=== PATIENT | female | born 1940 | race Caucasian/White ===

== ENCOUNTER 2017-09-08 16:37 | Inpatient (IN) | payer MEDICARE ==
[~2017-09-08] VITALS: Ht 154.9 cm; Wt 51.7 kg
[2017-09-08 18:00] LABS: BASO % 1 % (0-3); EOS # 0.1 x10^3/uL (0.0-0.7); EOS % 1 % (0-3); HEMATOCRIT 38.9 % (36.0-47.0); HEMOGLOBIN 13.1 g/dL (12.0-15.5); LYMPH # 1.9 x10^3/uL (1.0-4.8); LYMPH % 32 % (24-48); MEAN CORPUSCULAR HEMOGLOBIN 31 pg (25-35); MEAN CORPUSCULAR HGB CONC 34 g/dL (31-37); MEAN CORPUSCULAR VOLUME 92 fL (79-100); MONO # 0.5 x10^3/uL (0.0-1.1); MONO % 9 % (0-9); NEUT # 3.3 x10^3uL (1.8-7.7); NEUT % 57 % (31-73); PLATELET COUNT 138 x10^3/uL (140-400); RED BLOOD COUNT 4.22 x10^6/uL (3.50-5.40); RED CELL DISTRIBUTION WIDTH 14.4 % (11.5-14.5); WHITE BLOOD COUNT 5.8 x10^3/uL (4.0-11.0)
[2017-09-08 18:11] LABS: ALBUMIN 3.4 g/dL (3.4-5.0); CALCIUM 8.9 mg/dL (8.5-10.1); CREATININE 0.8 mg/dL (0.6-1.0); GFR 69.6; MAGNESIUM 2.1 mg/dL (1.8-2.4); POTASSIUM 3.6 mmol/L (3.5-5.1); TOTAL BILIRUBIN 0.7 mg/dL (0.2-1.0); TOTAL PROTEIN 6.8 g/dL (6.4-8.2)
--- NOTE | 2017-09-08 18:15 | EKG ---
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
[2017-09-08] MEDS ORDERED: DIVA125C PO (19:16)
[2017-09-08] MEDS ORDERED: SIMV40TA3 PO (19:16)
[2017-09-08] MEDS ORDERED: CITA10TA4 PO (19:16)
[2017-09-08] MEDS ORDERED: QUET50TA5 PO (19:16)
[2017-09-08] MEDS ORDERED: DOCU-109 PO (19:16)
[2017-09-08] MEDS ORDERED: QUET100T4 PO (19:16)
[2017-09-08] MEDS ORDERED: MELA3TAB2 PO (19:16)
[2017-09-08] MEDS ORDERED: LORA0.5T PO (19:16)
[2017-09-08] MEDS ORDERED: LEVO75TA5 PO (19:16)
[2017-09-08 19:39] LABS: COLOR,URINE YELLOW
[2017-09-08 19:40] LABS: BACTERIA,URINE 0 /HPF (0-FEW); BILIRUBIN,URINE NEG (NEG); CLARITY,URINE CLEAR; GLUCOSE,URINE NEG (NEG); NITRITE,URINE NEG (NEG); UROBILINOGEN,URINE 4 mg/dL (0.2 mg/dL)
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
[2017-09-08] MEDS ORDERED: ACETAMINOPHEN 325 MG TABLET PO PRN (22:00)
[2017-09-08] MEDS ORDERED: MAGNESIUM HYDROXIDE 2,400 MG/30 ML ORAL.SUSP. PO PRN (22:00)
[2017-09-08] MEDS ORDERED: MAG HYDROX/AL HYDROX/SIMETH 30 ML ORAL.SUSP PO PRN (22:00)
[2017-09-08] MEDS ORDERED: METHYL SALICYLATE/MENTHOL TOPICAL OINTMENT 29GM TUBE. TP PRN (22:00)
[2017-09-08 22:27] LABS: VAL ACID 39 mcg/mL (50-100)
[2017-09-08] MEDS: LORazepam 0.5 MG TABLET PO PRN (22:28)
[2017-09-08] MEDS: SIMVASTATIN 40 MG TABLET. PO SCH (22:29)
[2017-09-08] MEDS: DIVALPROEX 125 MG CAP.SPRINK PO SCH (22:29)
[2017-09-08] MEDS: QUEtiapine 100 MG TABLET. PO SCH (22:29)
[2017-09-08] MEDS: MELATONIN 3 MG TABLET PO PRN (22:29)
[2017-09-08] MEDS ORDERED: CITALOPRAM 10 MG TABLET. PO SCH (22:30)
[2017-09-09 02:43] VITALS: BP 135/62
[2017-09-09] MEDS ORDERED: LEVOTHYROXINE 75 MCG TABLET PO SCH (07:00)
[2017-09-09] MEDS ORDERED: FLU VACC QS2017-18 (36MOS+)/PF 0.5 ML SYRINGE. VAX IM ONE (09:00)
[2017-09-09] MEDS ORDERED: PNEUMOC CONJ VACC 23-VALENT 0.5 ML VIAL. VAX IM ONE (09:00)
[2017-09-09] MEDS: QUEtiapine 50 MG TABLET. PO SCH ×2 (11:40→14:03)
[2017-09-09] MEDS: DIVALPROEX 125 MG CAP.SPRINK PO SCH ×3 (11:40→19:28)
--- NOTE | 2017-09-09 11:47 | PDOC1 ---
History of Present Illness Reason for Visit: Abnormal behaviors History of Present Illness Pt sent to [facility] for evaluation in the [facility] unit due to dementia w/ worsening behaviors. Pt is a poor historian and does not offer much when spoken to, so the majority of this information is obtained from staff and pt's chart. Pt had apparently been living w/ her until about 4 months ago. She eventually was placed in a [place] memory care unit, and did not thrive. She lost weight and per reports things worsened. When I talked to her today, she would only say "yes" and "no," does not offer much other information. Chief Complaint: PSYCH EVALUATION Allergies: Coded Allergies: meclizine (Verified Allergy, Unknown, 09/08/17) Past Medical History Cardiac: hyperipidemia BAT[employer] CON[employer] FINISHING HAND: Dementia Psych: Depression Renal/: UTI Past Surgical History: No pertinent history Family History: No pertinent hx Past Social History Smoke: No Alcohol: none Drugs: None Lives: Long-Term Review of Systems Review Of Systems ROS unobtainable due to pt's dementia Allergies: Coded Allergies: meclizine (Verified Allergy, Unknown, 09/08/17) Medications Current Medications Acetaminophen (Tylenol) 650 mg PRN Q6HRS PRN PO PAIN / TEMP; Start 09/08/17 at 22:00 Multi-Ingredient Ointment (Analgesic [place]) 1 krzysztof PRN QID PRN TP MUSCLE PAIN; Start 09/08/17 at 22:00 Al Hydroxide/Mg Hydroxide (Mylanta Plus Xs) 15 ml PRN AFTMEALHC PRN PO DYSPEPSIA; Start 09/08/17 at 22:00 Magnesium Hydroxide (Milk Of Magnesia) 2,400 mg PRN QHS PRN PO CONSTIPATION; Start 09/08/17 at 22:00 Citalopram Hydrobromide (CeleXA) 30 mg QHS PO Last administered on 09/08/17at 22 :28; Start 09/08/17 at 22:30 Divalproex Sodium (Depakote Sprinkles) 125 mg TID PO Last administered on at 11:40; Start 09/08/17 at 22:30 Lorazepam (Ativan) 0.5 mg PRN Q12HR PRN PO ANXIETY / AGITATION Last administered on 09/08/17at 22:28; Start 09/08/17 at 22:00 Quetiapine Fumarate (SEROquel) 50 mg BID@0900,1300 PO Last administered on 09/09at 11:40; Start 09/09/17 at 09:00 Quetiapine Fumarate (SEROquel) 100 mg QHS PO Last administered on 09/08/17at 22: 29; Start 09/08/17 at 22:30 Melatonin 3 mg PRN QHS PRN PO INSOMNIA Last administered on 09/08/17at 22:29; Start 09/08/17 at 22:15 Docusate Sodium (Colace) 100 mg QTUTHSA PO ; Start 09/09/17 at 16:00 Levothyroxine Sodium (Synthroid) 75 mcg DAILY07 PO Last administered on at 05:44; Start 09/09/17 at 07:00 Simvastatin (Zocor) 40 mg HS PO Last administered on 09/08/17at 22:29; Start at 22:30 Influenza Virus Vaccine Quadrival (Fluarix Quad Syringe) 0.5 ml ONCE ONCE VAX IM ; Start 09/09/17 at 09:00; Stop 09/09/17 at 11:44; Status DC Pneumococcal Polyvalent Vaccine (Pneumovax 23) 0.5 ml ONCE ONCE VAX IM ; Start 09/09/17 at 09:00; Stop 09/09/17 at 11:44; Status DC Influenza Virus Vaccine Quadrival (Fluarix Quad Syringe) 0.5 ml ONCE ONCE VAX IM ; Start 09/11/17 at 13:00; Stop 09/11/17 at 13:01 Pneumococcal Polyvalent Vaccine (Pneumovax 23) 0.5 ml ONCE ONCE VAX IM ; Start 09/11/17 at 13:00; Stop 09/11/17 at 13:01 Active Scripts Active Reported Melatonin 3 Mg Tablet 3 Mg PO PRN QHS PRN Lorazepam 0.5 Mg Tablet 0.5 Mg PO PRN Q12HR PRN Depakote Sprinkle (Divalproex Sodium) 125 Mg Cap.sprink 125 Mg PO TID Seroquel (Quetiapine Fumarate) 50 Mg Tablet 50 Mg PO BID@0900,1300 Simvastatin 40 Mg Tablet 40 Mg PO HS Seroquel (Quetiapine Fumarate) 100 Mg Tablet 100 Mg PO QHS Levothyroxine Sodium 75 Mcg Tablet 75 Mcg PO DAILY07 Colace (Docusate Sodium) 100 Mg Capsule 100 Mg PO QTUTHSA Citalopram Hbr (Citalopram Hydrobromide) 10 Mg Tablet 30 Mg PO QHS Exam Vital Signs Vital Signs Date Time Temp Pulse Resp B/P (MAP) Pulse Ox O2 Delivery O2 Flow Rate FiO2 09/09/17 02:43 98.0 59 18 135/62 (86) 97 Room Air General Appearance: Alert, Cooperative, No acute distress HEENT: Atraumatic, PERRLA, EOMI, Mucous membr. moist/pink, Other (Neck without JVD or LAD) Respiratory: Clear to auscultation, Normal air movement Heart: Regular rate, Normal S1, Normal S2, No murmurs Abdominal: Soft, No tenderness, No hepatospenomegaly, No masses Skin: No rashes Neuro: Normal speech, Normal tone, Cranial nerves 3-12 NL Psych/Mental Status: Other (Pt confused, does not answer questions other than y /n) Assessment/Plan Assessment/Plan 1. Dementia w/ behavioral disturbance: Per Dr. Fontana. 2. Hypothyroidism: TSH low. Will decrease Levothyroxine dose to 50 mcg from 75, and repeat TSH in 4 weeks. 3. Vitamin D deficiency: 50,000 IU Vit D3 weekly x 8 weeks. 4. DVT proph: Pt fully ambulatory, low risk, no need for heparin. 5. HPL: Continue home meds. COURSE Allergies Coded Allergies Type Severity Reaction Last Updated Verified meclizine Allergy Unknown 09/08/17 Yes Laboratory Tests Test 09/08/17 17:39 09/08/17 18:41 White Blood Count 5.8 x10^3/uL (4.0-11.0) Red Blood Count 4.22 x10^6/uL (3.50-5.40) Hemoglobin 13.1 g/dL (12.0-15.5) Hematocrit 38.9 % (36.0-47.0) Mean Corpuscular Volume 92 fL (79-100) Mean Corpuscular Hemoglobin 31 pg (25-35) Mean Corpuscular Hemoglobin Concent 34 g/dL (31-37) Red Cell Distribution Width 14.4 % (11.5-14.5) Platelet Count 138 x10^3/uL (140-400) Neutrophils (%) (Auto) 57 % (31-73) Lymphocytes (%) (Auto) 32 % (24-48) Monocytes (%) (Auto) 9 % (0-9) Eosinophils (%) (Auto) 1 % (0-3) Basophils (%) (Auto) 1 % (0-3) Neutrophils # (Auto) 3.3 x10^3uL (1.8-7.7) Lymphocytes # (Auto) 1.9 x10^3/uL (1.0-4.8) Monocytes # (Auto) 0.5 x10^3/uL (0.0-1.1) Eosinophils # (Auto) 0.1 x10^3/uL (0.0-0.7) Basophils # (Auto) 0.0 x10^3/uL (0.0-0.2) Sodium Level 144 mmol/L (136-145) Potassium Level 3.6 mmol/L (3.5-5.1) Chloride Level 107 mmol/L (98-107) Carbon Dioxide Level 29 mmol/L (21-32) Anion Gap 8 (6-14) Blood Urea Nitrogen 17 mg/dL (7-20) Creatinine 0.8 mg/dL (0.6-1.0) Estimated GFR (Cockcroft-Gault) 69.6 BUN/Creatinine Ratio 21 (6-20) Glucose Level 94 mg/dL (70-99) Calcium Level 8.9 mg/dL (8.5-10.1) Magnesium Level 2.1 mg/dL (1.8-2.4) Total Bilirubin 0.7 mg/dL (0.2-1.0) Aspartate Amino Transf (AST/SGOT) 19 U/L (15-37) Alanine Aminotransferase (ALT/SGPT) 21 U/L (14-59) Alkaline Phosphatase 68 U/L (46-116) Total Protein 6.8 g/dL (6.4-8.2) Albumin 3.4 g/dL (3.4-5.0) Albumin/Globulin Ratio 1.0 (1.0-1.7) Valproic Acid (Depakene) Level 39 mcg/mL (50-100) Valproic Acid Last Dose Date 09/08/17 Valproic Acid Last Dose Time 1300 Urine Collection Type U cath Urine Color Yellow Urine Clarity Clear Urine pH 7.0 Urine Specific [place] 1.020 Urine Protein 30 mg/dl (NEG-TRACE) Urine Glucose (UA) Neg mg/dL (NEG) Urine Ketones (Stick) 40 mg/dL (NEG) Urine Blood Neg (NEG) Urine Nitrite Neg (NEG) Urine Bilirubin Neg (NEG) Urine Urobilinogen Dipstick 4 mg/dL (0.2 mg/dL) Urine Leukocyte Esterase Neg (NEG) Urine RBC 3-5 /HPF (0-2) Urine WBC 1-4 /HPF (0-4) Urine Squamous Epithelial Cells None /LPF Urine Bacteria 0 /HPF (0-FEW) Urine Mucus Mod /LPF Current Medications Medications (Trade) Dose Ordered Sig/Von Route PRN Reason Start Time Stop Time Status Last Admin Dose Admin Acetaminophen (Tylenol) 650 mg PRN Q6HRS PRN PO PAIN / TEMP 09/08/17 22:00 Multi-Ingredient Ointment (Analgesic [place]) 1 krzysztof PRN QID PRN TP MUSCLE PAIN 09/08/17 22:00 Al Hydroxide/Mg Hydroxide (Mylanta Plus Xs) 15 ml PRN AFTMEALHC PRN PO DYSPEPSIA 09/08/17 22:00 Magnesium Hydroxide (Milk Of Magnesia) 2,400 mg PRN QHS PRN PO CONSTIPATION 09/08/17 22:00 Citalopram Hydrobromide (CeleXA) 30 mg QHS PO 09/08/17 22:30 09/08/17 22:28 Divalproex Sodium (Depakote Sprinkles) 125 mg TID PO 09/08/17 22:30 09/09/17 11:40 Lorazepam (Ativan) 0.5 mg PRN Q12HR PRN PO ANXIETY / AGITATION 09/08/17 22:00 09/08/17 22:28 Quetiapine Fumarate (SEROquel) 50 mg BID@0900,1300 PO 09/09/17 09:00 09/09/17 11:40 Quetiapine Fumarate (SEROquel) 100 mg QHS PO 09/08/17 22:30 09/08/17 22:29 Melatonin 3 mg PRN QHS PRN PO INSOMNIA 09/08/17 22:15 09/08/17 22:29 Docusate Sodium (Colace) 100 mg QTUTHSA PO 09/09/17 16:00 Levothyroxine Sodium (Synthroid) 75 mcg DAILY07 PO 09/09/17 07:00 09/09/17 05:44 Simvastatin (Zocor) 40 mg HS PO 09/08/17 22:30 09/08/17 22:29 Influenza Virus Vaccine Quadrival (Fluarix Quad Syringe) 0.5 ml ONCE ONCE VAX IM 09/09/17 09:00 09/09/17 11:44 DC Pneumococcal Polyvalent Vaccine (Pneumovax 23) 0.5 ml ONCE ONCE VAX IM 09/09/17 09:00 09/09/17 11:44 DC Influenza Virus Vaccine Quadrival (Fluarix Quad Syringe) 0.5 ml ONCE ONCE VAX IM 09/11/17 13:00 09/11/17 13:01 Pneumococcal Polyvalent Vaccine (Pneumovax 23) 0.5 ml ONCE ONCE VAX IM 09/11/17 13:00 09/11/17 13:01 I & O 09/09/17 00:00 Intake Total 240 ml Balance 240 ml Vital Signs Date Time Temp Pulse Resp B/P (MAP) Pulse Ox O2 Delivery O2 Flow Rate FiO2 09/09/17 02:43 98.0 59 18 135/62 (86) 97 Room Air BRYAN STOVER MD Sep 09, 2017 11:47
[2017-09-09] MEDS: LORazepam 0.5 MG TABLET PO PRN (12:21)
[2017-09-09 13:40] LABS: THYROID STIM HORMONE (TSH) 0.309 uIU/mL (0.358-3.740)
--- NOTE | 2017-09-09 15:08 | RAD ---
CT HEAD WO CONTRAST History: Memory impairment Comparison: None. Technique: Noncontrast CT imaging was performed of the head. Exposure: One or more of the following individualized dose reduction techniques were utilized for this examination: 1. Automated exposure control 2. Adjustment of the mA and/or kV according to patient size 3. Use of iterative reconstruction technique. Findings: No acute extra-axial or parenchymal hemorrhage is identified. There is no significant intra-axial mass effect, midline shift, or extra-axial fluid collection. The bolaños-white differentiation of the major vascular territories is preserved. There is mild third and lateral ventriculomegaly although proportionate to the sulcal spaces, mild/moderate generalized supratentorial atrophy. The mastoid air cells and the visualized paranasal sinuses are aerated. No acute calvarial abnormality is identified. There is some atherosclerotic calcification carotid siphons and left intradural vertebral artery. Impression: 1. There is generalized supratentorial atrophy, no acute intracranial abnormality identified. Electronically signed by: Darshan Banda MD (09/09/2017 3:06 PM) [id number]
[2017-09-09] MEDS ORDERED: DOCUSATE SODIUM 100 MG CAPSULE PO SCH (16:00)
[2017-09-09 18:07] VITALS: BP 117/66
[2017-09-09] MEDS: QUEtiapine 100 MG TABLET. PO SCH (19:28)
[2017-09-09] MEDS: SIMVASTATIN 40 MG TABLET. PO SCH (19:28)
[2017-09-09] MEDS: DULoxetine HCL 20 MG CAPSULE.DR PO SCH (19:30)
[2017-09-09] MEDS: MELATONIN 3 MG TABLET PO PRN (19:34)
--- NOTE | 2017-09-09 20:44 | PDOC ---
Exam Note: [place] Note: Please also refer to the separate dictated note~for this date of service dictated separately.~Patient seen individually. Discussed the patient with Nursing staff reviewed the chart.~Reviewed interim history and current functioning. Reviewed vital signs,~Labs/ Radiology~and current medications noted below. Continue current treatment with the changes noted in the dictated addendum note Assessment: Vital Signs: Vital Signs Date Time Temp Pulse Resp B/P (MAP) Pulse Ox O2 Delivery O2 Flow Rate FiO2 09/09/17 18:07 97.8 63 20 117/66 (83) 97 09/09/17 02:43 Room Air I&O Intake and Output 09/09/17 07:00 Intake Total 240 ml Balance 240 ml Intake Oral 240 ml Current Medications: Meds: Current Medications Acetaminophen (Tylenol) 650 mg PRN Q6HRS PRN PO PAIN / TEMP; Start 09/08/17 at 22:00 Multi-Ingredient Ointment (Analgesic [place]) 1 krzysztof PRN QID PRN TP MUSCLE PAIN; Start 09/08/17 at 22:00 Al Hydroxide/Mg Hydroxide (Mylanta Plus Xs) 15 ml PRN AFTMEALHC PRN PO DYSPEPSIA; Start 09/08/17 at 22:00 Magnesium Hydroxide (Milk Of Magnesia) 2,400 mg PRN QHS PRN PO CONSTIPATION; Start 09/08/17 at 22:00 Citalopram Hydrobromide (CeleXA) 30 mg QHS PO Last administered on 09/08/17at 22 :28; Start 09/08/17 at 22:30; Stop 09/09/17 at 18:16; Status DC Divalproex Sodium (Depakote Sprinkles) 125 mg TID PO Last administered on at 19:28; Start 09/08/17 at 22:30 Lorazepam (Ativan) 0.5 mg PRN Q12HR PRN PO ANXIETY / AGITATION Last administered on 09/09/17at 12:21; Start 09/08/17 at 22:00 Quetiapine Fumarate (SEROquel) 50 mg BID@0900,1300 PO Last administered on 09/09at 14:03; Start 09/09/17 at 09:00 Quetiapine Fumarate (SEROquel) 100 mg QHS PO Last administered on 09/09/17at 19: 28; Start 09/08/17 at 22:30 Melatonin 3 mg PRN QHS PRN PO INSOMNIA Last administered on 09/09/17at 19:34; Start 09/08/17 at 22:15 Docusate Sodium (Colace) 100 mg QTUTHSA PO Last administered on 09/09/17at 16:27 ; Start 09/09/17 at 16:00 Levothyroxine Sodium (Synthroid) 75 mcg DAILY07 PO Last administered on at 05:44; Start 09/09/17 at 07:00; Stop 09/09/17 at 14:30; Status DC Simvastatin (Zocor) 40 mg HS PO Last administered on 09/09/17 19:28; Start at 22:30 Influenza Virus Vaccine Quadrival (Fluarix Quad Syringe) 0.5 ml ONCE ONCE VAX IM ; Start 09/09/17 at 09:00; Stop 09/09/17 at 11:44; Status DC Pneumococcal Polyvalent Vaccine (Pneumovax 23) 0.5 ml ONCE ONCE VAX IM ; Start 09/09/17 at 09:00; Stop 09/09/17 at 11:44; Status DC Influenza Virus Vaccine Quadrival (Fluarix Quad Syringe) 0.5 ml ONCE ONCE VAX IM ; Start 09/11/17 at 13:00; Stop 09/11/17 at 13:01 Pneumococcal Polyvalent Vaccine (Pneumovax 23) 0.5 ml ONCE ONCE VAX IM ; Start 09/11/17 at 13:00; Stop 09/11/17 at 13:01 Levothyroxine Sodium (Synthroid) 50 mcg DAILY06 PO ; Start 09/10/17 at 06:00 Vitamin D (Vitamin D3) 50,000 unit WEEKLY PO ; Start 09/10/17 at 09:00; Stop at 08:59 Duloxetine HCl (Cymbalta) 20 mg HS PO Last administered on 09/09/17at 19:30; Start 09/09/17 at 21:00 Active Scripts Active Reported Melatonin 3 Mg Tablet 3 Mg PO PRN QHS PRN Lorazepam 0.5 Mg Tablet 0.5 Mg PO PRN Q12HR PRN Depakote Sprinkle (Divalproex Sodium) 125 Mg Cap.sprink 125 Mg PO TID Seroquel (Quetiapine Fumarate) 50 Mg Tablet 50 Mg PO BID@0900,1300 Simvastatin 40 Mg Tablet 40 Mg PO HS Seroquel (Quetiapine Fumarate) 100 Mg Tablet 100 Mg PO QHS Levothyroxine Sodium 75 Mcg Tablet 75 Mcg PO DAILY07 Colace (Docusate Sodium) 100 Mg Capsule 100 Mg PO QTUTHSA Citalopram Hbr (Citalopram Hydrobromide) 10 Mg Tablet 30 Mg PO QHS I have reviewed the current psychotropics carefully including drug interactions. Risk benefit ratio favors no change other than as noted in my dictated progress note. Diagnosis: Problems: (1) Anxiety disorder (2) Dementia in Alzheimer's disease with delusions (3) Dementia in Alzheimer's disease with depression (4) Dementia, vascular, with delusions (5) Dementia, vascular, with depression (6) Impulse control disorder KODY GODINEZ MD Sep 09, 2017 20:44
[2017-09-09 22:11] LABS: T3 TOTAL 80 ng/dL (71-180); THYROXINE 8.3 ug/dL (4.5-12.0)
[2017-09-10 03:12] LABS: HEMOGLOBIN A1C 5.5 % (4.8-5.6)
[2017-09-10] MEDS: LEVOTHYROXINE 50 MCG TABLET PO SCH (05:53)
[2017-09-10 06:27] VITALS: BP 112/81
[2017-09-10] MEDS: DIVALPROEX 125 MG CAP.SPRINK PO SCH ×3 (09:03→19:23)
[2017-09-10] MEDS: QUEtiapine 50 MG TABLET. PO SCH ×2 (09:03→13:57)
[2017-09-10] MEDS: CHOLECALCIFEROL (VITAMIN D3) 50,000 UNIT CAPSULE PO SCH (09:03)
[2017-09-10 15:54] VITALS: BP 118/71
[2017-09-10] MEDS: QUEtiapine 100 MG TABLET. PO SCH (19:23)
[2017-09-10] MEDS: SIMVASTATIN 40 MG TABLET. PO SCH (19:23)
[2017-09-10] MEDS: DULoxetine HCL 20 MG CAPSULE.DR PO SCH (19:23)
[2017-09-10] MEDS: MELATONIN 3 MG TABLET PO PRN (19:24)
--- NOTE | 2017-09-10 19:29 | PN ---
DATE: 09/09/2017 This is a late entry for 09/09/2017 and covers the elements not covered in my initial note of 09/09/2017. SUBJECTIVE: I met with the patient in the evening of 09/09/2017. The patient slept 5-1/2 hours previous evening, remains confused, oriented to herself only. Previous night, she was calm, compliant after the family left. She had Boost. CT head is unremarkable other than the atrophy. REVIEW OF SYSTEMS: No CV, , pulmonary, eye, ENT system symptoms on review. Reliability poor. MENTAL STATUS EXAM: Oriented to herself. Insight, judgment, recent and remote memory, attention, concentration, fund of knowledge poor, consistent with her diagnosis mentioned in my initial note. PLAN: Continue current psychotropics, but change the Celexa to Cymbalta 20 mg a day. Maintain Seroquel, Depakote. Valproic acid level is 39. May need to adjust the Depakote. Continue melatonin along with Ativan p.r.n. KODY GODINEZ MD DR: CAROLYN/maria isabel JOB#: [id number] / [id number]
--- NOTE | 2017-09-10 20:53 | PDOC ---
Exam Note: Wilmar Note: Please also refer to the separate dictated note~for this date of service dictated separately.~Patient seen individually. Discussed the patient with Nursing staff reviewed the chart.~Reviewed interim history and current functioning. Reviewed vital signs,~Labs/ Radiology~and current medications noted below. Continue current treatment with the changes noted in the dictated addendum note Assessment: Vital Signs: Vital Signs Date Time Temp Pulse Resp B/P (MAP) Pulse Ox O2 Delivery O2 Flow Rate FiO2 09/10/17 15:54 98.4 72 18 118/71 (87) 97 09/09/17 02:43 Room Air I&O Intake and Output 09/10/17 07:00 Intake Total 30 ml Balance 30 ml Intake Oral 30 ml Current Medications: Meds: Current Medications Acetaminophen (Tylenol) 650 mg PRN Q6HRS PRN PO PAIN / TEMP; Start 09/08/17 at 22:00 Multi-Ingredient Ointment (Analgesic [place]) 1 krzysztof PRN QID PRN TP MUSCLE PAIN; Start 09/08/17 at 22:00 Al Hydroxide/Mg Hydroxide (Mylanta Plus Xs) 15 ml PRN AFTMEALHC PRN PO DYSPEPSIA; Start 09/08/17 at 22:00 Magnesium Hydroxide (Milk Of Magnesia) 2,400 mg PRN QHS PRN PO CONSTIPATION; Start 09/08/17 at 22:00 Citalopram Hydrobromide (CeleXA) 30 mg QHS PO Last administered on 09/08/17at 22 :28; Start 09/08/17 at 22:30; Stop 09/09/17 at 18:16; Status DC Divalproex Sodium (Depakote Sprinkles) 125 mg TID PO Last administered on at 19:23; Start 09/08/17 at 22:30 Lorazepam (Ativan) 0.5 mg PRN Q12HR PRN PO ANXIETY / AGITATION Last administered on 09/09/17at 12:21; Start 09/08/17 at 22:00 Quetiapine Fumarate (SEROquel) 50 mg BID@0900,1300 PO Last administered on 09/10at 13:57; Start 09/09/17 at 09:00 Quetiapine Fumarate (SEROquel) 100 mg QHS PO Last administered on 09/10/17at 19: 23; Start 09/08/17 at 22:30 Melatonin 3 mg PRN QHS PRN PO INSOMNIA Last administered on 09/10/17at 19:24; Start 09/08/17 at 22:15 Docusate Sodium (Colace) 100 mg QTUTHSA PO Last administered on 09/09/17at 16:27 ; Start 09/09/17 at 16:00; Stop 09/10/17 at 16:13; Status DC Levothyroxine Sodium (Synthroid) 75 mcg DAILY07 PO Last administered on at 05:44; Start 09/09/17 at 07:00; Stop 09/09/17 at 14:30; Status DC Simvastatin (Zocor) 40 mg HS PO Last administered on 09/10/17at 19:23; Start at 22:30 Influenza Virus Vaccine Quadrival (Fluarix Quad Syringe) 0.5 ml ONCE ONCE VAX IM ; Start 09/09/17 at 09:00; Stop 09/09/17 at 11:44; Status DC Pneumococcal Polyvalent Vaccine (Pneumovax 23) 0.5 ml ONCE ONCE VAX IM ; Start 09/09/17 at 09:00; Stop 09/09/17 at 11:44; Status DC Influenza Virus Vaccine Quadrival (Fluarix Quad Syringe) 0.5 ml ONCE ONCE VAX IM ; Start 09/11/17 at 13:00; Stop 09/11/17 at 13:01 Pneumococcal Polyvalent Vaccine (Pneumovax 23) 0.5 ml ONCE ONCE VAX IM ; Start 09/11/17 at 13:00; Stop 09/11/17 at 13:01 Levothyroxine Sodium (Synthroid) 50 mcg DAILY06 PO Last administered on at 05:53; Start 09/10/17 at 06:00 Vitamin D (Vitamin D3) 50,000 unit WEEKLY PO Last administered on 09/10/17at 09: 03; Start 09/10/17 at 09:00; Stop 11/14/17 at 08:59 Duloxetine HCl (Cymbalta) 20 mg HS PO Last administered on 09/10/17at 19:23; Start 09/09/17 at 21:00 Docusate Sodium (Colace Solution) 100 mg DAILY PO ; Start 09/11/17 at 09:00 Active Scripts Active Reported Melatonin 3 Mg Tablet 3 Mg PO PRN QHS PRN Lorazepam 0.5 Mg Tablet 0.5 Mg PO PRN Q12HR PRN Depakote Sprinkle (Divalproex Sodium) 125 Mg Cap.sprink 125 Mg PO TID Seroquel (Quetiapine Fumarate) 50 Mg Tablet 50 Mg PO BID@0900,1300 Simvastatin 40 Mg Tablet 40 Mg PO HS Seroquel (Quetiapine Fumarate) 100 Mg Tablet 100 Mg PO QHS Levothyroxine Sodium 75 Mcg Tablet 75 Mcg PO DAILY07 Colace (Docusate Sodium) 100 Mg Capsule 100 Mg PO QTUTHSA Citalopram Hbr (Citalopram Hydrobromide) 10 Mg Tablet 30 Mg PO QHS I have reviewed the current psychotropics carefully including drug interactions. Risk benefit ratio favors no change other than as noted in my dictated progress note. Diagnosis: Problems: (1) Anxiety disorder (2) Dementia in Alzheimer's disease with delusions (3) Dementia in Alzheimer's disease with depression (4) Dementia, vascular, with delusions (5) Dementia, vascular, with depression (6) Impulse control disorder KODY GODINEZ MD Sep 10, 2017 20:53
[2017-09-11] MEDS: LEVOTHYROXINE 50 MCG TABLET PO SCH (05:42)
[2017-09-11 05:49] VITALS: BP 114/54
[2017-09-11] MEDS: QUEtiapine 50 MG TABLET. PO SCH ×3 (09:00→13:49)
[2017-09-11] MEDS: DOCUSATE 100 MG/10 ML SOLUTION. PO SCH ×2 (09:00→09:40)
[2017-09-11] MEDS: DIVALPROEX 125 MG CAP.SPRINK PO SCH ×3 (09:37→17:38)
[2017-09-11] MEDS: LORazepam 0.5 MG TABLET PO PRN (10:14)
[2017-09-11] MEDS ORDERED: PNEUMOC CONJ VACC 23-VALENT 0.5 ML VIAL. VAX IM ONE (13:00)
[2017-09-11] MEDS ORDERED: FLU VACC QS2017-18 (36MOS+)/PF 0.5 ML SYRINGE. VAX IM ONE (13:00)
[2017-09-11 16:00] VITALS: BP 97/53
[2017-09-11] MEDS: SIMVASTATIN 40 MG TABLET. PO SCH (19:47)
[2017-09-11] MEDS: QUEtiapine 100 MG TABLET. PO SCH (19:47)
[2017-09-11] MEDS: DULoxetine HCL 20 MG CAPSULE.DR PO SCH (19:47)
[2017-09-11] MEDS: MELATONIN 3 MG TABLET PO PRN (19:48)
--- NOTE | 2017-09-11 20:55 | PDOC ---
Exam Note: Wilmar Note: Please also refer to the separate dictated note~for this date of service dictated separately.~Patient seen individually. Discussed the patient with Nursing staff reviewed the chart.~Reviewed interim history and current functioning. Reviewed vital signs,~Labs/ Radiology~and current medications noted below. Continue current treatment with the changes noted in the dictated addendum note Assessment: Vital Signs: Vital Signs Date Time Temp Pulse Resp B/P (MAP) Pulse Ox O2 Delivery O2 Flow Rate FiO2 09/11/17 16:00 98.5 67 20 97/53 (68) 99 09/09/17 02:43 Room Air I&O Intake and Output 09/11/17 07:00 Intake Total 1260 ml Balance 1260 ml Intake Oral 1260 ml # Voids 2 Current Medications: Meds: Current Medications Acetaminophen (Tylenol) 650 mg PRN Q6HRS PRN PO PAIN / TEMP; Start 09/08/17 at 22:00 Multi-Ingredient Ointment (Analgesic [place]) 1 krzysztof PRN QID PRN TP MUSCLE PAIN; Start 09/08/17 at 22:00 Al Hydroxide/Mg Hydroxide (Mylanta Plus Xs) 15 ml PRN AFTMEALHC PRN PO DYSPEPSIA; Start 09/08/17 at 22:00 Magnesium Hydroxide (Milk Of Magnesia) 2,400 mg PRN QHS PRN PO CONSTIPATION; Start 09/08/17 at 22:00 Citalopram Hydrobromide (CeleXA) 30 mg QHS PO Last administered on 09/08/17at 22 :28; Start 09/08/17 at 22:30; Stop 09/09/17 at 18:16; Status DC Divalproex Sodium (Depakote Sprinkles) 125 mg TID PO Last administered on at 19:23; Start 09/08/17 at 22:30; Stop 09/11/17 at 10:51; Status DC Lorazepam (Ativan) 0.5 mg PRN Q12HR PRN PO ANXIETY / AGITATION Last administered on 09/11/17at 10:14; Start 09/08/17 at 22:00 Quetiapine Fumarate (SEROquel) 50 mg BID@0900,1300 PO Last administered on 09/11at 13:49; Start 09/09/17 at 09:00 Quetiapine Fumarate (SEROquel) 100 mg QHS PO Last administered on 09/11/17at 19: 47; Start 09/08/17 at 22:30 Melatonin 3 mg PRN QHS PRN PO INSOMNIA Last administered on 09/11/17at 19:48; Start 09/08/17 at 22:15 Docusate Sodium (Colace) 100 mg QTUTHSA PO Last administered on 09/09/17at 16:27 ; Start 09/09/17 at 16:00; Stop 09/10/17 at 16:13; Status DC Levothyroxine Sodium (Synthroid) 75 mcg DAILY07 PO Last administered on at 05:44; Start 09/09/17 at 07:00; Stop 09/09/17 at 14:30; Status DC Simvastatin (Zocor) 40 mg HS PO Last administered on 09/11/17at 19:47; Start at 22:30 Influenza Virus Vaccine Quadrival (Fluarix Quad Syringe) 0.5 ml ONCE ONCE VAX IM ; Start 09/09/17 at 09:00; Stop 09/09/17 at 11:44; Status DC Pneumococcal Polyvalent Vaccine (Pneumovax 23) 0.5 ml ONCE ONCE VAX IM ; Start 09/09/17 at 09:00; Stop 09/09/17 at 11:44; Status DC Influenza Virus Vaccine Quadrival (Fluarix Quad Syringe) 0.5 ml ONCE ONCE VAX IM Last administered on 09/11/17at 15:23; Start 09/11/17 at 13:00; Stop 09/11/17 at 13:01; Status DC Pneumococcal Polyvalent Vaccine (Pneumovax 23) 0.5 ml ONCE ONCE VAX IM Last administered on 09/11/17at 15:25; Start 09/11/17 at 13:00; Stop 09/11/17 at 13:01 ; Status DC Levothyroxine Sodium (Synthroid) 50 mcg DAILY06 PO Last administered on at 05:42; Start 09/10/17 at 06:00 Vitamin D (Vitamin D3) 50,000 unit WEEKLY PO Last administered on 09/10/17at 09: 03; Start 09/10/17 at 09:00; Stop 11/14/17 at 08:59 Duloxetine HCl (Cymbalta) 20 mg HS PO Last administered on 09/11/17at 19:47; Start 09/09/17 at 21:00 Docusate Sodium (Colace Solution) 100 mg DAILY PO ; Start 09/11/17 at 09:00 Divalproex Sodium (Depakote Sprinkles) 125 mg BID@1300,1700 PO Last administered on 09/11/17at 17:38; Start 09/11/17 at 13:00 Divalproex Sodium (Depakote Sprinkles) 250 mg DAILY PO ; Start 09/12/17 at 09:00 Active Scripts Active Reported Melatonin 3 Mg Tablet 3 Mg PO PRN QHS PRN Lorazepam 0.5 Mg Tablet 0.5 Mg PO PRN Q12HR PRN Depakote Sprinkle (Divalproex Sodium) 125 Mg Cap.sprink 125 Mg PO TID Seroquel (Quetiapine Fumarate) 50 Mg Tablet 50 Mg PO BID@0900,1300 Simvastatin 40 Mg Tablet 40 Mg PO HS Seroquel (Quetiapine Fumarate) 100 Mg Tablet 100 Mg PO QHS Levothyroxine Sodium 75 Mcg Tablet 75 Mcg PO DAILY07 Colace (Docusate Sodium) 100 Mg Capsule 100 Mg PO QTUTHSA Citalopram Hbr (Citalopram Hydrobromide) 10 Mg Tablet 30 Mg PO QHS I have reviewed the current psychotropics carefully including drug interactions. Risk benefit ratio favors no change other than as noted in my dictated progress note. Diagnosis: Problems: (1) Anxiety disorder (2) Dementia in Alzheimer's disease with delusions (3) Dementia in Alzheimer's disease with depression (4) Dementia, vascular, with delusions (5) Dementia, vascular, with depression (6) Impulse control disorder KODY GODINEZ MD Sep 11, 2017 20:55
[2017-09-12] MEDS: LEVOTHYROXINE 50 MCG TABLET PO SCH (06:02)
--- NOTE | 2017-09-12 10:09 | PN ---
DATE: 09/10/2017 This is a late entry 09/10/2017 covers elements not covered in my initial note 09/10/2017. I met with the patient evening of 09/10/2017. The patient did take a shower, slept 7-1/2 hours previous evening, slept all day the previous day, wandering, confused, disorganized on 09/10/2017, less agitated, had breakfast and lunch. REVIEW OF SYSTEMS: No CV, , pulmonary, eye, ENT system symptoms on review. Reliability poor. MENTAL STATUS EXAM: Oriented to herself. Insight, judgment, recent and remote memory, attention, concentration, fund of knowledge poor, consistent with her diagnosis mentioned in my initial note. PLAN: Continue current psychotropics. Adjust further as clinically indicated. She was on antidepressant, was changed to Cymbalta and we may have to adjust the Seroquel and Depakote gradually. KODY GODINEZ MD DR: CAROLYN/maria isabel JOB#: [id number] / [id number]
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
[2017-09-12] MEDS: LORazepam 0.5 MG TABLET PO PRN (10:42)
[2017-09-12] MEDS: DOCUSATE 100 MG/10 ML SOLUTION. PO SCH (10:42)
[2017-09-12] MEDS: DIVALPROEX 125 MG CAP.SPRINK PO SCH ×4 (10:42→17:10)
[2017-09-12] MEDS: QUEtiapine 50 MG TABLET. PO SCH ×2 (10:42→13:27)
--- NOTE | 2017-09-12 15:54 | PN ---
DATE: 09/11/2017 This late entry date of service 09/11/2017 covers elements not covered in my initial note of 09/11/2017. SUBJECTIVE: The patient was staffed with the entire team morning of 09/11/2017. Seen individually evening of 09/11/2017. She was agitated in the morning, restless, anxious, labile, received Ativan at 10:00 a.m. and has been up and down all day in her mood lability. Appetite remains poor at times, but she did eat breakfast, lunch, nothing for dinner. Slept 7-1/2 hours. REVIEW OF SYSTEMS: No CV, , pulmonary, eye, ENT system symptoms on review. Reliability poor. MENTAL STATUS EXAM: Oriented to herself. Insight, judgment, recent and remote memory, attention, concentration, fund of knowledge poor, consistent with her diagnosis mentioned in my initial note. IMPRESSION: Major neurocognitive disorder, Alzheimer, vascular with depression, delusion, behavioral disturbance. Rest unchanged. PLAN: Valproic acid level subtherapeutic at 39. Increase Depakote from 125 mg 3 times a day to 250 mg a.m. and p.m., 125 mg in the afternoon. Check CBC, CMP, valproic acid level in 3 days. Continue rest unchanged. MAN Araceli GODINEZ MD DR: CAROLYN/maria isabel JOB#: [id number] / [id number]
[2017-09-12 16:09] VITALS: BP 105/58
[2017-09-12] MEDS: DULoxetine HCL 20 MG CAPSULE.DR PO SCH (19:38)
[2017-09-12] MEDS: QUEtiapine 100 MG TABLET. PO SCH (19:38)
[2017-09-12] MEDS: SIMVASTATIN 40 MG TABLET. PO SCH (19:38)
--- NOTE | 2017-09-12 20:57 | PDOC ---
Exam Note: Wilmar Note: Please also refer to the separate dictated note~for this date of service dictated separately.~Patient seen individually. Discussed the patient with Nursing staff reviewed the chart.~Reviewed interim history and current functioning. Reviewed vital signs,~Labs/ Radiology~and current medications noted below. Continue current treatment with the changes noted in the dictated addendum note Assessment: Vital Signs: Vital Signs Date Time Temp Pulse Resp B/P (MAP) Pulse Ox O2 Delivery O2 Flow Rate FiO2 09/12/17 16:09 98.1 64 16 105/58 (74) 99 09/09/17 02:43 Room Air I&O Intake and Output 09/12/17 07:00 Intake Total 480 ml Balance 480 ml Intake Oral 480 ml # Voids 1 Current Medications: Meds: Current Medications Acetaminophen (Tylenol) 650 mg PRN Q6HRS PRN PO PAIN / TEMP; Start 09/08/17 at 22:00 Multi-Ingredient Ointment (Analgesic [place]) 1 krzysztof PRN QID PRN TP MUSCLE PAIN; Start 09/08/17 at 22:00 Al Hydroxide/Mg Hydroxide (Mylanta Plus Xs) 15 ml PRN AFTMEALHC PRN PO DYSPEPSIA; Start 09/08/17 at 22:00 Magnesium Hydroxide (Milk Of Magnesia) 2,400 mg PRN QHS PRN PO CONSTIPATION; Start 09/08/17 at 22:00 Citalopram Hydrobromide (CeleXA) 30 mg QHS PO Last administered on 09/08/17at 22 :28; Start 09/08/17 at 22:30; Stop 09/09/17 at 18:16; Status DC Divalproex Sodium (Depakote Sprinkles) 125 mg TID PO Last administered on at 19:23; Start 09/08/17 at 22:30; Stop 09/11/17 at 10:51; Status DC Lorazepam (Ativan) 0.5 mg PRN Q12HR PRN PO ANXIETY / AGITATION Last administered on 09/12/17at 10:42; Start 09/08/17 at 22:00 Quetiapine Fumarate (SEROquel) 50 mg BID@0900,1300 PO Last administered on 09/12at 13:27; Start 09/09/17 at 09:00 Quetiapine Fumarate (SEROquel) 100 mg QHS PO Last administered on 09/12/17 19: 38; Start 09/08/17 at 22:30 Melatonin 3 mg PRN QHS PRN PO INSOMNIA Last administered on 09/11/17at 19:48; Start 09/08/17 at 22:15 Docusate Sodium (Colace) 100 mg QTUTHSA PO Last administered on 09/09/17 16:27 ; Start 09/09/17 at 16:00; Stop 09/10/17 at 16:13; Status DC Levothyroxine Sodium (Synthroid) 75 mcg DAILY07 PO Last administered on at 05:44; Start 09/09/17 at 07:00; Stop 09/09/17 at 14:30; Status DC Simvastatin (Zocor) 40 mg HS PO Last administered on 09/12/17at 19:38; Start at 22:30 Influenza Virus Vaccine Quadrival (Fluarix Quad Syringe) 0.5 ml ONCE ONCE VAX IM ; Start 09/09/17 at 09:00; Stop 09/09/17 at 11:44; Status DC Pneumococcal Polyvalent Vaccine (Pneumovax 23) 0.5 ml ONCE ONCE VAX IM ; Start 09/09/17 at 09:00; Stop 09/09/17 at 11:44; Status DC Influenza Virus Vaccine Quadrival (Fluarix Quad Syringe) 0.5 ml ONCE ONCE VAX IM Last administered on 09/11/17at 15:23; Start 09/11/17 at 13:00; Stop 09/11/17 at 13:01; Status DC Pneumococcal Polyvalent Vaccine (Pneumovax 23) 0.5 ml ONCE ONCE VAX IM Last administered on 09/11/17at 15:25; Start 09/11/17 at 13:00; Stop 09/11/17 at 13:01 ; Status DC Levothyroxine Sodium (Synthroid) 50 mcg DAILY06 PO Last administered on at 06:02; Start 09/10/17 at 06:00 Vitamin D (Vitamin D3) 50,000 unit WEEKLY PO Last administered on 09/10/17at 09: 03; Start 09/10/17 at 09:00; Stop 11/14/17 at 08:59 Duloxetine HCl (Cymbalta) 20 mg HS PO Last administered on 09/12/17at 19:38; Start 09/09/17 at 21:00 Docusate Sodium (Colace Solution) 100 mg DAILY PO Last administered on at 10:42; Start 09/11/17 at 09:00 Divalproex Sodium (Depakote Sprinkles) 125 mg BID@1300,1700 PO Last administered on 09/12/17at 13:27; Start 09/11/17 at 13:00 Divalproex Sodium (Depakote Sprinkles) 250 mg DAILY PO Last administered on at 10:42; Start 09/12/17 at 09:00 Active Scripts Active Reported Melatonin 3 Mg Tablet 3 Mg PO PRN QHS PRN Lorazepam 0.5 Mg Tablet 0.5 Mg PO PRN Q12HR PRN Depakote Sprinkle (Divalproex Sodium) 125 Mg Cap.sprink 125 Mg PO TID Seroquel (Quetiapine Fumarate) 50 Mg Tablet 50 Mg PO BID@0900,1300 Simvastatin 40 Mg Tablet 40 Mg PO HS Seroquel (Quetiapine Fumarate) 100 Mg Tablet 100 Mg PO QHS Levothyroxine Sodium 75 Mcg Tablet 75 Mcg PO DAILY07 Colace (Docusate Sodium) 100 Mg Capsule 100 Mg PO QTUTHSA Citalopram Hbr (Citalopram Hydrobromide) 10 Mg Tablet 30 Mg PO QHS I have reviewed the current psychotropics carefully including drug interactions. Risk benefit ratio favors no change other than as noted in my dictated progress note. Diagnosis: Problems: (1) Anxiety disorder (2) Dementia in Alzheimer's disease with delusions (3) Dementia in Alzheimer's disease with depression (4) Dementia, vascular, with delusions (5) Dementia, vascular, with depression (6) Impulse control disorder KODY GODINEZ MD Sep 12, 2017 20:57
[2017-09-13 05:46] VITALS: BP 99/47
[2017-09-13] MEDS: LEVOTHYROXINE 50 MCG TABLET PO SCH (06:00)
[2017-09-13 07:58] VITALS: BP 96/64
[2017-09-13] MEDS: QUEtiapine 50 MG TABLET. PO SCH ×2 (09:00→12:42)
[2017-09-13] MEDS: DIVALPROEX 125 MG CAP.SPRINK PO SCH ×3 (09:00→17:12)
[2017-09-13] MEDS: DOCUSATE 100 MG/10 ML SOLUTION. PO SCH (09:00)
[2017-09-13 16:01] VITALS: BP 91/54
[2017-09-13] MEDS: DULoxetine HCL 20 MG CAPSULE.DR PO SCH ×2 (19:39→21:00)
[2017-09-13] MEDS: SIMVASTATIN 40 MG TABLET. PO SCH ×2 (19:40→21:00)
[2017-09-13] MEDS: QUEtiapine 100 MG TABLET. PO SCH ×2 (19:40→21:00)
--- NOTE | 2017-09-13 21:59 | PDOC ---
Exam Note: Wilmar Note: Please also refer to the separate dictated note~for this date of service dictated separately.~Patient seen individually. Discussed the patient with Nursing staff reviewed the chart.~Reviewed interim history and current functioning. Reviewed vital signs,~Labs/ Radiology~and current medications noted below. Continue current treatment with the changes noted in the dictated addendum note Assessment: Vital Signs: Vital Signs Date Time Temp Pulse Resp B/P (MAP) Pulse Ox O2 Delivery O2 Flow Rate FiO2 09/13/17 16:01 97.5 80 20 91/54 (66) 91 09/09/17 02:43 Room Air I&O Intake and Output 09/13/17 07:00 Intake Total 480 ml Balance 480 ml Intake Oral 480 ml # Voids 1 # Bowel Movements 1 Current Medications: Meds: Current Medications Acetaminophen (Tylenol) 650 mg PRN Q6HRS PRN PO PAIN / TEMP; Start 09/08/17 at 22:00 Multi-Ingredient Ointment (Analgesic [place]) 1 krzysztof PRN QID PRN TP MUSCLE PAIN; Start 09/08/17 at 22:00 Al Hydroxide/Mg Hydroxide (Mylanta Plus Xs) 15 ml PRN AFTMEALHC PRN PO DYSPEPSIA; Start 09/08/17 at 22:00 Magnesium Hydroxide (Milk Of Magnesia) 2,400 mg PRN QHS PRN PO CONSTIPATION; Start 09/08/17 at 22:00 Citalopram Hydrobromide (CeleXA) 30 mg QHS PO Last administered on 09/08/17at 22 :28; Start 09/08/17 at 22:30; Stop 09/09/17 at 18:16; Status DC Divalproex Sodium (Depakote Sprinkles) 125 mg TID PO Last administered on at 19:23; Start 09/08/17 at 22:30; Stop 09/11/17 at 10:51; Status DC Lorazepam (Ativan) 0.5 mg PRN Q12HR PRN PO ANXIETY / AGITATION Last administered on 09/12/17at 10:42; Start 09/08/17 at 22:00 Quetiapine Fumarate (SEROquel) 50 mg BID@0900,1300 PO Last administered on 09/13at 12:42; Start 09/09/17 at 09:00 Quetiapine Fumarate (SEROquel) 100 mg QHS PO Last administered on 09/13/17 19: 40; Start 09/08/17 at 22:30 Melatonin 3 mg PRN QHS PRN PO INSOMNIA Last administered on 09/11/17at 19:48; Start 09/08/17 at 22:15 Docusate Sodium (Colace) 100 mg QTUTHSA PO Last administered on 09/09/17at 16:27 ; Start 09/09/17 at 16:00; Stop 09/10/17 at 16:13; Status DC Levothyroxine Sodium (Synthroid) 75 mcg DAILY07 PO Last administered on at 05:44; Start 09/09/17 at 07:00; Stop 09/09/17 at 14:30; Status DC Simvastatin (Zocor) 40 mg HS PO Last administered on 09/13/17at 19:40; Start at 22:30 Influenza Virus Vaccine Quadrival (Fluarix Quad Syringe) 0.5 ml ONCE ONCE VAX IM ; Start 09/09/17 at 09:00; Stop 09/09/17 at 11:44; Status DC Pneumococcal Polyvalent Vaccine (Pneumovax 23) 0.5 ml ONCE ONCE VAX IM ; Start 09/09/17 at 09:00; Stop 09/09/17 at 11:44; Status DC Influenza Virus Vaccine Quadrival (Fluarix Quad Syringe) 0.5 ml ONCE ONCE VAX IM Last administered on 09/11/17at 15:23; Start 09/11/17 at 13:00; Stop 09/11/17 at 13:01; Status DC Pneumococcal Polyvalent Vaccine (Pneumovax 23) 0.5 ml ONCE ONCE VAX IM Last administered on 09/11/17at 15:25; Start 09/11/17 at 13:00; Stop 09/11/17 at 13:01 ; Status DC Levothyroxine Sodium (Synthroid) 50 mcg DAILY06 PO Last administered on at 06:02; Start 09/10/17 at 06:00 Vitamin D (Vitamin D3) 50,000 unit WEEKLY PO Last administered on 09/10/17at 09: 03; Start 09/10/17 at 09:00; Stop 11/14/17 at 08:59 Duloxetine HCl (Cymbalta) 20 mg HS PO Last administered on 09/13/17at 19:39; Start 09/09/17 at 21:00 Docusate Sodium (Colace Solution) 100 mg DAILY PO Last administered on at 10:42; Start 09/11/17 at 09:00 Divalproex Sodium (Depakote Sprinkles) 125 mg BID@1300,1700 PO Last administered on 09/13/17at 17:12; Start 09/11/17 at 13:00 Divalproex Sodium (Depakote Sprinkles) 250 mg DAILY PO Last administered on at 10:42; Start 09/12/17 at 09:00 Active Scripts Active Reported Melatonin 3 Mg Tablet 3 Mg PO PRN QHS PRN Lorazepam 0.5 Mg Tablet 0.5 Mg PO PRN Q12HR PRN Depakote Sprinkle (Divalproex Sodium) 125 Mg Cap.sprink 125 Mg PO TID Seroquel (Quetiapine Fumarate) 50 Mg Tablet 50 Mg PO BID@0900,1300 Simvastatin 40 Mg Tablet 40 Mg PO HS Seroquel (Quetiapine Fumarate) 100 Mg Tablet 100 Mg PO QHS Levothyroxine Sodium 75 Mcg Tablet 75 Mcg PO DAILY07 Colace (Docusate Sodium) 100 Mg Capsule 100 Mg PO QTUTHSA Citalopram Hbr (Citalopram Hydrobromide) 10 Mg Tablet 30 Mg PO QHS I have reviewed the current psychotropics carefully including drug interactions. Risk benefit ratio favors no change other than as noted in my dictated progress note. Diagnosis: Problems: (1) Anxiety disorder (2) Dementia in Alzheimer's disease with delusions (3) Dementia in Alzheimer's disease with depression (4) Dementia, vascular, with delusions (5) Dementia, vascular, with depression (6) Impulse control disorder KODY GODINEZ MD Sep 13, 2017 21:59
[2017-09-14] MEDS: LEVOTHYROXINE 50 MCG TABLET PO SCH (06:13)
[2017-09-14] MEDS: QUEtiapine 50 MG TABLET. PO SCH ×2 (07:49→13:00)
[2017-09-14] MEDS: DIVALPROEX 125 MG CAP.SPRINK PO SCH ×3 (07:49→17:04)
[2017-09-14] MEDS: DOCUSATE 100 MG/10 ML SOLUTION. PO SCH (07:49)
[2017-09-14 16:06] VITALS: BP 117/58
[2017-09-14] MEDS: DULoxetine HCL 20 MG CAPSULE.DR PO SCH (20:29)
[2017-09-14] MEDS: SIMVASTATIN 40 MG TABLET. PO SCH (20:29)
[2017-09-14] MEDS: QUEtiapine 100 MG TABLET. PO SCH (20:29)
--- NOTE | 2017-09-14 20:58 | PDOC ---
Exam Note: Wilmar Note: Please also refer to the separate dictated note~for this date of service dictated separately.~Patient seen individually. Discussed the patient with Nursing staff reviewed the chart.~Reviewed interim history and current functioning. Reviewed vital signs,~Labs/ Radiology~and current medications noted below. Continue current treatment with the changes noted in the dictated addendum note Assessment: Vital Signs: Vital Signs Date Time Temp Pulse Resp B/P (MAP) Pulse Ox O2 Delivery O2 Flow Rate FiO2 09/14/17 16:06 97.4 71 20 117/58 (77) 95 09/09/17 02:43 Room Air I&O Intake and Output 09/14/17 07:00 Intake Total 245 ml Balance 245 ml Intake Oral 245 ml # Bowel Movements 1 Current Medications: Meds: Current Medications Acetaminophen (Tylenol) 650 mg PRN Q6HRS PRN PO PAIN / TEMP; Start 09/08/17 at 22:00 Multi-Ingredient Ointment (Analgesic [place]) 1 krzysztof PRN QID PRN TP MUSCLE PAIN; Start 09/08/17 at 22:00 Al Hydroxide/Mg Hydroxide (Mylanta Plus Xs) 15 ml PRN AFTMEALHC PRN PO DYSPEPSIA; Start 09/08/17 at 22:00 Magnesium Hydroxide (Milk Of Magnesia) 2,400 mg PRN QHS PRN PO CONSTIPATION; Start 09/08/17 at 22:00 Citalopram Hydrobromide (CeleXA) 30 mg QHS PO Last administered on 09/08/17at 22 :28; Start 09/08/17 at 22:30; Stop 09/09/17 at 18:16; Status DC Divalproex Sodium (Depakote Sprinkles) 125 mg TID PO Last administered on at 19:23; Start 09/08/17 at 22:30; Stop 09/11/17 at 10:51; Status DC Lorazepam (Ativan) 0.5 mg PRN Q12HR PRN PO ANXIETY / AGITATION Last administered on 09/12/17at 10:42; Start 09/08/17 at 22:00 Quetiapine Fumarate (SEROquel) 50 mg BID@0900,1300 PO Last administered on 09/14at 07:49; Start 09/09/17 at 09:00 Quetiapine Fumarate (SEROquel) 100 mg QHS PO Last administered on 09/14/17 20: 29; Start 09/08/17 at 22:30 Melatonin 3 mg PRN QHS PRN PO INSOMNIA Last administered on 09/11/17at 19:48; Start 09/08/17 at 22:15 Docusate Sodium (Colace) 100 mg QTUTHSA PO Last administered on 09/09/17 16:27 ; Start 09/09/17 at 16:00; Stop 09/10/17 at 16:13; Status DC Levothyroxine Sodium (Synthroid) 75 mcg DAILY07 PO Last administered on at 05:44; Start 09/09/17 at 07:00; Stop 09/09/17 at 14:30; Status DC Simvastatin (Zocor) 40 mg HS PO Last administered on 09/14/17at 20:29; Start at 22:30 Influenza Virus Vaccine Quadrival (Fluarix Quad Syringe) 0.5 ml ONCE ONCE VAX IM ; Start 09/09/17 at 09:00; Stop 09/09/17 at 11:44; Status DC Pneumococcal Polyvalent Vaccine (Pneumovax 23) 0.5 ml ONCE ONCE VAX IM ; Start 09/09/17 at 09:00; Stop 09/09/17 at 11:44; Status DC Influenza Virus Vaccine Quadrival (Fluarix Quad Syringe) 0.5 ml ONCE ONCE VAX IM Last administered on 09/11/17at 15:23; Start 09/11/17 at 13:00; Stop 09/11/17 at 13:01; Status DC Pneumococcal Polyvalent Vaccine (Pneumovax 23) 0.5 ml ONCE ONCE VAX IM Last administered on 09/11/17at 15:25; Start 09/11/17 at 13:00; Stop 09/11/17 at 13:01 ; Status DC Levothyroxine Sodium (Synthroid) 50 mcg DAILY06 PO Last administered on at 06:13; Start 09/10/17 at 06:00 Vitamin D (Vitamin D3) 50,000 unit WEEKLY PO Last administered on 09/10/17at 09: 03; Start 09/10/17 at 09:00; Stop 11/14/17 at 08:59 Duloxetine HCl (Cymbalta) 20 mg HS PO Last administered on 09/14/17at 20:29; Start 09/09/17 at 21:00 Docusate Sodium (Colace Solution) 100 mg DAILY PO Last administered on at 07:49; Start 09/11/17 at 09:00 Divalproex Sodium (Depakote Sprinkles) 125 mg BID@1300,1700 PO Last administered on 09/14/17 17:04; Start 09/11/17 at 13:00 Divalproex Sodium (Depakote Sprinkles) 250 mg DAILY PO Last administered on at 07:49; Start 09/12/17 at 09:00 Active Scripts Active Reported Melatonin 3 Mg Tablet 3 Mg PO PRN QHS PRN Lorazepam 0.5 Mg Tablet 0.5 Mg PO PRN Q12HR PRN Depakote Sprinkle (Divalproex Sodium) 125 Mg Cap.sprink 125 Mg PO TID Seroquel (Quetiapine Fumarate) 50 Mg Tablet 50 Mg PO BID@0900,1300 Simvastatin 40 Mg Tablet 40 Mg PO HS Seroquel (Quetiapine Fumarate) 100 Mg Tablet 100 Mg PO QHS Levothyroxine Sodium 75 Mcg Tablet 75 Mcg PO DAILY07 Colace (Docusate Sodium) 100 Mg Capsule 100 Mg PO QTUTHSA Citalopram Hbr (Citalopram Hydrobromide) 10 Mg Tablet 30 Mg PO QHS I have reviewed the current psychotropics carefully including drug interactions. Risk benefit ratio favors no change other than as noted in my dictated progress note. Diagnosis: Problems: (1) Anxiety disorder (2) Dementia in Alzheimer's disease with delusions (3) Dementia in Alzheimer's disease with depression (4) Dementia, vascular, with delusions (5) Dementia, vascular, with depression (6) Impulse control disorder KODY GODINEZ MD Sep 14, 2017 20:58
--- NOTE | 2017-09-15 03:11 | PN ---
DATE: 09/12/2017 This is a late entry 09/12/2017, covers elements not covered in my initial note 09/12/2017. Met with the patient in the evening of 09/12/2017. The patient slept 7 hours previous evening, met with the patient in the evening. Combative, agitated, confused. She was more upset when she woke up in the morning, received Ativan. The family fed her the afternoon meal, ate 50% of the meal and some [employer] that they brought her. Intermittently, she gets agitated, and at one point was trying to bite a spoon. REVIEW OF SYSTEMS: No CV, , pulmonary, eye, ENT system symptoms on review. Reliability poor. MENTAL STATUS EXAM: Oriented to herself. Insight, judgment, recent and remote memory, attention, concentration, fund of knowledge poor, consistent with her diagnosis mentioned in my initial note. PLAN: Continue current psychotropics. Adjust Depakote to reach a therapeutic level. KODY GODINEZ MD DR: CAROLYN/maria isabel JOB#: [id number] / [id number]
[2017-09-15 06:00] VITALS: BP 105/55
[2017-09-15] MEDS: LEVOTHYROXINE 50 MCG TABLET PO SCH (06:39)
[2017-09-15 07:49] LABS: BASO % 1 % (0-3); EOS # 0.2 x10^3/uL (0.0-0.7); EOS % 4 % (0-3); LYMPH # 1.8 x10^3/uL (1.0-4.8); LYMPH % 33 % (24-48); MEAN CORPUSCULAR HEMOGLOBIN 31 pg (25-35); MEAN CORPUSCULAR HGB CONC 33 g/dL (31-37); MEAN CORPUSCULAR VOLUME 93 fL (79-100); MONO # 0.5 x10^3/uL (0.0-1.1); MONO % 10 % (0-9); NEUT # 2.8 x10^3uL (1.8-7.7); NEUT % 52 % (31-73); PLATELET COUNT 128 x10^3/uL (140-400); RED CELL DISTRIBUTION WIDTH 14.4 % (11.5-14.5); WHITE BLOOD COUNT 5.3 x10^3/uL (4.0-11.0)
[2017-09-15 07:59] LABS: ALBUMIN/GLOBULIN RATIO 0.9 (1.0-1.7); ALK PHOS 63 U/L (46-116); ALT (SGPT) 23 U/L (14-59); ANION GAP 8 (6-14); AST (SGOT) 20 U/L (15-37); BLOOD UREA NITROGEN 23 mg/dL (7-20); BUN/CREATININE RATIO 26 (6-20); CALCIUM 8.9 mg/dL (8.5-10.1); CARBON DIOXIDE 31 mmol/L (21-32); CHLORIDE 109 mmol/L (98-107); CREATININE 0.9 mg/dL (0.6-1.0); GFR 60.7; GLUCOSE 80 mg/dL (70-99); MAGNESIUM 2.1 mg/dL (1.8-2.4); POTASSIUM 4.4 mmol/L (3.5-5.1); SODIUM 148 mmol/L (136-145); TOTAL BILIRUBIN 0.4 mg/dL (0.2-1.0); TOTAL PROTEIN 6.2 g/dL (6.4-8.2)
[2017-09-15 08:13] LABS: VAL ACID 51 mcg/mL (50-100)
[2017-09-15] MEDS: DOCUSATE 100 MG/10 ML SOLUTION. PO SCH ×3 (09:00→12:14)
[2017-09-15] MEDS: QUEtiapine 50 MG TABLET. PO SCH ×4 (09:00→13:50)
[2017-09-15] MEDS: DIVALPROEX 125 MG CAP.SPRINK PO SCH ×3 (09:00→12:14)
[2017-09-15] MEDS: VALPROATE ACID 250 MG/5 ML ORAL SOLUTION PO SCH ×2 (13:49→17:02)
[2017-09-15 16:06] VITALS: BP 139/61
[2017-09-15] MEDS ORDERED: risperiDONE ORAL 1 MG/ML 30ml BOTTLE. SL ONE (19:00)
[2017-09-15] MEDS: DULoxetine HCL 20 MG CAPSULE.DR PO SCH (19:27)
[2017-09-15] MEDS: SIMVASTATIN 40 MG TABLET. PO SCH (19:27)
--- NOTE | 2017-09-15 20:55 | PDOC ---
Exam Note: Wilmar Note: Please also refer to the separate dictated note~for this date of service dictated separately.~Patient seen individually. Discussed the patient with Nursing staff reviewed the chart.~Reviewed interim history and current functioning. Reviewed vital signs,~Labs/ Radiology~and current medications noted below. Continue current treatment with the changes noted in the dictated addendum note Assessment: Vital Signs: Vital Signs Date Time Temp Pulse Resp B/P (MAP) Pulse Ox O2 Delivery O2 Flow Rate FiO2 09/15/17 16:06 97.6 72 18 139/61 (87) 95 I&O Intake and Output 09/15/17 07:00 Intake Total 600 ml Balance 600 ml Intake Oral 600 ml Labs: Laboratory Tests Test 09/15/17 07:06 White Blood Count 5.3 x10^3/uL (4.0-11.0) Red Blood Count 4.20 x10^6/uL (3.50-5.40) Hemoglobin 13.0 g/dL (12.0-15.5) Hematocrit 39.0 % (36.0-47.0) Mean Corpuscular Volume 93 fL (79-100) Mean Corpuscular Hemoglobin 31 pg (25-35) Mean Corpuscular Hemoglobin Concent 33 g/dL (31-37) Red Cell Distribution Width 14.4 % (11.5-14.5) Platelet Count 128 x10^3/uL (140-400) L Neutrophils (%) (Auto) 52 % (31-73) Lymphocytes (%) (Auto) 33 % (24-48) Monocytes (%) (Auto) 10 % (0-9) H Eosinophils (%) (Auto) 4 % (0-3) H Basophils (%) (Auto) 1 % (0-3) Neutrophils # (Auto) 2.8 x10^3uL (1.8-7.7) Lymphocytes # (Auto) 1.8 x10^3/uL (1.0-4.8) Monocytes # (Auto) 0.5 x10^3/uL (0.0-1.1) Eosinophils # (Auto) 0.2 x10^3/uL (0.0-0.7) Basophils # (Auto) 0.0 x10^3/uL (0.0-0.2) Sodium Level 148 mmol/L (136-145) H Potassium Level 4.4 mmol/L (3.5-5.1) Chloride Level 109 mmol/L (98-107) H Carbon Dioxide Level 31 mmol/L (21-32) Anion Gap 8 (6-14) Blood Urea Nitrogen 23 mg/dL (7-20) H Creatinine 0.9 mg/dL (0.6-1.0) Estimated GFR (Cockcroft-Gault) 60.7 BUN/Creatinine Ratio 26 (6-20) H Glucose Level 80 mg/dL (70-99) Calcium Level 8.9 mg/dL (8.5-10.1) Magnesium Level 2.1 mg/dL (1.8-2.4) Total Bilirubin 0.4 mg/dL (0.2-1.0) Aspartate Amino Transferase (AST) 20 U/L (15-37) Alanine Aminotransferase (ALT) 23 U/L (14-59) Alkaline Phosphatase 63 U/L (46-116) Total Protein 6.2 g/dL (6.4-8.2) L Albumin 3.0 g/dL (3.4-5.0) L Albumin/Globulin Ratio 0.9 (1.0-1.7) L Valproic Acid Level 51 mcg/mL (50-100) Valproic Acid Last Dose Date 09/14/17 Valproic Acid Last Dose Time 1700 Current Medications: Meds: Current Medications Acetaminophen (Tylenol) 650 mg PRN Q6HRS PRN PO PAIN / TEMP; Start 09/08/17 at 22:00 Multi-Ingredient Ointment (Analgesic [place]) 1 krzysztof PRN QID PRN TP MUSCLE PAIN; Start 09/08/17 at 22:00 Al Hydroxide/Mg Hydroxide (Mylanta Plus Xs) 15 ml PRN AFTMEALHC PRN PO DYSPEPSIA; Start 09/08/17 at 22:00 Magnesium Hydroxide (Milk Of Magnesia) 2,400 mg PRN QHS PRN PO CONSTIPATION; Start 09/08/17 at 22:00 Citalopram Hydrobromide (CeleXA) 30 mg QHS PO Last administered on 09/08/17at 22 :28; Start 09/08/17 at 22:30; Stop 09/09/17 at 18:16; Status DC Divalproex Sodium (Depakote Sprinkles) 125 mg TID PO Last administered on 19:23; Start 09/08/17 at 22:30; Stop 09/11/17 at 10:51; Status DC Lorazepam (Ativan) 0.5 mg PRN Q12HR PRN PO ANXIETY / AGITATION Last administered on 09/12/17at 10:42; Start 09/08/17 at 22:00 Quetiapine Fumarate (SEROquel) 50 mg BID@0900,1300 PO Last administered on 09/15at 13:50; Start 09/09/17 at 09:00; Stop 09/15/17 at 18:43; Status DC Quetiapine Fumarate (SEROquel) 100 mg QHS PO Last administered on 09/14/17 20: 29; Start 09/08/17 at 22:30; Stop 09/15/17 at 18:43; Status DC Melatonin 3 mg PRN QHS PRN PO INSOMNIA Last administered on 09/11/17at 19:48; Start 09/08/17 at 22:15 Docusate Sodium (Colace) 100 mg QTUTHSA PO Last administered on 09/09/17 16:27 ; Start 09/09/17 at 16:00; Stop 09/10/17 at 16:13; Status DC Levothyroxine Sodium (Synthroid) 75 mcg DAILY07 PO Last administered on at 05:44; Start 09/09/17 at 07:00; Stop 09/09/17 at 14:30; Status DC Simvastatin (Zocor) 40 mg HS PO Last administered on 09/15/17at 19:27; Start at 22:30 Influenza Virus Vaccine Quadrival (Fluarix Quad Syringe) 0.5 ml ONCE ONCE VAX IM ; Start 09/09/17 at 09:00; Stop 09/09/17 at 11:44; Status DC Pneumococcal Polyvalent Vaccine (Pneumovax 23) 0.5 ml ONCE ONCE VAX IM ; Start 09/09/17 at 09:00; Stop 09/09/17 at 11:44; Status DC Influenza Virus Vaccine Quadrival (Fluarix Quad Syringe) 0.5 ml ONCE ONCE VAX IM Last administered on 09/11/17at 15:23; Start 09/11/17 at 13:00; Stop 09/11/17 at 13:01; Status DC Pneumococcal Polyvalent Vaccine (Pneumovax 23) 0.5 ml ONCE ONCE VAX IM Last administered on 09/11/17at 15:25; Start 09/11/17 at 13:00; Stop 09/11/17 at 13:01 ; Status DC Levothyroxine Sodium (Synthroid) 50 mcg DAILY06 PO Last administered on at 06:39; Start 09/10/17 at 06:00 Vitamin D (Vitamin D3) 50,000 unit WEEKLY PO Last administered on 09/10/17 09: 03; Start 09/10/17 at 09:00; Stop 11/14/17 at 08:59 Duloxetine HCl (Cymbalta) 20 mg HS PO Last administered on 09/15/17 19:27; Start 09/09/17 at 21:00 Docusate Sodium (Colace Solution) 100 mg DAILY PO Last administered on 07:49; Start 09/11/17 at 09:00 Divalproex Sodium (Depakote Sprinkles) 125 mg BID@1300,1700 PO Last administered on 09/14/17 17:04; Start 09/11/17 at 13:00; Stop 09/15/17 at 12:45 ; Status DC Divalproex Sodium (Depakote Sprinkles) 250 mg DAILY PO Last administered on 07:49; Start 09/12/17 at 09:00; Stop 09/15/17 at 12:45; Status DC Olanzapine (ZyPREXA ZYDIS) 2.5 mg PRN Q2HR PRN PO PSYCHOSIS Last administered on 09/15/17at 11:48; Start 09/15/17 at 11:30 Valproic Acid (Depakene) 250 mg DAILY PO ; Start 09/16/17 at 09:00 Valproic Acid (Depakene) 125 mg BID@1300,1700 PO Last administered on at 17:02; Start 09/15/17 at 13:00 Risperidone (RisperDAL) 0.25 mg 1X ONCE SL Last administered on 09/15/17 19: 29; Start 09/15/17 at 19:00; Stop 09/15/17 at 19:01; Status DC Risperidone (RisperDAL) 0.25 mg BID@0900,1700 SL ; Start 09/16/17 at 09:00 Active Scripts Active Reported Melatonin 3 Mg Tablet 3 Mg PO PRN QHS PRN Lorazepam 0.5 Mg Tablet 0.5 Mg PO PRN Q12HR PRN Depakote Sprinkle (Divalproex Sodium) 125 Mg Cap.sprink 125 Mg PO TID Seroquel (Quetiapine Fumarate) 50 Mg Tablet 50 Mg PO BID@0900,1300 Simvastatin 40 Mg Tablet 40 Mg PO HS Seroquel (Quetiapine Fumarate) 100 Mg Tablet 100 Mg PO QHS Levothyroxine Sodium 75 Mcg Tablet 75 Mcg PO DAILY07 Colace (Docusate Sodium) 100 Mg Capsule 100 Mg PO QTUTHSA Citalopram Hbr (Citalopram Hydrobromide) 10 Mg Tablet 30 Mg PO QHS I have reviewed the current psychotropics carefully including drug interactions. Risk benefit ratio favors no change other than as noted in my dictated progress note. Diagnosis: Problems: (1) Anxiety disorder (2) Dementia in Alzheimer's disease with delusions (3) Dementia in Alzheimer's disease with depression (4) Dementia, vascular, with delusions (5) Dementia, vascular, with depression (6) Impulse control disorder KODY GODINEZ MD Sep 15, 2017 20:55
[2017-09-15] MEDS: MIRTAZAPINE 7.5 MG TABLET. PO SCH (21:58)
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
[2017-09-16] MEDS: LEVOTHYROXINE 50 MCG TABLET PO SCH (05:34)
[2017-09-16 06:00] VITALS: BP 112/53
[2017-09-16 07:44] LABS: BASO % 1 % (0-3); EOS # 0.2 x10^3/uL (0.0-0.7); EOS % 3 % (0-3); HEMATOCRIT 43.6 % (36.0-47.0); HEMOGLOBIN 14.5 g/dL (12.0-15.5); LYMPH % 34 % (24-48); MEAN CORPUSCULAR HEMOGLOBIN 31 pg (25-35); MEAN CORPUSCULAR HGB CONC 33 g/dL (31-37); MEAN CORPUSCULAR VOLUME 93 fL (79-100); MONO # 0.5 x10^3/uL (0.0-1.1); MONO % 8 % (0-9); NEUT # 3.2 x10^3uL (1.8-7.7); NEUT % 55 % (31-73); PLATELET COUNT 158 x10^3/uL (140-400); RED CELL DISTRIBUTION WIDTH 14.5 % (11.5-14.5); WHITE BLOOD COUNT 5.9 x10^3/uL (4.0-11.0)
[2017-09-16] MEDS: SERTRALINE 50 MG TABLET. PO SCH (07:44)
[2017-09-16] MEDS: DOCUSATE 100 MG/10 ML SOLUTION. PO SCH (07:44)
[2017-09-16] MEDS: VALPROATE ACID 250 MG/5 ML ORAL SOLUTION PO SCH ×3 (07:44→17:05)
[2017-09-16] MEDS: risperiDONE ORAL 1 MG/ML 30ml BOTTLE. SL SCH ×2 (07:45→17:05)
[2017-09-16 07:48] LABS: ALBUMIN 3.5 g/dL (3.4-5.0); CALCIUM 9.2 mg/dL (8.5-10.1); CREATININE 0.8 mg/dL (0.6-1.0); GFR 69.6; POTASSIUM 4.4 mmol/L (3.5-5.1); TOTAL BILIRUBIN 0.5 mg/dL (0.2-1.0); TOTAL PROTEIN 6.9 g/dL (6.4-8.2)
[2017-09-16] MEDS: MIRTAZAPINE 7.5 MG TABLET. PO SCH (19:47)
[2017-09-16] MEDS: SIMVASTATIN 40 MG TABLET. PO SCH (19:47)
--- NOTE | 2017-09-16 19:50 | PN ---
DATE: 09/15/2017 PSYCHIATRIC PROGRESS NOTE This is a late entry 09/15/2017 covers elements not covered in my initial note 09/15/2017. SUBJECTIVE: I met with the patient evening of 09/15/2017. The patient slept 8 hours previous evening, has had a very difficult day. She has been actively hallucinating per nursing staff, agitated, refusing to eat and drink, received Zyprexa at noontime, noncompliant with medications, combative, incontinent. REVIEW OF SYSTEMS: No CV, , pulmonary, eye, ENT system symptoms on review. Reliability poor. MENTAL STATUS EXAM: Oriented to herself. Insight, judgment, recent and remote memory, attention, concentration, fund of knowledge poor, consistent with her diagnosis mentioned in my initial note. IMPRESSION: Major neurocognitive disorder, Alzheimer, vascular with depression, delusion. PLAN: Continue Depakote at current dosage, level therapeutic at 51. Change Seroquel to Risperdal 0.25 mg 9 a.m., 5 p.m. with the first dosage evening of 09/15/2017. She is quite psychotic. Hopefully, changing Seroquel to Risperdal would help with this. We will also check a UA to make sure she does not have a UTI. KODY GODINEZ MD DR: CAROLYN/maria isabel JOB#: [id number] / [id number]
[2017-09-16 20:37] LABS: AMORPHOUS SEDIMENT,UR PRESENT /HPF; BACTERIA,URINE 0 /HPF (0-FEW); BILIRUBIN,URINE NEG (NEG); CLARITY,URINE HAZY; COLOR,URINE AMBER; GLUCOSE,URINE NEG (NEG); NITRITE,URINE NEG (NEG); SQUAMOUS EPITHELIAL CELL,UR OCC /LPF; UROBILINOGEN,URINE 4 mg/dL (0.2 mg/dL)
--- NOTE | 2017-09-16 20:47 | PDOC ---
Exam Note: Wilmar Note: Please also refer to the separate dictated note~for this date of service dictated separately.~Patient seen individually. Discussed the patient with Nursing staff reviewed the chart.~Reviewed interim history and current functioning. Reviewed vital signs,~Labs/ Radiology~and current medications noted below. Continue current treatment with the changes noted in the dictated addendum note Assessment: Vital Signs: Vital Signs Date Time Temp Pulse Resp B/P (MAP) Pulse Ox O2 Delivery O2 Flow Rate FiO2 09/16/17 06:00 98.1 68 14 112/53 (72) 97 I&O Intake and Output 09/16/17 07:00 Intake Total 740 ml Balance 740 ml Intake Oral 740 ml Labs: Laboratory Tests Test 09/16/17 07:28 09/16/17 19:05 White Blood Count 5.9 x10^3/uL (4.0-11.0) Red Blood Count 4.70 x10^6/uL (3.50-5.40) Hemoglobin 14.5 g/dL (12.0-15.5) Hematocrit 43.6 % (36.0-47.0) Mean Corpuscular Volume 93 fL (79-100) Mean Corpuscular Hemoglobin 31 pg (25-35) Mean Corpuscular Hemoglobin Concent 33 g/dL (31-37) Red Cell Distribution Width 14.5 % (11.5-14.5) Platelet Count 158 x10^3/uL (140-400) Neutrophils (%) (Auto) 55 % (31-73) Lymphocytes (%) (Auto) 34 % (24-48) Monocytes (%) (Auto) 8 % (0-9) Eosinophils (%) (Auto) 3 % (0-3) Basophils (%) (Auto) 1 % (0-3) Neutrophils # (Auto) 3.2 x10^3uL (1.8-7.7) Lymphocytes # (Auto) 2.0 x10^3/uL (1.0-4.8) Monocytes # (Auto) 0.5 x10^3/uL (0.0-1.1) Eosinophils # (Auto) 0.2 x10^3/uL (0.0-0.7) Basophils # (Auto) 0.0 x10^3/uL (0.0-0.2) Sodium Level 145 mmol/L (136-145) Potassium Level 4.4 mmol/L (3.5-5.1) Chloride Level 106 mmol/L (98-107) Carbon Dioxide Level 32 mmol/L (21-32) Anion Gap 7 (6-14) Blood Urea Nitrogen 20 mg/dL (7-20) Creatinine 0.8 mg/dL (0.6-1.0) Estimated GFR (Cockcroft-Gault) 69.6 BUN/Creatinine Ratio 25 (6-20) H Glucose Level 99 mg/dL (70-99) Calcium Level 9.2 mg/dL (8.5-10.1) Total Bilirubin 0.5 mg/dL (0.2-1.0) Aspartate Amino Transferase (AST) 24 U/L (15-37) Alanine Aminotransferase (ALT) 27 U/L (14-59) Alkaline Phosphatase 73 U/L (46-116) Total Protein 6.9 g/dL (6.4-8.2) Albumin 3.5 g/dL (3.4-5.0) Albumin/Globulin Ratio 1.0 (1.0-1.7) Urine Collection Type Unknown Urine Color April Urine Clarity Hazy Urine pH 6.0 Urine Specific [place] 1.025 Urine Protein 30 mg/dl (NEG-TRACE) Urine Glucose (UA) Neg mg/dL (NEG) Urine Ketones (Stick) 15 mg/dL (NEG) Urine Blood Trace (NEG) Urine Nitrite Neg (NEG) Urine Bilirubin Neg (NEG) Urine Urobilinogen Dipstick 4 mg/dL (0.2 mg/dL) Urine Leukocyte Esterase Neg (NEG) Urine RBC 3-5 /HPF (0-2) Urine WBC 1-4 /HPF (0-4) Urine Squamous Epithelial Cells Occ /LPF Urine Amorphous Sediment Present /HPF Urine Bacteria 0 /HPF (0-FEW) Urine Mucus Mod /LPF Current Medications: Meds: Current Medications Acetaminophen (Tylenol) 650 mg PRN Q6HRS PRN PO PAIN / TEMP; Start 09/08/17 at 22:00 Multi-Ingredient Ointment (Analgesic [place]) 1 krzysztof PRN QID PRN TP MUSCLE PAIN; Start 09/08/17 at 22:00 Al Hydroxide/Mg Hydroxide (Mylanta Plus Xs) 15 ml PRN AFTMEALHC PRN PO DYSPEPSIA; Start 09/08/17 at 22:00 Magnesium Hydroxide (Milk Of Magnesia) 2,400 mg PRN QHS PRN PO CONSTIPATION; Start 09/08/17 at 22:00 Citalopram Hydrobromide (CeleXA) 30 mg QHS PO Last administered on 09/08/17at 22 :28; Start 09/08/17 at 22:30; Stop 09/09/17 at 18:16; Status DC Divalproex Sodium (Depakote Sprinkles) 125 mg TID PO Last administered on at 19:23; Start 09/08/17 at 22:30; Stop 09/11/17 at 10:51; Status DC Lorazepam (Ativan) 0.5 mg PRN Q12HR PRN PO ANXIETY / AGITATION Last administered on 09/12/17at 10:42; Start 09/08/17 at 22:00 Quetiapine Fumarate (SEROquel) 50 mg BID@0900,1300 PO Last administered on 09/15at 13:50; Start 09/09/17 at 09:00; Stop 09/15/17 at 18:43; Status DC Quetiapine Fumarate (SEROquel) 100 mg QHS PO Last administered on 09/14/17at 20: 29; Start 09/08/17 at 22:30; Stop 09/15/17 at 18:43; Status DC Melatonin 3 mg PRN QHS PRN PO INSOMNIA Last administered on 09/11/17at 19:48; Start 09/08/17 at 22:15 Docusate Sodium (Colace) 100 mg QTUTHSA PO Last administered on 09/09/17at 16:27 ; Start 09/09/17 at 16:00; Stop 09/10/17 at 16:13; Status DC Levothyroxine Sodium (Synthroid) 75 mcg DAILY07 PO Last administered on at 05:44; Start 09/09/17 at 07:00; Stop 09/09/17 at 14:30; Status DC Simvastatin (Zocor) 40 mg HS PO Last administered on 09/16/17at 19:47; Start at 22:30 Influenza Virus Vaccine Quadrival (Fluarix Quad [id number] Syringe) 0.5 ml ONCE ONCE VAX IM ; Start 09/09/17 at 09:00; Stop 09/09/17 at 11:44; Status DC Pneumococcal Polyvalent Vaccine (Pneumovax 23) 0.5 ml ONCE ONCE VAX IM ; Start 09/09/17 at 09:00; Stop 09/09/17 at 11:44; Status DC Influenza Virus Vaccine Quadrival (Fluarix Quad [id number] Syringe) 0.5 ml ONCE ONCE VAX IM Last administered on 09/11/17at 15:23; Start 09/11/17 at 13:00; Stop 09/11/17 at 13:01; Status DC Pneumococcal Polyvalent Vaccine (Pneumovax 23) 0.5 ml ONCE ONCE VAX IM Last administered on 09/11/17at 15:25; Start 09/11/17 at 13:00; Stop 09/11/17 at 13:01 ; Status DC Levothyroxine Sodium (Synthroid) 50 mcg DAILY06 PO Last administered on at 05:34; Start 09/10/17 at 06:00 Vitamin D (Vitamin D3) 50,000 unit WEEKLY PO Last administered on 09/10/17at 09: 03; Start 09/10/17 at 09:00; Stop 11/14/17 at 08:59 Duloxetine HCl (Cymbalta) 20 mg HS PO Last administered on 09/15/17at 19:27; Start 09/09/17 at 21:00; Stop 09/15/17 at 21:20; Status DC Docusate Sodium (Colace Solution) 100 mg DAILY PO Last administered on at 07:44; Start 09/11/17 at 09:00 Divalproex Sodium (Depakote Sprinkles) 125 mg BID@1300,1700 PO Last administered on 09/14/17at 17:04; Start 09/11/17 at 13:00; Stop 09/15/17 at 12:45 ; Status DC Divalproex Sodium (Depakote Sprinkles) 250 mg DAILY PO Last administered on at 07:49; Start 09/12/17 at 09:00; Stop 09/15/17 at 12:45; Status DC Olanzapine (ZyPREXA ZYDIS) 2.5 mg PRN Q2HR PRN PO PSYCHOSIS Last administered on 09/15/17at 11:48; Start 09/15/17 at 11:30 Valproic Acid (Depakene) 250 mg DAILY PO Last administered on 09/16/17at 07:44; Start 09/16/17 at 09:00 Valproic Acid (Depakene) 125 mg BID@1300,1700 PO Last administered on at 17:05; Start 09/15/17 at 13:00 Risperidone (RisperDAL) 0.25 mg 1X ONCE SL Last administered on 09/15/17at 19: 29; Start 09/15/17 at 19:00; Stop 09/15/17 at 19:01; Status DC Risperidone (RisperDAL) 0.25 mg BID@0900,1700 SL Last administered on at 17:05; Start 09/16/17 at 09:00 Sertraline HCl (Zoloft) 50 mg DAILY PO Last administered on 09/16/17at 07:44; Start 09/16/17 at 09:00 Mirtazapine (Remeron) 7.5 mg QHS PO Last administered on 09/16/17at 19:47; Start 09/15/17 at 21:30 Active Scripts Active Reported Melatonin 3 Mg Tablet 3 Mg PO PRN QHS PRN Lorazepam 0.5 Mg Tablet 0.5 Mg PO PRN Q12HR PRN Depakote Sprinkle (Divalproex Sodium) 125 Mg Cap.sprink 125 Mg PO TID Seroquel (Quetiapine Fumarate) 50 Mg Tablet 50 Mg PO BID@0900,1300 Simvastatin 40 Mg Tablet 40 Mg PO HS Seroquel (Quetiapine Fumarate) 100 Mg Tablet 100 Mg PO QHS Levothyroxine Sodium 75 Mcg Tablet 75 Mcg PO DAILY07 Colace (Docusate Sodium) 100 Mg Capsule 100 Mg PO QTUTHSA Citalopram Hbr (Citalopram Hydrobromide) 10 Mg Tablet 30 Mg PO QHS I have reviewed the current psychotropics carefully including drug interactions. Risk benefit ratio favors no change other than as noted in my dictated progress note. Diagnosis: Problems: (1) Anxiety disorder (2) Dementia in Alzheimer's disease with delusions (3) Dementia in Alzheimer's disease with depression (4) Dementia, vascular, with delusions (5) Dementia, vascular, with depression (6) Impulse control disorder KODY GODINEZ MD Sep 16, 2017 20:47
[2017-09-17 05:56] VITALS: BP 115/51
[2017-09-17] MEDS: LEVOTHYROXINE 50 MCG TABLET PO SCH (06:19)
[2017-09-17] MEDS: risperiDONE ORAL 1 MG/ML 30ml BOTTLE. SL SCH ×2 (09:17→17:08)
[2017-09-17] MEDS: VALPROATE ACID 250 MG/5 ML ORAL SOLUTION PO SCH ×3 (09:18→17:09)
[2017-09-17] MEDS: DOCUSATE 100 MG/10 ML SOLUTION. PO SCH (09:19)
[2017-09-17] MEDS: SERTRALINE 50 MG TABLET. PO SCH ×2 (09:20→09:38)
[2017-09-17] MEDS: CHOLECALCIFEROL (VITAMIN D3) 50,000 UNIT CAPSULE PO SCH ×2 (09:20→09:38)
[2017-09-17] MEDS: LORazepam 0.5 MG TABLET PO PRN (09:52)
--- NOTE | 2017-09-17 13:32 | PN ---
DATE: 09/16/2017 PSYCHIATRIC PROGRESS NOTE This is a late entry 09/16/2017, covers elements not covered in my initial note 09/16/2017. SUBJECTIVE: I met with the patient the evening of 09/16/2017. The patient has had a very difficult day. Around breakfast time she physically was hitting out at a [employer]. She threw her meds on the nursing staff telling staff to go away and shut up. She has refused to eat and drink most of the day, did not seem to recognize family when they visited in the afternoon, refused dinner, was hitting, kicking nursing staff in her room. Her BUN is 25. Rest labs are unremarkable. REVIEW OF SYSTEMS: No CV, , pulmonary, eye, ENT system symptoms on review. Reliability poor. MENTAL STATUS EXAM: Oriented to herself. Insight, judgment, recent and remote memory, attention, concentration, fund of knowledge poor, consistent with her diagnoses mentioned in my initial note. IMPRESSION: Major neurocognitive disorder, Alzheimer, vascular with depression, delusion, behavioral disturbance. Rest unchanged. PLAN: Change Cymbalta to 20 mg anytime of the day instead of at bedtime. Risperdal will be changed to liquid 0.25 mg twice a day. Continue Depakene liquid. Rest unchanged per initial note. Valproic acid level at last check was 51, but she is noncompliant since then. MAN Araceli GODINEZ MD DR: CAROLYN/maria isabel JOB#: [id number] / [id number]
[2017-09-17 16:25] VITALS: BP 123/77
[2017-09-17] MEDS: SIMVASTATIN 40 MG TABLET. PO SCH (20:45)
[2017-09-17] MEDS: MIRTAZAPINE 7.5 MG TABLET. PO SCH (20:45)
--- NOTE | 2017-09-17 20:55 | PDOC ---
Exam Note: Wilmar Note: Please also refer to the separate dictated note~for this date of service dictated separately.~Patient seen individually. Discussed the patient with Nursing staff reviewed the chart.~Reviewed interim history and current functioning. Reviewed vital signs,~Labs/ Radiology~and current medications noted below. Continue current treatment with the changes noted in the dictated addendum note Assessment: Vital Signs: Vital Signs Date Time Temp Pulse Resp B/P (MAP) Pulse Ox O2 Delivery O2 Flow Rate FiO2 09/17/17 16:25 98.2 118 22 123/77 (92) 96 I&O Intake and Output 09/17/17 07:00 Intake Total 120 ml Balance 120 ml Intake Oral 120 ml Current Medications: Meds: Current Medications Acetaminophen (Tylenol) 650 mg PRN Q6HRS PRN PO PAIN / TEMP; Start 09/08/17 at 22:00 Multi-Ingredient Ointment (Analgesic [place]) 1 krzysztof PRN QID PRN TP MUSCLE PAIN; Start 09/08/17 at 22:00 Al Hydroxide/Mg Hydroxide (Mylanta Plus Xs) 15 ml PRN AFTMEALHC PRN PO DYSPEPSIA; Start 09/08/17 at 22:00 Magnesium Hydroxide (Milk Of Magnesia) 2,400 mg PRN QHS PRN PO CONSTIPATION; Start 09/08/17 at 22:00 Citalopram Hydrobromide (CeleXA) 30 mg QHS PO Last administered on 09/08/17at 22 :28; Start 09/08/17 at 22:30; Stop 09/09/17 at 18:16; Status DC Divalproex Sodium (Depakote Sprinkles) 125 mg TID PO Last administered on at 19:23; Start 09/08/17 at 22:30; Stop 09/11/17 at 10:51; Status DC Lorazepam (Ativan) 0.5 mg PRN Q12HR PRN PO ANXIETY / AGITATION Last administered on 09/17/17at 09:52; Start 09/08/17 at 22:00 Quetiapine Fumarate (SEROquel) 50 mg BID@0900,1300 PO Last administered on 09/15at 13:50; Start 09/09/17 at 09:00; Stop 09/15/17 at 18:43; Status DC Quetiapine Fumarate (SEROquel) 100 mg QHS PO Last administered on 09/14/17 20: 29; Start 09/08/17 at 22:30; Stop 09/15/17 at 18:43; Status DC Melatonin 3 mg PRN QHS PRN PO INSOMNIA Last administered on 09/11/17at 19:48; Start 09/08/17 at 22:15 Docusate Sodium (Colace) 100 mg QTUTHSA PO Last administered on 09/09/17at 16:27 ; Start 09/09/17 at 16:00; Stop 09/10/17 at 16:13; Status DC Levothyroxine Sodium (Synthroid) 75 mcg DAILY07 PO Last administered on at 05:44; Start 09/09/17 at 07:00; Stop 09/09/17 at 14:30; Status DC Simvastatin (Zocor) 40 mg HS PO Last administered on 09/17/17at 20:45; Start at 22:30 Influenza Virus Vaccine Quadrival (Fluarix Quad Syringe) 0.5 ml ONCE ONCE VAX IM ; Start 09/09/17 at 09:00; Stop 09/09/17 at 11:44; Status DC Pneumococcal Polyvalent Vaccine (Pneumovax 23) 0.5 ml ONCE ONCE VAX IM ; Start 09/09/17 at 09:00; Stop 09/09/17 at 11:44; Status DC Influenza Virus Vaccine Quadrival (Fluarix Quad Syringe) 0.5 ml ONCE ONCE VAX IM Last administered on 09/11/17at 15:23; Start 09/11/17 at 13:00; Stop 09/11/17 at 13:01; Status DC Pneumococcal Polyvalent Vaccine (Pneumovax 23) 0.5 ml ONCE ONCE VAX IM Last administered on 09/11/17at 15:25; Start 09/11/17 at 13:00; Stop 09/11/17 at 13:01 ; Status DC Levothyroxine Sodium (Synthroid) 50 mcg DAILY06 PO Last administered on at 06:19; Start 09/10/17 at 06:00 Vitamin D (Vitamin D3) 50,000 unit WEEKLY PO Last administered on 09/10/17at 09: 03; Start 09/10/17 at 09:00; Stop 11/14/17 at 08:59 Duloxetine HCl (Cymbalta) 20 mg HS PO Last administered on 09/15/17 19:27; Start 09/09/17 at 21:00; Stop 09/15/17 at 21:20; Status DC Docusate Sodium (Colace Solution) 100 mg DAILY PO Last administered on at 07:44; Start 09/11/17 at 09:00 Divalproex Sodium (Depakote Sprinkles) 125 mg BID@1300,1700 PO Last administered on 09/14/17 17:04; Start 09/11/17 at 13:00; Stop 09/15/17 at 12:45 ; Status DC Divalproex Sodium (Depakote Sprinkles) 250 mg DAILY PO Last administered on 07:49; Start 09/12/17 at 09:00; Stop 09/15/17 at 12:45; Status DC Olanzapine (ZyPREXA ZYDIS) 2.5 mg PRN Q2HR PRN PO PSYCHOSIS Last administered on 09/17/17 09:52; Start 09/15/17 at 11:30 Valproic Acid (Depakene) 250 mg DAILY PO Last administered on 09/17/17 09:18; Start 09/16/17 at 09:00 Valproic Acid (Depakene) 125 mg BID@1300,1700 PO Last administered on 17:09; Start 09/15/17 at 13:00 Risperidone (RisperDAL) 0.25 mg 1X ONCE SL Last administered on 09/15/17 19: 29; Start 09/15/17 at 19:00; Stop 09/15/17 at 19:01; Status DC Risperidone (RisperDAL) 0.25 mg BID@0900,1700 SL Last administered on 17:08; Start 09/16/17 at 09:00; Stop 09/17/17 at 18:17; Status DC Sertraline HCl (Zoloft) 50 mg DAILY PO Last administered on 09/16/17 07:44; Start 09/16/17 at 09:00 Mirtazapine (Remeron) 7.5 mg QHS PO Last administered on 3/28/18at 20:45; Start 09/15/17 at 21:30 Risperidone (RisperDAL) 0.75 mg DAILY SL ; Start 09/18/17 at 09:00 Active Scripts Active Reported Melatonin 3 Mg Tablet 3 Mg PO PRN QHS PRN Lorazepam 0.5 Mg Tablet 0.5 Mg PO PRN Q12HR PRN Depakote Sprinkle (Divalproex Sodium) 125 Mg Cap.sprink 125 Mg PO TID Seroquel (Quetiapine Fumarate) 50 Mg Tablet 50 Mg PO BID@0900,1300 Simvastatin 40 Mg Tablet 40 Mg PO HS Seroquel (Quetiapine Fumarate) 100 Mg Tablet 100 Mg PO QHS Levothyroxine Sodium 75 Mcg Tablet 75 Mcg PO DAILY07 Colace (Docusate Sodium) 100 Mg Capsule 100 Mg PO QTUTHSA Citalopram Hbr (Citalopram Hydrobromide) 10 Mg Tablet 30 Mg PO QHS I have reviewed the current psychotropics carefully including drug interactions. Risk benefit ratio favors no change other than as noted in my dictated progress note. Diagnosis: Problems: (1) Anxiety disorder (2) Dementia in Alzheimer's disease with delusions (3) Dementia in Alzheimer's disease with depression (4) Dementia, vascular, with delusions (5) Dementia, vascular, with depression (6) Impulse control disorder KODY GODINEZ MD Sep 17, 2017 20:55
[2017-09-18] MEDS: LORazepam 0.5 MG TABLET PO PRN (02:14)
[2017-09-18] MEDS: LEVOTHYROXINE 50 MCG TABLET PO SCH (06:00)
[2017-09-18] MEDS: VALPROATE ACID 250 MG/5 ML ORAL SOLUTION PO SCH ×3 (09:15→17:17)
[2017-09-18] MEDS: DOCUSATE 100 MG/10 ML SOLUTION. PO SCH (09:15)
[2017-09-18] MEDS: SERTRALINE 50 MG TABLET. PO SCH (09:15)
[2017-09-18] MEDS: risperiDONE ORAL 1 MG/ML 30ml BOTTLE. SL SCH (09:18)
[2017-09-18 09:27] LABS: BASO # 0.1 x10^3/uL (0.0-0.2); BASO % 1 % (0-3); EOS % 1 % (0-3); HEMATOCRIT 40.3 % (36.0-47.0); HEMOGLOBIN 13.6 g/dL (12.0-15.5); LYMPH # 1.6 x10^3/uL (1.0-4.8); LYMPH % 21 % (24-48); MEAN CORPUSCULAR HEMOGLOBIN 31 pg (25-35); MEAN CORPUSCULAR HGB CONC 34 g/dL (31-37); MEAN CORPUSCULAR VOLUME 92 fL (79-100); MONO # 0.5 x10^3/uL (0.0-1.1); MONO % 7 % (0-9); NEUT # 5.5 x10^3uL (1.8-7.7); NEUT % 71 % (31-73); PLATELET COUNT 149 x10^3/uL (140-400); RED BLOOD COUNT 4.38 x10^6/uL (3.50-5.40); RED CELL DISTRIBUTION WIDTH 14.2 % (11.5-14.5); WHITE BLOOD COUNT 7.8 x10^3/uL (4.0-11.0)
[2017-09-18 09:34] LABS: ALBUMIN 3.4 g/dL (3.4-5.0); ALK PHOS 63 U/L (46-116); ALT (SGPT) 31 U/L (14-59); ANION GAP 8 (6-14); AST (SGOT) 32 U/L (15-37); BLOOD UREA NITROGEN 17 mg/dL (7-20); BUN/CREATININE RATIO 21 (6-20); CALCIUM 9.2 mg/dL (8.5-10.1); CARBON DIOXIDE 30 mmol/L (21-32); CHLORIDE 106 mmol/L (98-107); CREATININE 0.8 mg/dL (0.6-1.0); GFR 69.6; GLUCOSE 78 mg/dL (70-99); POTASSIUM 4.3 mmol/L (3.5-5.1); SODIUM 144 mmol/L (136-145); TOTAL BILIRUBIN 0.6 mg/dL (0.2-1.0); TOTAL PROTEIN 6.7 g/dL (6.4-8.2)
[2017-09-18 09:37] LABS: VAL ACID 34 mcg/mL (50-100)
[2017-09-18 10:48] VITALS: BP 102/59
[2017-09-18 15:59] VITALS: BP 94/57
[2017-09-18] MEDS: SIMVASTATIN 40 MG TABLET. PO SCH (19:51)
[2017-09-18] MEDS: MIRTAZAPINE 7.5 MG TABLET. PO SCH (19:51)
--- NOTE | 2017-09-18 20:47 | PDOC ---
Exam Note: Wilmar Note: Please also refer to the separate dictated note~for this date of service dictated separately.~Patient seen individually. Discussed the patient with Nursing staff reviewed the chart.~Reviewed interim history and current functioning. Reviewed vital signs,~Labs/ Radiology~and current medications noted below. Continue current treatment with the changes noted in the dictated addendum note Assessment: Vital Signs: Vital Signs Date Time Temp Pulse Resp B/P (MAP) Pulse Ox O2 Delivery O2 Flow Rate FiO2 09/18/17 15:59 97.9 98 18 94/57 (69) 95 I&O Intake and Output 09/18/17 07:00 Intake Total 0 ml Balance 0 ml Intake Oral 0 ml Labs: Laboratory Tests Test 09/18/17 09:10 White Blood Count 7.8 x10^3/uL (4.0-11.0) Red Blood Count 4.38 x10^6/uL (3.50-5.40) Hemoglobin 13.6 g/dL (12.0-15.5) Hematocrit 40.3 % (36.0-47.0) Mean Corpuscular Volume 92 fL (79-100) Mean Corpuscular Hemoglobin 31 pg (25-35) Mean Corpuscular Hemoglobin Concent 34 g/dL (31-37) Red Cell Distribution Width 14.2 % (11.5-14.5) Platelet Count 149 x10^3/uL (140-400) Neutrophils (%) (Auto) 71 % (31-73) Lymphocytes (%) (Auto) 21 % (24-48) L Monocytes (%) (Auto) 7 % (0-9) Eosinophils (%) (Auto) 1 % (0-3) Basophils (%) (Auto) 1 % (0-3) Neutrophils # (Auto) 5.5 x10^3uL (1.8-7.7) Lymphocytes # (Auto) 1.6 x10^3/uL (1.0-4.8) Monocytes # (Auto) 0.5 x10^3/uL (0.0-1.1) Eosinophils # (Auto) 0.0 x10^3/uL (0.0-0.7) Basophils # (Auto) 0.1 x10^3/uL (0.0-0.2) Sodium Level 144 mmol/L (136-145) Potassium Level 4.3 mmol/L (3.5-5.1) Chloride Level 106 mmol/L (98-107) Carbon Dioxide Level 30 mmol/L (21-32) Anion Gap 8 (6-14) Blood Urea Nitrogen 17 mg/dL (7-20) Creatinine 0.8 mg/dL (0.6-1.0) Estimated GFR (Cockcroft-Gault) 69.6 BUN/Creatinine Ratio 21 (6-20) H Glucose Level 78 mg/dL (70-99) Calcium Level 9.2 mg/dL (8.5-10.1) Total Bilirubin 0.6 mg/dL (0.2-1.0) Aspartate Amino Transferase (AST) 32 U/L (15-37) Alanine Aminotransferase (ALT) 31 U/L (14-59) Alkaline Phosphatase 63 U/L (46-116) Total Protein 6.7 g/dL (6.4-8.2) Albumin 3.4 g/dL (3.4-5.0) Albumin/Globulin Ratio 1.0 (1.0-1.7) Valproic Acid Level 34 mcg/mL (50-100) L Valproic Acid Last Dose Date 09/17/17 Valproic Acid Last Dose Time 1700 Current Medications: Meds: Current Medications Acetaminophen (Tylenol) 650 mg PRN Q6HRS PRN PO PAIN / TEMP; Start 09/08/17 at 22:00 Multi-Ingredient Ointment (Analgesic [place]) 1 krzysztof PRN QID PRN TP MUSCLE PAIN; Start 09/08/17 at 22:00 Al Hydroxide/Mg Hydroxide (Mylanta Plus Xs) 15 ml PRN AFTMEALHC PRN PO DYSPEPSIA; Start 09/08/17 at 22:00 Magnesium Hydroxide (Milk Of Magnesia) 2,400 mg PRN QHS PRN PO CONSTIPATION; Start 09/08/17 at 22:00 Citalopram Hydrobromide (CeleXA) 30 mg QHS PO Last administered on 09/08/17at 22 :28; Start 09/08/17 at 22:30; Stop 09/09/17 at 18:16; Status DC Divalproex Sodium (Depakote Sprinkles) 125 mg TID PO Last administered on at 19:23; Start 09/08/17 at 22:30; Stop 09/11/17 at 10:51; Status DC Lorazepam (Ativan) 0.5 mg PRN Q12HR PRN PO ANXIETY / AGITATION Last administered on 09/18/17at 02:14; Start 09/08/17 at 22:00 Quetiapine Fumarate (SEROquel) 50 mg BID@0900,1300 PO Last administered on 09/15at 13:50; Start 09/09/17 at 09:00; Stop 09/15/17 at 18:43; Status DC Quetiapine Fumarate (SEROquel) 100 mg QHS PO Last administered on 09/14/17at 20: 29; Start 09/08/17 at 22:30; Stop 09/15/17 at 18:43; Status DC Melatonin 3 mg PRN QHS PRN PO INSOMNIA Last administered on 09/11/17at 19:48; Start 09/08/17 at 22:15 Docusate Sodium (Colace) 100 mg QTUTHSA PO Last administered on 09/09/17at 16:27 ; Start 09/09/17 at 16:00; Stop 09/10/17 at 16:13; Status DC Levothyroxine Sodium (Synthroid) 75 mcg DAILY07 PO Last administered on at 05:44; Start 09/09/17 at 07:00; Stop 09/09/17 at 14:30; Status DC Simvastatin (Zocor) 40 mg HS PO Last administered on 09/18/17at 19:51; Start at 22:30 Influenza Virus Vaccine Quadrival (Fluarix Quad Syringe) 0.5 ml ONCE ONCE VAX IM ; Start 09/09/17 at 09:00; Stop 09/09/17 at 11:44; Status DC Pneumococcal Polyvalent Vaccine (Pneumovax 23) 0.5 ml ONCE ONCE VAX IM ; Start 09/09/17 at 09:00; Stop 09/09/17 at 11:44; Status DC Influenza Virus Vaccine Quadrival (Fluarix Quad Syringe) 0.5 ml ONCE ONCE VAX IM Last administered on 09/11/17at 15:23; Start 09/11/17 at 13:00; Stop 09/11/17 at 13:01; Status DC Pneumococcal Polyvalent Vaccine (Pneumovax 23) 0.5 ml ONCE ONCE VAX IM Last administered on 09/11/17 15:25; Start 09/11/17 at 13:00; Stop 09/11/17 at 13:01 ; Status DC Levothyroxine Sodium (Synthroid) 50 mcg DAILY06 PO Last administered on 06:19; Start 09/10/17 at 06:00 Vitamin D (Vitamin D3) 50,000 unit WEEKLY PO Last administered on 09/10/17at 09: 03; Start 09/10/17 at 09:00; Stop 11/14/17 at 08:59 Duloxetine HCl (Cymbalta) 20 mg HS PO Last administered on 09/15/17 19:27; Start 09/09/17 at 21:00; Stop 09/15/17 at 21:20; Status DC Docusate Sodium (Colace Solution) 100 mg DAILY PO Last administered on 09:15; Start 09/11/17 at 09:00 Divalproex Sodium (Depakote Sprinkles) 125 mg BID@1300,1700 PO Last administered on 09/14/17 17:04; Start 09/11/17 at 13:00; Stop 09/15/17 at 12:45 ; Status DC Divalproex Sodium (Depakote Sprinkles) 250 mg DAILY PO Last administered on 07:49; Start 09/12/17 at 09:00; Stop 09/15/17 at 12:45; Status DC Olanzapine (ZyPREXA ZYDIS) 2.5 mg PRN Q2HR PRN PO PSYCHOSIS Last administered on 09/17/17 09:52; Start 09/15/17 at 11:30 Valproic Acid (Depakene) 250 mg DAILY PO Last administered on 09/18/17 09:15; Start 09/16/17 at 09:00 Valproic Acid (Depakene) 125 mg BID@1300,1700 PO Last administered on 17:17; Start 09/15/17 at 13:00 Risperidone (RisperDAL) 0.25 mg 1X ONCE SL Last administered on 09/15/17 19: 29; Start 09/15/17 at 19:00; Stop 09/15/17 at 19:01; Status DC Risperidone (RisperDAL) 0.25 mg BID@0900,1700 SL Last administered on at 17:08; Start 09/16/17 at 09:00; Stop 09/17/17 at 18:17; Status DC Sertraline HCl (Zoloft) 50 mg DAILY PO Last administered on 09/18/17at 09:15; Start 09/16/17 at 09:00 Mirtazapine (Remeron) 7.5 mg QHS PO Last administered on 09/18/17at 19:51; Start 09/15/17 at 21:30 Risperidone (RisperDAL) 0.75 mg DAILY SL Last administered on 09/18/17at 09:18; Start 09/18/17 at 09:00 Active Scripts Active Reported Melatonin 3 Mg Tablet 3 Mg PO PRN QHS PRN Lorazepam 0.5 Mg Tablet 0.5 Mg PO PRN Q12HR PRN Depakote Sprinkle (Divalproex Sodium) 125 Mg Cap.sprink 125 Mg PO TID Seroquel (Quetiapine Fumarate) 50 Mg Tablet 50 Mg PO BID@0900,1300 Simvastatin 40 Mg Tablet 40 Mg PO HS Seroquel (Quetiapine Fumarate) 100 Mg Tablet 100 Mg PO QHS Levothyroxine Sodium 75 Mcg Tablet 75 Mcg PO DAILY07 Colace (Docusate Sodium) 100 Mg Capsule 100 Mg PO QTUTHSA Citalopram Hbr (Citalopram Hydrobromide) 10 Mg Tablet 30 Mg PO QHS I have reviewed the current psychotropics carefully including drug interactions. Risk benefit ratio favors no change other than as noted in my dictated progress note. Diagnosis: Problems: (1) Anxiety disorder (2) Dementia in Alzheimer's disease with delusions (3) Dementia in Alzheimer's disease with depression (4) Dementia, vascular, with delusions (5) Dementia, vascular, with depression (6) Impulse control disorder KODY GODINEZ MD Sep 18, 2017 20:47
[2017-09-19] MEDS: LEVOTHYROXINE 50 MCG TABLET PO SCH (05:51)
[2017-09-19 06:01] VITALS: BP 111/67
[2017-09-19] MEDS: SERTRALINE 50 MG TABLET. PO SCH (09:01)
[2017-09-19] MEDS: VALPROATE ACID 250 MG/5 ML ORAL SOLUTION PO SCH ×3 (09:02→17:03)
[2017-09-19] MEDS: DOCUSATE 100 MG/10 ML SOLUTION. PO SCH (09:02)
[2017-09-19] MEDS: risperiDONE ORAL 1 MG/ML 30ml BOTTLE. SL SCH (09:05)
[2017-09-19 16:12] VITALS: BP 126/70
[2017-09-19] MEDS: MIRTAZAPINE 7.5 MG TABLET. PO SCH (19:42)
[2017-09-19] MEDS: SIMVASTATIN 40 MG TABLET. PO SCH (19:42)
[2017-09-19] MEDS: MELATONIN 3 MG TABLET PO SCH (19:43)
--- NOTE | 2017-09-19 20:52 | PDOC ---
Exam Note: Wilmar Note: Please also refer to the separate dictated note~for this date of service dictated separately.~Patient seen individually. Discussed the patient with Nursing staff reviewed the chart.~Reviewed interim history and current functioning. Reviewed vital signs,~Labs/ Radiology~and current medications noted below. Continue current treatment with the changes noted in the dictated addendum note Assessment: Vital Signs: Vital Signs Date Time Temp Pulse Resp B/P (MAP) Pulse Ox O2 Delivery O2 Flow Rate FiO2 09/19/17 16:12 98.1 84 20 126/70 (88) 95 I&O Intake and Output 09/19/17 07:00 Intake Total 1470 ml Balance 1470 ml Intake Oral 1470 ml # Voids 3 Current Medications: Meds: Current Medications Acetaminophen (Tylenol) 650 mg PRN Q6HRS PRN PO PAIN / TEMP; Start 09/08/17 at 22:00 Multi-Ingredient Ointment (Analgesic [place]) 1 krzysztof PRN QID PRN TP MUSCLE PAIN; Start 09/08/17 at 22:00 Al Hydroxide/Mg Hydroxide (Mylanta Plus Xs) 15 ml PRN AFTMEALHC PRN PO DYSPEPSIA; Start 09/08/17 at 22:00 Magnesium Hydroxide (Milk Of Magnesia) 2,400 mg PRN QHS PRN PO CONSTIPATION; Start 09/08/17 at 22:00 Citalopram Hydrobromide (CeleXA) 30 mg QHS PO Last administered on 09/08/17at 22 :28; Start 09/08/17 at 22:30; Stop 09/09/17 at 18:16; Status DC Divalproex Sodium (Depakote Sprinkles) 125 mg TID PO Last administered on at 19:23; Start 09/08/17 at 22:30; Stop 09/11/17 at 10:51; Status DC Lorazepam (Ativan) 0.5 mg PRN Q12HR PRN PO ANXIETY / AGITATION Last administered on 09/18/17at 02:14; Start 09/08/17 at 22:00 Quetiapine Fumarate (SEROquel) 50 mg BID@0900,1300 PO Last administered on 09/15at 13:50; Start 09/09/17 at 09:00; Stop 09/15/17 at 18:43; Status DC Quetiapine Fumarate (SEROquel) 100 mg QHS PO Last administered on 09/14/17 20: 29; Start 09/08/17 at 22:30; Stop 09/15/17 at 18:43; Status DC Melatonin 3 mg PRN QHS PRN PO INSOMNIA Last administered on 09/11/17 19:48; Start 09/08/17 at 22:15; Stop 09/19/17 at 18:02; Status DC Docusate Sodium (Colace) 100 mg QTUTHSA PO Last administered on 09/09/17 16:27 ; Start 09/09/17 at 16:00; Stop 09/10/17 at 16:13; Status DC Levothyroxine Sodium (Synthroid) 75 mcg DAILY07 PO Last administered on 05:44; Start 09/09/17 at 07:00; Stop 09/09/17 at 14:30; Status DC Simvastatin (Zocor) 40 mg HS PO Last administered on 09/19/17 19:42; Start at 22:30 Influenza Virus Vaccine Quadrival (Fluarix Quad Syringe) 0.5 ml ONCE ONCE VAX IM ; Start 09/09/17 at 09:00; Stop 09/09/17 at 11:44; Status DC Pneumococcal Polyvalent Vaccine (Pneumovax 23) 0.5 ml ONCE ONCE VAX IM ; Start 09/09/17 at 09:00; Stop 09/09/17 at 11:44; Status DC Influenza Virus Vaccine Quadrival (Fluarix Quad Syringe) 0.5 ml ONCE ONCE VAX IM Last administered on 09/11/17at 15:23; Start 09/11/17 at 13:00; Stop 09/11/17 at 13:01; Status DC Pneumococcal Polyvalent Vaccine (Pneumovax 23) 0.5 ml ONCE ONCE VAX IM Last administered on 09/11/17at 15:25; Start 09/11/17 at 13:00; Stop 09/11/17 at 13:01 ; Status DC Levothyroxine Sodium (Synthroid) 50 mcg DAILY06 PO Last administered on 05:51; Start 09/10/17 at 06:00 Vitamin D (Vitamin D3) 50,000 unit WEEKLY PO Last administered on 09/10/17 09: 03; Start 09/10/17 at 09:00; Stop 11/14/17 at 08:59 Duloxetine HCl (Cymbalta) 20 mg HS PO Last administered on 09/15/17 19:27; Start 09/09/17 at 21:00; Stop 09/15/17 at 21:20; Status DC Docusate Sodium (Colace Solution) 100 mg DAILY PO Last administered on 09:02; Start 09/11/17 at 09:00 Divalproex Sodium (Depakote Sprinkles) 125 mg BID@1300,1700 PO Last administered on 09/14/17 17:04; Start 09/11/17 at 13:00; Stop 09/15/17 at 12:45 ; Status DC Divalproex Sodium (Depakote Sprinkles) 250 mg DAILY PO Last administered on 07:49; Start 09/12/17 at 09:00; Stop 09/15/17 at 12:45; Status DC Olanzapine (ZyPREXA ZYDIS) 2.5 mg PRN Q2HR PRN PO PSYCHOSIS Last administered on 09/19/17 17:50; Start 09/15/17 at 11:30 Valproic Acid (Depakene) 250 mg DAILY PO Last administered on 09/19/17 09:02; Start 09/16/17 at 09:00 Valproic Acid (Depakene) 125 mg BID@1300,1700 PO Last administered on 17:03; Start 09/15/17 at 13:00 Risperidone (RisperDAL) 0.25 mg 1X ONCE SL Last administered on 09/15/17 19: 29; Start 09/15/17 at 19:00; Stop 09/15/17 at 19:01; Status DC Risperidone (RisperDAL) 0.25 mg BID@0900,1700 SL Last administered on 17:08; Start 09/16/17 at 09:00; Stop 09/17/17 at 18:17; Status DC Sertraline HCl (Zoloft) 50 mg DAILY PO Last administered on 09/19/17 09:01; Start 09/16/17 at 09:00 Mirtazapine (Remeron) 7.5 mg QHS PO Last administered on 09/19/17at 19:42; Start 09/15/17 at 21:30 Risperidone (RisperDAL) 0.75 mg DAILY SL Last administered on 09/19/17at 09:05; Start 09/18/17 at 09:00 Melatonin 3 mg QHS PO Last administered on 09/19/17at 19:43; Start 09/19/17 at 21:00 Active Scripts Active Reported Melatonin 3 Mg Tablet 3 Mg PO PRN QHS PRN Lorazepam 0.5 Mg Tablet 0.5 Mg PO PRN Q12HR PRN Depakote Sprinkle (Divalproex Sodium) 125 Mg Cap.sprink 125 Mg PO TID Seroquel (Quetiapine Fumarate) 50 Mg Tablet 50 Mg PO BID@0900,1300 Simvastatin 40 Mg Tablet 40 Mg PO HS Seroquel (Quetiapine Fumarate) 100 Mg Tablet 100 Mg PO QHS Levothyroxine Sodium 75 Mcg Tablet 75 Mcg PO DAILY07 Colace (Docusate Sodium) 100 Mg Capsule 100 Mg PO QTUTHSA Citalopram Hbr (Citalopram Hydrobromide) 10 Mg Tablet 30 Mg PO QHS I have reviewed the current psychotropics carefully including drug interactions. Risk benefit ratio favors no change other than as noted in my dictated progress note. Diagnosis: Problems: (1) Anxiety disorder (2) Dementia in Alzheimer's disease with delusions (3) Dementia in Alzheimer's disease with depression (4) Dementia, vascular, with delusions (5) Dementia, vascular, with depression (6) Impulse control disorder KODY GODINEZ MD Sep 19, 2017 20:52
--- NOTE | 2017-09-19 23:38 | PN ---
DATE: 09/17/2017 This is a late entry for 09/17/2017 covers elements not covered in my initial note of 09/17/2017. SUBJECTIVE: I met with the patient in the evening of 09/17/2017. Per nursing report, the patient had a very difficult day. UA is negative. It took 6 staff members to straight cath her for UA. She was agitated, labile, received Zyprexa Zydis and Ativan at 09:44 and was hitting, kicking, pulling the hair of nursing staff, had to be placed in the quiet hallway to reduce stimulation, reduce her agitation. Oral intake is poor. REVIEW OF SYSTEMS: No CV, , pulmonary, eye, ENT system symptoms on review. Reliability poor. MENTAL STATUS EXAM: Oriented to herself. Insight, judgment, recent and remote memory, attention, concentration, fund of knowledge poor, consistent with her diagnosis mentioned in my initial note. IMPRESSION: Major neurocognitive disorder, Alzheimer, vascular with depression, delusion, behavioral disturbance; anxiety disorder, unspecified; impulse control disorder, unspecified. Rest unchanged. PLAN: Check labs to make sure she is not getting dehydrated. We will check CBC, CMP. Change Cymbalta to Zoloft 50 mg a day. Maintain Risperdal, but we will go ahead and change the 0.25 mg twice a day to 0.75 mg liquid once a day to help with compliance given her marked resistance to taking medications. Maintain Depakote along with Ativan p.r.n., melatonin 3 mg at bedtime, Zyprexa p.r.n. Valproic acid level at last check was 51, but since then, she has been noncompliant with Depakote. We will repeat labs. MAN Araceli GODINEZ MD DR: CAROLYN/maria isabel JOB#: [id number] / [id number]
--- NOTE | 2017-09-20 00:54 | PN ---
DATE: 09/18/2017 This is a late entry for 09/18/2017 and covers the elements not covered in my initial note of 09/18/2017. SUBJECTIVE: I met with the patient in the evening of 09/18/2017 and staffed at a treatment team meeting with the entire team morning of 09/18/2017. The patient's attended the treatment team meeting along with her daughter, Sarahy. The patient sleeps an average of 7 hours at night, slept 4 hours previous evening. Appetite 25%, which is poor. She is still combative with cares, resistive to medications, not attending groups, quite disorganized, sleeps during the day off and on. Took her bedtime medications, more compliant with her medications during the day on 09/18/2017. Valproic acid level low at 34, probably due to noncompliance since the prior level was low therapeutic. REVIEW OF SYSTEMS: No CV, , pulmonary, eye, ENT system symptoms on review. Reliability poor. MENTAL STATUS EXAM: Oriented to herself. Insight, judgment, recent and remote memory, attention, concentration, fund of knowledge poor, consistent with her diagnosis mentioned in my initial note. IMPRESSION: Major neurocognitive disorder, Alzheimer, vascular with delusion, depression, behavioral disturbance. Rest unchanged. PLAN: Lengthy discussion with the family about the patient's diagnosis, progress, medications. They described her premorbid personality as extremely loving, caring, certainly not aggressive. No evidence of bipolar disorder or psychosis prior to the onset of her dementia. Continue psychotropics mentioned in my initial note, adjust as clinically indicated. Hopefully, as she is more compliant, gradually we will see a consistent improvement from a psychiatric standpoint at least with respect to delusions, aggression, certainly not the confusion. MAN Araceli GODINEZ MD DR: CAROLYN/maria isabel JOB#: [id number] / [id number]
[2017-09-20 05:52] VITALS: BP 118/58
[2017-09-20] MEDS: LEVOTHYROXINE 50 MCG TABLET PO SCH (06:10)
[2017-09-20] MEDS: DOCUSATE 100 MG/10 ML SOLUTION. PO SCH (09:00)
[2017-09-20] MEDS: risperiDONE ORAL 1 MG/ML 30ml BOTTLE. SL SCH (09:24)
[2017-09-20] MEDS: SERTRALINE 50 MG TABLET. PO SCH (09:24)
[2017-09-20] MEDS: VALPROATE ACID 250 MG/5 ML ORAL SOLUTION PO SCH ×3 (09:24→17:18)
[2017-09-20 15:44] VITALS: BP 111/56
[2017-09-20] MEDS: MIRTAZAPINE 7.5 MG TABLET. PO SCH (19:26)
[2017-09-20] MEDS: SIMVASTATIN 40 MG TABLET. PO SCH (19:26)
[2017-09-20] MEDS: MELATONIN 3 MG TABLET PO SCH (19:27)
[2017-09-20] MEDS ORDERED: MELATONIN 3 MG TABLET PO ONE (21:00)
--- NOTE | 2017-09-20 22:45 | PDOC ---
Exam Note: Wilmar Note: Please also refer to the separate dictated note~for this date of service dictated separately.~Patient seen individually. Discussed the patient with Nursing staff reviewed the chart.~Reviewed interim history and current functioning. Reviewed vital signs,~Labs/ Radiology~and current medications noted below. Continue current treatment with the changes noted in the dictated addendum note Assessment: Vital Signs: Vital Signs Date Time Temp Pulse Resp B/P (MAP) Pulse Ox O2 Delivery O2 Flow Rate FiO2 09/20/17 15:44 97.1 67 16 111/56 (74) 98 I&O Intake and Output 09/20/17 07:00 Intake Total 240 ml Balance 240 ml Intake Oral 240 ml # Voids 1 Current Medications: Meds: Current Medications Acetaminophen (Tylenol) 650 mg PRN Q6HRS PRN PO PAIN / TEMP; Start 09/08/17 at 22:00 Multi-Ingredient Ointment (Analgesic [place]) 1 krzysztof PRN QID PRN TP MUSCLE PAIN; Start 09/08/17 at 22:00 Al Hydroxide/Mg Hydroxide (Mylanta Plus Xs) 15 ml PRN AFTMEALHC PRN PO DYSPEPSIA; Start 09/08/17 at 22:00 Magnesium Hydroxide (Milk Of Magnesia) 2,400 mg PRN QHS PRN PO CONSTIPATION; Start 09/08/17 at 22:00 Citalopram Hydrobromide (CeleXA) 30 mg QHS PO Last administered on 09/08/17at 22 :28; Start 09/08/17 at 22:30; Stop 09/09/17 at 18:16; Status DC Divalproex Sodium (Depakote Sprinkles) 125 mg TID PO Last administered on at 19:23; Start 09/08/17 at 22:30; Stop 09/11/17 at 10:51; Status DC Lorazepam (Ativan) 0.5 mg PRN Q12HR PRN PO ANXIETY / AGITATION Last administered on 09/18/17at 02:14; Start 09/08/17 at 22:00 Quetiapine Fumarate (SEROquel) 50 mg BID@0900,1300 PO Last administered on 09/15at 13:50; Start 09/09/17 at 09:00; Stop 09/15/17 at 18:43; Status DC Quetiapine Fumarate (SEROquel) 100 mg QHS PO Last administered on 09/14/17 20: 29; Start 09/08/17 at 22:30; Stop 09/15/17 at 18:43; Status DC Melatonin 3 mg PRN QHS PRN PO INSOMNIA Last administered on 09/11/17 19:48; Start 09/08/17 at 22:15; Stop 09/19/17 at 18:02; Status DC Docusate Sodium (Colace) 100 mg QTUTHSA PO Last administered on 09/09/17 16:27 ; Start 09/09/17 at 16:00; Stop 09/10/17 at 16:13; Status DC Levothyroxine Sodium (Synthroid) 75 mcg DAILY07 PO Last administered on at 05:44; Start 09/09/17 at 07:00; Stop 09/09/17 at 14:30; Status DC Simvastatin (Zocor) 40 mg HS PO Last administered on 09/20/17at 19:26; Start at 22:30 Influenza Virus Vaccine Quadrival (Fluarix Quad [id number] Syringe) 0.5 ml ONCE ONCE VAX IM ; Start 09/09/17 at 09:00; Stop 09/09/17 at 11:44; Status DC Pneumococcal Polyvalent Vaccine (Pneumovax 23) 0.5 ml ONCE ONCE VAX IM ; Start 09/09/17 at 09:00; Stop 09/09/17 at 11:44; Status DC Influenza Virus Vaccine Quadrival (Fluarix Quad Syringe) 0.5 ml ONCE ONCE VAX IM Last administered on 09/11/17at 15:23; Start 09/11/17 at 13:00; Stop 09/11/17 at 13:01; Status DC Pneumococcal Polyvalent Vaccine (Pneumovax 23) 0.5 ml ONCE ONCE VAX IM Last administered on 09/11/17at 15:25; Start 09/11/17 at 13:00; Stop 09/11/17 at 13:01 ; Status DC Levothyroxine Sodium (Synthroid) 50 mcg DAILY06 PO Last administered on at 06:10; Start 09/10/17 at 06:00 Vitamin D (Vitamin D3) 50,000 unit WEEKLY PO Last administered on 09/10/17 09: 03; Start 09/10/17 at 09:00; Stop 11/14/17 at 08:59 Duloxetine HCl (Cymbalta) 20 mg HS PO Last administered on 09/15/17 19:27; Start 09/09/17 at 21:00; Stop 09/15/17 at 21:20; Status DC Docusate Sodium (Colace Solution) 100 mg DAILY PO Last administered on 09:02; Start 09/11/17 at 09:00 Divalproex Sodium (Depakote Sprinkles) 125 mg BID@1300,1700 PO Last administered on 09/14/17 17:04; Start 09/11/17 at 13:00; Stop 09/15/17 at 12:45 ; Status DC Divalproex Sodium (Depakote Sprinkles) 250 mg DAILY PO Last administered on 07:49; Start 09/12/17 at 09:00; Stop 09/15/17 at 12:45; Status DC Olanzapine (ZyPREXA ZYDIS) 2.5 mg PRN Q2HR PRN PO PSYCHOSIS Last administered on 09/19/17 17:50; Start 09/15/17 at 11:30 Valproic Acid (Depakene) 250 mg DAILY PO Last administered on 09/20/17 09:24; Start 09/16/17 at 09:00; Stop 09/20/17 at 18:26; Status DC Valproic Acid (Depakene) 125 mg BID@1300,1700 PO Last administered on 17:18; Start 09/15/17 at 13:00 Risperidone (RisperDAL) 0.25 mg 1X ONCE SL Last administered on 09/15/17 19: 29; Start 09/15/17 at 19:00; Stop 09/15/17 at 19:01; Status DC Risperidone (RisperDAL) 0.25 mg BID@0900,1700 SL Last administered on 17:08; Start 09/16/17 at 09:00; Stop 09/17/17 at 18:17; Status DC Sertraline HCl (Zoloft) 50 mg DAILY PO Last administered on 09/20/17at 09:24; Start 09/16/17 at 09:00 Mirtazapine (Remeron) 7.5 mg QHS PO Last administered on 09/20/17at 19:26; Start 09/15/17 at 21:30 Risperidone (RisperDAL) 0.75 mg DAILY SL Last administered on 09/20/17at 09:24; Start 09/18/17 at 09:00 Melatonin 3 mg QHS PO Last administered on 09/19/17at 19:43; Start 09/19/17 at 21:00 Melatonin 1.5 mg 1X ONCE PO Last administered on 09/20/17at 19:26; Start at 21:00; Stop 09/20/17 at 21:01; Status DC Active Scripts Active Reported Melatonin 3 Mg Tablet 3 Mg PO PRN QHS PRN Lorazepam 0.5 Mg Tablet 0.5 Mg PO PRN Q12HR PRN Depakote Sprinkle (Divalproex Sodium) 125 Mg Cap.sprink 125 Mg PO TID Seroquel (Quetiapine Fumarate) 50 Mg Tablet 50 Mg PO BID@0900,1300 Simvastatin 40 Mg Tablet 40 Mg PO HS Seroquel (Quetiapine Fumarate) 100 Mg Tablet 100 Mg PO QHS Levothyroxine Sodium 75 Mcg Tablet 75 Mcg PO DAILY07 Colace (Docusate Sodium) 100 Mg Capsule 100 Mg PO QTUTHSA Citalopram Hbr (Citalopram Hydrobromide) 10 Mg Tablet 30 Mg PO QHS I have reviewed the current psychotropics carefully including drug interactions. Risk benefit ratio favors no change other than as noted in my dictated progress note. Diagnosis: Problems: (1) Anxiety disorder (2) Dementia in Alzheimer's disease with delusions (3) Dementia in Alzheimer's disease with depression (4) Dementia, vascular, with delusions (5) Dementia, vascular, with depression (6) Impulse control disorder KODY GODINEZ MD Sep 20, 2017 22:45
[2017-09-21 05:54] VITALS: BP 114/56
[2017-09-21] MEDS: LEVOTHYROXINE 50 MCG TABLET PO SCH (06:06)
[2017-09-21] MEDS: SERTRALINE 50 MG TABLET. PO SCH (08:09)
[2017-09-21] MEDS: DOCUSATE 100 MG/10 ML SOLUTION. PO SCH (08:09)
[2017-09-21] MEDS: risperiDONE ORAL 1 MG/ML 30ml BOTTLE. SL SCH (08:22)
--- NOTE | 2017-09-21 12:46 | PN ---
DATE: 09/19/2017 PSYCHIATRIC PROGRESS NOTE This is a late entry 09/19/2017 covers elements not covered in my initial note 09/19/2017. SUBJECTIVE: I met with the patient in the evening of 09/19/2017. The patient slept 5-3/4 hours previous evening, did okay the previous night, up at 3 o'clock in the morning, somewhat combative with cares. REVIEW OF SYSTEMS: No CV, , GI, pulmonary, eye system symptoms on review. MENTAL STATUS EXAM: Oriented to herself. Insight, judgment, recent and remote memory, attention, concentration, fund of knowledge poor, consistent with her diagnosis mentioned in my initial note. PLAN: Change the melatonin to scheduled 3 mg at bedtime. Continue rest unchanged per the initial note. MAN Araceli GODINEZ MD DR: CAROLYN/maria isabel JOB#: [id number] / [id number]
[2017-09-21] MEDS: VALPROATE ACID 250 MG/5 ML ORAL SOLUTION PO SCH ×2 (13:00→17:07)
[2017-09-21 15:22] VITALS: BP 137/74
[2017-09-21] MEDS: MIRTAZAPINE 7.5 MG TABLET. PO SCH (19:40)
[2017-09-21] MEDS: MELATONIN 3 MG TABLET PO SCH (19:41)
[2017-09-21] MEDS: SIMVASTATIN 40 MG TABLET. PO SCH (19:41)
--- NOTE | 2017-09-21 21:54 | PDOC ---
Exam Note: Wilmar Note: Please also refer to the separate dictated note~for this date of service dictated separately.~Patient seen individually. Discussed the patient with Nursing staff reviewed the chart.~Reviewed interim history and current functioning. Reviewed vital signs,~Labs/ Radiology~and current medications noted below. Continue current treatment with the changes noted in the dictated addendum note Assessment: Vital Signs: Vital Signs Date Time Temp Pulse Resp B/P (MAP) Pulse Ox O2 Delivery O2 Flow Rate FiO2 09/21/17 15:22 98.2 72 20 137/74 (95) 98 I&O Intake and Output 09/21/17 07:00 Intake Total 720 ml Balance 720 ml Intake Oral 720 ml # Voids 1 Current Medications: Meds: Current Medications Acetaminophen (Tylenol) 650 mg PRN Q6HRS PRN PO PAIN / TEMP; Start 09/08/17 at 22:00 Multi-Ingredient Ointment (Analgesic [place]) 1 krzysztof PRN QID PRN TP MUSCLE PAIN; Start 09/08/17 at 22:00 Al Hydroxide/Mg Hydroxide (Mylanta Plus Xs) 15 ml PRN AFTMEALHC PRN PO DYSPEPSIA; Start 09/08/17 at 22:00 Magnesium Hydroxide (Milk Of Magnesia) 2,400 mg PRN QHS PRN PO CONSTIPATION; Start 09/08/17 at 22:00 Citalopram Hydrobromide (CeleXA) 30 mg QHS PO Last administered on 09/08/17at 22 :28; Start 09/08/17 at 22:30; Stop 09/09/17 at 18:16; Status DC Divalproex Sodium (Depakote Sprinkles) 125 mg TID PO Last administered on at 19:23; Start 09/08/17 at 22:30; Stop 09/11/17 at 10:51; Status DC Lorazepam (Ativan) 0.5 mg PRN Q12HR PRN PO ANXIETY / AGITATION Last administered on 09/18/17at 02:14; Start 09/08/17 at 22:00 Quetiapine Fumarate (SEROquel) 50 mg BID@0900,1300 PO Last administered on 09/15at 13:50; Start 09/09/17 at 09:00; Stop 09/15/17 at 18:43; Status DC Quetiapine Fumarate (SEROquel) 100 mg QHS PO Last administered on 09/14/17 20: 29; Start 09/08/17 at 22:30; Stop 09/15/17 at 18:43; Status DC Melatonin 3 mg PRN QHS PRN PO INSOMNIA Last administered on 09/11/17 19:48; Start 09/08/17 at 22:15; Stop 09/19/17 at 18:02; Status DC Docusate Sodium (Colace) 100 mg QTUTHSA PO Last administered on 09/09/17at 16:27 ; Start 09/09/17 at 16:00; Stop 09/10/17 at 16:13; Status DC Levothyroxine Sodium (Synthroid) 75 mcg DAILY07 PO Last administered on at 05:44; Start 09/09/17 at 07:00; Stop 09/09/17 at 14:30; Status DC Simvastatin (Zocor) 40 mg HS PO Last administered on 09/21/17at 19:41; Start at 22:30 Influenza Virus Vaccine Quadrival (Fluarix Quad [id number] Syringe) 0.5 ml ONCE ONCE VAX IM ; Start 09/09/17 at 09:00; Stop 09/09/17 at 11:44; Status DC Pneumococcal Polyvalent Vaccine (Pneumovax 23) 0.5 ml ONCE ONCE VAX IM ; Start 09/09/17 at 09:00; Stop 09/09/17 at 11:44; Status DC Influenza Virus Vaccine Quadrival (Fluarix Quad Syringe) 0.5 ml ONCE ONCE VAX IM Last administered on 09/11/17at 15:23; Start 09/11/17 at 13:00; Stop 09/11/17 at 13:01; Status DC Pneumococcal Polyvalent Vaccine (Pneumovax 23) 0.5 ml ONCE ONCE VAX IM Last administered on 09/11/17at 15:25; Start 09/11/17 at 13:00; Stop 09/11/17 at 13:01 ; Status DC Levothyroxine Sodium (Synthroid) 50 mcg DAILY06 PO Last administered on at 06:06; Start 09/10/17 at 06:00 Vitamin D (Vitamin D3) 50,000 unit WEEKLY PO Last administered on 09/10/17 09: 03; Start 09/10/17 at 09:00; Stop 11/14/17 at 08:59 Duloxetine HCl (Cymbalta) 20 mg HS PO Last administered on 09/15/17 19:27; Start 09/09/17 at 21:00; Stop 09/15/17 at 21:20; Status DC Docusate Sodium (Colace Solution) 100 mg DAILY PO Last administered on 08:09; Start 09/11/17 at 09:00 Divalproex Sodium (Depakote Sprinkles) 125 mg BID@1300,1700 PO Last administered on 09/14/17 17:04; Start 09/11/17 at 13:00; Stop 09/15/17 at 12:45 ; Status DC Divalproex Sodium (Depakote Sprinkles) 250 mg DAILY PO Last administered on 07:49; Start 09/12/17 at 09:00; Stop 09/15/17 at 12:45; Status DC Olanzapine (ZyPREXA ZYDIS) 2.5 mg PRN Q2HR PRN PO PSYCHOSIS Last administered on 09/19/17 17:50; Start 09/15/17 at 11:30 Valproic Acid (Depakene) 250 mg DAILY PO Last administered on 09/20/17 09:24; Start 09/16/17 at 09:00; Stop 09/20/17 at 18:26; Status DC Valproic Acid (Depakene) 125 mg BID@1300,1700 PO Last administered on 09/21/17 17:07; Start 09/15/17 at 13:00 Risperidone (RisperDAL) 0.25 mg 1X ONCE SL Last administered on 09/15/17 19: 29; Start 09/15/17 at 19:00; Stop 09/15/17 at 19:01; Status DC Risperidone (RisperDAL) 0.25 mg BID@0900,1700 SL Last administered on 17:08; Start 09/16/17 at 09:00; Stop 09/17/17 at 18:17; Status DC Sertraline HCl (Zoloft) 50 mg DAILY PO Last administered on 09/21/17 08:09; Start 09/16/17 at 09:00 Mirtazapine (Remeron) 7.5 mg QHS PO Last administered on 09/21/17at 19:40; Start 09/15/17 at 21:30 Risperidone (RisperDAL) 0.75 mg DAILY SL Last administered on 09/21/17at 08:22; Start 09/18/17 at 09:00 Melatonin 3 mg QHS PO Last administered on 09/19/17at 19:43; Start 09/19/17 at 21:00; Stop 09/21/17 at 19:32; Status DC Melatonin 1.5 mg 1X ONCE PO Last administered on 09/20/17at 19:26; Start at 21:00; Stop 09/20/17 at 21:01; Status DC Melatonin 1.5 mg QHS PO Last administered on 09/21/17at 19:41; Start 09/21/17 at 21:00 Active Scripts Active Reported Melatonin 3 Mg Tablet 3 Mg PO PRN QHS PRN Lorazepam 0.5 Mg Tablet 0.5 Mg PO PRN Q12HR PRN Depakote Sprinkle (Divalproex Sodium) 125 Mg Cap.sprink 125 Mg PO TID Seroquel (Quetiapine Fumarate) 50 Mg Tablet 50 Mg PO BID@0900,1300 Simvastatin 40 Mg Tablet 40 Mg PO HS Seroquel (Quetiapine Fumarate) 100 Mg Tablet 100 Mg PO QHS Levothyroxine Sodium 75 Mcg Tablet 75 Mcg PO DAILY07 Colace (Docusate Sodium) 100 Mg Capsule 100 Mg PO QTUTHSA Citalopram Hbr (Citalopram Hydrobromide) 10 Mg Tablet 30 Mg PO QHS I have reviewed the current psychotropics carefully including drug interactions. Risk benefit ratio favors no change other than as noted in my dictated progress note. Diagnosis: Problems: (1) Anxiety disorder (2) Dementia in Alzheimer's disease with delusions (3) Dementia in Alzheimer's disease with depression (4) Dementia, vascular, with delusions (5) Dementia, vascular, with depression (6) Impulse control disorder KODY GODINEZ MD Sep 21, 2017 21:54
[2017-09-22] MEDS: LEVOTHYROXINE 50 MCG TABLET PO SCH (06:00)
[2017-09-22 06:14] VITALS: BP 132/60
[2017-09-22] MEDS: DOCUSATE 100 MG/10 ML SOLUTION. PO SCH (09:10)
[2017-09-22] MEDS: SERTRALINE 50 MG TABLET. PO SCH (09:10)
[2017-09-22] MEDS: risperiDONE ORAL 1 MG/ML 30ml BOTTLE. SL SCH (09:10)
[2017-09-22] MEDS: VALPROATE ACID 250 MG/5 ML ORAL SOLUTION PO SCH ×2 (12:30→17:02)
--- NOTE | 2017-09-22 15:34 | PN ---
DATE: 09/20/2017 This late entry, 09/20/2017, covers elements not covered in my initial note of 09/20/2017. SUBJECTIVE: I met with the patient the evening of 09/20/2017. The patient slept 7-3/4 hours previous evening, did well the previous night, more cooperative during the day on 09/20/2017, less agitated, less aggressive. She ate no breakfast, ate 50% lunch, 100% dinner, somewhat sedated during the day. REVIEW OF SYSTEMS: No CV, , pulmonary, eye, ENT system symptoms on review. MENTAL STATUS EXAM: Oriented to herself. Insight, judgment, recent and remote memory, attention, concentration, fund of knowledge poor, consistent with her diagnosis mentioned in my initial note. IMPRESSION: Major neurocognitive disorder, Alzheimer, vascular with depression, delusion, and behavioral disturbance. Rest unchanged. PLAN: We will stop the 250 mg Depakote at 0900 to help reduce the daytime sedation. After my rounds, I was called by the nursing staff around 9:00 p.m. wondering whether we could reduce the melatonin down to 1.5 mg at bedtime instead of 3 mg since it may be contributing to her daytime sedation. We will do that on a one-time basis to see how it helps then decide. Continue rest unchanged. MAN Araceli GODINEZ MD DR: CAROLYN/maria isabel JOB#: [id number] / [id number]
[2017-09-22 15:48] VITALS: BP 126/60
[2017-09-22] MEDS: SIMVASTATIN 40 MG TABLET. PO SCH (19:18)
[2017-09-22] MEDS: MELATONIN 3 MG TABLET PO SCH (19:19)
[2017-09-22] MEDS: MIRTAZAPINE 7.5 MG TABLET. PO SCH (19:19)
--- NOTE | 2017-09-22 20:55 | PDOC ---
Exam Note: Wilmar Note: Please also refer to the separate dictated note~for this date of service dictated separately.~Patient seen individually. Discussed the patient with Nursing staff reviewed the chart.~Reviewed interim history and current functioning. Reviewed vital signs,~Labs/ Radiology~and current medications noted below. Continue current treatment with the changes noted in the dictated addendum note Assessment: Vital Signs: Vital Signs Date Time Temp Pulse Resp B/P (MAP) Pulse Ox O2 Delivery O2 Flow Rate FiO2 09/22/17 15:48 97.6 67 18 126/60 (82) 98 Room Air I&O Intake and Output 09/22/17 07:00 Intake Total 530 ml Balance 530 ml Intake Oral 530 ml # Voids 1 # Bowel Movements 1 Current Medications: Meds: Current Medications Acetaminophen (Tylenol) 650 mg PRN Q6HRS PRN PO PAIN / TEMP; Start 09/08/17 at 22:00 Multi-Ingredient Ointment (Analgesic [place]) 1 krzysztof PRN QID PRN TP MUSCLE PAIN; Start 09/08/17 at 22:00 Al Hydroxide/Mg Hydroxide (Mylanta Plus Xs) 15 ml PRN AFTMEALHC PRN PO DYSPEPSIA; Start 09/08/17 at 22:00 Magnesium Hydroxide (Milk Of Magnesia) 2,400 mg PRN QHS PRN PO CONSTIPATION; Start 09/08/17 at 22:00 Citalopram Hydrobromide (CeleXA) 30 mg QHS PO Last administered on 09/08/17at 22 :28; Start 09/08/17 at 22:30; Stop 09/09/17 at 18:16; Status DC Divalproex Sodium (Depakote Sprinkles) 125 mg TID PO Last administered on at 19:23; Start 09/08/17 at 22:30; Stop 09/11/17 at 10:51; Status DC Lorazepam (Ativan) 0.5 mg PRN Q12HR PRN PO ANXIETY / AGITATION Last administered on 09/18/17at 02:14; Start 09/08/17 at 22:00 Quetiapine Fumarate (SEROquel) 50 mg BID@0900,1300 PO Last administered on 09/15at 13:50; Start 09/09/17 at 09:00; Stop 09/15/17 at 18:43; Status DC Quetiapine Fumarate (SEROquel) 100 mg QHS PO Last administered on 09/14/17 20: 29; Start 09/08/17 at 22:30; Stop 09/15/17 at 18:43; Status DC Melatonin 3 mg PRN QHS PRN PO INSOMNIA Last administered on 09/11/17at 19:48; Start 09/08/17 at 22:15; Stop 09/19/17 at 18:02; Status DC Docusate Sodium (Colace) 100 mg QTUTHSA PO Last administered on 09/09/17at 16:27 ; Start 09/09/17 at 16:00; Stop 09/10/17 at 16:13; Status DC Levothyroxine Sodium (Synthroid) 75 mcg DAILY07 PO Last administered on 05:44; Start 09/09/17 at 07:00; Stop 09/09/17 at 14:30; Status DC Simvastatin (Zocor) 40 mg HS PO Last administered on 09/22/17at 19:18; Start at 22:30 Influenza Virus Vaccine Quadrival (Fluarix Quad [id number] Syringe) 0.5 ml ONCE ONCE VAX IM ; Start 09/09/17 at 09:00; Stop 09/09/17 at 11:44; Status DC Pneumococcal Polyvalent Vaccine (Pneumovax 23) 0.5 ml ONCE ONCE VAX IM ; Start 09/09/17 at 09:00; Stop 09/09/17 at 11:44; Status DC Influenza Virus Vaccine Quadrival (Fluarix Quad Syringe) 0.5 ml ONCE ONCE VAX IM Last administered on 09/11/17at 15:23; Start 09/11/17 at 13:00; Stop 09/11/17 at 13:01; Status DC Pneumococcal Polyvalent Vaccine (Pneumovax 23) 0.5 ml ONCE ONCE VAX IM Last administered on 09/11/17at 15:25; Start 09/11/17 at 13:00; Stop 09/11/17 at 13:01 ; Status DC Levothyroxine Sodium (Synthroid) 50 mcg DAILY06 PO Last administered on at 06:06; Start 09/10/17 at 06:00 Vitamin D (Vitamin D3) 50,000 unit WEEKLY PO Last administered on 09/10/17 09: 03; Start 09/10/17 at 09:00; Stop 11/14/17 at 08:59 Duloxetine HCl (Cymbalta) 20 mg HS PO Last administered on 09/15/17 19:27; Start 09/09/17 at 21:00; Stop 09/15/17 at 21:20; Status DC Docusate Sodium (Colace Solution) 100 mg DAILY PO Last administered on 09:10; Start 09/11/17 at 09:00 Divalproex Sodium (Depakote Sprinkles) 125 mg BID@1300,1700 PO Last administered on 09/14/17 17:04; Start 09/11/17 at 13:00; Stop 09/15/17 at 12:45 ; Status DC Divalproex Sodium (Depakote Sprinkles) 250 mg DAILY PO Last administered on at 07:49; Start 09/12/17 at 09:00; Stop 09/15/17 at 12:45; Status DC Olanzapine (ZyPREXA ZYDIS) 2.5 mg PRN Q2HR PRN PO PSYCHOSIS Last administered on 09/19/17 17:50; Start 09/15/17 at 11:30 Valproic Acid (Depakene) 250 mg DAILY PO Last administered on 09/20/17 09:24; Start 09/16/17 at 09:00; Stop 09/20/17 at 18:26; Status DC Valproic Acid (Depakene) 125 mg BID@1300,1700 PO Last administered on 09/22/17 17:02; Start 09/15/17 at 13:00 Risperidone (RisperDAL) 0.25 mg 1X ONCE SL Last administered on 09/15/17 19: 29; Start 09/15/17 at 19:00; Stop 09/15/17 at 19:01; Status DC Risperidone (RisperDAL) 0.25 mg BID@0900,1700 SL Last administered on at 17:08; Start 09/16/17 at 09:00; Stop 09/17/17 at 18:17; Status DC Sertraline HCl (Zoloft) 50 mg DAILY PO Last administered on 09/22/17 09:10; Start 09/16/17 at 09:00 Mirtazapine (Remeron) 7.5 mg QHS PO Last administered on 09/22/17at 19:19; Start 09/15/17 at 21:30 Risperidone (RisperDAL) 0.75 mg DAILY SL Last administered on 09/22/17at 09:10; Start 09/18/17 at 09:00 Melatonin 3 mg QHS PO Last administered on 09/19/17at 19:43; Start 09/19/17 at 21:00; Stop 09/21/17 at 19:32; Status DC Melatonin 1.5 mg 1X ONCE PO Last administered on 09/20/17at 19:26; Start at 21:00; Stop 09/20/17 at 21:01; Status DC Melatonin 1.5 mg QHS PO Last administered on 09/22/17at 19:19; Start 09/21/17 at 21:00 Active Scripts Active Reported Melatonin 3 Mg Tablet 3 Mg PO PRN QHS PRN Lorazepam 0.5 Mg Tablet 0.5 Mg PO PRN Q12HR PRN Depakote Sprinkle (Divalproex Sodium) 125 Mg Cap.sprink 125 Mg PO TID Seroquel (Quetiapine Fumarate) 50 Mg Tablet 50 Mg PO BID@0900,1300 Simvastatin 40 Mg Tablet 40 Mg PO HS Seroquel (Quetiapine Fumarate) 100 Mg Tablet 100 Mg PO QHS Levothyroxine Sodium 75 Mcg Tablet 75 Mcg PO DAILY07 Colace (Docusate Sodium) 100 Mg Capsule 100 Mg PO QTUTHSA Citalopram Hbr (Citalopram Hydrobromide) 10 Mg Tablet 30 Mg PO QHS I have reviewed the current psychotropics carefully including drug interactions. Risk benefit ratio favors no change other than as noted in my dictated progress note. Diagnosis: Problems: (1) Anxiety disorder (2) Dementia in Alzheimer's disease with delusions (3) Dementia in Alzheimer's disease with depression (4) Dementia, vascular, with delusions (5) Dementia, vascular, with depression (6) Impulse control disorder KODY GODINEZ MD Sep 22, 2017 20:55
--- NOTE | 2017-09-23 03:04 | PN ---
DATE: 09/21/2017 PSYCHIATRIC PROGRESS NOTE This is a late entry for 09/21/2016, covers elements not covered in my initial note of 09/21/2016. SUBJECTIVE: I met with the patient in the evening of 09/21/2017. The patient remains somewhat sedated at times, drowsy and 1 p.m. Depakote was held. Otherwise, she is less labile. Melatonin was reduced to help with the daytime sedation as well. REVIEW OF SYSTEMS: No CV, , pulmonary, eye, ENT system symptoms on review. Reliability poor. MENTAL STATUS EXAM: Oriented to herself. Insight, judgment, recent and remote memory, attention, concentration, fund of knowledge poor, consistent with her diagnosis. IMPRESSION: Major neurocognitive disorder, Alzheimer, vascular with depression, delusion, behavioral disturbance. Rest unchanged. PLAN: Continue psychotropics mentioned in my initial note. Consider reducing Depakote due to sedation. MAN Araceli GODINEZ MD DR: CAROLYN/maria isabel JOB#: [id number] / [id number]
[2017-09-23] MEDS: LEVOTHYROXINE 50 MCG TABLET PO SCH (05:22)
[2017-09-23 05:57] VITALS: BP 108/54
[2017-09-23] MEDS: DOCUSATE 100 MG/10 ML SOLUTION. PO SCH (09:37)
[2017-09-23] MEDS: SERTRALINE 50 MG TABLET. PO SCH (09:37)
[2017-09-23] MEDS: risperiDONE ORAL 1 MG/ML 30ml BOTTLE. SL SCH (09:38)
[2017-09-23] MEDS: VALPROATE ACID 250 MG/5 ML ORAL SOLUTION PO SCH ×2 (12:23→16:47)
[2017-09-23 15:33] VITALS: BP 96/52
[2017-09-23] MEDS: MIRTAZAPINE 7.5 MG TABLET. PO SCH (19:27)
[2017-09-23] MEDS: SIMVASTATIN 40 MG TABLET. PO SCH (19:27)
[2017-09-23] MEDS: MELATONIN 3 MG TABLET PO SCH (19:27)
--- NOTE | 2017-09-23 20:52 | PDOC ---
Exam Note: Wilmar Note: Please also refer to the separate dictated note~for this date of service dictated separately.~Patient seen individually. Discussed the patient with Nursing staff reviewed the chart.~Reviewed interim history and current functioning. Reviewed vital signs,~Labs/ Radiology~and current medications noted below. Continue current treatment with the changes noted in the dictated addendum note Assessment: Vital Signs: Vital Signs Date Time Temp Pulse Resp B/P (MAP) Pulse Ox O2 Delivery O2 Flow Rate FiO2 09/23/17 15:33 98.6 83 18 96/52 (67) 94 09/22/17 15:48 Room Air I&O Intake and Output 09/23/17 07:00 Intake Total 650 ml Balance 650 ml Intake Oral 650 ml # Voids 1 # Bowel Movements 2 Current Medications: Meds: Current Medications Acetaminophen (Tylenol) 650 mg PRN Q6HRS PRN PO PAIN / TEMP; Start 09/08/17 at 22:00 Multi-Ingredient Ointment (Analgesic [place]) 1 krzysztof PRN QID PRN TP MUSCLE PAIN; Start 09/08/17 at 22:00 Al Hydroxide/Mg Hydroxide (Mylanta Plus Xs) 15 ml PRN AFTMEALHC PRN PO DYSPEPSIA; Start 09/08/17 at 22:00 Magnesium Hydroxide (Milk Of Magnesia) 2,400 mg PRN QHS PRN PO CONSTIPATION; Start 09/08/17 at 22:00 Citalopram Hydrobromide (CeleXA) 30 mg QHS PO Last administered on 09/08/17at 22 :28; Start 09/08/17 at 22:30; Stop 09/09/17 at 18:16; Status DC Divalproex Sodium (Depakote Sprinkles) 125 mg TID PO Last administered on at 19:23; Start 09/08/17 at 22:30; Stop 09/11/17 at 10:51; Status DC Lorazepam (Ativan) 0.5 mg PRN Q12HR PRN PO ANXIETY / AGITATION Last administered on 09/18/17at 02:14; Start 09/08/17 at 22:00 Quetiapine Fumarate (SEROquel) 50 mg BID@0900,1300 PO Last administered on 09/15at 13:50; Start 09/09/17 at 09:00; Stop 09/15/17 at 18:43; Status DC Quetiapine Fumarate (SEROquel) 100 mg QHS PO Last administered on 09/14/17 20: 29; Start 09/08/17 at 22:30; Stop 09/15/17 at 18:43; Status DC Melatonin 3 mg PRN QHS PRN PO INSOMNIA Last administered on 09/11/17 19:48; Start 09/08/17 at 22:15; Stop 09/19/17 at 18:02; Status DC Docusate Sodium (Colace) 100 mg QTUTHSA PO Last administered on 09/09/17 16:27 ; Start 09/09/17 at 16:00; Stop 09/10/17 at 16:13; Status DC Levothyroxine Sodium (Synthroid) 75 mcg DAILY07 PO Last administered on 05:44; Start 09/09/17 at 07:00; Stop 09/09/17 at 14:30; Status DC Simvastatin (Zocor) 40 mg HS PO Last administered on 09/23/17 19:27; Start at 22:30 Influenza Virus Vaccine Quadrival (Fluarix Quad [id number] Syringe) 0.5 ml ONCE ONCE VAX IM ; Start 09/09/17 at 09:00; Stop 09/09/17 at 11:44; Status DC Pneumococcal Polyvalent Vaccine (Pneumovax 23) 0.5 ml ONCE ONCE VAX IM ; Start 09/09/17 at 09:00; Stop 09/09/17 at 11:44; Status DC Influenza Virus Vaccine Quadrival (Fluarix Quad Syringe) 0.5 ml ONCE ONCE VAX IM Last administered on 09/11/17at 15:23; Start 09/11/17 at 13:00; Stop 09/11/17 at 13:01; Status DC Pneumococcal Polyvalent Vaccine (Pneumovax 23) 0.5 ml ONCE ONCE VAX IM Last administered on 09/11/17 15:25; Start 09/11/17 at 13:00; Stop 09/11/17 at 13:01 ; Status DC Levothyroxine Sodium (Synthroid) 50 mcg DAILY06 PO Last administered on 05:22; Start 09/10/17 at 06:00 Vitamin D (Vitamin D3) 50,000 unit WEEKLY PO Last administered on 09/10/17 09: 03; Start 09/10/17 at 09:00; Stop 11/14/17 at 08:59 Duloxetine HCl (Cymbalta) 20 mg HS PO Last administered on 09/15/17 19:27; Start 09/09/17 at 21:00; Stop 09/15/17 at 21:20; Status DC Docusate Sodium (Colace Solution) 100 mg DAILY PO Last administered on 09:37; Start 09/11/17 at 09:00 Divalproex Sodium (Depakote Sprinkles) 125 mg BID@1300,1700 PO Last administered on 09/14/17 17:04; Start 09/11/17 at 13:00; Stop 09/15/17 at 12:45 ; Status DC Divalproex Sodium (Depakote Sprinkles) 250 mg DAILY PO Last administered on 07:49; Start 09/12/17 at 09:00; Stop 09/15/17 at 12:45; Status DC Olanzapine (ZyPREXA ZYDIS) 2.5 mg PRN Q2HR PRN PO PSYCHOSIS Last administered on 09/19/17 17:50; Start 09/15/17 at 11:30 Valproic Acid (Depakene) 250 mg DAILY PO Last administered on 09/20/17 09:24; Start 09/16/17 at 09:00; Stop 09/20/17 at 18:26; Status DC Valproic Acid (Depakene) 125 mg BID@1300,1700 PO Last administered on 09/23/17 16:47; Start 09/15/17 at 13:00 Risperidone (RisperDAL) 0.25 mg 1X ONCE SL Last administered on 09/15/17 19: 29; Start 09/15/17 at 19:00; Stop 09/15/17 at 19:01; Status DC Risperidone (RisperDAL) 0.25 mg BID@0900,1700 SL Last administered on 17:08; Start 09/16/17 at 09:00; Stop 09/17/17 at 18:17; Status DC Sertraline HCl (Zoloft) 50 mg DAILY PO Last administered on 09/23/17 09:37; Start 09/16/17 at 09:00 Mirtazapine (Remeron) 7.5 mg QHS PO Last administered on 09/23/17 19:27; Start 09/15/17 at 21:30 Risperidone (RisperDAL) 0.75 mg DAILY SL Last administered on 09/23/17 09:38; Start 09/18/17 at 09:00 Melatonin 3 mg QHS PO Last administered on 09/19/17 19:43; Start 09/19/17 at 21:00; Stop 09/21/17 at 19:32; Status DC Melatonin 1.5 mg 1X ONCE PO Last administered on 09/20/17 19:26; Start at 21:00; Stop 09/20/17 at 21:01; Status DC Melatonin 1.5 mg QHS PO Last administered on 09/23/17 19:27; Start 09/21/17 at 21:00 Active Scripts Active Reported Melatonin 3 Mg Tablet 3 Mg PO PRN QHS PRN Lorazepam 0.5 Mg Tablet 0.5 Mg PO PRN Q12HR PRN Depakote Sprinkle (Divalproex Sodium) 125 Mg Cap.sprink 125 Mg PO TID Seroquel (Quetiapine Fumarate) 50 Mg Tablet 50 Mg PO BID@0900,1300 Simvastatin 40 Mg Tablet 40 Mg PO HS Seroquel (Quetiapine Fumarate) 100 Mg Tablet 100 Mg PO QHS Levothyroxine Sodium 75 Mcg Tablet 75 Mcg PO DAILY07 Colace (Docusate Sodium) 100 Mg Capsule 100 Mg PO QTUTHSA Citalopram Hbr (Citalopram Hydrobromide) 10 Mg Tablet 30 Mg PO QHS I have reviewed the current psychotropics carefully including drug interactions. Risk benefit ratio favors no change other than as noted in my dictated progress note. Diagnosis: Problems: (1) Anxiety disorder (2) Dementia in Alzheimer's disease with delusions (3) Dementia in Alzheimer's disease with depression (4) Dementia, vascular, with delusions (5) Dementia, vascular, with depression (6) Impulse control disorder KODY GODINEZ MD Sep 23, 2017 20:52
--- NOTE | 2017-09-23 21:14 | PN ---
DATE: 09/22/2017 This is a late entry for 09/22/2017 covers elements not covered in my initial note of 09/22/2017. SUBJECTIVE: I met with the patient in the evening of 09/22/2017. The patient slept 8-3/4 hours previous evening, slept through breakfast, took meds hidden in food, got Depakene liquid, ate her lunch, less agitated, very confused, but this is understandable. REVIEW OF SYSTEMS: No CV, , pulmonary, eye, ENT system symptoms on review. Reliability poor. MENTAL STATUS EXAM: Oriented to herself. Insight, judgment, recent and remote memory, attention, concentration, fund of knowledge poor, consistent with her diagnosis mentioned in my initial note. IMPRESSION: Major neurocognitive disorder, Alzheimer, vascular with depression, delusion, behavioral disturbance. Rest unchanged. PLAN: Continue psychotropics mentioned in my initial note. MAN Araceli GODINEZ MD DR: CAROLYN/maria isabel JOB#: [id number] / [id number]
[2017-09-24] MEDS: LEVOTHYROXINE 50 MCG TABLET PO SCH (05:14)
[2017-09-24 05:52] VITALS: BP 100/56
[2017-09-24 07:42] LABS: BASO # 0.1 x10^3/uL (0.0-0.2); BASO % 1 % (0-3); EOS # 0.1 x10^3/uL (0.0-0.7); EOS % 1 % (0-3); HEMOGLOBIN 13.3 g/dL (12.0-15.5); LYMPH # 2.5 x10^3/uL (1.0-4.8); LYMPH % 27 % (24-48); MEAN CORPUSCULAR HEMOGLOBIN 31 pg (25-35); MEAN CORPUSCULAR HGB CONC 33 g/dL (31-37); MEAN CORPUSCULAR VOLUME 93 fL (79-100); MONO # 0.8 x10^3/uL (0.0-1.1); MONO % 9 % (0-9); NEUT # 5.9 x10^3uL (1.8-7.7); NEUT % 63 % (31-73); PLATELET COUNT 152 x10^3/uL (140-400); RED BLOOD COUNT 4.33 x10^6/uL (3.50-5.40); RED CELL DISTRIBUTION WIDTH 14.4 % (11.5-14.5); WHITE BLOOD COUNT 9.4 x10^3/uL (4.0-11.0)
[2017-09-24 08:07] LABS: ALBUMIN 3.5 g/dL (3.4-5.0); ALK PHOS 70 U/L (46-116); ALT (SGPT) 53 U/L (14-59); ANION GAP 7 (6-14); AST (SGOT) 48 U/L (15-37); BLOOD UREA NITROGEN 29 mg/dL (7-20); BUN/CREATININE RATIO 36 (6-20); CALCIUM 9.3 mg/dL (8.5-10.1); CARBON DIOXIDE 31 mmol/L (21-32); CHLORIDE 104 mmol/L (98-107); CREATININE 0.8 mg/dL (0.6-1.0); GFR 69.6; GLUCOSE 109 mg/dL (70-99); POTASSIUM 4.7 mmol/L (3.5-5.1); SODIUM 142 mmol/L (136-145); TOTAL BILIRUBIN 0.4 mg/dL (0.2-1.0); TOTAL PROTEIN 7.1 g/dL (6.4-8.2)
[2017-09-24 08:11] LABS: VAL ACID 43 mcg/mL (50-100)
[2017-09-24] MEDS: DOCUSATE 100 MG/10 ML SOLUTION. PO SCH (09:01)
[2017-09-24] MEDS: SERTRALINE 50 MG TABLET. PO SCH (09:01)
[2017-09-24] MEDS: risperiDONE ORAL 1 MG/ML 30ml BOTTLE. SL SCH (09:02)
[2017-09-24] MEDS: CHOLECALCIFEROL (VITAMIN D3) 50,000 UNIT CAPSULE PO SCH (09:02)
[2017-09-24] MEDS: VALPROATE ACID 250 MG/5 ML ORAL SOLUTION PO SCH ×2 (13:00→16:53)
[2017-09-24 16:02] VITALS: BP 121/66
[2017-09-24] MEDS: SIMVASTATIN 40 MG TABLET. PO SCH (19:56)
--- NOTE | 2017-09-24 19:56 | PN ---
DATE: 09/23/2017 This is a late entry, 09/23/2017, covers the elements not covered in my initial note, 09/23/2017. SUBJECTIVE: I met with the patient evening of 09/23/2017. Overall, the patient has had a good day. She slept 8-1/4 hours previous evening, compliant with her medications, more awake, had a shower previous night, walking, ambulating on her own, not combative, cooperative with toileting. REVIEW OF SYSTEMS: No CV, , pulmonary, eye, ENT system symptoms on review. Reliability poor. MENTAL STATUS EXAM: Oriented to herself. Insight, judgment, recent and remote memory, attention, concentration, fund of knowledge poor, consistent with her diagnosis as mentioned in my initial note. IMPRESSION: Major neurocognitive disorder, Alzheimer, vascular with delusion, depression, behavioral disturbance. Rest unchanged. PLAN: Continue current psychotropics including Risperdal 0.75 mg daily. Adjust further as clinically indicated. KODY GODINEZ MD DR: CAROLYN/maria isabel JOB#: [id number] / [id number]
[2017-09-24] MEDS: MIRTAZAPINE 15 MG TABLET PO SCH (19:57)
[2017-09-24] MEDS: MELATONIN 3 MG TABLET PO SCH (19:57)
--- NOTE | 2017-09-24 20:51 | PDOC ---
Exam Note: Wilmar Note: Please also refer to the separate dictated note~for this date of service dictated separately.~Patient seen individually. Discussed the patient with Nursing staff reviewed the chart.~Reviewed interim history and current functioning. Reviewed vital signs,~Labs/ Radiology~and current medications noted below. Continue current treatment with the changes noted in the dictated addendum note Assessment: Vital Signs: Vital Signs Date Time Temp Pulse Resp B/P (MAP) Pulse Ox O2 Delivery O2 Flow Rate FiO2 09/24/17 16:02 97.7 83 20 121/66 (84) 100 Room Air I&O Intake and Output 09/24/17 07:00 Intake Total 970 ml Balance 970 ml Intake Oral 970 ml # Voids 1 Labs: Laboratory Tests Test 09/24/17 07:28 White Blood Count 9.4 x10^3/uL (4.0-11.0) Red Blood Count 4.33 x10^6/uL (3.50-5.40) Hemoglobin 13.3 g/dL (12.0-15.5) Hematocrit 40.0 % (36.0-47.0) Mean Corpuscular Volume 93 fL (79-100) Mean Corpuscular Hemoglobin 31 pg (25-35) Mean Corpuscular Hemoglobin Concent 33 g/dL (31-37) Red Cell Distribution Width 14.4 % (11.5-14.5) Platelet Count 152 x10^3/uL (140-400) Neutrophils (%) (Auto) 63 % (31-73) Lymphocytes (%) (Auto) 27 % (24-48) Monocytes (%) (Auto) 9 % (0-9) Eosinophils (%) (Auto) 1 % (0-3) Basophils (%) (Auto) 1 % (0-3) Neutrophils # (Auto) 5.9 x10^3uL (1.8-7.7) Lymphocytes # (Auto) 2.5 x10^3/uL (1.0-4.8) Monocytes # (Auto) 0.8 x10^3/uL (0.0-1.1) Eosinophils # (Auto) 0.1 x10^3/uL (0.0-0.7) Basophils # (Auto) 0.1 x10^3/uL (0.0-0.2) Sodium Level 142 mmol/L (136-145) Potassium Level 4.7 mmol/L (3.5-5.1) Chloride Level 104 mmol/L (98-107) Carbon Dioxide Level 31 mmol/L (21-32) Anion Gap 7 (6-14) Blood Urea Nitrogen 29 mg/dL (7-20) H Creatinine 0.8 mg/dL (0.6-1.0) Estimated GFR (Cockcroft-Gault) 69.6 BUN/Creatinine Ratio 36 (6-20) H Glucose Level 109 mg/dL (70-99) H Calcium Level 9.3 mg/dL (8.5-10.1) Total Bilirubin 0.4 mg/dL (0.2-1.0) Aspartate Amino Transferase (AST) 48 U/L (15-37) H Alanine Aminotransferase (ALT) 53 U/L (14-59) Alkaline Phosphatase 70 U/L (46-116) Total Protein 7.1 g/dL (6.4-8.2) Albumin 3.5 g/dL (3.4-5.0) Albumin/Globulin Ratio 1.0 (1.0-1.7) Valproic Acid Level 43 mcg/mL (50-100) L Valproic Acid Last Dose Date 09/23/2016 Valproic Acid Last Dose Time 1700 Current Medications: Meds: Current Medications Acetaminophen (Tylenol) 650 mg PRN Q6HRS PRN PO PAIN / TEMP; Start 09/08/17 at 22:00 Multi-Ingredient Ointment (Analgesic [place]) 1 krzysztof PRN QID PRN TP MUSCLE PAIN; Start 09/08/17 at 22:00 Al Hydroxide/Mg Hydroxide (Mylanta Plus Xs) 15 ml PRN AFTMEALHC PRN PO DYSPEPSIA; Start 09/08/17 at 22:00 Magnesium Hydroxide (Milk Of Magnesia) 2,400 mg PRN QHS PRN PO CONSTIPATION; Start 09/08/17 at 22:00 Citalopram Hydrobromide (CeleXA) 30 mg QHS PO Last administered on 09/08/17at 22 :28; Start 09/08/17 at 22:30; Stop 09/09/17 at 18:16; Status DC Divalproex Sodium (Depakote Sprinkles) 125 mg TID PO Last administered on at 19:23; Start 09/08/17 at 22:30; Stop 09/11/17 at 10:51; Status DC Lorazepam (Ativan) 0.5 mg PRN Q12HR PRN PO ANXIETY / AGITATION Last administered on 09/18/17at 02:14; Start 09/08/17 at 22:00 Quetiapine Fumarate (SEROquel) 50 mg BID@0900,1300 PO Last administered on 09/15at 13:50; Start 09/09/17 at 09:00; Stop 09/15/17 at 18:43; Status DC Quetiapine Fumarate (SEROquel) 100 mg QHS PO Last administered on 09/14/17at 20: 29; Start 09/08/17 at 22:30; Stop 09/15/17 at 18:43; Status DC Melatonin 3 mg PRN QHS PRN PO INSOMNIA Last administered on 09/11/17at 19:48; Start 09/08/17 at 22:15; Stop 09/19/17 at 18:02; Status DC Docusate Sodium (Colace) 100 mg QTUTHSA PO Last administered on 09/09/17at 16:27 ; Start 09/09/17 at 16:00; Stop 09/10/17 at 16:13; Status DC Levothyroxine Sodium (Synthroid) 75 mcg DAILY07 PO Last administered on at 05:44; Start 09/09/17 at 07:00; Stop 09/09/17 at 14:30; Status DC Simvastatin (Zocor) 40 mg HS PO Last administered on 09/24/17at 19:56; Start at 22:30 Influenza Virus Vaccine Quadrival (Fluarix Quad [id number] Syringe) 0.5 ml ONCE ONCE VAX IM ; Start 09/09/17 at 09:00; Stop 09/09/17 at 11:44; Status DC Pneumococcal Polyvalent Vaccine (Pneumovax 23) 0.5 ml ONCE ONCE VAX IM ; Start 09/09/17 at 09:00; Stop 09/09/17 at 11:44; Status DC Influenza Virus Vaccine Quadrival (Fluarix Quad Syringe) 0.5 ml ONCE ONCE VAX IM Last administered on 09/11/17at 15:23; Start 09/11/17 at 13:00; Stop 09/11/17 at 13:01; Status DC Pneumococcal Polyvalent Vaccine (Pneumovax 23) 0.5 ml ONCE ONCE VAX IM Last administered on 09/11/17 15:25; Start 09/11/17 at 13:00; Stop 09/11/17 at 13:01 ; Status DC Levothyroxine Sodium (Synthroid) 50 mcg DAILY06 PO Last administered on 05:14; Start 09/10/17 at 06:00 Vitamin D (Vitamin D3) 50,000 unit WEEKLY PO Last administered on 09/24/17 09: 02; Start 09/10/17 at 09:00; Stop 11/14/17 at 08:59 Duloxetine HCl (Cymbalta) 20 mg HS PO Last administered on 09/15/17 19:27; Start 09/09/17 at 21:00; Stop 09/15/17 at 21:20; Status DC Docusate Sodium (Colace Solution) 100 mg DAILY PO Last administered on 09:01; Start 09/11/17 at 09:00 Divalproex Sodium (Depakote Sprinkles) 125 mg BID@1300,1700 PO Last administered on 09/14/17 17:04; Start 09/11/17 at 13:00; Stop 09/15/17 at 12:45 ; Status DC Divalproex Sodium (Depakote Sprinkles) 250 mg DAILY PO Last administered on 07:49; Start 09/12/17 at 09:00; Stop 09/15/17 at 12:45; Status DC Olanzapine (ZyPREXA ZYDIS) 2.5 mg PRN Q2HR PRN PO PSYCHOSIS Last administered on 09/19/17 17:50; Start 09/15/17 at 11:30 Valproic Acid (Depakene) 250 mg DAILY PO Last administered on 09/20/17 09:24; Start 09/16/17 at 09:00; Stop 09/20/17 at 18:26; Status DC Valproic Acid (Depakene) 125 mg BID@1300,1700 PO Last administered on 09/24/17 16:53; Start 09/15/17 at 13:00 Risperidone (RisperDAL) 0.25 mg 1X ONCE SL Last administered on 09/15/17 19: 29; Start 09/15/17 at 19:00; Stop 09/15/17 at 19:01; Status DC Risperidone (RisperDAL) 0.25 mg BID@0900,1700 SL Last administered on 17:08; Start 09/16/17 at 09:00; Stop 09/17/17 at 18:17; Status DC Sertraline HCl (Zoloft) 50 mg DAILY PO Last administered on 09/24/17 09:01; Start 09/16/17 at 09:00 Mirtazapine (Remeron) 7.5 mg QHS PO Last administered on 09/23/17 19:27; Start 09/15/17 at 21:30; Stop 09/24/17 at 18:22; Status DC Risperidone (RisperDAL) 0.75 mg DAILY SL Last administered on 09/24/17 09:02; Start 09/18/17 at 09:00 Melatonin 3 mg QHS PO Last administered on 09/19/17 19:43; Start 09/19/17 at 21:00; Stop 09/21/17 at 19:32; Status DC Melatonin 1.5 mg 1X ONCE PO Last administered on 09/20/17 19:26; Start at 21:00; Stop 09/20/17 at 21:01; Status DC Melatonin 1.5 mg QHS PO Last administered on 09/24/17 19:57; Start 09/21/17 at 21:00 Mirtazapine (Remeron) 15 mg QHS PO Last administered on 09/24/17 19:57; Start 09/24/17 at 21:00 Active Scripts Active Reported Melatonin 3 Mg Tablet 3 Mg PO PRN QHS PRN Lorazepam 0.5 Mg Tablet 0.5 Mg PO PRN Q12HR PRN Depakote Sprinkle (Divalproex Sodium) 125 Mg Cap.sprink 125 Mg PO TID Seroquel (Quetiapine Fumarate) 50 Mg Tablet 50 Mg PO BID@0900,1300 Simvastatin 40 Mg Tablet 40 Mg PO HS Seroquel (Quetiapine Fumarate) 100 Mg Tablet 100 Mg PO QHS Levothyroxine Sodium 75 Mcg Tablet 75 Mcg PO DAILY07 Colace (Docusate Sodium) 100 Mg Capsule 100 Mg PO QTUTHSA Citalopram Hbr (Citalopram Hydrobromide) 10 Mg Tablet 30 Mg PO QHS I have reviewed the current psychotropics carefully including drug interactions. Risk benefit ratio favors no change other than as noted in my dictated progress note. Diagnosis: Problems: (1) Anxiety disorder (2) Dementia in Alzheimer's disease with delusions (3) Dementia in Alzheimer's disease with depression (4) Dementia, vascular, with delusions (5) Dementia, vascular, with depression (6) Impulse control disorder KODY GODINEZ MD Sep 24, 2017 20:51
[2017-09-25 05:40] VITALS: BP 107/55
[2017-09-25] MEDS: LEVOTHYROXINE 50 MCG TABLET PO SCH (05:55)
[2017-09-25] MEDS: SERTRALINE 50 MG TABLET. PO SCH (08:02)
[2017-09-25] MEDS: DOCUSATE 100 MG/10 ML SOLUTION. PO SCH (08:02)
[2017-09-25] MEDS: risperiDONE ORAL 1 MG/ML 30ml BOTTLE. SL SCH (08:02)
[2017-09-25] MEDS: VALPROATE ACID 250 MG/5 ML ORAL SOLUTION PO SCH ×2 (12:11→17:29)
[2017-09-25 16:21] VITALS: BP 103/60
[2017-09-25] MEDS: MELATONIN 3 MG TABLET PO SCH (19:39)
[2017-09-25] MEDS: SIMVASTATIN 40 MG TABLET. PO SCH (19:39)
[2017-09-25] MEDS: MIRTAZAPINE 15 MG TABLET PO SCH (19:39)
--- NOTE | 2017-09-25 20:50 | PDOC ---
Exam Note: Wilmar Note: Please also refer to the separate dictated note~for this date of service dictated separately.~Patient seen individually. Discussed the patient with Nursing staff reviewed the chart.~Reviewed interim history and current functioning. Reviewed vital signs,~Labs/ Radiology~and current medications noted below. Continue current treatment with the changes noted in the dictated addendum note Assessment: Vital Signs: Vital Signs Date Time Temp Pulse Resp B/P (MAP) Pulse Ox O2 Delivery O2 Flow Rate FiO2 09/25/17 16:21 97.4 78 18 103/60 (74) 97 09/24/17 16:02 Room Air I&O Intake and Output 09/25/17 07:00 Intake Total 1320 ml Balance 1320 ml Intake Oral 1320 ml # Voids 1 Current Medications: Meds: Current Medications Acetaminophen (Tylenol) 650 mg PRN Q6HRS PRN PO PAIN / TEMP; Start 09/08/17 at 22:00 Multi-Ingredient Ointment (Analgesic [place]) 1 krzysztof PRN QID PRN TP MUSCLE PAIN; Start 09/08/17 at 22:00 Al Hydroxide/Mg Hydroxide (Mylanta Plus Xs) 15 ml PRN AFTMEALHC PRN PO DYSPEPSIA; Start 09/08/17 at 22:00 Magnesium Hydroxide (Milk Of Magnesia) 2,400 mg PRN QHS PRN PO CONSTIPATION; Start 09/08/17 at 22:00 Citalopram Hydrobromide (CeleXA) 30 mg QHS PO Last administered on 09/08/17at 22 :28; Start 09/08/17 at 22:30; Stop 09/09/17 at 18:16; Status DC Divalproex Sodium (Depakote Sprinkles) 125 mg TID PO Last administered on at 19:23; Start 09/08/17 at 22:30; Stop 09/11/17 at 10:51; Status DC Lorazepam (Ativan) 0.5 mg PRN Q12HR PRN PO ANXIETY / AGITATION Last administered on 09/18/17at 02:14; Start 09/08/17 at 22:00 Quetiapine Fumarate (SEROquel) 50 mg BID@0900,1300 PO Last administered on 09/15at 13:50; Start 09/09/17 at 09:00; Stop 09/15/17 at 18:43; Status DC Quetiapine Fumarate (SEROquel) 100 mg QHS PO Last administered on 09/14/17 20: 29; Start 09/08/17 at 22:30; Stop 09/15/17 at 18:43; Status DC Melatonin 3 mg PRN QHS PRN PO INSOMNIA Last administered on 09/11/17at 19:48; Start 09/08/17 at 22:15; Stop 09/19/17 at 18:02; Status DC Docusate Sodium (Colace) 100 mg QTUTHSA PO Last administered on 09/09/17 16:27 ; Start 09/09/17 at 16:00; Stop 09/10/17 at 16:13; Status DC Levothyroxine Sodium (Synthroid) 75 mcg DAILY07 PO Last administered on 05:44; Start 09/09/17 at 07:00; Stop 09/09/17 at 14:30; Status DC Simvastatin (Zocor) 40 mg HS PO Last administered on 09/25/17 19:39; Start at 22:30 Influenza Virus Vaccine Quadrival (Fluarix Quad [id number] Syringe) 0.5 ml ONCE ONCE VAX IM ; Start 09/09/17 at 09:00; Stop 09/09/17 at 11:44; Status DC Pneumococcal Polyvalent Vaccine (Pneumovax 23) 0.5 ml ONCE ONCE VAX IM ; Start 09/09/17 at 09:00; Stop 09/09/17 at 11:44; Status DC Influenza Virus Vaccine Quadrival (Fluarix Quad Syringe) 0.5 ml ONCE ONCE VAX IM Last administered on 09/11/17at 15:23; Start 09/11/17 at 13:00; Stop 09/11/17 at 13:01; Status DC Pneumococcal Polyvalent Vaccine (Pneumovax 23) 0.5 ml ONCE ONCE VAX IM Last administered on 09/11/17at 15:25; Start 09/11/17 at 13:00; Stop 09/11/17 at 13:01 ; Status DC Levothyroxine Sodium (Synthroid) 50 mcg DAILY06 PO Last administered on 05:55; Start 09/10/17 at 06:00 Vitamin D (Vitamin D3) 50,000 unit WEEKLY PO Last administered on 09/24/17 09: 02; Start 09/10/17 at 09:00; Stop 11/14/17 at 08:59 Duloxetine HCl (Cymbalta) 20 mg HS PO Last administered on 09/15/17 19:27; Start 09/09/17 at 21:00; Stop 09/15/17 at 21:20; Status DC Docusate Sodium (Colace Solution) 100 mg DAILY PO Last administered on 08:02; Start 09/11/17 at 09:00 Divalproex Sodium (Depakote Sprinkles) 125 mg BID@1300,1700 PO Last administered on 09/14/17 17:04; Start 09/11/17 at 13:00; Stop 09/15/17 at 12:45 ; Status DC Divalproex Sodium (Depakote Sprinkles) 250 mg DAILY PO Last administered on at 07:49; Start 09/12/17 at 09:00; Stop 09/15/17 at 12:45; Status DC Olanzapine (ZyPREXA ZYDIS) 2.5 mg PRN Q2HR PRN PO PSYCHOSIS Last administered on 09/19/17 17:50; Start 09/15/17 at 11:30 Valproic Acid (Depakene) 250 mg DAILY PO Last administered on 09/20/17 09:24; Start 09/16/17 at 09:00; Stop 09/20/17 at 18:26; Status DC Valproic Acid (Depakene) 125 mg BID@1300,1700 PO Last administered on 09/25/17 17:29; Start 09/15/17 at 13:00 Risperidone (RisperDAL) 0.25 mg 1X ONCE SL Last administered on 09/15/17 19: 29; Start 09/15/17 at 19:00; Stop 09/15/17 at 19:01; Status DC Risperidone (RisperDAL) 0.25 mg BID@0900,1700 SL Last administered on 17:08; Start 09/16/17 at 09:00; Stop 09/17/17 at 18:17; Status DC Sertraline HCl (Zoloft) 50 mg DAILY PO Last administered on 09/25/17 08:02; Start 09/16/17 at 09:00 Mirtazapine (Remeron) 7.5 mg QHS PO Last administered on 09/23/17 19:27; Start 09/15/17 at 21:30; Stop 09/24/17 at 18:22; Status DC Risperidone (RisperDAL) 0.75 mg DAILY SL Last administered on 09/25/17 08:02; Start 09/18/17 at 09:00 Melatonin 3 mg QHS PO Last administered on 09/19/17 19:43; Start 09/19/17 at 21:00; Stop 09/21/17 at 19:32; Status DC Melatonin 1.5 mg 1X ONCE PO Last administered on 09/20/17 19:26; Start at 21:00; Stop 09/20/17 at 21:01; Status DC Melatonin 1.5 mg QHS PO Last administered on 09/25/17 19:39; Start 09/21/17 at 21:00 Mirtazapine (Remeron) 15 mg QHS PO Last administered on 09/25/17 19:39; Start 09/24/17 at 21:00 Active Scripts Active Reported Melatonin 3 Mg Tablet 3 Mg PO PRN QHS PRN Lorazepam 0.5 Mg Tablet 0.5 Mg PO PRN Q12HR PRN Depakote Sprinkle (Divalproex Sodium) 125 Mg Cap.sprink 125 Mg PO TID Seroquel (Quetiapine Fumarate) 50 Mg Tablet 50 Mg PO BID@0900,1300 Simvastatin 40 Mg Tablet 40 Mg PO HS Seroquel (Quetiapine Fumarate) 100 Mg Tablet 100 Mg PO QHS Levothyroxine Sodium 75 Mcg Tablet 75 Mcg PO DAILY07 Colace (Docusate Sodium) 100 Mg Capsule 100 Mg PO QTUTHSA Citalopram Hbr (Citalopram Hydrobromide) 10 Mg Tablet 30 Mg PO QHS I have reviewed the current psychotropics carefully including drug interactions. Risk benefit ratio favors no change other than as noted in my dictated progress note. Diagnosis: Problems: (1) Anxiety disorder (2) Dementia in Alzheimer's disease with delusions (3) Dementia in Alzheimer's disease with depression (4) Dementia, vascular, with delusions (5) Dementia, vascular, with depression (6) Impulse control disorder KODY GODINEZ MD Sep 25, 2017 20:50
[2017-09-26] MEDS: LEVOTHYROXINE 50 MCG TABLET PO SCH (06:13)
[2017-09-26 06:14] VITALS: BP 103/63
[2017-09-26] MEDS: DOCUSATE 100 MG/10 ML SOLUTION. PO SCH (07:40)
[2017-09-26] MEDS: SERTRALINE 50 MG TABLET. PO SCH (07:41)
[2017-09-26] MEDS: risperiDONE ORAL 1 MG/ML 30ml BOTTLE. SL SCH (07:42)
[2017-09-26] MEDS: VALPROATE ACID 250 MG/5 ML ORAL SOLUTION PO SCH ×2 (13:00→17:52)
[2017-09-26 15:50] VITALS: BP 130/93
[2017-09-26] MEDS: MIRTAZAPINE 15 MG TABLET PO SCH (20:01)
[2017-09-26] MEDS: SIMVASTATIN 40 MG TABLET. PO SCH (20:01)
[2017-09-26] MEDS: MELATONIN 3 MG TABLET PO SCH (20:02)
--- NOTE | 2017-09-26 21:30 | PN ---
DATE: 09/24/2017 This late entry 09/24/2017 covers elements not covered in my initial note 09/24/2017. Met with the patient evening of 09/24/2017. SUBJECTIVE: The patient slept 4-1/2 hours previous evening more compliant with staff, confused, less drowsy. Previous night, she was wandering up and down the hallway, slept poorly, and we will increase the Remeron from 7.5 mg at bedtime to 15 mg at bedtime to help compensate for this. REVIEW OF SYSTEMS: No CV, , pulmonary, eye, ENT system symptoms on review. Reliability poor. MENTAL STATUS EXAM: Oriented to herself. Insight, judgment, recent and remote memory, attention, concentration, fund of knowledge poor, consistent with her diagnosis. She was quite pleasant, smiling as I met with her. IMPRESSION: Major neurocognitive disorder, Alzheimer, vascular with delusion, depression, behavioral disturbance. PLAN: Continue psychotropics mentioned in my initial note with the increase of Remeron mentioned above. MAN Araceli GODINEZ MD DR: CAROLYN/maria isabel JOB#: [id number] / [id number]
--- NOTE | 2017-09-26 23:07 | PN ---
DATE: 09/25/2017 This is a late entry for 09/25/2017 and covers elements not covered in my initial note of 09/25/2017. SUBJECTIVE: The patient was staffed at a treatment team meeting with the entire team morning of 09/25/2017 and the patient's and daughter, Sarahy attended the conference. 's name is Mikel. Her code status is being changed to DNR. She is wandering, confused, much less combative, slept 7 hours. Appetite 75%, quite an improvement. Met with the patient individually evening of 09/25/2017. REVIEW OF SYSTEMS: No eye, ENT, CV, , pulmonary system symptoms on review. MENTAL STATUS EXAM: Oriented to herself. Insight, judgment, recent and remote memory, attention, concentration, fund of knowledge poor, consistent with her diagnosis. She is very pleasant, smiling as I met with her. LABORATORY DATA: Reviewed. IMPRESSION: Major neurocognitive disorder, Alzheimer, vascular with depression, delusion, behavioral disturbance. PLAN: Change the Risperdal to Abilify 5 mg a day to augment the Cymbalta, which will be increased to 90 mg a day. Continue rest unchanged. KODY GODINEZ MD DR: CAROLYN/maria isabel JOB#: [id number] / [id number]
--- NOTE | 2017-09-26 23:11 | PDOC ---
Exam Note: Wilmar Note: Please also refer to the separate dictated note~for this date of service dictated separately.~Patient seen individually. Discussed the patient with Nursing staff reviewed the chart.~Reviewed interim history and current functioning. Reviewed vital signs,~Labs/ Radiology~and current medications noted below. Continue current treatment with the changes noted in the dictated addendum note Assessment: Vital Signs: Vital Signs Date Time Temp Pulse Resp B/P (MAP) Pulse Ox O2 Delivery O2 Flow Rate FiO2 09/26/17 15:50 98.6 114 18 130/93 (105) 97 09/24/17 16:02 Room Air I&O Intake and Output 09/26/17 07:00 Intake Total 600 ml Balance 600 ml Intake Oral 600 ml # Bowel Movements 1 Current Medications: Meds: Current Medications Acetaminophen (Tylenol) 650 mg PRN Q6HRS PRN PO PAIN / TEMP; Start 09/08/17 at 22:00 Multi-Ingredient Ointment (Analgesic [place]) 1 krzysztof PRN QID PRN TP MUSCLE PAIN; Start 09/08/17 at 22:00 Al Hydroxide/Mg Hydroxide (Mylanta Plus Xs) 15 ml PRN AFTMEALHC PRN PO DYSPEPSIA; Start 09/08/17 at 22:00 Magnesium Hydroxide (Milk Of Magnesia) 2,400 mg PRN QHS PRN PO CONSTIPATION; Start 09/08/17 at 22:00 Citalopram Hydrobromide (CeleXA) 30 mg QHS PO Last administered on 09/08/17at 22 :28; Start 09/08/17 at 22:30; Stop 09/09/17 at 18:16; Status DC Divalproex Sodium (Depakote Sprinkles) 125 mg TID PO Last administered on at 19:23; Start 09/08/17 at 22:30; Stop 09/11/17 at 10:51; Status DC Lorazepam (Ativan) 0.5 mg PRN Q12HR PRN PO ANXIETY / AGITATION Last administered on 09/18/17at 02:14; Start 09/08/17 at 22:00 Quetiapine Fumarate (SEROquel) 50 mg BID@0900,1300 PO Last administered on 09/15at 13:50; Start 09/09/17 at 09:00; Stop 09/15/17 at 18:43; Status DC Quetiapine Fumarate (SEROquel) 100 mg QHS PO Last administered on 09/14/17at 20: 29; Start 09/08/17 at 22:30; Stop 09/15/17 at 18:43; Status DC Melatonin 3 mg PRN QHS PRN PO INSOMNIA Last administered on 09/11/17at 19:48; Start 09/08/17 at 22:15; Stop 09/19/17 at 18:02; Status DC Docusate Sodium (Colace) 100 mg QTUTHSA PO Last administered on 09/09/17at 16:27 ; Start 09/09/17 at 16:00; Stop 09/10/17 at 16:13; Status DC Levothyroxine Sodium (Synthroid) 75 mcg DAILY07 PO Last administered on at 05:44; Start 09/09/17 at 07:00; Stop 09/09/17 at 14:30; Status DC Simvastatin (Zocor) 40 mg HS PO Last administered on 09/26/17at 20:01; Start at 22:30 Influenza Virus Vaccine Quadrival (Fluarix Quad 4518-1119 Syringe) 0.5 ml ONCE ONCE VAX IM ; Start 09/09/17 at 09:00; Stop 09/09/17 at 11:44; Status DC Pneumococcal Polyvalent Vaccine (Pneumovax 23) 0.5 ml ONCE ONCE VAX IM ; Start 09/09/17 at 09:00; Stop 09/09/17 at 11:44; Status DC Influenza Virus Vaccine Quadrival (Fluarix Quad Syringe) 0.5 ml ONCE ONCE VAX IM Last administered on 09/11/17at 15:23; Start 09/11/17 at 13:00; Stop 09/11/17 at 13:01; Status DC Pneumococcal Polyvalent Vaccine (Pneumovax 23) 0.5 ml ONCE ONCE VAX IM Last administered on 09/11/17at 15:25; Start 09/11/17 at 13:00; Stop 09/11/17 at 13:01 ; Status DC Levothyroxine Sodium (Synthroid) 50 mcg DAILY06 PO Last administered on at 06:13; Start 09/10/17 at 06:00 Vitamin D (Vitamin D3) 50,000 unit WEEKLY PO Last administered on 09/24/17 09: 02; Start 09/10/17 at 09:00; Stop 11/14/17 at 08:59 Duloxetine HCl (Cymbalta) 20 mg HS PO Last administered on 09/15/17 19:27; Start 09/09/17 at 21:00; Stop 09/15/17 at 21:20; Status DC Docusate Sodium (Colace Solution) 100 mg DAILY PO Last administered on 07:40; Start 09/11/17 at 09:00 Divalproex Sodium (Depakote Sprinkles) 125 mg BID@1300,1700 PO Last administered on 09/14/17 17:04; Start 09/11/17 at 13:00; Stop 09/15/17 at 12:45 ; Status DC Divalproex Sodium (Depakote Sprinkles) 250 mg DAILY PO Last administered on 07:49; Start 09/12/17 at 09:00; Stop 09/15/17 at 12:45; Status DC Olanzapine (ZyPREXA ZYDIS) 2.5 mg PRN Q2HR PRN PO PSYCHOSIS Last administered on 09/19/17 17:50; Start 09/15/17 at 11:30 Valproic Acid (Depakene) 250 mg DAILY PO Last administered on 09/20/17 09:24; Start 09/16/17 at 09:00; Stop 09/20/17 at 18:26; Status DC Valproic Acid (Depakene) 125 mg BID@1300,1700 PO Last administered on 09/26/17 17:52; Start 09/15/17 at 13:00 Risperidone (RisperDAL) 0.25 mg 1X ONCE SL Last administered on 09/15/17 19: 29; Start 09/15/17 at 19:00; Stop 09/15/17 at 19:01; Status DC Risperidone (RisperDAL) 0.25 mg BID@0900,1700 SL Last administered on 17:08; Start 09/16/17 at 09:00; Stop 09/17/17 at 18:17; Status DC Sertraline HCl (Zoloft) 50 mg DAILY PO Last administered on 09/26/17 07:41; Start 09/16/17 at 09:00 Mirtazapine (Remeron) 7.5 mg QHS PO Last administered on 09/23/17 19:27; Start 09/15/17 at 21:30; Stop 09/24/17 at 18:22; Status DC Risperidone (RisperDAL) 0.75 mg DAILY SL Last administered on 09/26/17 07:42; Start 09/18/17 at 09:00 Melatonin 3 mg QHS PO Last administered on 09/19/17 19:43; Start 09/19/17 at 21:00; Stop 09/21/17 at 19:32; Status DC Melatonin 1.5 mg 1X ONCE PO Last administered on 09/20/17 19:26; Start at 21:00; Stop 09/20/17 at 21:01; Status DC Melatonin 1.5 mg QHS PO Last administered on 09/26/17 20:02; Start 09/21/17 at 21:00 Mirtazapine (Remeron) 15 mg QHS PO Last administered on 09/26/17 20:01; Start 09/24/17 at 21:00 Active Scripts Active Reported Melatonin 3 Mg Tablet 3 Mg PO PRN QHS PRN Lorazepam 0.5 Mg Tablet 0.5 Mg PO PRN Q12HR PRN Depakote Sprinkle (Divalproex Sodium) 125 Mg Cap.sprink 125 Mg PO TID Seroquel (Quetiapine Fumarate) 50 Mg Tablet 50 Mg PO BID@0900,1300 Simvastatin 40 Mg Tablet 40 Mg PO HS Seroquel (Quetiapine Fumarate) 100 Mg Tablet 100 Mg PO QHS Levothyroxine Sodium 75 Mcg Tablet 75 Mcg PO DAILY07 Colace (Docusate Sodium) 100 Mg Capsule 100 Mg PO QTUTHSA Citalopram Hbr (Citalopram Hydrobromide) 10 Mg Tablet 30 Mg PO QHS I have reviewed the current psychotropics carefully including drug interactions. Risk benefit ratio favors no change other than as noted in my dictated progress note. Diagnosis: Problems: (1) Anxiety disorder (2) Dementia in Alzheimer's disease with delusions (3) Dementia in Alzheimer's disease with depression (4) Dementia, vascular, with delusions (5) Dementia, vascular, with depression (6) Impulse control disorder KODY GODINEZ MD Sep 26, 2017 23:11
[2017-09-27 05:46] VITALS: BP 123/69
[2017-09-27] MEDS: LEVOTHYROXINE 50 MCG TABLET PO SCH (06:00)
[2017-09-27] MEDS: risperiDONE ORAL 1 MG/ML 30ml BOTTLE. SL SCH (08:12)
[2017-09-27] MEDS: DOCUSATE 100 MG/10 ML SOLUTION. PO SCH (08:12)
[2017-09-27] MEDS: SERTRALINE 50 MG TABLET. PO SCH (08:12)
[2017-09-27] MEDS: VALPROATE ACID 250 MG/5 ML ORAL SOLUTION PO SCH ×2 (12:19→17:25)
[2017-09-27 15:57] VITALS: BP 145/59
[2017-09-27] MEDS: MELATONIN 3 MG TABLET PO SCH (19:40)
[2017-09-27] MEDS: SIMVASTATIN 40 MG TABLET. PO SCH (19:40)
[2017-09-27] MEDS: MIRTAZAPINE 15 MG TABLET PO SCH (19:40)
--- NOTE | 2017-09-27 22:44 | PDOC ---
Exam Note: Wilmar Note: Please also refer to the separate dictated note~for this date of service dictated separately.~Patient seen individually. Discussed the patient with Nursing staff reviewed the chart.~Reviewed interim history and current functioning. Reviewed vital signs,~Labs/ Radiology~and current medications noted below. Continue current treatment with the changes noted in the dictated addendum note Assessment: Vital Signs: Vital Signs Date Time Temp Pulse Resp B/P (MAP) Pulse Ox O2 Delivery O2 Flow Rate FiO2 09/27/17 15:57 97.8 94 20 145/59 (87) 98 09/24/17 16:02 Room Air I&O Intake and Output 09/27/17 07:00 Intake Total 845 ml Balance 845 ml Intake Oral 845 ml Current Medications: Meds: Current Medications Acetaminophen (Tylenol) 650 mg PRN Q6HRS PRN PO PAIN / TEMP; Start 09/08/17 at 22:00 Multi-Ingredient Ointment (Analgesic [place]) 1 krzysztof PRN QID PRN TP MUSCLE PAIN; Start 09/08/17 at 22:00 Al Hydroxide/Mg Hydroxide (Mylanta Plus Xs) 15 ml PRN AFTMEALHC PRN PO DYSPEPSIA; Start 09/08/17 at 22:00 Magnesium Hydroxide (Milk Of Magnesia) 2,400 mg PRN QHS PRN PO CONSTIPATION; Start 09/08/17 at 22:00 Citalopram Hydrobromide (CeleXA) 30 mg QHS PO Last administered on 09/08/17at 22 :28; Start 09/08/17 at 22:30; Stop 09/09/17 at 18:16; Status DC Divalproex Sodium (Depakote Sprinkles) 125 mg TID PO Last administered on at 19:23; Start 09/08/17 at 22:30; Stop 09/11/17 at 10:51; Status DC Lorazepam (Ativan) 0.5 mg PRN Q12HR PRN PO ANXIETY / AGITATION Last administered on 09/18/17at 02:14; Start 09/08/17 at 22:00 Quetiapine Fumarate (SEROquel) 50 mg BID@0900,1300 PO Last administered on 09/15at 13:50; Start 09/09/17 at 09:00; Stop 09/15/17 at 18:43; Status DC Quetiapine Fumarate (SEROquel) 100 mg QHS PO Last administered on 09/14/17 20: 29; Start 09/08/17 at 22:30; Stop 09/15/17 at 18:43; Status DC Melatonin 3 mg PRN QHS PRN PO INSOMNIA Last administered on 09/11/17at 19:48; Start 09/08/17 at 22:15; Stop 09/19/17 at 18:02; Status DC Docusate Sodium (Colace) 100 mg QTUTHSA PO Last administered on 09/09/17at 16:27 ; Start 09/09/17 at 16:00; Stop 09/10/17 at 16:13; Status DC Levothyroxine Sodium (Synthroid) 75 mcg DAILY07 PO Last administered on at 05:44; Start 09/09/17 at 07:00; Stop 09/09/17 at 14:30; Status DC Simvastatin (Zocor) 40 mg HS PO Last administered on 09/27/17at 19:40; Start at 22:30 Influenza Virus Vaccine Quadrival (Fluarix Quad [id number] Syringe) 0.5 ml ONCE ONCE VAX IM ; Start 09/09/17 at 09:00; Stop 09/09/17 at 11:44; Status DC Pneumococcal Polyvalent Vaccine (Pneumovax 23) 0.5 ml ONCE ONCE VAX IM ; Start 09/09/17 at 09:00; Stop 09/09/17 at 11:44; Status DC Influenza Virus Vaccine Quadrival (Fluarix Quad Syringe) 0.5 ml ONCE ONCE VAX IM Last administered on 09/11/17at 15:23; Start 09/11/17 at 13:00; Stop 09/11/17 at 13:01; Status DC Pneumococcal Polyvalent Vaccine (Pneumovax 23) 0.5 ml ONCE ONCE VAX IM Last administered on 09/11/17at 15:25; Start 09/11/17 at 13:00; Stop 09/11/17 at 13:01 ; Status DC Levothyroxine Sodium (Synthroid) 50 mcg DAILY06 PO Last administered on at 06:00; Start 09/10/17 at 06:00 Vitamin D (Vitamin D3) 50,000 unit WEEKLY PO Last administered on 09/24/17 09: 02; Start 09/10/17 at 09:00; Stop 11/14/17 at 08:59 Duloxetine HCl (Cymbalta) 20 mg HS PO Last administered on 09/15/17 19:27; Start 09/09/17 at 21:00; Stop 09/15/17 at 21:20; Status DC Docusate Sodium (Colace Solution) 100 mg DAILY PO Last administered on 08:12; Start 09/11/17 at 09:00 Divalproex Sodium (Depakote Sprinkles) 125 mg BID@1300,1700 PO Last administered on 09/14/17 17:04; Start 09/11/17 at 13:00; Stop 09/15/17 at 12:45 ; Status DC Divalproex Sodium (Depakote Sprinkles) 250 mg DAILY PO Last administered on 07:49; Start 09/12/17 at 09:00; Stop 09/15/17 at 12:45; Status DC Olanzapine (ZyPREXA ZYDIS) 2.5 mg PRN Q2HR PRN PO PSYCHOSIS Last administered on 09/19/17 17:50; Start 09/15/17 at 11:30 Valproic Acid (Depakene) 250 mg DAILY PO Last administered on 09/20/17 09:24; Start 09/16/17 at 09:00; Stop 09/20/17 at 18:26; Status DC Valproic Acid (Depakene) 125 mg BID@1300,1700 PO Last administered on 09/27/17 17:25; Start 09/15/17 at 13:00 Risperidone (RisperDAL) 0.25 mg 1X ONCE SL Last administered on 09/15/17 19: 29; Start 09/15/17 at 19:00; Stop 09/15/17 at 19:01; Status DC Risperidone (RisperDAL) 0.25 mg BID@0900,1700 SL Last administered on 17:08; Start 09/16/17 at 09:00; Stop 09/17/17 at 18:17; Status DC Sertraline HCl (Zoloft) 50 mg DAILY PO Last administered on 4/7/18at 08:12; Start 09/16/17 at 09:00; Stop 09/27/17 at 22:11; Status DC Mirtazapine (Remeron) 7.5 mg QHS PO Last administered on 09/23/17 19:27; Start 09/15/17 at 21:30; Stop 09/24/17 at 18:22; Status DC Risperidone (RisperDAL) 0.75 mg DAILY SL Last administered on 09/27/17 08:12; Start 09/18/17 at 09:00 Melatonin 3 mg QHS PO Last administered on 09/19/17 19:43; Start 09/19/17 at 21:00; Stop 09/21/17 at 19:32; Status DC Melatonin 1.5 mg 1X ONCE PO Last administered on 09/20/17 19:26; Start at 21:00; Stop 09/20/17 at 21:01; Status DC Melatonin 1.5 mg QHS PO Last administered on 09/27/17 19:40; Start 09/21/17 at 21:00 Mirtazapine (Remeron) 15 mg QHS PO Last administered on 09/27/17 19:40; Start 09/24/17 at 21:00 Sertraline HCl (Zoloft) 75 mg DAILY PO ; Start 09/28/17 at 09:00; Status UNV Active Scripts Active Reported Melatonin 3 Mg Tablet 3 Mg PO PRN QHS PRN Lorazepam 0.5 Mg Tablet 0.5 Mg PO PRN Q12HR PRN Depakote Sprinkle (Divalproex Sodium) 125 Mg Cap.sprink 125 Mg PO TID Seroquel (Quetiapine Fumarate) 50 Mg Tablet 50 Mg PO BID@0900,1300 Simvastatin 40 Mg Tablet 40 Mg PO HS Seroquel (Quetiapine Fumarate) 100 Mg Tablet 100 Mg PO QHS Levothyroxine Sodium 75 Mcg Tablet 75 Mcg PO DAILY07 Colace (Docusate Sodium) 100 Mg Capsule 100 Mg PO QTUTHSA Citalopram Hbr (Citalopram Hydrobromide) 10 Mg Tablet 30 Mg PO QHS I have reviewed the current psychotropics carefully including drug interactions. Risk benefit ratio favors no change other than as noted in my dictated progress note. Diagnosis: Problems: (1) Anxiety disorder (2) Dementia in Alzheimer's disease with delusions (3) Dementia in Alzheimer's disease with depression (4) Dementia, vascular, with delusions (5) Dementia, vascular, with depression (6) Impulse control disorder KODY GODINEZ MD Sep 27, 2017 22:44
[2017-09-28] MEDS: LEVOTHYROXINE 50 MCG TABLET PO SCH (05:47)
[2017-09-28 05:50] VITALS: BP 97/54
[2017-09-28] MEDS: SERTRALINE 25 MG TABLET. PO SCH (07:40)
[2017-09-28] MEDS: DOCUSATE 100 MG/10 ML SOLUTION. PO SCH (07:40)
[2017-09-28] MEDS: risperiDONE ORAL 1 MG/ML 30ml BOTTLE. SL SCH (07:44)
[2017-09-28] MEDS: VALPROATE ACID 250 MG/5 ML ORAL SOLUTION PO SCH ×2 (11:46→17:35)
[2017-09-28] MEDS: LORazepam 0.5 MG TABLET PO PRN (14:19)
[2017-09-28 15:38] VITALS: BP 105/53
[2017-09-28] MEDS: MIRTAZAPINE 15 MG TABLET PO SCH (19:46)
[2017-09-28] MEDS: SIMVASTATIN 40 MG TABLET. PO SCH (19:47)
[2017-09-28] MEDS: MELATONIN 3 MG TABLET PO SCH (19:47)
--- NOTE | 2017-09-28 20:12 | PN ---
DATE: 09/26/2017 This is a late entry for 09/26/2017 and covers the elements not covered in my initial note of 09/26/2017. SUBJECTIVE: I met with the patient in the evening of 09/26/2017. The patient remains confused, quite delusional that she has to go to her mother, that she is 15 years old. She is compliant with medications, wandering, oblivious of her surroundings. MENTAL STATUS EXAM: Oriented to herself, pleasant, smiling as I met with her. Insight, judgment, recent and remote memory, attention, concentration, fund of knowledge poor, consistent with her diagnosis mentioned in my initial note. IMPRESSION: Major neurocognitive disorder, Alzheimer, vascular with depression, delusion, behavioral disturbance. Rest unchanged. PLAN: Continue psychotropics mentioned in my initial note, may need to adjust Depakote. MAN Araceli GODINEZ MD DR: CAROLYN/maria isabel JOB#: [id number] / [id number]
--- NOTE | 2017-09-28 20:49 | PDOC ---
Exam Note: Wilmar Note: Please also refer to the separate dictated note~for this date of service dictated separately.~Patient seen individually. Discussed the patient with Nursing staff reviewed the chart.~Reviewed interim history and current functioning. Reviewed vital signs,~Labs/ Radiology~and current medications noted below. Continue current treatment with the changes noted in the dictated addendum note Assessment: Vital Signs: Vital Signs Date Time Temp Pulse Resp B/P (MAP) Pulse Ox O2 Delivery O2 Flow Rate FiO2 09/28/17 15:38 98.9 68 18 105/53 (70) 95 09/24/17 16:02 Room Air I&O Intake and Output 09/28/17 07:00 Intake Total 840 ml Balance 840 ml Intake Oral 840 ml # Bowel Movements 1 Current Medications: Meds: Current Medications Acetaminophen (Tylenol) 650 mg PRN Q6HRS PRN PO PAIN / TEMP; Start 09/08/17 at 22:00 Multi-Ingredient Ointment (Analgesic [place]) 1 krzysztof PRN QID PRN TP MUSCLE PAIN; Start 09/08/17 at 22:00 Al Hydroxide/Mg Hydroxide (Mylanta Plus Xs) 15 ml PRN AFTMEALHC PRN PO DYSPEPSIA; Start 09/08/17 at 22:00 Magnesium Hydroxide (Milk Of Magnesia) 2,400 mg PRN QHS PRN PO CONSTIPATION; Start 09/08/17 at 22:00 Citalopram Hydrobromide (CeleXA) 30 mg QHS PO Last administered on 09/08/17at 22 :28; Start 09/08/17 at 22:30; Stop 09/09/17 at 18:16; Status DC Divalproex Sodium (Depakote Sprinkles) 125 mg TID PO Last administered on at 19:23; Start 09/08/17 at 22:30; Stop 09/11/17 at 10:51; Status DC Lorazepam (Ativan) 0.5 mg PRN Q12HR PRN PO ANXIETY / AGITATION Last administered on 09/28/17at 14:19; Start 09/08/17 at 22:00 Quetiapine Fumarate (SEROquel) 50 mg BID@0900,1300 PO Last administered on 09/15at 13:50; Start 09/09/17 at 09:00; Stop 09/15/17 at 18:43; Status DC Quetiapine Fumarate (SEROquel) 100 mg QHS PO Last administered on 09/14/17 20: 29; Start 09/08/17 at 22:30; Stop 09/15/17 at 18:43; Status DC Melatonin 3 mg PRN QHS PRN PO INSOMNIA Last administered on 09/11/17 19:48; Start 09/08/17 at 22:15; Stop 09/19/17 at 18:02; Status DC Docusate Sodium (Colace) 100 mg QTUTHSA PO Last administered on 09/09/17 16:27 ; Start 09/09/17 at 16:00; Stop 09/10/17 at 16:13; Status DC Levothyroxine Sodium (Synthroid) 75 mcg DAILY07 PO Last administered on 05:44; Start 09/09/17 at 07:00; Stop 09/09/17 at 14:30; Status DC Simvastatin (Zocor) 40 mg HS PO Last administered on 09/28/17at 19:47; Start at 22:30 Influenza Virus Vaccine Quadrival (Fluarix Quad [id number] Syringe) 0.5 ml ONCE ONCE VAX IM ; Start 09/09/17 at 09:00; Stop 09/09/17 at 11:44; Status DC Pneumococcal Polyvalent Vaccine (Pneumovax 23) 0.5 ml ONCE ONCE VAX IM ; Start 09/09/17 at 09:00; Stop 09/09/17 at 11:44; Status DC Influenza Virus Vaccine Quadrival (Fluarix Quad Syringe) 0.5 ml ONCE ONCE VAX IM Last administered on 09/11/17at 15:23; Start 09/11/17 at 13:00; Stop 09/11/17 at 13:01; Status DC Pneumococcal Polyvalent Vaccine (Pneumovax 23) 0.5 ml ONCE ONCE VAX IM Last administered on 09/11/17at 15:25; Start 09/11/17 at 13:00; Stop 09/11/17 at 13:01 ; Status DC Levothyroxine Sodium (Synthroid) 50 mcg DAILY06 PO Last administered on 05:47; Start 09/10/17 at 06:00 Vitamin D (Vitamin D3) 50,000 unit WEEKLY PO Last administered on 09/24/17 09: 02; Start 09/10/17 at 09:00; Stop 11/14/17 at 08:59 Duloxetine HCl (Cymbalta) 20 mg HS PO Last administered on 09/15/17 19:27; Start 09/09/17 at 21:00; Stop 09/15/17 at 21:20; Status DC Docusate Sodium (Colace Solution) 100 mg DAILY PO Last administered on 07:40; Start 09/11/17 at 09:00 Divalproex Sodium (Depakote Sprinkles) 125 mg BID@1300,1700 PO Last administered on 09/14/17 17:04; Start 09/11/17 at 13:00; Stop 09/15/17 at 12:45 ; Status DC Divalproex Sodium (Depakote Sprinkles) 250 mg DAILY PO Last administered on at 07:49; Start 09/12/17 at 09:00; Stop 09/15/17 at 12:45; Status DC Olanzapine (ZyPREXA ZYDIS) 2.5 mg PRN Q2HR PRN PO PSYCHOSIS Last administered on 09/19/17 17:50; Start 09/15/17 at 11:30 Valproic Acid (Depakene) 250 mg DAILY PO Last administered on 09/20/17at 09:24; Start 09/16/17 at 09:00; Stop 09/20/17 at 18:26; Status DC Valproic Acid (Depakene) 125 mg BID@1300,1700 PO Last administered on 09/28/17at 17:35; Start 09/15/17 at 13:00 Risperidone (RisperDAL) 0.25 mg 1X ONCE SL Last administered on 09/15/17 19: 29; Start 09/15/17 at 19:00; Stop 09/15/17 at 19:01; Status DC Risperidone (RisperDAL) 0.25 mg BID@0900,1700 SL Last administered on at 17:08; Start 09/16/17 at 09:00; Stop 09/17/17 at 18:17; Status DC Sertraline HCl (Zoloft) 50 mg DAILY PO Last administered on 09/27/17 08:12; Start 09/16/17 at 09:00; Stop 09/27/17 at 22:11; Status DC Mirtazapine (Remeron) 7.5 mg QHS PO Last administered on 09/23/17 19:27; Start 09/15/17 at 21:30; Stop 09/24/17 at 18:22; Status DC Risperidone (RisperDAL) 0.75 mg DAILY SL Last administered on 09/28/17 07:44; Start 09/18/17 at 09:00 Melatonin 3 mg QHS PO Last administered on 09/19/17 19:43; Start 09/19/17 at 21:00; Stop 09/21/17 at 19:32; Status DC Melatonin 1.5 mg 1X ONCE PO Last administered on 09/20/17 19:26; Start at 21:00; Stop 09/20/17 at 21:01; Status DC Melatonin 1.5 mg QHS PO Last administered on 09/28/17 19:47; Start 09/21/17 at 21:00 Mirtazapine (Remeron) 15 mg QHS PO Last administered on 09/28/17 19:46; Start 09/24/17 at 21:00 Sertraline HCl (Zoloft) 75 mg DAILY PO Last administered on 09/28/17 07:40; Start 09/28/17 at 09:00 Active Scripts Active Reported Melatonin 3 Mg Tablet 3 Mg PO PRN QHS PRN Lorazepam 0.5 Mg Tablet 0.5 Mg PO PRN Q12HR PRN Depakote Sprinkle (Divalproex Sodium) 125 Mg Cap.sprink 125 Mg PO TID Seroquel (Quetiapine Fumarate) 50 Mg Tablet 50 Mg PO BID@0900,1300 Simvastatin 40 Mg Tablet 40 Mg PO HS Seroquel (Quetiapine Fumarate) 100 Mg Tablet 100 Mg PO QHS Levothyroxine Sodium 75 Mcg Tablet 75 Mcg PO DAILY07 Colace (Docusate Sodium) 100 Mg Capsule 100 Mg PO QTUTHSA Citalopram Hbr (Citalopram Hydrobromide) 10 Mg Tablet 30 Mg PO QHS I have reviewed the current psychotropics carefully including drug interactions. Risk benefit ratio favors no change other than as noted in my dictated progress note. Diagnosis: Problems: (1) Anxiety disorder (2) Dementia in Alzheimer's disease with delusions (3) Dementia in Alzheimer's disease with depression (4) Dementia, vascular, with delusions (5) Dementia, vascular, with depression (6) Impulse control disorder KODY GODINEZ MD Sep 28, 2017 20:49
--- NOTE | 2017-09-28 22:24 | PN ---
DATE: 09/27/2017 This late entry of 09/27/2016 covers elements not covered in my initial note 09/27/2016. Met with the patient in the evening of 09/27/2017. The patient remains confused, anxious, delusional, believes her mother is in the hospital, gets restless. She is somewhat obsessive, cleaning scrubbing repeatedly, doing things that obsessively does more so when she is anxious. REVIEW OF SYSTEMS: No CV, , pulmonary, eye, ENT system symptoms on review. Reliability poor. MENTAL STATUS EXAM: Oriented to herself. Insight, judgment, recent and remote memory, attention, concentration, fund of knowledge poor, consistent with diagnosis mentioned in my initial note. IMPRESSION: Major neurocognitive disorder, Alzheimer, vascular with depression, delusion, behavioral disturbance. Rest unchanged. PLAN: Continue current psychotropics. Adjust Depakene further as clinically indicated. Rest unchanged. May need to increase Zoloft as well. KODY GODINEZ MD DR: CAROLYN/maria isabel JOB#: [id number] / [id number]
[2017-09-29 06:16] VITALS: BP 101/52
[2017-09-29] MEDS: LEVOTHYROXINE 50 MCG TABLET PO SCH (06:23)
[2017-09-29] MEDS: SERTRALINE 25 MG TABLET. PO SCH (08:40)
[2017-09-29] MEDS: DOCUSATE 100 MG/10 ML SOLUTION. PO SCH (08:40)
[2017-09-29] MEDS: risperiDONE ORAL 1 MG/ML 30ml BOTTLE. SL SCH (08:41)
[2017-09-29] MEDS: VALPROATE ACID 250 MG/5 ML ORAL SOLUTION PO SCH ×2 (12:28→17:22)
[2017-09-29 16:07] VITALS: BP 95/57
[2017-09-29] MEDS: SIMVASTATIN 40 MG TABLET. PO SCH (19:19)
[2017-09-29] MEDS: MIRTAZAPINE 15 MG TABLET PO SCH (19:19)
[2017-09-29] MEDS: MELATONIN 3 MG TABLET PO SCH (19:20)
[2017-09-29] MEDS: LORazepam 0.5 MG TABLET PO PRN (19:44)
--- NOTE | 2017-09-29 21:17 | PN ---
DATE: 09/28/2017 This is a late entry for 09/28/2017 covers elements not covered in my initial note for 09/28/2017. SUBJECTIVE: I met with the patient in the evening of 09/28/2017. Overall, the patient remains confused. Appetite is fair, at times agitated. Ativan was effective. When she gets agitated, she gets quite obsessive, fixated on small things, starts cleaning things around her, repetitive, difficult to redirect and then seems to settle down after a while. REVIEW OF SYSTEMS: No CV, , pulmonary, eye, ENT system symptoms on review. Reliability poor. MENTAL STATUS EXAM: Oriented to herself. Insight, judgment, recent and remote memory, attention, concentration, fund of knowledge poor, consistent with her diagnosis mentioned in my initial note. IMPRESSION: Major neurocognitive disorder, Alzheimer, vascular with depression, delusion, behavioral disturbance. Rest unchanged. PLAN: Continue psychotropics mentioned in my initial note. May need to increase Depakene depending on her progress. KODY GODINEZ MD DR: CAROLYN/maria isabel JOB#: [id number] / [id number]
--- NOTE | 2017-09-29 21:59 | PDOC ---
Exam Note: Wilmar Note: Please also refer to the separate dictated note~for this date of service dictated separately.~Patient seen individually. Discussed the patient with Nursing staff reviewed the chart.~Reviewed interim history and current functioning. Reviewed vital signs,~Labs/ Radiology~and current medications noted below. Continue current treatment with the changes noted in the dictated addendum note Assessment: Vital Signs: Vital Signs Date Time Temp Pulse Resp B/P (MAP) Pulse Ox O2 Delivery O2 Flow Rate FiO2 09/29/17 16:07 98.4 91 16 95/57 (70) 98 09/24/17 16:02 Room Air I&O Intake and Output 09/29/17 07:00 Intake Total 1080 ml Balance 1080 ml Intake Oral 1080 ml Current Medications: Meds: Current Medications Acetaminophen (Tylenol) 650 mg PRN Q6HRS PRN PO PAIN / TEMP; Start 09/08/17 at 22:00 Multi-Ingredient Ointment (Analgesic [place]) 1 krzysztof PRN QID PRN TP MUSCLE PAIN; Start 09/08/17 at 22:00 Al Hydroxide/Mg Hydroxide (Mylanta Plus Xs) 15 ml PRN AFTMEALHC PRN PO DYSPEPSIA; Start 09/08/17 at 22:00 Magnesium Hydroxide (Milk Of Magnesia) 2,400 mg PRN QHS PRN PO CONSTIPATION; Start 09/08/17 at 22:00 Citalopram Hydrobromide (CeleXA) 30 mg QHS PO Last administered on 09/08/17at 22 :28; Start 09/08/17 at 22:30; Stop 09/09/17 at 18:16; Status DC Divalproex Sodium (Depakote Sprinkles) 125 mg TID PO Last administered on at 19:23; Start 09/08/17 at 22:30; Stop 09/11/17 at 10:51; Status DC Lorazepam (Ativan) 0.5 mg PRN Q12HR PRN PO ANXIETY / AGITATION Last administered on 09/29/17at 19:44; Start 09/08/17 at 22:00 Quetiapine Fumarate (SEROquel) 50 mg BID@0900,1300 PO Last administered on 09/15at 13:50; Start 09/09/17 at 09:00; Stop 09/15/17 at 18:43; Status DC Quetiapine Fumarate (SEROquel) 100 mg QHS PO Last administered on 09/14/17 20: 29; Start 09/08/17 at 22:30; Stop 09/15/17 at 18:43; Status DC Melatonin 3 mg PRN QHS PRN PO INSOMNIA Last administered on 09/11/17 19:48; Start 09/08/17 at 22:15; Stop 09/19/17 at 18:02; Status DC Docusate Sodium (Colace) 100 mg QTUTHSA PO Last administered on 09/09/17 16:27 ; Start 09/09/17 at 16:00; Stop 09/10/17 at 16:13; Status DC Levothyroxine Sodium (Synthroid) 75 mcg DAILY07 PO Last administered on 05:44; Start 09/09/17 at 07:00; Stop 09/09/17 at 14:30; Status DC Simvastatin (Zocor) 40 mg HS PO Last administered on 09/29/17 19:19; Start at 22:30 Influenza Virus Vaccine Quadrival (Fluarix Quad [id number] Syringe) 0.5 ml ONCE ONCE VAX IM ; Start 09/09/17 at 09:00; Stop 09/09/17 at 11:44; Status DC Pneumococcal Polyvalent Vaccine (Pneumovax 23) 0.5 ml ONCE ONCE VAX IM ; Start 09/09/17 at 09:00; Stop 09/09/17 at 11:44; Status DC Influenza Virus Vaccine Quadrival (Fluarix Quad Syringe) 0.5 ml ONCE ONCE VAX IM Last administered on 09/11/17at 15:23; Start 09/11/17 at 13:00; Stop 09/11/17 at 13:01; Status DC Pneumococcal Polyvalent Vaccine (Pneumovax 23) 0.5 ml ONCE ONCE VAX IM Last administered on 09/11/17at 15:25; Start 09/11/17 at 13:00; Stop 09/11/17 at 13:01 ; Status DC Levothyroxine Sodium (Synthroid) 50 mcg DAILY06 PO Last administered on 06:23; Start 09/10/17 at 06:00 Vitamin D (Vitamin D3) 50,000 unit WEEKLY PO Last administered on 09/24/17 09: 02; Start 09/10/17 at 09:00; Stop 11/14/17 at 08:59 Duloxetine HCl (Cymbalta) 20 mg HS PO Last administered on 09/15/17 19:27; Start 09/09/17 at 21:00; Stop 09/15/17 at 21:20; Status DC Docusate Sodium (Colace Solution) 100 mg DAILY PO Last administered on 08:40; Start 09/11/17 at 09:00 Divalproex Sodium (Depakote Sprinkles) 125 mg BID@1300,1700 PO Last administered on 09/14/17 17:04; Start 09/11/17 at 13:00; Stop 09/15/17 at 12:45 ; Status DC Divalproex Sodium (Depakote Sprinkles) 250 mg DAILY PO Last administered on 07:49; Start 09/12/17 at 09:00; Stop 09/15/17 at 12:45; Status DC Olanzapine (ZyPREXA ZYDIS) 2.5 mg PRN Q2HR PRN PO PSYCHOSIS Last administered on 09/29/17 18:26; Start 09/15/17 at 11:30 Valproic Acid (Depakene) 250 mg DAILY PO Last administered on 09/20/17 09:24; Start 09/16/17 at 09:00; Stop 09/20/17 at 18:26; Status DC Valproic Acid (Depakene) 125 mg BID@1300,1700 PO Last administered on 09/29/17 17:22; Start 09/15/17 at 13:00 Risperidone (RisperDAL) 0.25 mg 1X ONCE SL Last administered on 09/15/17 19: 29; Start 09/15/17 at 19:00; Stop 09/15/17 at 19:01; Status DC Risperidone (RisperDAL) 0.25 mg BID@0900,1700 SL Last administered on 17:08; Start 09/16/17 at 09:00; Stop 09/17/17 at 18:17; Status DC Sertraline HCl (Zoloft) 50 mg DAILY PO Last administered on 09/27/17 08:12; Start 09/16/17 at 09:00; Stop 09/27/17 at 22:11; Status DC Mirtazapine (Remeron) 7.5 mg QHS PO Last administered on 09/23/17at 19:27; Start 09/15/17 at 21:30; Stop 09/24/17 at 18:22; Status DC Risperidone (RisperDAL) 0.75 mg DAILY SL Last administered on 09/29/17at 08:41; Start 09/18/17 at 09:00; Stop 09/29/17 at 18:18; Status DC Melatonin 3 mg QHS PO Last administered on 09/19/17at 19:43; Start 09/19/17 at 21:00; Stop 09/21/17 at 19:32; Status DC Melatonin 1.5 mg 1X ONCE PO Last administered on 09/20/17at 19:26; Start at 21:00; Stop 09/20/17 at 21:01; Status DC Melatonin 1.5 mg QHS PO Last administered on 09/29/17at 19:20; Start 09/21/17 at 21:00 Mirtazapine (Remeron) 15 mg QHS PO Last administered on 09/29/17at 19:19; Start 09/24/17 at 21:00 Sertraline HCl (Zoloft) 75 mg DAILY PO Last administered on 09/29/17at 08:40; Start 09/28/17 at 09:00 Risperidone (RisperDAL) 0.5 mg DAILY SL ; Start 09/30/17 at 09:00 Risperidone (RisperDAL) 0.25 mg DAILY@1200 SL ; Start 09/30/17 at 12:00 Risperidone (RisperDAL) 0.125 mg DAILY@1700 SL ; Start 09/30/17 at 17:00 Active Scripts Active Reported Melatonin 3 Mg Tablet 3 Mg PO PRN QHS PRN Lorazepam 0.5 Mg Tablet 0.5 Mg PO PRN Q12HR PRN Depakote Sprinkle (Divalproex Sodium) 125 Mg Cap.sprink 125 Mg PO TID Seroquel (Quetiapine Fumarate) 50 Mg Tablet 50 Mg PO BID@0900,1300 Simvastatin 40 Mg Tablet 40 Mg PO HS Seroquel (Quetiapine Fumarate) 100 Mg Tablet 100 Mg PO QHS Levothyroxine Sodium 75 Mcg Tablet 75 Mcg PO DAILY07 Colace (Docusate Sodium) 100 Mg Capsule 100 Mg PO QTUTHSA Citalopram Hbr (Citalopram Hydrobromide) 10 Mg Tablet 30 Mg PO QHS I have reviewed the current psychotropics carefully including drug interactions. Risk benefit ratio favors no change other than as noted in my dictated progress note. Diagnosis: Problems: (1) Anxiety disorder (2) Dementia in Alzheimer's disease with delusions (3) Dementia in Alzheimer's disease with depression (4) Dementia, vascular, with delusions (5) Dementia, vascular, with depression (6) Impulse control disorder KODY GODINEZ MD Sep 29, 2017 21:59
[2017-09-30] MEDS: LEVOTHYROXINE 50 MCG TABLET PO SCH (05:20)
[2017-09-30 05:59] VITALS: BP 106/62
[2017-09-30 06:39] LABS: BASO # 0.1 x10^3/uL (0.0-0.2); BASO % 1 % (0-3); EOS # 0.2 x10^3/uL (0.0-0.7); EOS % 2 % (0-3); HEMATOCRIT 36.2 % (36.0-47.0); HEMOGLOBIN 12.1 g/dL (12.0-15.5); LYMPH # 1.5 x10^3/uL (1.0-4.8); LYMPH % 17 % (24-48); MEAN CORPUSCULAR HEMOGLOBIN 31 pg (25-35); MEAN CORPUSCULAR HGB CONC 33 g/dL (31-37); MEAN CORPUSCULAR VOLUME 94 fL (79-100); MONO # 0.8 x10^3/uL (0.0-1.1); MONO % 9 % (0-9); NEUT # 6.1 x10^3uL (1.8-7.7); NEUT % 71 % (31-73); PLATELET COUNT 138 x10^3/uL (140-400); RED BLOOD COUNT 3.85 x10^6/uL (3.50-5.40); RED CELL DISTRIBUTION WIDTH 15.1 % (11.5-14.5); WHITE BLOOD COUNT 8.6 x10^3/uL (4.0-11.0)
[2017-09-30 06:49] LABS: ALK PHOS 66 U/L (46-116); ALT (SGPT) 48 U/L (14-59); ANION GAP 8 (6-14); AST (SGOT) 32 U/L (15-37); BLOOD UREA NITROGEN 26 mg/dL (7-20); BUN/CREATININE RATIO 33 (6-20); CALCIUM 8.8 mg/dL (8.5-10.1); CARBON DIOXIDE 29 mmol/L (21-32); CHLORIDE 107 mmol/L (98-107); CREATININE 0.8 mg/dL (0.6-1.0); GFR 69.6; GLUCOSE 78 mg/dL (70-99); MAGNESIUM 2.3 mg/dL (1.8-2.4); POTASSIUM 3.8 mmol/L (3.5-5.1); SODIUM 144 mmol/L (136-145); TOTAL BILIRUBIN 0.3 mg/dL (0.2-1.0)
[2017-09-30 06:52] LABS: VAL ACID 24 mcg/mL (50-100)
[2017-09-30] MEDS: SERTRALINE 25 MG TABLET. PO SCH (09:06)
[2017-09-30] MEDS: risperiDONE ORAL 1 MG/ML 30ml BOTTLE. SL SCH ×3 (09:06→16:57)
[2017-09-30] MEDS: DOCUSATE 100 MG/10 ML SOLUTION. PO SCH (09:06)
[2017-09-30] MEDS: VALPROATE ACID 250 MG/5 ML ORAL SOLUTION PO SCH ×2 (12:52→16:57)
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
[2017-09-30 15:38] VITALS: BP 96/54
[2017-09-30] MEDS: SIMVASTATIN 40 MG TABLET. PO SCH (19:24)
[2017-09-30] MEDS: MIRTAZAPINE 15 MG TABLET PO SCH (19:24)
[2017-09-30] MEDS: MELATONIN 3 MG TABLET PO SCH (19:24)
--- NOTE | 2017-09-30 20:48 | PDOC ---
Exam Note: Wilmar Note: Please also refer to the separate dictated note~for this date of service dictated separately.~Patient seen individually. Discussed the patient with Nursing staff reviewed the chart.~Reviewed interim history and current functioning. Reviewed vital signs,~Labs/ Radiology~and current medications noted below. Continue current treatment with the changes noted in the dictated addendum note Assessment: Vital Signs: Vital Signs Date Time Temp Pulse Resp B/P (MAP) Pulse Ox O2 Delivery O2 Flow Rate FiO2 09/30/17 15:38 97.8 84 20 96/54 (68) 94 09/24/17 16:02 Room Air I&O Intake and Output 09/30/17 07:00 Intake Total 1320 ml Balance 1320 ml Intake Oral 1320 ml # Voids 2 Labs: Laboratory Tests Test 09/30/17 06:18 White Blood Count 8.6 x10^3/uL (4.0-11.0) Red Blood Count 3.85 x10^6/uL (3.50-5.40) Hemoglobin 12.1 g/dL (12.0-15.5) Hematocrit 36.2 % (36.0-47.0) Mean Corpuscular Volume 94 fL (79-100) Mean Corpuscular Hemoglobin 31 pg (25-35) Mean Corpuscular Hemoglobin Concent 33 g/dL (31-37) Red Cell Distribution Width 15.1 % (11.5-14.5) H Platelet Count 138 x10^3/uL (140-400) L Neutrophils (%) (Auto) 71 % (31-73) Lymphocytes (%) (Auto) 17 % (24-48) L Monocytes (%) (Auto) 9 % (0-9) Eosinophils (%) (Auto) 2 % (0-3) Basophils (%) (Auto) 1 % (0-3) Neutrophils # (Auto) 6.1 x10^3uL (1.8-7.7) Lymphocytes # (Auto) 1.5 x10^3/uL (1.0-4.8) Monocytes # (Auto) 0.8 x10^3/uL (0.0-1.1) Eosinophils # (Auto) 0.2 x10^3/uL (0.0-0.7) Basophils # (Auto) 0.1 x10^3/uL (0.0-0.2) Sodium Level 144 mmol/L (136-145) Potassium Level 3.8 mmol/L (3.5-5.1) Chloride Level 107 mmol/L (98-107) Carbon Dioxide Level 29 mmol/L (21-32) Anion Gap 8 (6-14) Blood Urea Nitrogen 26 mg/dL (7-20) H Creatinine 0.8 mg/dL (0.6-1.0) Estimated GFR (Cockcroft-Gault) 69.6 BUN/Creatinine Ratio 33 (6-20) H Glucose Level 78 mg/dL (70-99) Calcium Level 8.8 mg/dL (8.5-10.1) Magnesium Level 2.3 mg/dL (1.8-2.4) Total Bilirubin 0.3 mg/dL (0.2-1.0) Aspartate Amino Transferase (AST) 32 U/L (15-37) Alanine Aminotransferase (ALT) 48 U/L (14-59) Alkaline Phosphatase 66 U/L (46-116) Total Protein 6.0 g/dL (6.4-8.2) L Albumin 3.0 g/dL (3.4-5.0) L Albumin/Globulin Ratio 1.0 (1.0-1.7) Valproic Acid Level 24 mcg/mL (50-100) L Valproic Acid Last Dose Date 09/29/2017 Valproic Acid Last Dose Time 1700 Current Medications: Meds: Current Medications Acetaminophen (Tylenol) 650 mg PRN Q6HRS PRN PO PAIN / TEMP; Start 09/08/17 at 22:00 Multi-Ingredient Ointment (Analgesic [place]) 1 krzysztof PRN QID PRN TP MUSCLE PAIN; Start 09/08/17 at 22:00 Al Hydroxide/Mg Hydroxide (Mylanta Plus Xs) 15 ml PRN AFTMEALHC PRN PO DYSPEPSIA; Start 09/08/17 at 22:00 Magnesium Hydroxide (Milk Of Magnesia) 2,400 mg PRN QHS PRN PO CONSTIPATION Last administered on 09/30/17at 09:06; Start 09/08/17 at 22:00 Citalopram Hydrobromide (CeleXA) 30 mg QHS PO Last administered on 09/08/17at 22 :28; Start 09/08/17 at 22:30; Stop 09/09/17 at 18:16; Status DC Divalproex Sodium (Depakote Sprinkles) 125 mg TID PO Last administered on at 19:23; Start 09/08/17 at 22:30; Stop 09/11/17 at 10:51; Status DC Lorazepam (Ativan) 0.5 mg PRN Q12HR PRN PO ANXIETY / AGITATION Last administered on 09/29/17at 19:44; Start 09/08/17 at 22:00 Quetiapine Fumarate (SEROquel) 50 mg BID@0900,1300 PO Last administered on 09/15at 13:50; Start 09/09/17 at 09:00; Stop 09/15/17 at 18:43; Status DC Quetiapine Fumarate (SEROquel) 100 mg QHS PO Last administered on 09/14/17 20: 29; Start 09/08/17 at 22:30; Stop 09/15/17 at 18:43; Status DC Melatonin 3 mg PRN QHS PRN PO INSOMNIA Last administered on 09/11/17at 19:48; Start 09/08/17 at 22:15; Stop 09/19/17 at 18:02; Status DC Docusate Sodium (Colace) 100 mg QTUTHSA PO Last administered on 09/09/17at 16:27 ; Start 09/09/17 at 16:00; Stop 09/10/17 at 16:13; Status DC Levothyroxine Sodium (Synthroid) 75 mcg DAILY07 PO Last administered on at 05:44; Start 09/09/17 at 07:00; Stop 09/09/17 at 14:30; Status DC Simvastatin (Zocor) 40 mg HS PO Last administered on 09/30/17at 19:24; Start at 22:30 Influenza Virus Vaccine Quadrival (Fluarix Quad 4779-1045 Syringe) 0.5 ml ONCE ONCE VAX IM ; Start 09/09/17 at 09:00; Stop 09/09/17 at 11:44; Status DC Pneumococcal Polyvalent Vaccine (Pneumovax 23) 0.5 ml ONCE ONCE VAX IM ; Start 09/09/17 at 09:00; Stop 09/09/17 at 11:44; Status DC Influenza Virus Vaccine Quadrival (Fluarix Quad [id number] Syringe) 0.5 ml ONCE ONCE VAX IM Last administered on 09/11/17 15:23; Start 09/11/17 at 13:00; Stop 09/11/17 at 13:01; Status DC Pneumococcal Polyvalent Vaccine (Pneumovax 23) 0.5 ml ONCE ONCE VAX IM Last administered on 09/11/17at 15:25; Start 09/11/17 at 13:00; Stop 09/11/17 at 13:01 ; Status DC Levothyroxine Sodium (Synthroid) 50 mcg DAILY06 PO Last administered on 05:20; Start 09/10/17 at 06:00 Vitamin D (Vitamin D3) 50,000 unit WEEKLY PO Last administered on 09/24/17 09: 02; Start 09/10/17 at 09:00; Stop 11/14/17 at 08:59 Duloxetine HCl (Cymbalta) 20 mg HS PO Last administered on 09/15/17 19:27; Start 09/09/17 at 21:00; Stop 09/15/17 at 21:20; Status DC Docusate Sodium (Colace Solution) 100 mg DAILY PO Last administered on 09:06; Start 09/11/17 at 09:00 Divalproex Sodium (Depakote Sprinkles) 125 mg BID@1300,1700 PO Last administered on 09/14/17 17:04; Start 09/11/17 at 13:00; Stop 09/15/17 at 12:45 ; Status DC Divalproex Sodium (Depakote Sprinkles) 250 mg DAILY PO Last administered on at 07:49; Start 09/12/17 at 09:00; Stop 09/15/17 at 12:45; Status DC Olanzapine (ZyPREXA ZYDIS) 2.5 mg PRN Q2HR PRN PO PSYCHOSIS Last administered on 09/30/17 09:07; Start 09/15/17 at 11:30 Valproic Acid (Depakene) 250 mg DAILY PO Last administered on 09/20/17at 09:24; Start 09/16/17 at 09:00; Stop 09/20/17 at 18:26; Status DC Valproic Acid (Depakene) 125 mg BID@1300,1700 PO Last administered on at 16:57; Start 09/15/17 at 13:00 Risperidone (RisperDAL) 0.25 mg 1X ONCE SL Last administered on 09/15/17 19: 29; Start 09/15/17 at 19:00; Stop 09/15/17 at 19:01; Status DC Risperidone (RisperDAL) 0.25 mg BID@0900,1700 SL Last administered on at 17:08; Start 09/16/17 at 09:00; Stop 09/17/17 at 18:17; Status DC Sertraline HCl (Zoloft) 50 mg DAILY PO Last administered on 09/27/17 08:12; Start 09/16/17 at 09:00; Stop 09/27/17 at 22:11; Status DC Mirtazapine (Remeron) 7.5 mg QHS PO Last administered on 09/23/17 19:27; Start 09/15/17 at 21:30; Stop 09/24/17 at 18:22; Status DC Risperidone (RisperDAL) 0.75 mg DAILY SL Last administered on 09/29/17at 08:41; Start 09/18/17 at 09:00; Stop 09/29/17 at 18:18; Status DC Melatonin 3 mg QHS PO Last administered on 09/19/17at 19:43; Start 09/19/17 at 21:00; Stop 09/21/17 at 19:32; Status DC Melatonin 1.5 mg 1X ONCE PO Last administered on 09/20/17 19:26; Start at 21:00; Stop 09/20/17 at 21:01; Status DC Melatonin 1.5 mg QHS PO Last administered on 09/30/17 19:24; Start 09/21/17 at 21:00 Mirtazapine (Remeron) 15 mg QHS PO Last administered on 09/30/17 19:24; Start 09/24/17 at 21:00 Sertraline HCl (Zoloft) 75 mg DAILY PO Last administered on 09/30/17 09:06; Start 09/28/17 at 09:00 Risperidone (RisperDAL) 0.5 mg DAILY SL Last administered on 4/10/18at 09:06; Start 09/30/17 at 09:00 Risperidone (RisperDAL) 0.25 mg DAILY@1200 SL Last administered on 09/30/17at 12 :52; Start 09/30/17 at 12:00 Risperidone (RisperDAL) 0.125 mg DAILY@1700 SL Last administered on 09/30/17at 16:57; Start 09/30/17 at 17:00 Active Scripts Active Reported Melatonin 3 Mg Tablet 3 Mg PO PRN QHS PRN Lorazepam 0.5 Mg Tablet 0.5 Mg PO PRN Q12HR PRN Depakote Sprinkle (Divalproex Sodium) 125 Mg Cap.sprink 125 Mg PO TID Seroquel (Quetiapine Fumarate) 50 Mg Tablet 50 Mg PO BID@0900,1300 Simvastatin 40 Mg Tablet 40 Mg PO HS Seroquel (Quetiapine Fumarate) 100 Mg Tablet 100 Mg PO QHS Levothyroxine Sodium 75 Mcg Tablet 75 Mcg PO DAILY07 Colace (Docusate Sodium) 100 Mg Capsule 100 Mg PO QTUTHSA Citalopram Hbr (Citalopram Hydrobromide) 10 Mg Tablet 30 Mg PO QHS I have reviewed the current psychotropics carefully including drug interactions. Risk benefit ratio favors no change other than as noted in my dictated progress note. Diagnosis: Problems: (1) Anxiety disorder (2) Dementia in Alzheimer's disease with delusions (3) Dementia in Alzheimer's disease with depression (4) Dementia, vascular, with delusions (5) Dementia, vascular, with depression (6) Impulse control disorder KODY GODINEZ MD Sep 30, 2017 20:48
[2017-10-01] MEDS: LEVOTHYROXINE 50 MCG TABLET PO SCH (05:33)
[2017-10-01 06:28] VITALS: BP 94/53
[2017-10-01 07:58] VITALS: BP 113/55
[2017-10-01] MEDS: SERTRALINE 25 MG TABLET. PO SCH (08:00)
[2017-10-01] MEDS: DOCUSATE 100 MG/10 ML SOLUTION. PO SCH (08:00)
[2017-10-01] MEDS: risperiDONE ORAL 1 MG/ML 30ml BOTTLE. SL SCH ×3 (08:02→17:53)
[2017-10-01] MEDS: CHOLECALCIFEROL (VITAMIN D3) 50,000 UNIT CAPSULE PO SCH (08:02)
[2017-10-01] MEDS: VALPROATE ACID 250 MG/5 ML ORAL SOLUTION PO SCH ×2 (12:26→17:53)
[2017-10-01 16:17] VITALS: BP 96/63
[2017-10-01] MEDS: SIMVASTATIN 40 MG TABLET. PO SCH (19:35)
[2017-10-01] MEDS: MIRTAZAPINE 15 MG TABLET PO SCH (19:35)
[2017-10-01] MEDS: MELATONIN 3 MG TABLET PO SCH (19:35)
--- NOTE | 2017-10-01 20:10 | PN ---
DATE: 09/30/2017 PSYCHIATRIC PROGRESS NOTE This is a late entry of 09/30/2016 covers elements not covered in my initial note 09/30/2017. SUBJECTIVE: I met with the patient evening of 09/30/2017. The patient slept 8 hours previous evening, somewhat anxious, labile, busy with intermittent hallucinations. REVIEW OF SYSTEMS: No CV, , pulmonary, eye, ENT system symptoms on review. Reliability poor. MENTAL STATUS EXAM: Oriented to herself. Insight, judgment, recent and remote memory, attention, concentration, fund of knowledge poor, consistent with her diagnosis mentioned in my initial note. IMPRESSION: Major neurocognitive disorder, Alzheimer, vascular with delusion, depression. PLAN: Valproic acid level is 24. Continue psychotropics mentioned in my initial note. We need to add Risperdal in the morning, Zyprexa in the morning. MAN Araceli GODINEZ MD DR: CAROLYN/maria isabel JOB#: [id number] / [id number]
--- NOTE | 2017-10-01 20:48 | PDOC ---
Exam Note: Wilmar Note: Please also refer to the separate dictated note~for this date of service dictated separately.~Patient seen individually. Discussed the patient with Nursing staff reviewed the chart.~Reviewed interim history and current functioning. Reviewed vital signs,~Labs/ Radiology~and current medications noted below. Continue current treatment with the changes noted in the dictated addendum note Assessment: Vital Signs: Vital Signs Date Time Temp Pulse Resp B/P (MAP) Pulse Ox O2 Delivery O2 Flow Rate FiO2 10/01/17 16:17 98.1 82 16 96/63 (74) 97 10/01/17 06:28 Room Air I&O Intake and Output 10/01/17 07:00 Intake Total 660 ml Balance 660 ml Intake Oral 660 ml # Voids 2 Current Medications: Meds: Current Medications Acetaminophen (Tylenol) 650 mg PRN Q6HRS PRN PO PAIN / TEMP; Start 09/08/17 at 22:00 Multi-Ingredient Ointment (Analgesic [place]) 1 krzysztof PRN QID PRN TP MUSCLE PAIN; Start 09/08/17 at 22:00 Al Hydroxide/Mg Hydroxide (Mylanta Plus Xs) 15 ml PRN AFTMEALHC PRN PO DYSPEPSIA; Start 09/08/17 at 22:00 Magnesium Hydroxide (Milk Of Magnesia) 2,400 mg PRN QHS PRN PO CONSTIPATION Last administered on 09/30/17at 09:06; Start 09/08/17 at 22:00 Citalopram Hydrobromide (CeleXA) 30 mg QHS PO Last administered on 09/08/17at 22 :28; Start 09/08/17 at 22:30; Stop 09/09/17 at 18:16; Status DC Divalproex Sodium (Depakote Sprinkles) 125 mg TID PO Last administered on at 19:23; Start 09/08/17 at 22:30; Stop 09/11/17 at 10:51; Status DC Lorazepam (Ativan) 0.5 mg PRN Q12HR PRN PO ANXIETY / AGITATION Last administered on 09/29/17at 19:44; Start 09/08/17 at 22:00 Quetiapine Fumarate (SEROquel) 50 mg BID@0900,1300 PO Last administered on 09/15at 13:50; Start 09/09/17 at 09:00; Stop 09/15/17 at 18:43; Status DC Quetiapine Fumarate (SEROquel) 100 mg QHS PO Last administered on 09/14/17at 20: 29; Start 09/08/17 at 22:30; Stop 09/15/17 at 18:43; Status DC Melatonin 3 mg PRN QHS PRN PO INSOMNIA Last administered on 09/11/17at 19:48; Start 09/08/17 at 22:15; Stop 09/19/17 at 18:02; Status DC Docusate Sodium (Colace) 100 mg QTUTHSA PO Last administered on 09/09/17at 16:27 ; Start 09/09/17 at 16:00; Stop 09/10/17 at 16:13; Status DC Levothyroxine Sodium (Synthroid) 75 mcg DAILY07 PO Last administered on 05:44; Start 09/09/17 at 07:00; Stop 09/09/17 at 14:30; Status DC Simvastatin (Zocor) 40 mg HS PO Last administered on 10/01/17at 19:35; Start at 22:30 Influenza Virus Vaccine Quadrival (Fluarix Quad [id number] Syringe) 0.5 ml ONCE ONCE VAX IM ; Start 09/09/17 at 09:00; Stop 09/09/17 at 11:44; Status DC Pneumococcal Polyvalent Vaccine (Pneumovax 23) 0.5 ml ONCE ONCE VAX IM ; Start 09/09/17 at 09:00; Stop 09/09/17 at 11:44; Status DC Influenza Virus Vaccine Quadrival (Fluarix Quad Syringe) 0.5 ml ONCE ONCE VAX IM Last administered on 09/11/17at 15:23; Start 09/11/17 at 13:00; Stop 09/11/17 at 13:01; Status DC Pneumococcal Polyvalent Vaccine (Pneumovax 23) 0.5 ml ONCE ONCE VAX IM Last administered on 09/11/17at 15:25; Start 09/11/17 at 13:00; Stop 09/11/17 at 13:01 ; Status DC Levothyroxine Sodium (Synthroid) 50 mcg DAILY06 PO Last administered on at 05:33; Start 09/10/17 at 06:00 Vitamin D (Vitamin D3) 50,000 unit WEEKLY PO Last administered on 10/01/17at 08: 02; Start 09/10/17 at 09:00; Stop 11/14/17 at 08:59 Duloxetine HCl (Cymbalta) 20 mg HS PO Last administered on 09/15/17 19:27; Start 09/09/17 at 21:00; Stop 09/15/17 at 21:20; Status DC Docusate Sodium (Colace Solution) 100 mg DAILY PO Last administered on at 08:00; Start 09/11/17 at 09:00 Divalproex Sodium (Depakote Sprinkles) 125 mg BID@1300,1700 PO Last administered on 09/14/17at 17:04; Start 09/11/17 at 13:00; Stop 09/15/17 at 12:45 ; Status DC Divalproex Sodium (Depakote Sprinkles) 250 mg DAILY PO Last administered on at 07:49; Start 09/12/17 at 09:00; Stop 09/15/17 at 12:45; Status DC Olanzapine (ZyPREXA ZYDIS) 2.5 mg PRN Q2HR PRN PO PSYCHOSIS Last administered on 10/01/17at 18:17; Start 09/15/17 at 11:30 Valproic Acid (Depakene) 250 mg DAILY PO Last administered on 09/20/17at 09:24; Start 09/16/17 at 09:00; Stop 09/20/17 at 18:26; Status DC Valproic Acid (Depakene) 125 mg BID@1300,1700 PO Last administered on at 17:53; Start 09/15/17 at 13:00 Risperidone (RisperDAL) 0.25 mg 1X ONCE SL Last administered on 09/15/17at 19: 29; Start 09/15/17 at 19:00; Stop 09/15/17 at 19:01; Status DC Risperidone (RisperDAL) 0.25 mg BID@0900,1700 SL Last administered on at 17:08; Start 09/16/17 at 09:00; Stop 09/17/17 at 18:17; Status DC Sertraline HCl (Zoloft) 50 mg DAILY PO Last administered on 09/27/17 08:12; Start 09/16/17 at 09:00; Stop 09/27/17 at 22:11; Status DC Mirtazapine (Remeron) 7.5 mg QHS PO Last administered on 09/23/17 19:27; Start 09/15/17 at 21:30; Stop 09/24/17 at 18:22; Status DC Risperidone (RisperDAL) 0.75 mg DAILY SL Last administered on 09/29/17 08:41; Start 09/18/17 at 09:00; Stop 09/29/17 at 18:18; Status DC Melatonin 3 mg QHS PO Last administered on 09/19/17 19:43; Start 09/19/17 at 21:00; Stop 09/21/17 at 19:32; Status DC Melatonin 1.5 mg 1X ONCE PO Last administered on 09/20/17 19:26; Start at 21:00; Stop 09/20/17 at 21:01; Status DC Melatonin 1.5 mg QHS PO Last administered on 10/01/17 19:35; Start 09/21/17 at 21:00 Mirtazapine (Remeron) 15 mg QHS PO Last administered on 10/01/17 19:35; Start 09/24/17 at 21:00 Sertraline HCl (Zoloft) 75 mg DAILY PO Last administered on 10/01/17 08:00; Start 09/28/17 at 09:00 Risperidone (RisperDAL) 0.5 mg DAILY SL Last administered on 10/01/17at 08:02; Start 09/30/17 at 09:00 Risperidone (RisperDAL) 0.25 mg DAILY@1200 SL Last administered on 10/01/17 12 :27; Start 09/30/17 at 12:00 Risperidone (RisperDAL) 0.125 mg DAILY@1700 SL Last administered on 10/01/17 17:53; Start 09/30/17 at 17:00 Buspirone HCl (Buspar) 5 mg BID@0900,1300 PO ; Start 10/02/17 at 09:00 Active Scripts Active Reported Melatonin 3 Mg Tablet 3 Mg PO PRN QHS PRN Lorazepam 0.5 Mg Tablet 0.5 Mg PO PRN Q12HR PRN Depakote Sprinkle (Divalproex Sodium) 125 Mg Cap.sprink 125 Mg PO TID Seroquel (Quetiapine Fumarate) 50 Mg Tablet 50 Mg PO BID@0900,1300 Simvastatin 40 Mg Tablet 40 Mg PO HS Seroquel (Quetiapine Fumarate) 100 Mg Tablet 100 Mg PO QHS Levothyroxine Sodium 75 Mcg Tablet 75 Mcg PO DAILY07 Colace (Docusate Sodium) 100 Mg Capsule 100 Mg PO QTUTHSA Citalopram Hbr (Citalopram Hydrobromide) 10 Mg Tablet 30 Mg PO QHS I have reviewed the current psychotropics carefully including drug interactions. Risk benefit ratio favors no change other than as noted in my dictated progress note. Diagnosis: Problems: (1) Anxiety disorder (2) Dementia in Alzheimer's disease with delusions (3) Dementia in Alzheimer's disease with depression (4) Dementia, vascular, with delusions (5) Dementia, vascular, with depression (6) Impulse control disorder KODY GODINEZ MD Oct 01, 2017 20:47
[2017-10-02 06:05] VITALS: BP 113/47
[2017-10-02] MEDS: LEVOTHYROXINE 50 MCG TABLET PO SCH (06:08)
[2017-10-02] MEDS: SERTRALINE 25 MG TABLET. PO SCH (09:27)
[2017-10-02] MEDS: DOCUSATE 100 MG/10 ML SOLUTION. PO SCH (09:27)
[2017-10-02] MEDS: busPIRone 5 MG TABLET. PO SCH ×2 (09:32→11:51)
[2017-10-02] MEDS: risperiDONE ORAL 1 MG/ML 30ml BOTTLE. SL SCH ×3 (09:32→17:04)
[2017-10-02] MEDS: VALPROATE ACID 250 MG/5 ML ORAL SOLUTION PO SCH ×2 (11:51→17:04)
[2017-10-02 15:31] VITALS: BP 101/65
[2017-10-02] MEDS: MIRTAZAPINE 15 MG TABLET PO SCH (19:53)
[2017-10-02] MEDS: SIMVASTATIN 40 MG TABLET. PO SCH (19:53)
[2017-10-02] MEDS: MELATONIN 3 MG TABLET PO SCH (19:53)
[2017-10-02 20:05] LABS: BASO % 1 % (0-3); EOS # 0.1 x10^3/uL (0.0-0.7); EOS % 1 % (0-3); HEMATOCRIT 34.3 % (36.0-47.0); HEMOGLOBIN 11.4 g/dL (12.0-15.5); LYMPH # 1.5 x10^3/uL (1.0-4.8); LYMPH % 18 % (24-48); MEAN CORPUSCULAR HEMOGLOBIN 31 pg (25-35); MEAN CORPUSCULAR HGB CONC 33 g/dL (31-37); MEAN CORPUSCULAR VOLUME 94 fL (79-100); MONO # 0.8 x10^3/uL (0.0-1.1); MONO % 9 % (0-9); NEUT # 6.1 x10^3uL (1.8-7.7); NEUT % 72 % (31-73); PLATELET COUNT 137 x10^3/uL (140-400); RED BLOOD COUNT 3.66 x10^6/uL (3.50-5.40); WHITE BLOOD COUNT 8.5 x10^3/uL (4.0-11.0)
[2017-10-02 20:06] LABS: ALBUMIN/GLOBULIN RATIO 0.9 (1.0-1.7); CALCIUM 8.3 mg/dL (8.5-10.1); CREATININE 0.9 mg/dL (0.6-1.0); GFR 60.7; POTASSIUM 3.7 mmol/L (3.5-5.1); TOTAL BILIRUBIN 0.3 mg/dL (0.2-1.0); TOTAL PROTEIN 6.2 g/dL (6.4-8.2)
--- NOTE | 2017-10-02 20:49 | PDOC ---
Exam Note: Wilmar Note: Please also refer to the separate dictated note~for this date of service dictated separately.~Patient seen individually. Discussed the patient with Nursing staff reviewed the chart.~Reviewed interim history and current functioning. Reviewed vital signs,~Labs/ Radiology~and current medications noted below. Continue current treatment with the changes noted in the dictated addendum note Assessment: Vital Signs: Vital Signs Date Time Temp Pulse Resp B/P (MAP) Pulse Ox O2 Delivery O2 Flow Rate FiO2 10/02/17 15:31 100.9 78 18 101/65 (77) 95 10/01/17 06:28 Room Air I&O Intake and Output 10/02/17 07:00 Intake Total 900 ml Balance 900 ml Intake Oral 900 ml # Voids 1 Labs: Laboratory Tests Test 10/02/17 19:40 White Blood Count 8.5 x10^3/uL (4.0-11.0) Red Blood Count 3.66 x10^6/uL (3.50-5.40) Hemoglobin 11.4 g/dL (12.0-15.5) L Hematocrit 34.3 % (36.0-47.0) L Mean Corpuscular Volume 94 fL (79-100) Mean Corpuscular Hemoglobin 31 pg (25-35) Mean Corpuscular Hemoglobin Concent 33 g/dL (31-37) Red Cell Distribution Width 15.0 % (11.5-14.5) H Platelet Count 137 x10^3/uL (140-400) L Neutrophils (%) (Auto) 72 % (31-73) Lymphocytes (%) (Auto) 18 % (24-48) L Monocytes (%) (Auto) 9 % (0-9) Eosinophils (%) (Auto) 1 % (0-3) Basophils (%) (Auto) 1 % (0-3) Neutrophils # (Auto) 6.1 x10^3uL (1.8-7.7) Lymphocytes # (Auto) 1.5 x10^3/uL (1.0-4.8) Monocytes # (Auto) 0.8 x10^3/uL (0.0-1.1) Eosinophils # (Auto) 0.1 x10^3/uL (0.0-0.7) Basophils # (Auto) 0.0 x10^3/uL (0.0-0.2) Sodium Level 146 mmol/L (136-145) H Potassium Level 3.7 mmol/L (3.5-5.1) Chloride Level 109 mmol/L (98-107) H Carbon Dioxide Level 27 mmol/L (21-32) Anion Gap 10 (6-14) Blood Urea Nitrogen 27 mg/dL (7-20) H Creatinine 0.9 mg/dL (0.6-1.0) Estimated GFR (Cockcroft-Gault) 60.7 BUN/Creatinine Ratio 30 (6-20) H Glucose Level 130 mg/dL (70-99) H Lactic Acid Level 1.7 mmol/L (0.4-2.0) Calcium Level 8.3 mg/dL (8.5-10.1) L Total Bilirubin 0.3 mg/dL (0.2-1.0) Aspartate Amino Transferase (AST) 43 U/L (15-37) H Alanine Aminotransferase (ALT) 48 U/L (14-59) Alkaline Phosphatase 80 U/L (46-116) Total Protein 6.2 g/dL (6.4-8.2) L Albumin 3.0 g/dL (3.4-5.0) L Albumin/Globulin Ratio 0.9 (1.0-1.7) L Current Medications: Meds: Current Medications Acetaminophen (Tylenol) 650 mg PRN Q6HRS PRN PO PAIN / TEMP Last administered on 10/02/17at 15:28; Start 09/08/17 at 22:00 Multi-Ingredient Ointment (Analgesic [place]) 1 krzysztof PRN QID PRN TP MUSCLE PAIN; Start 09/08/17 at 22:00 Al Hydroxide/Mg Hydroxide (Mylanta Plus Xs) 15 ml PRN AFTMEALHC PRN PO DYSPEPSIA; Start 09/08/17 at 22:00 Magnesium Hydroxide (Milk Of Magnesia) 2,400 mg PRN QHS PRN PO CONSTIPATION Last administered on 09/30/17at 09:06; Start 09/08/17 at 22:00 Citalopram Hydrobromide (CeleXA) 30 mg QHS PO Last administered on 09/08/17at 22 :28; Start 09/08/17 at 22:30; Stop 09/09/17 at 18:16; Status DC Divalproex Sodium (Depakote Sprinkles) 125 mg TID PO Last administered on at 19:23; Start 09/08/17 at 22:30; Stop 09/11/17 at 10:51; Status DC Lorazepam (Ativan) 0.5 mg PRN Q12HR PRN PO ANXIETY / AGITATION Last administered on 09/29/17at 19:44; Start 09/08/17 at 22:00 Quetiapine Fumarate (SEROquel) 50 mg BID@0900,1300 PO Last administered on 09/15at 13:50; Start 09/09/17 at 09:00; Stop 09/15/17 at 18:43; Status DC Quetiapine Fumarate (SEROquel) 100 mg QHS PO Last administered on 09/14/17at 20: 29; Start 09/08/17 at 22:30; Stop 09/15/17 at 18:43; Status DC Melatonin 3 mg PRN QHS PRN PO INSOMNIA Last administered on 09/11/17at 19:48; Start 09/08/17 at 22:15; Stop 09/19/17 at 18:02; Status DC Docusate Sodium (Colace) 100 mg QTUTHSA PO Last administered on 09/09/17at 16:27 ; Start 09/09/17 at 16:00; Stop 09/10/17 at 16:13; Status DC Levothyroxine Sodium (Synthroid) 75 mcg DAILY07 PO Last administered on at 05:44; Start 09/09/17 at 07:00; Stop 09/09/17 at 14:30; Status DC Simvastatin (Zocor) 40 mg HS PO Last administered on 10/02/17at 19:53; Start at 22:30 Influenza Virus Vaccine Quadrival (Fluarix Quad Syringe) 0.5 ml ONCE ONCE VAX IM ; Start 09/09/17 at 09:00; Stop 09/09/17 at 11:44; Status DC Pneumococcal Polyvalent Vaccine (Pneumovax 23) 0.5 ml ONCE ONCE VAX IM ; Start 09/09/17 at 09:00; Stop 09/09/17 at 11:44; Status DC Influenza Virus Vaccine Quadrival (Fluarix Quad Syringe) 0.5 ml ONCE ONCE VAX IM Last administered on 09/11/17 15:23; Start 09/11/17 at 13:00; Stop 09/11/17 at 13:01; Status DC Pneumococcal Polyvalent Vaccine (Pneumovax 23) 0.5 ml ONCE ONCE VAX IM Last administered on 09/11/17at 15:25; Start 09/11/17 at 13:00; Stop 09/11/17 at 13:01 ; Status DC Levothyroxine Sodium (Synthroid) 50 mcg DAILY06 PO Last administered on 06:08; Start 09/10/17 at 06:00 Vitamin D (Vitamin D3) 50,000 unit WEEKLY PO Last administered on 10/01/17 08: 02; Start 09/10/17 at 09:00; Stop 11/14/17 at 08:59 Duloxetine HCl (Cymbalta) 20 mg HS PO Last administered on 09/15/17 19:27; Start 09/09/17 at 21:00; Stop 09/15/17 at 21:20; Status DC Docusate Sodium (Colace Solution) 100 mg DAILY PO Last administered on 09:27; Start 09/11/17 at 09:00 Divalproex Sodium (Depakote Sprinkles) 125 mg BID@1300,1700 PO Last administered on 09/14/17 17:04; Start 09/11/17 at 13:00; Stop 09/15/17 at 12:45 ; Status DC Divalproex Sodium (Depakote Sprinkles) 250 mg DAILY PO Last administered on 07:49; Start 09/12/17 at 09:00; Stop 09/15/17 at 12:45; Status DC Olanzapine (ZyPREXA ZYDIS) 2.5 mg PRN Q2HR PRN PO PSYCHOSIS Last administered on 10/01/17 18:17; Start 09/15/17 at 11:30 Valproic Acid (Depakene) 250 mg DAILY PO Last administered on 09/20/17 09:24; Start 09/16/17 at 09:00; Stop 09/20/17 at 18:26; Status DC Valproic Acid (Depakene) 125 mg BID@1300,1700 PO Last administered on 17:04; Start 09/15/17 at 13:00 Risperidone (RisperDAL) 0.25 mg 1X ONCE SL Last administered on 09/15/17 19: 29; Start 09/15/17 at 19:00; Stop 09/15/17 at 19:01; Status DC Risperidone (RisperDAL) 0.25 mg BID@0900,1700 SL Last administered on 17:08; Start 09/16/17 at 09:00; Stop 09/17/17 at 18:17; Status DC Sertraline HCl (Zoloft) 50 mg DAILY PO Last administered on 09/27/17 08:12; Start 09/16/17 at 09:00; Stop 09/27/17 at 22:11; Status DC Mirtazapine (Remeron) 7.5 mg QHS PO Last administered on 09/23/17 19:27; Start 09/15/17 at 21:30; Stop 09/24/17 at 18:22; Status DC Risperidone (RisperDAL) 0.75 mg DAILY SL Last administered on 09/29/17 08:41; Start 09/18/17 at 09:00; Stop 09/29/17 at 18:18; Status DC Melatonin 3 mg QHS PO Last administered on 09/19/17 19:43; Start 09/19/17 at 21:00; Stop 09/21/17 at 19:32; Status DC Melatonin 1.5 mg 1X ONCE PO Last administered on 09/20/17 19:26; Start at 21:00; Stop 09/20/17 at 21:01; Status DC Melatonin 1.5 mg QHS PO Last administered on 10/02/17 19:53; Start 09/21/17 at 21:00 Mirtazapine (Remeron) 15 mg QHS PO Last administered on 10/02/17 19:53; Start 09/24/17 at 21:00 Sertraline HCl (Zoloft) 75 mg DAILY PO Last administered on 10/02/17 09:27; Start 09/28/17 at 09:00 Risperidone (RisperDAL) 0.5 mg DAILY SL Last administered on 10/02/17 09:32; Start 09/30/17 at 09:00 Risperidone (RisperDAL) 0.25 mg DAILY@1200 SL Last administered on 10/02/17at 11 :51; Start 09/30/17 at 12:00 Risperidone (RisperDAL) 0.125 mg DAILY@1700 SL Last administered on 10/02/17at 17:04; Start 09/30/17 at 17:00 Buspirone HCl (Buspar) 5 mg BID@0900,1300 PO Last administered on 10/02/17at 11: 51; Start 10/02/17 at 09:00 Active Scripts Active Reported Melatonin 3 Mg Tablet 3 Mg PO PRN QHS PRN Lorazepam 0.5 Mg Tablet 0.5 Mg PO PRN Q12HR PRN Depakote Sprinkle (Divalproex Sodium) 125 Mg Cap.sprink 125 Mg PO TID Seroquel (Quetiapine Fumarate) 50 Mg Tablet 50 Mg PO BID@0900,1300 Simvastatin 40 Mg Tablet 40 Mg PO HS Seroquel (Quetiapine Fumarate) 100 Mg Tablet 100 Mg PO QHS Levothyroxine Sodium 75 Mcg Tablet 75 Mcg PO DAILY07 Colace (Docusate Sodium) 100 Mg Capsule 100 Mg PO QTUTHSA Citalopram Hbr (Citalopram Hydrobromide) 10 Mg Tablet 30 Mg PO QHS I have reviewed the current psychotropics carefully including drug interactions. Risk benefit ratio favors no change other than as noted in my dictated progress note. Diagnosis: Problems: (1) Anxiety disorder (2) Dementia in Alzheimer's disease with delusions (3) Dementia in Alzheimer's disease with depression (4) Dementia, vascular, with delusions (5) Dementia, vascular, with depression (6) Impulse control disorder KODY GODINEZ MD Oct 02, 2017 20:49
[2017-10-03] MEDS: LEVOTHYROXINE 50 MCG TABLET PO SCH (06:03)
[2017-10-03 06:34] VITALS: BP 103/91
[2017-10-03] MEDS: DOCUSATE 100 MG/10 ML SOLUTION. PO SCH (08:04)
[2017-10-03] MEDS: SERTRALINE 25 MG TABLET. PO SCH (08:04)
[2017-10-03] MEDS: busPIRone 5 MG TABLET. PO SCH ×2 (08:04→12:47)
[2017-10-03] MEDS: risperiDONE ORAL 1 MG/ML 30ml BOTTLE. SL SCH ×3 (08:05→17:00)
--- NOTE | 2017-10-03 10:01 | RAD ---
AP chest, 10/02/2017: History: Fever The patient is rotated to the right. The heart size and pulmonary vascularity are normal. The thoracic aorta is tortuous. No pulmonary infiltrate is seen. There is no evidence of pleural fluid. IMPRESSION: No acute cardiopulmonary abnormality is detected.
[2017-10-03] MEDS: VALPROATE ACID 250 MG/5 ML ORAL SOLUTION PO SCH ×2 (12:47→17:00)
[2017-10-03 15:49] LABS: BILIRUBIN,URINE NEG (NEG); CLARITY,URINE TURBID; COLOR,URINE YELLOW; GLUCOSE,URINE NEG (NEG); NITRITE,URINE POS (NEG); UROBILINOGEN,URINE 0.2 mg/dL (0.2 mg/dL)
[2017-10-03 15:50] LABS: BACTERIA,URINE 0 /HPF (0-FEW); SQUAMOUS EPITHELIAL CELL,UR OCC /LPF
[2017-10-03 15:51] LABS: AMORPHOUS SEDIMENT,UR PRESENT /HPF
[2017-10-03 16:11] VITALS: BP_SYST 101; BP_SYST 174; BP_DIAS 63; BP_DIAS 81
[2017-10-03] MEDS: MELATONIN 3 MG TABLET PO SCH (19:53)
[2017-10-03] MEDS: MIRTAZAPINE 15 MG TABLET PO SCH (19:53)
[2017-10-03] MEDS: SIMVASTATIN 40 MG TABLET. PO SCH (19:54)
--- NOTE | 2017-10-03 20:45 | PDOC ---
Exam Note: Wilmar Note: Please also refer to the separate dictated note~for this date of service dictated separately.~Patient seen individually. Discussed the patient with Nursing staff reviewed the chart.~Reviewed interim history and current functioning. Reviewed vital signs,~Labs/ Radiology~and current medications noted below. Continue current treatment with the changes noted in the dictated addendum note Assessment: Vital Signs: Vital Signs Date Time Temp Pulse Resp B/P (MAP) Pulse Ox O2 Delivery O2 Flow Rate FiO2 10/03/17 16:11 98.2 73 18 101/63 (76) 96 10/01/17 06:28 Room Air I&O Intake and Output 10/03/17 07:00 Intake Total 720 ml Balance 720 ml Intake Oral 720 ml Labs: Laboratory Tests Test 10/03/17 15:15 Urine Collection Type Unknown Urine Color Yellow Urine Clarity Turbid Urine pH 7.0 Urine Specific [place] 1.020 Urine Protein Trace (NEG-TRACE) Urine Glucose (UA) Neg mg/dL (NEG) Urine Ketones (Stick) Neg mg/dL (NEG) Urine Blood Trace (NEG) Urine Nitrite Pos (NEG) Urine Bilirubin Neg (NEG) Urine Urobilinogen Dipstick 0.2 mg/dL (0.2 mg/dL) Urine Leukocyte Esterase Neg (NEG) Urine RBC 1-2 /HPF (0-2) Urine WBC 1-4 /HPF (0-4) Urine Squamous Epithelial Cells Occ /LPF Urine Amorphous Sediment Present /HPF Urine Bacteria 0 /HPF (0-FEW) Urine Mucus Slight /LPF Current Medications: Meds: Current Medications Acetaminophen (Tylenol) 650 mg PRN Q6HRS PRN PO PAIN / TEMP Last administered on 10/02/17at 15:28; Start 09/08/17 at 22:00 Multi-Ingredient Ointment (Analgesic [employer]) 1 krzysztof PRN QID PRN TP MUSCLE PAIN; Start 09/08/17 at 22:00 Al Hydroxide/Mg Hydroxide (Mylanta Plus Xs) 15 ml PRN AFTMEALHC PRN PO DYSPEPSIA; Start 09/08/17 at 22:00 Magnesium Hydroxide (Milk Of Magnesia) 2,400 mg PRN QHS PRN PO CONSTIPATION Last administered on 09/30/17at 09:06; Start 09/08/17 at 22:00 Citalopram Hydrobromide (CeleXA) 30 mg QHS PO Last administered on 09/08/17 22 :28; Start 09/08/17 at 22:30; Stop 09/09/17 at 18:16; Status DC Divalproex Sodium (Depakote Sprinkles) 125 mg TID PO Last administered on 19:23; Start 09/08/17 at 22:30; Stop 09/11/17 at 10:51; Status DC Lorazepam (Ativan) 0.5 mg PRN Q12HR PRN PO ANXIETY / AGITATION Last administered on 09/29/17at 19:44; Start 09/08/17 at 22:00 Quetiapine Fumarate (SEROquel) 50 mg BID@0900,1300 PO Last administered on 09/15at 13:50; Start 09/09/17 at 09:00; Stop 09/15/17 at 18:43; Status DC Quetiapine Fumarate (SEROquel) 100 mg QHS PO Last administered on 09/14/17 20: 29; Start 09/08/17 at 22:30; Stop 09/15/17 at 18:43; Status DC Melatonin 3 mg PRN QHS PRN PO INSOMNIA Last administered on 09/11/17at 19:48; Start 09/08/17 at 22:15; Stop 09/19/17 at 18:02; Status DC Docusate Sodium (Colace) 100 mg QTUTHSA PO Last administered on 09/09/17 16:27 ; Start 09/09/17 at 16:00; Stop 09/10/17 at 16:13; Status DC Levothyroxine Sodium (Synthroid) 75 mcg DAILY07 PO Last administered on at 05:44; Start 09/09/17 at 07:00; Stop 09/09/17 at 14:30; Status DC Simvastatin (Zocor) 40 mg HS PO Last administered on 10/03/17at 19:54; Start at 22:30 Influenza Virus Vaccine Quadrival (Fluarix Quad [id number] Syringe) 0.5 ml ONCE ONCE VAX IM ; Start 09/09/17 at 09:00; Stop 09/09/17 at 11:44; Status DC Pneumococcal Polyvalent Vaccine (Pneumovax 23) 0.5 ml ONCE ONCE VAX IM ; Start 09/09/17 at 09:00; Stop 09/09/17 at 11:44; Status DC Influenza Virus Vaccine Quadrival (Fluarix Quad [id number] Syringe) 0.5 ml ONCE ONCE VAX IM Last administered on 09/11/17at 15:23; Start 09/11/17 at 13:00; Stop 09/11/17 at 13:01; Status DC Pneumococcal Polyvalent Vaccine (Pneumovax 23) 0.5 ml ONCE ONCE VAX IM Last administered on 09/11/17at 15:25; Start 09/11/17 at 13:00; Stop 09/11/17 at 13:01 ; Status DC Levothyroxine Sodium (Synthroid) 50 mcg DAILY06 PO Last administered on 06:03; Start 09/10/17 at 06:00 Vitamin D (Vitamin D3) 50,000 unit WEEKLY PO Last administered on 10/01/17at 08: 02; Start 09/10/17 at 09:00; Stop 11/14/17 at 08:59 Duloxetine HCl (Cymbalta) 20 mg HS PO Last administered on 09/15/17at 19:27; Start 09/09/17 at 21:00; Stop 09/15/17 at 21:20; Status DC Docusate Sodium (Colace Solution) 100 mg DAILY PO Last administered on 08:04; Start 09/11/17 at 09:00 Divalproex Sodium (Depakote Sprinkles) 125 mg BID@1300,1700 PO Last administered on 09/14/17 17:04; Start 09/11/17 at 13:00; Stop 09/15/17 at 12:45 ; Status DC Divalproex Sodium (Depakote Sprinkles) 250 mg DAILY PO Last administered on 07:49; Start 09/12/17 at 09:00; Stop 09/15/17 at 12:45; Status DC Olanzapine (ZyPREXA ZYDIS) 2.5 mg PRN Q2HR PRN PO PSYCHOSIS Last administered on 10/01/17 18:17; Start 09/15/17 at 11:30 Valproic Acid (Depakene) 250 mg DAILY PO Last administered on 09/20/17at 09:24; Start 09/16/17 at 09:00; Stop 09/20/17 at 18:26; Status DC Valproic Acid (Depakene) 125 mg BID@1300,1700 PO Last administered on 17:00; Start 09/15/17 at 13:00 Risperidone (RisperDAL) 0.25 mg 1X ONCE SL Last administered on 09/15/17 19: 29; Start 09/15/17 at 19:00; Stop 09/15/17 at 19:01; Status DC Risperidone (RisperDAL) 0.25 mg BID@0900,1700 SL Last administered on 17:08; Start 09/16/17 at 09:00; Stop 09/17/17 at 18:17; Status DC Sertraline HCl (Zoloft) 50 mg DAILY PO Last administered on 09/27/17at 08:12; Start 09/16/17 at 09:00; Stop 09/27/17 at 22:11; Status DC Mirtazapine (Remeron) 7.5 mg QHS PO Last administered on 09/23/17 19:27; Start 09/15/17 at 21:30; Stop 09/24/17 at 18:22; Status DC Risperidone (RisperDAL) 0.75 mg DAILY SL Last administered on 09/29/17 08:41; Start 09/18/17 at 09:00; Stop 09/29/17 at 18:18; Status DC Melatonin 3 mg QHS PO Last administered on 09/19/17at 19:43; Start 09/19/17 at 21:00; Stop 09/21/17 at 19:32; Status DC Melatonin 1.5 mg 1X ONCE PO Last administered on 09/20/17 19:26; Start at 21:00; Stop 09/20/17 at 21:01; Status DC Melatonin 1.5 mg QHS PO Last administered on 10/03/17 19:53; Start 09/21/17 at 21:00 Mirtazapine (Remeron) 15 mg QHS PO Last administered on 10/03/17 19:53; Start 09/24/17 at 21:00 Sertraline HCl (Zoloft) 75 mg DAILY PO Last administered on 4/13/18at 08:04; Start 09/28/17 at 09:00 Risperidone (RisperDAL) 0.5 mg DAILY SL Last administered on 10/03/17at 08:05; Start 09/30/17 at 09:00 Risperidone (RisperDAL) 0.25 mg DAILY@1200 SL Last administered on 10/03/17at 12 :48; Start 09/30/17 at 12:00 Risperidone (RisperDAL) 0.125 mg DAILY@1700 SL Last administered on 10/03/17at 17:00; Start 09/30/17 at 17:00 Buspirone HCl (Buspar) 5 mg BID@0900,1300 PO Last administered on 10/03/17at 12: 47; Start 10/02/17 at 09:00 Active Scripts Active Reported Melatonin 3 Mg Tablet 3 Mg PO PRN QHS PRN Lorazepam 0.5 Mg Tablet 0.5 Mg PO PRN Q12HR PRN Depakote Sprinkle (Divalproex Sodium) 125 Mg Cap.sprink 125 Mg PO TID Seroquel (Quetiapine Fumarate) 50 Mg Tablet 50 Mg PO BID@0900,1300 Simvastatin 40 Mg Tablet 40 Mg PO HS Seroquel (Quetiapine Fumarate) 100 Mg Tablet 100 Mg PO QHS Levothyroxine Sodium 75 Mcg Tablet 75 Mcg PO DAILY07 Colace (Docusate Sodium) 100 Mg Capsule 100 Mg PO QTUTHSA Citalopram Hbr (Citalopram Hydrobromide) 10 Mg Tablet 30 Mg PO QHS I have reviewed the current psychotropics carefully including drug interactions. Risk benefit ratio favors no change other than as noted in my dictated progress note. Diagnosis: Problems: (1) Anxiety disorder (2) Dementia in Alzheimer's disease with delusions (3) Dementia in Alzheimer's disease with depression (4) Dementia, vascular, with delusions (5) Dementia, vascular, with depression (6) Impulse control disorder KODY GODINEZ MD Oct 03, 2017 20:45
--- NOTE | 2017-10-03 22:18 | PN ---
DATE: 10/01/2017 This late entry 10/01/2017 covers elements not covered in my initial note 10/01/2017. I met with the patient in the evening of 10/01/2017. The patient slept 8-1/2 hours previous evening. Remains quite confused, irritable at times, received Zyprexa, was anxious, restless, repeatedly cleaning, obsessive, looking for Ginna, talking about going home. REVIEW OF SYSTEMS: No CV, , pulmonary, eye, ENT system symptoms on review. Reliability poor. MENTAL STATUS EXAM: Oriented to herself. Insight, judgment, recent and remote memory, attention, concentration, fund of knowledge poor, consistent with her diagnosis mentioned in my initial note. The patient slept 8-1/2 hours previous evening. IMPRESSION: Major neurocognitive disorder, Alzheimer, vascular with depression, delusion, behavioral disturbance. Rest unchanged. PLAN: Start BuSpar 5 mg 9:00 a.m., 1:00 p.m. Continue rest of the psychotropics. Valproic acid level is 43 despite being subtherapeutic clinically, adequate for now. MAN Araceli GODINEZ MD DR: CAROLYN/maria isabel JOB#: [id number] / [id number]
--- NOTE | 2017-10-04 03:35 | PN ---
DATE: 10/02/2017 This late entry 10/02/2017 covers elements not covered in my initial note 10/02/2017. I met with the patient evening of 10/02/2017 and staffed at a treatment team meeting with the entire team morning of 10/02/2017, and patient's daughter, Sarahy, attended the conference. Reviewed the patient's history, diagnosis, current psychotropics, prognosis, discharge plans. The patient slept 7 hours, episodically anxious, wandering, intrusive, looking for Ginna. She was febrile in the evening. We will defer to Dr. Feng. REVIEW OF SYSTEMS: No CV, , pulmonary, eye, ENT system symptoms on review. Reliability poor. MENTAL STATUS EXAM: Oriented to herself. Insight, judgment, recent and remote memory, attention, concentration, fund of knowledge poor, consistent with her diagnosis mentioned in my initial note. IMPRESSION: Major neurocognitive disorder, Alzheimer, vascular with depression, delusion, behavioral disturbance. Rest unchanged. PLAN: Continue psychotropics mentioned in my initial note. MAN rAaceli GODINEZ MD DR: CAROLYN/maria isabel JOB#: [id number] / [id number]
[2017-10-04] MEDS: LEVOTHYROXINE 50 MCG TABLET PO SCH (06:11)
[2017-10-04 06:25] VITALS: BP 123/47
[2017-10-04] MEDS: busPIRone 5 MG TABLET. PO SCH ×2 (08:00→12:29)
[2017-10-04] MEDS: SERTRALINE 25 MG TABLET. PO SCH (08:00)
[2017-10-04] MEDS: DOCUSATE 100 MG/10 ML SOLUTION. PO SCH (08:00)
[2017-10-04] MEDS: risperiDONE ORAL 1 MG/ML 30ml BOTTLE. SL SCH ×3 (08:02→17:03)
[2017-10-04] MEDS: VALPROATE ACID 250 MG/5 ML ORAL SOLUTION PO SCH ×2 (12:29→17:02)
[2017-10-04 16:24] VITALS: BP 134/63
[2017-10-04] MEDS: MELATONIN 3 MG TABLET PO SCH (19:37)
[2017-10-04] MEDS: SIMVASTATIN 40 MG TABLET. PO SCH (19:37)
[2017-10-04] MEDS: MIRTAZAPINE 15 MG TABLET PO SCH (19:37)
--- NOTE | 2017-10-04 19:42 | PDOC ---
Exam Note: Wilmar Note: Please also refer to the separate dictated note~for this date of service dictated separately.~Patient seen individually. Discussed the patient with Nursing staff reviewed the chart.~Reviewed interim history and current functioning. Reviewed vital signs,~Labs/ Radiology~and current medications noted below. Continue current treatment with the changes noted in the dictated addendum note Assessment: Vital Signs: Vital Signs Date Time Temp Pulse Resp B/P (MAP) Pulse Ox O2 Delivery O2 Flow Rate FiO2 10/04/17 16:24 97.4 67 22 134/63 (86) 99 Room Air I&O Intake and Output 10/04/17 07:00 Intake Total 1320 ml Balance 1320 ml Intake Oral 1320 ml Current Medications: Meds: Current Medications Acetaminophen (Tylenol) 650 mg PRN Q6HRS PRN PO PAIN / TEMP Last administered on 10/02/17at 15:28; Start 09/08/17 at 22:00 Multi-Ingredient Ointment (Analgesic [place]) 1 krzysztof PRN QID PRN TP MUSCLE PAIN; Start 09/08/17 at 22:00 Al Hydroxide/Mg Hydroxide (Mylanta Plus Xs) 15 ml PRN AFTMEALHC PRN PO DYSPEPSIA; Start 09/08/17 at 22:00 Magnesium Hydroxide (Milk Of Magnesia) 2,400 mg PRN QHS PRN PO CONSTIPATION Last administered on 09/30/17at 09:06; Start 09/08/17 at 22:00 Citalopram Hydrobromide (CeleXA) 30 mg QHS PO Last administered on 09/08/17at 22 :28; Start 09/08/17 at 22:30; Stop 09/09/17 at 18:16; Status DC Divalproex Sodium (Depakote Sprinkles) 125 mg TID PO Last administered on 19:23; Start 09/08/17 at 22:30; Stop 09/11/17 at 10:51; Status DC Lorazepam (Ativan) 0.5 mg PRN Q12HR PRN PO ANXIETY / AGITATION Last administered on 09/29/17at 19:44; Start 09/08/17 at 22:00 Quetiapine Fumarate (SEROquel) 50 mg BID@0900,1300 PO Last administered on 09/15at 13:50; Start 09/09/17 at 09:00; Stop 09/15/17 at 18:43; Status DC Quetiapine Fumarate (SEROquel) 100 mg QHS PO Last administered on 09/14/17at 20: 29; Start 09/08/17 at 22:30; Stop 09/15/17 at 18:43; Status DC Melatonin 3 mg PRN QHS PRN PO INSOMNIA Last administered on 09/11/17at 19:48; Start 09/08/17 at 22:15; Stop 09/19/17 at 18:02; Status DC Docusate Sodium (Colace) 100 mg QTUTHSA PO Last administered on 09/09/17at 16:27 ; Start 09/09/17 at 16:00; Stop 09/10/17 at 16:13; Status DC Levothyroxine Sodium (Synthroid) 75 mcg DAILY07 PO Last administered on at 05:44; Start 09/09/17 at 07:00; Stop 09/09/17 at 14:30; Status DC Simvastatin (Zocor) 40 mg HS PO Last administered on 10/04/17at 19:37; Start at 22:30 Influenza Virus Vaccine Quadrival (Fluarix Quad [id number] Syringe) 0.5 ml ONCE ONCE VAX IM ; Start 09/09/17 at 09:00; Stop 09/09/17 at 11:44; Status DC Pneumococcal Polyvalent Vaccine (Pneumovax 23) 0.5 ml ONCE ONCE VAX IM ; Start 09/09/17 at 09:00; Stop 09/09/17 at 11:44; Status DC Influenza Virus Vaccine Quadrival (Fluarix Quad Syringe) 0.5 ml ONCE ONCE VAX IM Last administered on 09/11/17at 15:23; Start 09/11/17 at 13:00; Stop 09/11/17 at 13:01; Status DC Pneumococcal Polyvalent Vaccine (Pneumovax 23) 0.5 ml ONCE ONCE VAX IM Last administered on 09/11/17at 15:25; Start 09/11/17 at 13:00; Stop 09/11/17 at 13:01 ; Status DC Levothyroxine Sodium (Synthroid) 50 mcg DAILY06 PO Last administered on at 06:11; Start 09/10/17 at 06:00 Vitamin D (Vitamin D3) 50,000 unit WEEKLY PO Last administered on 10/01/17 08: 02; Start 09/10/17 at 09:00; Stop 11/14/17 at 08:59 Duloxetine HCl (Cymbalta) 20 mg HS PO Last administered on 09/15/17 19:27; Start 09/09/17 at 21:00; Stop 09/15/17 at 21:20; Status DC Docusate Sodium (Colace Solution) 100 mg DAILY PO Last administered on at 08:00; Start 09/11/17 at 09:00 Divalproex Sodium (Depakote Sprinkles) 125 mg BID@1300,1700 PO Last administered on 09/14/17at 17:04; Start 09/11/17 at 13:00; Stop 09/15/17 at 12:45 ; Status DC Divalproex Sodium (Depakote Sprinkles) 250 mg DAILY PO Last administered on at 07:49; Start 09/12/17 at 09:00; Stop 09/15/17 at 12:45; Status DC Olanzapine (ZyPREXA ZYDIS) 2.5 mg PRN Q2HR PRN PO PSYCHOSIS Last administered on 10/04/17at 04:35; Start 09/15/17 at 11:30 Valproic Acid (Depakene) 250 mg DAILY PO Last administered on 09/20/17at 09:24; Start 09/16/17 at 09:00; Stop 09/20/17 at 18:26; Status DC Valproic Acid (Depakene) 125 mg BID@1300,1700 PO Last administered on at 17:02; Start 09/15/17 at 13:00 Risperidone (RisperDAL) 0.25 mg 1X ONCE SL Last administered on 09/15/17at 19: 29; Start 09/15/17 at 19:00; Stop 09/15/17 at 19:01; Status DC Risperidone (RisperDAL) 0.25 mg BID@0900,1700 SL Last administered on at 17:08; Start 09/16/17 at 09:00; Stop 09/17/17 at 18:17; Status DC Sertraline HCl (Zoloft) 50 mg DAILY PO Last administered on 09/27/17 08:12; Start 09/16/17 at 09:00; Stop 09/27/17 at 22:11; Status DC Mirtazapine (Remeron) 7.5 mg QHS PO Last administered on 09/23/17 19:27; Start 09/15/17 at 21:30; Stop 09/24/17 at 18:22; Status DC Risperidone (RisperDAL) 0.75 mg DAILY SL Last administered on 09/29/17 08:41; Start 09/18/17 at 09:00; Stop 09/29/17 at 18:18; Status DC Melatonin 3 mg QHS PO Last administered on 09/19/17 19:43; Start 09/19/17 at 21:00; Stop 09/21/17 at 19:32; Status DC Melatonin 1.5 mg 1X ONCE PO Last administered on 09/20/17 19:26; Start at 21:00; Stop 09/20/17 at 21:01; Status DC Melatonin 1.5 mg QHS PO Last administered on 10/04/17 19:37; Start 09/21/17 at 21:00 Mirtazapine (Remeron) 15 mg QHS PO Last administered on 10/04/17 19:37; Start 09/24/17 at 21:00 Sertraline HCl (Zoloft) 75 mg DAILY PO Last administered on 10/04/17 08:00; Start 09/28/17 at 09:00 Risperidone (RisperDAL) 0.5 mg DAILY SL Last administered on 10/04/17 08:02; Start 09/30/17 at 09:00 Risperidone (RisperDAL) 0.25 mg DAILY@1200 SL Last administered on 10/04/17 12 :29; Start 09/30/17 at 12:00 Risperidone (RisperDAL) 0.125 mg DAILY@1700 SL Last administered on 10/04/17 17:03; Start 09/30/17 at 17:00 Buspirone HCl (Buspar) 5 mg BID@0900,1300 PO Last administered on 10/04/17at 12: 29; Start 10/02/17 at 09:00 Active Scripts Active Reported Melatonin 3 Mg Tablet 3 Mg PO PRN QHS PRN Lorazepam 0.5 Mg Tablet 0.5 Mg PO PRN Q12HR PRN Depakote Sprinkle (Divalproex Sodium) 125 Mg Cap.sprink 125 Mg PO TID Seroquel (Quetiapine Fumarate) 50 Mg Tablet 50 Mg PO BID@0900,1300 Simvastatin 40 Mg Tablet 40 Mg PO HS Seroquel (Quetiapine Fumarate) 100 Mg Tablet 100 Mg PO QHS Levothyroxine Sodium 75 Mcg Tablet 75 Mcg PO DAILY07 Colace (Docusate Sodium) 100 Mg Capsule 100 Mg PO QTUTHSA Citalopram Hbr (Citalopram Hydrobromide) 10 Mg Tablet 30 Mg PO QHS I have reviewed the current psychotropics carefully including drug interactions. Risk benefit ratio favors no change other than as noted in my dictated progress note. Diagnosis: Problems: (1) Anxiety disorder (2) Dementia in Alzheimer's disease with delusions (3) Dementia in Alzheimer's disease with depression (4) Dementia, vascular, with delusions (5) Dementia, vascular, with depression (6) Impulse control disorder KODY GODINEZ MD Oct 04, 2017 19:42
[2017-10-05] MEDS: LEVOTHYROXINE 50 MCG TABLET PO SCH (06:02)
[2017-10-05 06:08] VITALS: BP 113/66
[2017-10-05] MEDS: SERTRALINE 25 MG TABLET. PO SCH (07:39)
[2017-10-05] MEDS: risperiDONE ORAL 1 MG/ML 30ml BOTTLE. SL SCH ×3 (07:39→17:37)
[2017-10-05] MEDS: busPIRone 5 MG TABLET. PO SCH ×2 (07:39→11:57)
[2017-10-05] MEDS: DOCUSATE 100 MG/10 ML SOLUTION. PO SCH (07:39)
[2017-10-05] MEDS: VALPROATE ACID 250 MG/5 ML ORAL SOLUTION PO SCH ×2 (11:58→17:36)
[2017-10-05] MEDS ORDERED: MAGNESIUM CITRATE 296 ML SOLUTION. PO ONE (16:30)
[2017-10-05 16:44] VITALS: BP 113/68
[2017-10-05] MEDS: MELATONIN 3 MG TABLET PO SCH (19:25)
[2017-10-05] MEDS: SIMVASTATIN 40 MG TABLET. PO SCH (19:25)
[2017-10-05] MEDS: MIRTAZAPINE 15 MG TABLET PO SCH (19:26)
[2017-10-05] MEDS: LACTOBACILLUS RHAMNOSUS GG 1 CAPSULE. PO SCH (19:31)
[2017-10-05] MEDS: AMOXICILLIN 250 MG/5 ML ORAL.SUSP. PO SCH (19:33)
--- NOTE | 2017-10-05 22:07 | PDOC ---
Exam Note: Wilmar Note: Please also refer to the separate dictated note~for this date of service dictated separately.~Patient seen individually. Discussed the patient with Nursing staff reviewed the chart.~Reviewed interim history and current functioning. Reviewed vital signs,~Labs/ Radiology~and current medications noted below. Continue current treatment with the changes noted in the dictated addendum note Assessment: Vital Signs: Vital Signs Date Time Temp Pulse Resp B/P (MAP) Pulse Ox O2 Delivery O2 Flow Rate FiO2 10/05/17 16:44 98.4 80 20 113/68 (83) 99 10/05/17 06:08 Room Air I&O Intake and Output 10/05/17 07:00 Intake Total 960 ml Balance 960 ml Intake Oral 960 ml Current Medications: Meds: Current Medications Acetaminophen (Tylenol) 650 mg PRN Q6HRS PRN PO PAIN / TEMP Last administered on 10/02/17at 15:28; Start 09/08/17 at 22:00 Multi-Ingredient Ointment (Analgesic [place]) 1 krzysztof PRN QID PRN TP MUSCLE PAIN; Start 09/08/17 at 22:00 Al Hydroxide/Mg Hydroxide (Mylanta Plus Xs) 15 ml PRN AFTMEALHC PRN PO DYSPEPSIA; Start 09/08/17 at 22:00 Magnesium Hydroxide (Milk Of Magnesia) 2,400 mg PRN QHS PRN PO CONSTIPATION Last administered on 09/30/17at 09:06; Start 09/08/17 at 22:00 Citalopram Hydrobromide (CeleXA) 30 mg QHS PO Last administered on 09/08/17at 22 :28; Start 09/08/17 at 22:30; Stop 09/09/17 at 18:16; Status DC Divalproex Sodium (Depakote Sprinkles) 125 mg TID PO Last administered on 19:23; Start 09/08/17 at 22:30; Stop 09/11/17 at 10:51; Status DC Lorazepam (Ativan) 0.5 mg PRN Q12HR PRN PO ANXIETY / AGITATION Last administered on 09/29/17at 19:44; Start 09/08/17 at 22:00 Quetiapine Fumarate (SEROquel) 50 mg BID@0900,1300 PO Last administered on 09/15at 13:50; Start 09/09/17 at 09:00; Stop 09/15/17 at 18:43; Status DC Quetiapine Fumarate (SEROquel) 100 mg QHS PO Last administered on 09/14/17 20: 29; Start 09/08/17 at 22:30; Stop 09/15/17 at 18:43; Status DC Melatonin 3 mg PRN QHS PRN PO INSOMNIA Last administered on 09/11/17at 19:48; Start 09/08/17 at 22:15; Stop 09/19/17 at 18:02; Status DC Docusate Sodium (Colace) 100 mg QTUTHSA PO Last administered on 09/09/17at 16:27 ; Start 09/09/17 at 16:00; Stop 09/10/17 at 16:13; Status DC Levothyroxine Sodium (Synthroid) 75 mcg DAILY07 PO Last administered on at 05:44; Start 09/09/17 at 07:00; Stop 09/09/17 at 14:30; Status DC Simvastatin (Zocor) 40 mg HS PO Last administered on 10/05/17at 19:25; Start at 22:30 Influenza Virus Vaccine Quadrival (Fluarix Quad 1588-9403 Syringe) 0.5 ml ONCE ONCE VAX IM ; Start 09/09/17 at 09:00; Stop 09/09/17 at 11:44; Status DC Pneumococcal Polyvalent Vaccine (Pneumovax 23) 0.5 ml ONCE ONCE VAX IM ; Start 09/09/17 at 09:00; Stop 09/09/17 at 11:44; Status DC Influenza Virus Vaccine Quadrival (Fluarix Quad [id number] Syringe) 0.5 ml ONCE ONCE VAX IM Last administered on 09/11/17at 15:23; Start 09/11/17 at 13:00; Stop 09/11/17 at 13:01; Status DC Pneumococcal Polyvalent Vaccine (Pneumovax 23) 0.5 ml ONCE ONCE VAX IM Last administered on 09/11/17at 15:25; Start 09/11/17 at 13:00; Stop 09/11/17 at 13:01 ; Status DC Levothyroxine Sodium (Synthroid) 50 mcg DAILY06 PO Last administered on at 06:02; Start 09/10/17 at 06:00 Vitamin D (Vitamin D3) 50,000 unit WEEKLY PO Last administered on 10/01/17 08: 02; Start 09/10/17 at 09:00; Stop 11/14/17 at 08:59 Duloxetine HCl (Cymbalta) 20 mg HS PO Last administered on 09/15/17 19:27; Start 09/09/17 at 21:00; Stop 09/15/17 at 21:20; Status DC Docusate Sodium (Colace Solution) 100 mg DAILY PO Last administered on 07:39; Start 09/11/17 at 09:00 Divalproex Sodium (Depakote Sprinkles) 125 mg BID@1300,1700 PO Last administered on 09/14/17 17:04; Start 09/11/17 at 13:00; Stop 09/15/17 at 12:45 ; Status DC Divalproex Sodium (Depakote Sprinkles) 250 mg DAILY PO Last administered on at 07:49; Start 09/12/17 at 09:00; Stop 09/15/17 at 12:45; Status DC Olanzapine (ZyPREXA ZYDIS) 2.5 mg PRN Q2HR PRN PO PSYCHOSIS Last administered on 10/04/17at 04:35; Start 09/15/17 at 11:30 Valproic Acid (Depakene) 250 mg DAILY PO Last administered on 09/20/17at 09:24; Start 09/16/17 at 09:00; Stop 09/20/17 at 18:26; Status DC Valproic Acid (Depakene) 125 mg BID@1300,1700 PO Last administered on at 17:36; Start 09/15/17 at 13:00 Risperidone (RisperDAL) 0.25 mg 1X ONCE SL Last administered on 09/15/17 19: 29; Start 09/15/17 at 19:00; Stop 09/15/17 at 19:01; Status DC Risperidone (RisperDAL) 0.25 mg BID@0900,1700 SL Last administered on at 17:08; Start 09/16/17 at 09:00; Stop 09/17/17 at 18:17; Status DC Sertraline HCl (Zoloft) 50 mg DAILY PO Last administered on 09/27/17 08:12; Start 09/16/17 at 09:00; Stop 09/27/17 at 22:11; Status DC Mirtazapine (Remeron) 7.5 mg QHS PO Last administered on 09/23/17 19:27; Start 09/15/17 at 21:30; Stop 09/24/17 at 18:22; Status DC Risperidone (RisperDAL) 0.75 mg DAILY SL Last administered on 09/29/17 08:41; Start 09/18/17 at 09:00; Stop 09/29/17 at 18:18; Status DC Melatonin 3 mg QHS PO Last administered on 09/19/17 19:43; Start 09/19/17 at 21:00; Stop 09/21/17 at 19:32; Status DC Melatonin 1.5 mg 1X ONCE PO Last administered on 09/20/17 19:26; Start at 21:00; Stop 09/20/17 at 21:01; Status DC Melatonin 1.5 mg QHS PO Last administered on 10/05/17 19:25; Start 09/21/17 at 21:00 Mirtazapine (Remeron) 15 mg QHS PO Last administered on 10/05/17 19:26; Start 09/24/17 at 21:00 Sertraline HCl (Zoloft) 75 mg DAILY PO Last administered on 10/05/17 07:39; Start 09/28/17 at 09:00 Risperidone (RisperDAL) 0.5 mg DAILY SL Last administered on 10/05/17 07:39; Start 09/30/17 at 09:00 Risperidone (RisperDAL) 0.25 mg DAILY@1200 SL Last administered on 10/05/17 11 :55; Start 09/30/17 at 12:00 Risperidone (RisperDAL) 0.125 mg DAILY@1700 SL Last administered on 10/05/17 17:37; Start 09/30/17 at 17:00 Buspirone HCl (Buspar) 5 mg BID@0900,1300 PO Last administered on 10/05/17 11: 57; Start 10/02/17 at 09:00 Amoxicillin 500 mg TID PO Last administered on 10/05/17at 19:33; Start 10/05/17 at 21:00 Lactobacillus Rhamnosus (Culturelle) 1 cap BID PO Last administered on at 19:31; Start 10/05/17 at 21:00 Magnesium Citrate (Citroma) 296 ml 1X ONCE PO Last administered on 10/05/17at 17:35; Start 10/05/17 at 16:30; Stop 10/05/17 at 16:31; Status DC Active Scripts Active Reported Melatonin 3 Mg Tablet 3 Mg PO PRN QHS PRN Lorazepam 0.5 Mg Tablet 0.5 Mg PO PRN Q12HR PRN Depakote Sprinkle (Divalproex Sodium) 125 Mg Cap.sprink 125 Mg PO TID Seroquel (Quetiapine Fumarate) 50 Mg Tablet 50 Mg PO BID@0900,1300 Simvastatin 40 Mg Tablet 40 Mg PO HS Seroquel (Quetiapine Fumarate) 100 Mg Tablet 100 Mg PO QHS Levothyroxine Sodium 75 Mcg Tablet 75 Mcg PO DAILY07 Colace (Docusate Sodium) 100 Mg Capsule 100 Mg PO QTUTHSA Citalopram Hbr (Citalopram Hydrobromide) 10 Mg Tablet 30 Mg PO QHS I have reviewed the current psychotropics carefully including drug interactions. Risk benefit ratio favors no change other than as noted in my dictated progress note. Diagnosis: Problems: (1) Anxiety disorder (2) Dementia in Alzheimer's disease with delusions (3) Dementia in Alzheimer's disease with depression (4) Dementia, vascular, with delusions (5) Dementia, vascular, with depression (6) Impulse control disorder KODY GODINEZ MD Oct 05, 2017 22:07
--- NOTE | 2017-10-06 00:29 | PN ---
DATE: 10/03/2017 This is a late entry of 10/03/2017, and covers the elements not covered in my initial note of 10/03/2017. SUBJECTIVE: I met with the patient in the evening. Overall, the patient remains confused, tearful after the family left. UA is positive with reflex to culture. Temperature was 100.9 the day before. Chest x-ray unremarkable. Blood cultures being done. Lactic acid 1.7, unremarkable. REVIEW OF SYSTEMS: No CV, , pulmonary, eye, ENT system symptoms on review. Reliability poor. MENTAL STATUS EXAM: Oriented to herself. Insight, judgment, recent and remote memory, attention, concentration, fund of knowledge poor, consistent with her diagnosis mentioned in my initial note. IMPRESSION: Major neurocognitive disorder, Alzheimer, vascular with depression, delusion, behavioral disturbance, rule out urinary tract infection. PLAN: Continue psychotropics mentioned in my initial note. MAN Araceli GODINEZ MD DR: CAROLYN/maria isabel JOB#: [id number] / [id number]
[2017-10-06] MEDS: LEVOTHYROXINE 50 MCG TABLET PO SCH (05:58)
[2017-10-06 06:07] VITALS: BP 114/62
[2017-10-06] MEDS: LACTOBACILLUS RHAMNOSUS GG 1 CAPSULE. PO SCH ×2 (09:15→20:02)
[2017-10-06] MEDS: DOCUSATE 100 MG/10 ML SOLUTION. PO SCH (09:15)
[2017-10-06] MEDS: SERTRALINE 25 MG TABLET. PO SCH (09:15)
[2017-10-06] MEDS: busPIRone 5 MG TABLET. PO SCH ×2 (09:15→13:14)
[2017-10-06] MEDS: AMOXICILLIN 250 MG/5 ML ORAL.SUSP. PO SCH ×3 (09:16→20:01)
[2017-10-06] MEDS: risperiDONE ORAL 1 MG/ML 30ml BOTTLE. SL SCH ×3 (09:19→18:38)
[2017-10-06] MEDS: VALPROATE ACID 250 MG/5 ML ORAL SOLUTION PO SCH ×2 (13:18→18:37)
[2017-10-06 15:48] VITALS: BP 144/70
--- NOTE | 2017-10-06 19:05 | PN ---
DATE: 10/04/2017 This late entry 10/04/2017, covers elements not covered in my initial note of 10/04/2017. SUBJECTIVE: I met with the patient evening of 10/04/2017. The patient was quite tearful the day before. Compliant with medications, on 10/04/2017, confused. REVIEW OF SYSTEMS: No CV, , pulmonary, eye, ENT system symptoms on review. Reliability poor. MENTAL STATUS EXAM: Oriented to herself. Insight, judgment, recent and remote memory, attention, concentration, fund of knowledge poor, consistent with her diagnosis mentioned in my initial note. IMPRESSION: Major neurocognitive disorder, Alzheimer, vascular with depression, delusion, behavioral disturbance. Rest unchanged. PLAN: Continue current psychotropics. Adjust as clinically indicated. MAN Araceli GODINEZ MD DR: CAROLYN/maria isabel JOB#: [id number] / [id number]
[2017-10-06] MEDS: MELATONIN 3 MG TABLET PO SCH (20:02)
[2017-10-06] MEDS: MIRTAZAPINE 15 MG TABLET PO SCH (20:02)
[2017-10-06] MEDS: SIMVASTATIN 40 MG TABLET. PO SCH (20:02)
--- NOTE | 2017-10-06 21:05 | PDOC ---
Exam Note: Wilmar Note: Please also refer to the separate dictated note~for this date of service dictated separately.~Patient seen individually. Discussed the patient with Nursing staff reviewed the chart.~Reviewed interim history and current functioning. Reviewed vital signs,~Labs/ Radiology~and current medications noted below. Continue current treatment with the changes noted in the dictated addendum note Assessment: Vital Signs: Vital Signs Date Time Temp Pulse Resp B/P (MAP) Pulse Ox O2 Delivery O2 Flow Rate FiO2 10/06/17 15:48 96.8 80 16 144/70 (94) 95 10/05/17 06:08 Room Air I&O Intake and Output 10/06/17 07:00 Intake Total 960 ml Balance 960 ml Intake Oral 960 ml # Voids 1 # Bowel Movements 2 Current Medications: Meds: Current Medications Acetaminophen (Tylenol) 650 mg PRN Q6HRS PRN PO PAIN / TEMP Last administered on 10/02/17at 15:28; Start 09/08/17 at 22:00 Multi-Ingredient Ointment (Analgesic [place]) 1 krzysztof PRN QID PRN TP MUSCLE PAIN; Start 09/08/17 at 22:00 Al Hydroxide/Mg Hydroxide (Mylanta Plus Xs) 15 ml PRN AFTMEALHC PRN PO DYSPEPSIA; Start 09/08/17 at 22:00 Magnesium Hydroxide (Milk Of Magnesia) 2,400 mg PRN QHS PRN PO CONSTIPATION Last administered on 09/30/17at 09:06; Start 09/08/17 at 22:00 Citalopram Hydrobromide (CeleXA) 30 mg QHS PO Last administered on 09/08/17at 22 :28; Start 09/08/17 at 22:30; Stop 09/09/17 at 18:16; Status DC Divalproex Sodium (Depakote Sprinkles) 125 mg TID PO Last administered on at 19:23; Start 09/08/17 at 22:30; Stop 09/11/17 at 10:51; Status DC Lorazepam (Ativan) 0.5 mg PRN Q12HR PRN PO ANXIETY / AGITATION Last administered on 09/29/17at 19:44; Start 09/08/17 at 22:00 Quetiapine Fumarate (SEROquel) 50 mg BID@0900,1300 PO Last administered on 09/15at 13:50; Start 09/09/17 at 09:00; Stop 09/15/17 at 18:43; Status DC Quetiapine Fumarate (SEROquel) 100 mg QHS PO Last administered on 09/14/17at 20: 29; Start 09/08/17 at 22:30; Stop 09/15/17 at 18:43; Status DC Melatonin 3 mg PRN QHS PRN PO INSOMNIA Last administered on 09/11/17at 19:48; Start 09/08/17 at 22:15; Stop 09/19/17 at 18:02; Status DC Docusate Sodium (Colace) 100 mg QTUTHSA PO Last administered on 09/09/17at 16:27 ; Start 09/09/17 at 16:00; Stop 09/10/17 at 16:13; Status DC Levothyroxine Sodium (Synthroid) 75 mcg DAILY07 PO Last administered on at 05:44; Start 09/09/17 at 07:00; Stop 09/09/17 at 14:30; Status DC Simvastatin (Zocor) 40 mg HS PO Last administered on 10/06/17at 20:02; Start at 22:30 Influenza Virus Vaccine Quadrival (Fluarix Quad [id number] Syringe) 0.5 ml ONCE ONCE VAX IM ; Start 09/09/17 at 09:00; Stop 09/09/17 at 11:44; Status DC Pneumococcal Polyvalent Vaccine (Pneumovax 23) 0.5 ml ONCE ONCE VAX IM ; Start 09/09/17 at 09:00; Stop 09/09/17 at 11:44; Status DC Influenza Virus Vaccine Quadrival (Fluarix Quad [id number] Syringe) 0.5 ml ONCE ONCE VAX IM Last administered on 09/11/17at 15:23; Start 09/11/17 at 13:00; Stop 09/11/17 at 13:01; Status DC Pneumococcal Polyvalent Vaccine (Pneumovax 23) 0.5 ml ONCE ONCE VAX IM Last administered on 09/11/17at 15:25; Start 09/11/17 at 13:00; Stop 09/11/17 at 13:01 ; Status DC Levothyroxine Sodium (Synthroid) 50 mcg DAILY06 PO Last administered on 05:58; Start 09/10/17 at 06:00 Vitamin D (Vitamin D3) 50,000 unit WEEKLY PO Last administered on 10/01/17at 08: 02; Start 09/10/17 at 09:00; Stop 11/14/17 at 08:59 Duloxetine HCl (Cymbalta) 20 mg HS PO Last administered on 09/15/17 19:27; Start 09/09/17 at 21:00; Stop 09/15/17 at 21:20; Status DC Docusate Sodium (Colace Solution) 100 mg DAILY PO Last administered on 09:15; Start 09/11/17 at 09:00 Divalproex Sodium (Depakote Sprinkles) 125 mg BID@1300,1700 PO Last administered on 09/14/17 17:04; Start 09/11/17 at 13:00; Stop 09/15/17 at 12:45 ; Status DC Divalproex Sodium (Depakote Sprinkles) 250 mg DAILY PO Last administered on at 07:49; Start 09/12/17 at 09:00; Stop 09/15/17 at 12:45; Status DC Olanzapine (ZyPREXA ZYDIS) 2.5 mg PRN Q2HR PRN PO PSYCHOSIS Last administered on 10/04/17at 04:35; Start 09/15/17 at 11:30 Valproic Acid (Depakene) 250 mg DAILY PO Last administered on 09/20/17at 09:24; Start 09/16/17 at 09:00; Stop 09/20/17 at 18:26; Status DC Valproic Acid (Depakene) 125 mg BID@1300,1700 PO Last administered on at 18:37; Start 09/15/17 at 13:00 Risperidone (RisperDAL) 0.25 mg 1X ONCE SL Last administered on 09/15/17 19: 29; Start 09/15/17 at 19:00; Stop 09/15/17 at 19:01; Status DC Risperidone (RisperDAL) 0.25 mg BID@0900,1700 SL Last administered on at 17:08; Start 09/16/17 at 09:00; Stop 09/17/17 at 18:17; Status DC Sertraline HCl (Zoloft) 50 mg DAILY PO Last administered on 09/27/17 08:12; Start 09/16/17 at 09:00; Stop 09/27/17 at 22:11; Status DC Mirtazapine (Remeron) 7.5 mg QHS PO Last administered on 09/23/17 19:27; Start 09/15/17 at 21:30; Stop 09/24/17 at 18:22; Status DC Risperidone (RisperDAL) 0.75 mg DAILY SL Last administered on 09/29/17 08:41; Start 09/18/17 at 09:00; Stop 09/29/17 at 18:18; Status DC Melatonin 3 mg QHS PO Last administered on 09/19/17 19:43; Start 09/19/17 at 21:00; Stop 09/21/17 at 19:32; Status DC Melatonin 1.5 mg 1X ONCE PO Last administered on 09/20/17 19:26; Start at 21:00; Stop 09/20/17 at 21:01; Status DC Melatonin 1.5 mg QHS PO Last administered on 10/06/17 20:02; Start 09/21/17 at 21:00 Mirtazapine (Remeron) 15 mg QHS PO Last administered on 10/06/17 20:02; Start 09/24/17 at 21:00 Sertraline HCl (Zoloft) 75 mg DAILY PO Last administered on 10/06/17 09:15; Start 09/28/17 at 09:00 Risperidone (RisperDAL) 0.5 mg DAILY SL Last administered on 10/06/17 09:19; Start 09/30/17 at 09:00 Risperidone (RisperDAL) 0.25 mg DAILY@1200 SL Last administered on 10/06/17 13 :15; Start 09/30/17 at 12:00 Risperidone (RisperDAL) 0.125 mg DAILY@1700 SL Last administered on 10/06/17 18:38; Start 09/30/17 at 17:00 Buspirone HCl (Buspar) 5 mg BID@0900,1300 PO Last administered on 10/06/17 13: 14; Start 10/02/17 at 09:00 Amoxicillin 500 mg TID PO Last administered on 10/06/17at 20:01; Start 10/05/17 at 21:00 Lactobacillus Rhamnosus (Culturelle) 1 cap BID PO Last administered on at 20:02; Start 10/05/17 at 21:00 Magnesium Citrate (Citroma) 296 ml 1X ONCE PO Last administered on 10/05/17at 17:35; Start 10/05/17 at 16:30; Stop 10/05/17 at 16:31; Status DC Active Scripts Active Reported Melatonin 3 Mg Tablet 3 Mg PO PRN QHS PRN Lorazepam 0.5 Mg Tablet 0.5 Mg PO PRN Q12HR PRN Depakote Sprinkle (Divalproex Sodium) 125 Mg Cap.sprink 125 Mg PO TID Seroquel (Quetiapine Fumarate) 50 Mg Tablet 50 Mg PO BID@0900,1300 Simvastatin 40 Mg Tablet 40 Mg PO HS Seroquel (Quetiapine Fumarate) 100 Mg Tablet 100 Mg PO QHS Levothyroxine Sodium 75 Mcg Tablet 75 Mcg PO DAILY07 Colace (Docusate Sodium) 100 Mg Capsule 100 Mg PO QTUTHSA Citalopram Hbr (Citalopram Hydrobromide) 10 Mg Tablet 30 Mg PO QHS I have reviewed the current psychotropics carefully including drug interactions. Risk benefit ratio favors no change other than as noted in my dictated progress note. Diagnosis: Problems: (1) Anxiety disorder (2) Dementia in Alzheimer's disease with delusions (3) Dementia in Alzheimer's disease with depression (4) Dementia, vascular, with delusions (5) Dementia, vascular, with depression (6) Impulse control disorder KODY GODINEZ MD Oct 06, 2017 21:05
--- NOTE | 2017-10-07 04:22 | PN ---
DATE: 10/05/2017 PSYCHIATRIC PROGRESS NOTE This late entry 10/05/2017 covers elements not covered in my initial note 10/05/2017. SUBJECTIVE: I met with the patient in the evening of 10/05/2017. The patient remains confused, wandering, intrusive, otherwise pleasant at times. REVIEW OF SYSTEMS: No CV, , pulmonary, eye, ENT system symptoms on review. Reliability poor. MENTAL STATUS EXAM: Oriented to herself. Insight, judgment, recent and remote memory, attention, concentration, fund of knowledge poor, consistent with her diagnosis mentioned in my initial note. IMPRESSION: Major neurocognitive disorder, Alzheimer, vascular with delusion, depression, behavioral disturbance. Rest unchanged. PLAN: Continue psychotropics mentioned in my initial note. MAN Araceli GODINEZ MD DR: CAROLYN/maria isabel JOB#: [id number] / [id number]
[2017-10-07] MEDS ORDERED: LACT1CAP19 PO (04:50)
[2017-10-07] MEDS ORDERED: RISP1SOL SL ×2 (04:55→05:14)
[2017-10-07] MEDS ORDERED: BUSP5TAB PO (04:58)
[2017-10-07] MEDS ORDERED: SERT25TA4 PO (05:00)
[2017-10-07] MEDS ORDERED: CHOL500021 PO (05:01)
[2017-10-07] MEDS ORDERED: OLAN5TAB5 PO (05:04)
[2017-10-07] MEDS ORDERED: MIRT15TA3 PO (05:04)
[2017-10-07] MEDS ORDERED: VALP250S3 PO (05:06)
[2017-10-07] MEDS ORDERED: ACET325T9 PO (05:07)
[2017-10-07] MEDS ORDERED: AMOX250S4 PO (05:09)
[2017-10-07] MEDS ORDERED: MAG30ORA2 PO (05:11)
[2017-10-07] MEDS ORDERED: MAGN2400 PO (05:12)
[2017-10-07] MEDS ORDERED: METH29OI TP (05:13)
[2017-10-07] MEDS ORDERED: RISP1DIS PO (05:16)
[2017-10-07] MEDS ORDERED: DOCU50LI PO (05:17)
[2017-10-07] MEDS ORDERED: LEVO50TA5 PO (05:17)
[2017-10-07] MEDS: LEVOTHYROXINE 50 MCG TABLET PO SCH (06:36)
[2017-10-07 07:03] VITALS: BP 122/77
[2017-10-07] MEDS: AMOXICILLIN 250 MG/5 ML ORAL.SUSP. PO SCH ×2 (09:00→13:15)
[2017-10-07] MEDS: busPIRone 5 MG TABLET. PO SCH ×2 (09:14→11:28)
[2017-10-07] MEDS: LACTOBACILLUS RHAMNOSUS GG 1 CAPSULE. PO SCH (09:14)
[2017-10-07] MEDS: DOCUSATE 100 MG/10 ML SOLUTION. PO SCH (09:14)
[2017-10-07] MEDS: risperiDONE ORAL 1 MG/ML 30ml BOTTLE. SL SCH ×2 (09:14→11:28)
[2017-10-07] MEDS: SERTRALINE 25 MG TABLET. PO SCH (09:14)
[2017-10-07] MEDS: VALPROATE ACID 250 MG/5 ML ORAL SOLUTION PO SCH (11:29)
--- NOTE | 2017-10-07 18:22 | PDOC ---
Exam Note: Wilmar Note: Please also refer to the separate dictated note~for this date of service dictated separately.~Patient seen individually. Discussed the patient with Nursing staff reviewed the chart.~Reviewed interim history and current functioning. Reviewed vital signs,~Labs/ Radiology~and current medications noted below. Continue current treatment with the changes noted in the dictated addendum note Assessment: Vital Signs: Vital Signs Date Time Temp Pulse Resp B/P (MAP) Pulse Ox O2 Delivery O2 Flow Rate FiO2 10/07/17 07:03 97.6 68 20 122/77 (92) 96 10/05/17 06:08 Room Air I&O Intake and Output 10/07/17 07:00 Intake Total 1080 ml Balance 1080 ml Intake Oral 1080 ml # Voids 1 # Bowel Movements 1 Current Medications: Meds: Current Medications Acetaminophen (Tylenol) 650 mg PRN Q6HRS PRN PO PAIN / TEMP Last administered on 10/02/17at 15:28; Start 09/08/17 at 22:00; Stop 10/07/17 at 15:32; Status DC Multi-Ingredient Ointment (Analgesic [place]) 1 krzysztof PRN QID PRN TP MUSCLE PAIN; Start 09/08/17 at 22:00; Stop 10/07/17 at 15:32; Status DC Al Hydroxide/Mg Hydroxide (Mylanta Plus Xs) 15 ml PRN AFTMEALHC PRN PO DYSPEPSIA; Start 09/08/17 at 22:00; Stop 10/07/17 at 15:32; Status DC Magnesium Hydroxide (Milk Of Magnesia) 2,400 mg PRN QHS PRN PO CONSTIPATION Last administered on 09/30/17at 09:06; Start 09/08/17 at 22:00; Stop 10/07/17 at 15:32; Status DC Citalopram Hydrobromide (CeleXA) 30 mg QHS PO Last administered on 09/08/17at 22 :28; Start 09/08/17 at 22:30; Stop 09/09/17 at 18:16; Status DC Divalproex Sodium (Depakote Sprinkles) 125 mg TID PO Last administered on at 19:23; Start 09/08/17 at 22:30; Stop 09/11/17 at 10:51; Status DC Lorazepam (Ativan) 0.5 mg PRN Q12HR PRN PO ANXIETY / AGITATION Last administered on 09/29/17at 19:44; Start 09/08/17 at 22:00; Stop 10/07/17 at 15:32 ; Status DC Quetiapine Fumarate (SEROquel) 50 mg BID@0900,1300 PO Last administered on 09/15at 13:50; Start 09/09/17 at 09:00; Stop 09/15/17 at 18:43; Status DC Quetiapine Fumarate (SEROquel) 100 mg QHS PO Last administered on 09/14/17at 20: 29; Start 09/08/17 at 22:30; Stop 09/15/17 at 18:43; Status DC Melatonin 3 mg PRN QHS PRN PO INSOMNIA Last administered on 09/11/17at 19:48; Start 09/08/17 at 22:15; Stop 09/19/17 at 18:02; Status DC Docusate Sodium (Colace) 100 mg QTUTHSA PO Last administered on 09/09/17at 16:27 ; Start 09/09/17 at 16:00; Stop 09/10/17 at 16:13; Status DC Levothyroxine Sodium (Synthroid) 75 mcg DAILY07 PO Last administered on at 05:44; Start 09/09/17 at 07:00; Stop 09/09/17 at 14:30; Status DC Simvastatin (Zocor) 40 mg HS PO Last administered on 10/06/17at 20:02; Start at 22:30; Stop 10/07/17 at 15:32; Status DC Influenza Virus Vaccine Quadrival (Fluarix Quad 5999-2507 Syringe) 0.5 ml ONCE ONCE VAX IM ; Start 09/09/17 at 09:00; Stop 09/09/17 at 11:44; Status DC Pneumococcal Polyvalent Vaccine (Pneumovax 23) 0.5 ml ONCE ONCE VAX IM ; Start 09/09/17 at 09:00; Stop 09/09/17 at 11:44; Status DC Influenza Virus Vaccine Quadrival (Fluarix Quad 5926-3033 Syringe) 0.5 ml ONCE ONCE VAX IM Last administered on 09/11/17at 15:23; Start 09/11/17 at 13:00; Stop 09/11/17 at 13:01; Status DC Pneumococcal Polyvalent Vaccine (Pneumovax 23) 0.5 ml ONCE ONCE VAX IM Last administered on 09/11/17at 15:25; Start 09/11/17 at 13:00; Stop 09/11/17 at 13:01 ; Status DC Levothyroxine Sodium (Synthroid) 50 mcg DAILY06 PO Last administered on at 06:36; Start 09/10/17 at 06:00; Stop 10/07/17 at 15:32; Status DC Vitamin D (Vitamin D3) 50,000 unit WEEKLY PO Last administered on 10/01/17at 08: 02; Start 09/10/17 at 09:00; Stop 10/07/17 at 15:32; Status DC Duloxetine HCl (Cymbalta) 20 mg HS PO Last administered on 09/15/17at 19:27; Start 09/09/17 at 21:00; Stop 09/15/17 at 21:20; Status DC Docusate Sodium (Colace Solution) 100 mg DAILY PO Last administered on at 09:14; Start 09/11/17 at 09:00; Stop 10/07/17 at 15:32; Status DC Divalproex Sodium (Depakote Sprinkles) 125 mg BID@1300,1700 PO Last administered on 09/14/17at 17:04; Start 09/11/17 at 13:00; Stop 09/15/17 at 12:45 ; Status DC Divalproex Sodium (Depakote Sprinkles) 250 mg DAILY PO Last administered on at 07:49; Start 09/12/17 at 09:00; Stop 09/15/17 at 12:45; Status DC Olanzapine (ZyPREXA ZYDIS) 2.5 mg PRN Q2HR PRN PO PSYCHOSIS Last administered on 10/04/17at 04:35; Start 09/15/17 at 11:30; Stop 10/07/17 at 15:32; Status DC Valproic Acid (Depakene) 250 mg DAILY PO Last administered on 09/20/17at 09:24; Start 09/16/17 at 09:00; Stop 09/20/17 at 18:26; Status DC Valproic Acid (Depakene) 125 mg BID@1300,1700 PO Last administered on 11:29; Start 09/15/17 at 13:00; Stop 10/07/17 at 15:32; Status DC Risperidone (RisperDAL) 0.25 mg 1X ONCE SL Last administered on 09/15/17at 19: 29; Start 09/15/17 at 19:00; Stop 09/15/17 at 19:01; Status DC Risperidone (RisperDAL) 0.25 mg BID@0900,1700 SL Last administered on at 17:08; Start 09/16/17 at 09:00; Stop 09/17/17 at 18:17; Status DC Sertraline HCl (Zoloft) 50 mg DAILY PO Last administered on 09/27/17at 08:12; Start 09/16/17 at 09:00; Stop 09/27/17 at 22:11; Status DC Mirtazapine (Remeron) 7.5 mg QHS PO Last administered on 09/23/17 19:27; Start 09/15/17 at 21:30; Stop 09/24/17 at 18:22; Status DC Risperidone (RisperDAL) 0.75 mg DAILY SL Last administered on 09/29/17at 08:41; Start 09/18/17 at 09:00; Stop 09/29/17 at 18:18; Status DC Melatonin 3 mg QHS PO Last administered on 09/19/17at 19:43; Start 09/19/17 at 21:00; Stop 09/21/17 at 19:32; Status DC Melatonin 1.5 mg 1X ONCE PO Last administered on 09/20/17at 19:26; Start at 21:00; Stop 09/20/17 at 21:01; Status DC Melatonin 1.5 mg QHS PO Last administered on 10/06/17at 20:02; Start 09/21/17 at 21:00; Stop 10/07/17 at 15:32; Status DC Mirtazapine (Remeron) 15 mg QHS PO Last administered on 10/06/17 20:02; Start 09/24/17 at 21:00; Stop 10/07/17 at 15:32; Status DC Sertraline HCl (Zoloft) 75 mg DAILY PO Last administered on 10/07/17at 09:14; Start 09/28/17 at 09:00; Stop 10/07/17 at 15:32; Status DC Risperidone (RisperDAL) 0.5 mg DAILY SL Last administered on 10/07/17at 09:14; Start 09/30/17 at 09:00; Stop 10/07/17 at 15:32; Status DC Risperidone (RisperDAL) 0.25 mg DAILY@1200 SL Last administered on 10/07/17at 11 :28; Start 09/30/17 at 12:00; Stop 10/07/17 at 15:32; Status DC Risperidone (RisperDAL) 0.125 mg DAILY@1700 SL Last administered on 10/06/17at 18:38; Start 09/30/17 at 17:00; Stop 10/07/17 at 15:32; Status DC Buspirone HCl (Buspar) 5 mg BID@0900,1300 PO Last administered on 10/07/17at 11: 28; Start 10/02/17 at 09:00; Stop 10/07/17 at 15:32; Status DC Amoxicillin 500 mg TID PO Last administered on 10/07/17at 13:15; Start 10/05/17 at 21:00; Stop 10/07/17 at 15:32; Status DC Lactobacillus Rhamnosus (Culturelle) 1 cap BID PO Last administered on at 09:14; Start 10/05/17 at 21:00; Stop 10/07/17 at 15:32; Status DC Magnesium Citrate (Citroma) 296 ml 1X ONCE PO Last administered on 10/05/17at 17:35; Start 10/05/17 at 16:30; Stop 10/05/17 at 16:31; Status DC Active Scripts Active Reported Levothyroxine Sodium 50 Mcg Tablet 50 Mcg PO DAILYAC Docusate Sodium 50 Mg/5 Ml Liquid 100 Mg PO DAILY Risperidone 1 Mg/1 Ml Disp.syrin 0.125 Mg PO DAILY@1700 Risperidone 1 Mg/1 Ml Solution 0.5 Mg SL DAILY Analgesic [place] (Methyl Salicylate/Menthol) 28 Gm Oint...g. 1 Gm TP PRN QID PRN Milk Of Magnesia (Magnesium Hydroxide) 2,400 Mg/10 Ml Oral.susp 2,400 Mg PO PRN QHS PRN Mag-Al Plus Xs Suspension (Mag Hydrox/Al Hydrox/Simeth) 30 Ml Oral.susp 15 Ml PO PRN AFTMEALHC PRN Amoxicillin 250 Mg/5 Ml Susp.recon 500 Mg PO TID 7 Days End date: 10/12 Tylenol (Acetaminophen) 325 Mg Tablet 650 Mg PO PRN Q6HRS PRN Valproic Acid (Valproate Sodium) 250 Mg/5 Ml Solution 125 Mg PO BID@1300,1700 Mirtazapine 15 Mg Tablet 15 Mg PO QHS Zyprexa Zydis (Olanzapine) 5 Mg Tab.rapdis 2.5 Mg PO PRN Q2HR PRN D3-50 (Cholecalciferol (Vitamin D3)) 50,000 Unit Capsule 50,000 Unit PO WEEKLY Every Friday Sertraline Hcl 25 Mg Tablet 75 Mg PO DAILY Buspirone Hcl 5 Mg Tablet 5 Mg PO BID@0900,1300 Risperidone 1 Mg/1 Ml Solution 0.25 Mg SL DAILY@1200 Culturelle (Lactobacillus Rhamnosus Gg) 1 Each Cap.sprink 1 Each PO BID Melatonin 3 Mg Tablet 1.5 Mg PO QHS PRN Lorazepam 0.5 Mg Tablet 0.5 Mg PO PRN Q12HR PRN Simvastatin 40 Mg Tablet 40 Mg PO HS I have reviewed the current psychotropics carefully including drug interactions. Risk benefit ratio favors no change other than as noted in my dictated progress note. Diagnosis: Problems: (1) Impulse control disorder (2) Dementia, vascular, with depression (3) Dementia, vascular, with delusions (4) Dementia in Alzheimer's disease with depression (5) Dementia in Alzheimer's disease with delusions (6) Anxiety disorder KODY GODINEZ MD Oct 07, 2017 18:22
--- NOTE | 2017-10-07 23:00 | PN ---
DATE: 10/06/2017 This is a late entry of 10/06/2017 covers elements not covered in my initial note of 10/06/2017. SUBJECTIVE: I met with the patient in the evening of 10/06/2017. The patient remains confused, ambulates up and down the hallways, being treated for UTI. Takes her medications and grape juice. REVIEW OF SYSTEMS: No CV, , pulmonary, eye, ENT system symptoms on review. Reliability poor. Appetite is poor. MENTAL STATUS EXAM: Oriented to herself. Insight, judgment, recent and remote memory, attention, concentration, fund of knowledge poor, consistent with her diagnosis mentioned in my initial note. IMPRESSION: Major neurocognitive disorder, Alzheimer, vascular with delusion, depression, behavioral disturbance. Rest unchanged. PLAN: Continue psychotropics mentioned in my initial note. Treat the UTI. Possible transition to snf on 10/07/2017. MAN Araceli GODINEZ MD DR: CAROLYN/maria isabel JOB#: [id number] / [id number]
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
== END 2017-10-07 15:15 | disposition home or self-care (01) | DRG 884 ==
LOC: ER 16:37 → GEROPSY 20:16
PROVIDERS: ADMIT Psychiatry & Neurology Psychiatry; ATTEND Psychiatry & Neurology Psychiatry
DX: F01.51 Vascular dementia, unspecified severity, with behavioral disturbance (principal); G30.9 Alzheimer's disease, unspecified; N39.0 Urinary tract infection, site not specified; F02.81 Dementia in other diseases classified elsewhere, unspecified severity, with behavioral disturbance; I10 Essential (primary) hypertension; F32.9 Major depressive disorder, single episode, unspecified; E78.5 Hyperlipidemia, unspecified; E03.9 Hypothyroidism, unspecified; E55.9 Vitamin D deficiency, unspecified; F41.9 Anxiety disorder, unspecified; F63.9 Impulse disorder, unspecified; K59.09 Other constipation; Z66 Do not resuscitate; Z88.8 Allergy status to other drugs, medicaments and biological substances; Z91.19 Patient's noncompliance with other medical treatment and regimen; Z79.899 Other long term (current) drug therapy
CPT/HCPCS: 36415; 51701; 70450; 71045; 80053; 80061; 80164; 81001; 82306; 82607; 83036; 83540; 83550; 83605; 83735; 84436; 84443; 84480; 85025; 86593; 87040; 87086; 87186; 90686; 90732; 93005; 99285-25

== ENCOUNTER 2018-02-12 22:52 | Inpatient (IN) | payer MEDICARE ==
[~2018-02-12] VITALS: Ht 154.9 cm; Wt 52.8 kg
[~2018-02-12 22:52] MED LIST: ACET325T9 PO; AMOX250S4 PO; BUSP5TAB PO; CHOL500021 PO; CITA10TA4 PO; DIVA125C2 PO; DOCU-109 PO; DOCU50LI PO; LACT1CAP19 PO; LEVO50TA5 PO; LEVO75TA5 PO; LORA0.5T PO; MAG30ORA2 PO; MAGN2400 PO; MELA3TAB2 PO; METH29OI TP; MIRT15TA3 PO; OLAN5TAB5 PO; QUET100T4 PO; QUET50TA5 PO; RISP1DIS PO; RISP1SOL SL; SERT25TA4 PO; SIMV40TA3 PO; VALP250S3 PO
[2018-02-12] MEDS ORDERED: ACETAMINOPHEN 325 MG TABLET PO PRN ×2 (23:00→23:45)
[2018-02-12] MEDS ORDERED: METHYL SALICYLATE/MENTHOL TOPICAL OINTMENT 29GM TUBE. TP PRN ×2 (23:00→23:45)
[2018-02-12] MEDS ORDERED: MAG HYDROX/AL HYDROX/SIMETH 30 ML ORAL.SUSP PO PRN ×2 (23:00→23:45)
[2018-02-12] MEDS ORDERED: MAGNESIUM HYDROXIDE 2,400 MG/30 ML ORAL.SUSP. PO PRN ×2 (23:00→23:45)
[2018-02-12 23:04] VITALS: BP 135/75
[2018-02-12] MEDS ORDERED: TRAM50TA PO (23:32)
[2018-02-12] MEDS ORDERED: APIX5TAB3 PO (23:32)
[2018-02-12] MEDS ORDERED: NEO/3.5O OU (23:32)
[2018-02-12] MEDS ORDERED: RISP0.5T3 PO ×2 (23:32)
[2018-02-12] MEDS ORDERED: DICL100G18 TP (23:32)
[2018-02-12] MEDS ORDERED: MELATONIN 3 MG TABLET PO PRN (23:45)
[2018-02-12] MEDS ORDERED: LORazepam 0.5 MG TABLET PO PRN (23:45)
[2018-02-12] MEDS ORDERED: DICLOFENAC SODIUM 1% TOPICAL GEL 100GM TUBE. TP PRN (23:45)
[2018-02-13] MEDS: LEVOTHYROXINE 50 MCG TABLET PO SCH (05:53)
[2018-02-13 05:55] VITALS: BP 97/61
[2018-02-13 07:53] LABS: BASO % 1 % (0-3); EOS # 0.2 x10^3/uL (0.0-0.7); EOS % 3 % (0-3); HEMATOCRIT 36.3 % (36.0-47.0); HEMOGLOBIN 12.3 g/dL (12.0-15.5); LYMPH # 1.5 x10^3/uL (1.0-4.8); LYMPH % 20 % (24-48); MEAN CORPUSCULAR HEMOGLOBIN 31 pg (25-35); MEAN CORPUSCULAR HGB CONC 34 g/dL (31-37); MEAN CORPUSCULAR VOLUME 91 fL (79-100); MONO # 0.7 x10^3/uL (0.0-1.1); MONO % 10 % (0-9); NEUT % 67 % (31-73); PLATELET COUNT 269 x10^3/uL (140-400); RED BLOOD COUNT 3.98 x10^6/uL (3.50-5.40); RED CELL DISTRIBUTION WIDTH 14.4 % (11.5-14.5); WHITE BLOOD COUNT 7.4 x10^3/uL (4.0-11.0)
[2018-02-13 08:00] LABS: ALBUMIN 3.3 g/dL (3.4-5.0); ALBUMIN/GLOBULIN RATIO 0.9 (1.0-1.7); CALCIUM 9.1 mg/dL (8.5-10.1); CREATININE 0.8 mg/dL (0.6-1.0); GFR 69.6; POTASSIUM 3.8 mmol/L (3.5-5.1); TOTAL BILIRUBIN 0.7 mg/dL (0.2-1.0); TOTAL PROTEIN 6.9 g/dL (6.4-8.2)
[2018-02-13 08:05] LABS: VAL ACID 10 mcg/mL (50-100)
[2018-02-13] MEDS ORDERED: APIXABAN 5 MG TABLET. PO SCH (09:00)
[2018-02-13] MEDS ORDERED: risperiDONE 0.25 MG TABLET. PO SCH (09:00)
[2018-02-13] MEDS: NEO/POLYMYX/DEXAMETH OPHTH SUSPENSION 5ML BOTTLE. OU SCH ×3 (09:04→20:31)
[2018-02-13] MEDS: busPIRone 5 MG TABLET. PO SCH ×3 (09:04→20:33)
[2018-02-13] MEDS: SERTRALINE 25 MG TABLET. PO SCH (09:04)
[2018-02-13] MEDS: VALPROATE ACID 250 MG/5 ML ORAL SOLUTION PO SCH ×2 (13:17→17:32)
[2018-02-13 14:03] LABS: THYROID STIM HORMONE (TSH) 2.943 uIU/mL (0.358-3.740)
--- NOTE | 2018-02-13 14:13 | EKG ---
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
[2018-02-13 16:37] VITALS: BP 154/77
[2018-02-13] MEDS: MIRTAZAPINE 15 MG TABLET PO SCH (20:33)
[2018-02-13] MEDS ORDERED: risperiDONE 0.5 MG TABLET. PO SCH (21:00)
[2018-02-13 22:16] LABS: THYROXINE 6.1 ug/dL (4.5-12.0)
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
[2018-02-14 00:12] LABS: HEMOGLOBIN A1C 5.6 % (4.8-5.6)
[2018-02-14 06:26] VITALS: BP 108/58
[2018-02-14 06:43] LABS: BASO % 0 % (0-3); EOS # 0.1 x10^3/uL (0.0-0.7); EOS % 1 % (0-3); HEMATOCRIT 35.1 % (36.0-47.0); HEMOGLOBIN 11.8 g/dL (12.0-15.5); LYMPH # 1.4 x10^3/uL (1.0-4.8); LYMPH % 17 % (24-48); MEAN CORPUSCULAR HEMOGLOBIN 31 pg (25-35); MEAN CORPUSCULAR HGB CONC 34 g/dL (31-37); MEAN CORPUSCULAR VOLUME 92 fL (79-100); MONO # 0.7 x10^3/uL (0.0-1.1); MONO % 8 % (0-9); NEUT # 6.2 x10^3uL (1.8-7.7); NEUT % 73 % (31-73); PLATELET COUNT 243 x10^3/uL (140-400); RED BLOOD COUNT 3.82 x10^6/uL (3.50-5.40); RED CELL DISTRIBUTION WIDTH 14.1 % (11.5-14.5); WHITE BLOOD COUNT 8.4 x10^3/uL (4.0-11.0)
[2018-02-14 06:58] LABS: ALBUMIN/GLOBULIN RATIO 0.9 (1.0-1.7); CALCIUM 8.6 mg/dL (8.5-10.1); CREATININE 0.8 mg/dL (0.6-1.0); GFR 69.6; POTASSIUM 3.9 mmol/L (3.5-5.1); TOTAL BILIRUBIN 0.5 mg/dL (0.2-1.0); TOTAL PROTEIN 6.5 g/dL (6.4-8.2)
[2018-02-14] MEDS: LEVOTHYROXINE 50 MCG TABLET PO SCH (08:12)
[2018-02-14] MEDS: SERTRALINE 25 MG TABLET. PO SCH (08:12)
[2018-02-14] MEDS: busPIRone 5 MG TABLET. PO SCH ×3 (08:12→20:01)
[2018-02-14] MEDS: QUEtiapine 25 MG TABLET. PO SCH ×3 (08:12→17:00)
[2018-02-14] MEDS: NEO/POLYMYX/DEXAMETH OPHTH SUSPENSION 5ML BOTTLE. OU SCH ×3 (08:13→20:02)
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
[2018-02-14] MEDS: VALPROATE ACID 250 MG/5 ML ORAL SOLUTION PO SCH ×2 (12:33→17:00)
[2018-02-14 16:12] VITALS: BP 99/58
[2018-02-14 16:29] LABS: BACTERIA,URINE FEW /HPF (0-FEW); BILIRUBIN,URINE NEG (NEG); CLARITY,URINE CLEAR; COLOR,URINE AMBER; GLUCOSE,URINE NEG (NEG); NITRITE,URINE NEG (NEG); UROBILINOGEN,URINE 0.2 mg/dL (0.2 mg/dL); WBC,URINE OCC /HPF (0-4)
[2018-02-14 16:30] LABS: AMORPHOUS SEDIMENT,UR PRESENT /HPF; SQUAMOUS EPITHELIAL CELL,UR FEW /LPF
[2018-02-14] MEDS: MIRTAZAPINE 15 MG TABLET PO SCH (20:01)
[2018-02-14] MEDS: DIVALPROEX 125 MG CAP.SPRINK PO SCH (20:08)
[2018-02-14] MEDS ORDERED: VALPROIC ACID 250 MG CAPSULE. PO SCH (21:00)
--- NOTE | 2018-02-14 22:25 | PDOC ---
Exam Note: Wilmar Note: Please also refer to the separate dictated note~for this date of service dictated separately.~Patient seen individually. Discussed the patient with Nursing staff reviewed the chart.~Reviewed interim history and current functioning. Reviewed vital signs,~Labs/ Radiology~and current medications noted below. Continue current treatment with the changes noted in the dictated addendum note Assessment: Vital Signs: Vital Signs Date Time Temp Pulse Resp B/P (MAP) Pulse Ox O2 Delivery O2 Flow Rate FiO2 02/14/18 16:12 98.7 94 18 99/58 (72) 96 02/14/18 06:26 Room Air I&O Intake and Output 02/14/18 07:00 Intake Total 860 ml Balance 860 ml Intake Oral 860 ml Labs: Laboratory Tests Test 02/14/18 06:28 02/14/18 16:00 White Blood Count 8.4 x10^3/uL (4.0-11.0) Red Blood Count 3.82 x10^6/uL (3.50-5.40) Hemoglobin 11.8 g/dL (12.0-15.5) L Hematocrit 35.1 % (36.0-47.0) L Mean Corpuscular Volume 92 fL (79-100) Mean Corpuscular Hemoglobin 31 pg (25-35) Mean Corpuscular Hemoglobin Concent 34 g/dL (31-37) Red Cell Distribution Width 14.1 % (11.5-14.5) Platelet Count 243 x10^3/uL (140-400) Neutrophils (%) (Auto) 73 % (31-73) Lymphocytes (%) (Auto) 17 % (24-48) L Monocytes (%) (Auto) 8 % (0-9) Eosinophils (%) (Auto) 1 % (0-3) Basophils (%) (Auto) 0 % (0-3) Neutrophils # (Auto) 6.2 x10^3uL (1.8-7.7) Lymphocytes # (Auto) 1.4 x10^3/uL (1.0-4.8) Monocytes # (Auto) 0.7 x10^3/uL (0.0-1.1) Eosinophils # (Auto) 0.1 x10^3/uL (0.0-0.7) Basophils # (Auto) 0.0 x10^3/uL (0.0-0.2) Sodium Level 144 mmol/L (136-145) Potassium Level 3.9 mmol/L (3.5-5.1) Chloride Level 106 mmol/L (98-107) Carbon Dioxide Level 28 mmol/L (21-32) Anion Gap 10 (6-14) Blood Urea Nitrogen 18 mg/dL (7-20) Creatinine 0.8 mg/dL (0.6-1.0) Estimated GFR (Cockcroft-Gault) 69.6 BUN/Creatinine Ratio 23 (6-20) H Glucose Level 113 mg/dL (70-99) H Calcium Level 8.6 mg/dL (8.5-10.1) Total Bilirubin 0.5 mg/dL (0.2-1.0) Aspartate Amino Transferase (AST) 17 U/L (15-37) Alanine Aminotransferase (ALT) 18 U/L (14-59) Alkaline Phosphatase 80 U/L (46-116) Total Protein 6.5 g/dL (6.4-8.2) Albumin 3.0 g/dL (3.4-5.0) L Albumin/Globulin Ratio 0.9 (1.0-1.7) L Urine Collection Type Unknown Urine Color April Urine Clarity Clear Urine pH 5.5 Urine Specific [place] >=1.030 Urine Protein 30 mg/dl (NEG-TRACE) Urine Glucose (UA) Neg mg/dL (NEG) Urine Ketones (Stick) Trace mg/dL (NEG) Urine Blood Trace (NEG) Urine Nitrite Neg (NEG) Urine Bilirubin Neg (NEG) Urine Urobilinogen Dipstick 0.2 mg/dL (0.2 mg/dL) Urine Leukocyte Esterase Neg (NEG) Urine RBC 3-5 /HPF (0-2) Urine WBC Occ /HPF (0-4) Urine Squamous Epithelial Cells Few /LPF Urine Amorphous Sediment Present /HPF Urine Bacteria Few /HPF (0-FEW) Urine Mucus Marked /LPF Current Medications: Meds: Current Medications Acetaminophen (Tylenol) 650 mg PRN Q6HRS PRN PO PAIN / TEMP; Start 02/12/18 at 23:00 Multi-Ingredient Ointment (Analgesic [place]) 1 krzysztof PRN QID PRN TP MUSCLE PAIN; Start 02/12/18 at 23:00 Al Hydroxide/Mg Hydroxide (Mylanta Plus Xs) 15 ml PRN AFTMEALHC PRN PO DYSPEPSIA; Start 02/12/18 at 23:00 Magnesium Hydroxide (Milk Of Magnesia) 2,400 mg PRN QHS PRN PO CONSTIPATION; Start 02/12/18 at 23:00 Olanzapine (ZyPREXA ZYDIS) 2.5 mg PRN Q2HR PRN PO ANXIETY / AGITATION; Start at 23:45 Buspirone HCl (Buspar) 7.5 mg TID PO Last administered on 02/14/18at 20:01; Start 02/13/18 at 09:00 Lorazepam (Ativan) 0.5 mg PRN Q12HR PRN PO ANXIETY / AGITATION; Start 02/12/18 at 23:45 Melatonin 1.5 mg PRN QHS PRN PO INSOMNIA; Start 02/12/18 at 23:45 Mirtazapine (Remeron) 15 mg QHS PO Last administered on 02/14/18at 20:01; Start 02/13/18 at 21:00 Risperidone (RisperDAL) 0.25 mg DAILY PO Last administered on 02/13/18at 09:03; Start 02/13/18 at 09:00; Stop 02/13/18 at 17:09; Status DC Risperidone (RisperDAL) 0.5 mg QHS PO ; Start 02/13/18 at 21:00; Stop 02/13/18 at 21:00; Status DC Sertraline HCl (Zoloft) 75 mg DAILY PO Last administered on 02/14/18at 08:12; Start 02/13/18 at 09:00 Valproic Acid (Depakene) 125 mg BID@1300,1700 PO Last administered on at 17:00; Start 02/13/18 at 13:00; Stop 02/14/18 at 18:50; Status DC Acetaminophen (Tylenol) 650 mg PRN Q6HRS PRN PO PAIN / TEMP; Start 02/12/18 at 23:45; Status UNV Vitamin D (Vitamin D3) 50,000 unit WEEKLY PO ; Start 02/19/18 at 09:00 Diclofenac Sodium (Voltaren) 1 krzysztof PRN Q6HRS PRN TP PAIN; Start 02/12/18 at 23: 45 Al Hydroxide/Mg Hydroxide (Mylanta Plus Xs) 15 ml PRN Q8HRS PRN PO DYSPEPSIA; Start 02/12/18 at 23:45; Status Cancel Multi-Ingredient Ointment (Analgesic [place]) 1 krzysztof PRN QID PRN TP PAIN; Start at 23:45; Status Cancel Apixaban (Eliquis) 5 mg DAILY PO Last administered on 02/13/18at 09:03; Start at 09:00; Stop 02/13/18 at 15:44; Status DC Levothyroxine Sodium (Synthroid) 50 mcg DAILY07 PO Last administered on at 08:12; Start 02/13/18 at 07:00 Magnesium Hydroxide (Milk Of Magnesia) 2,400 mg PRN QHS PRN PO CONSTIPATION; Start 02/12/18 at 23:45; Status Cancel Neomycin/ Polymyxin/ Dexamethasone (Maxitrol) 2 drop TID OU Last administered on 02/14/18at 20:02; Start 02/13/18 at 09:00 Quetiapine Fumarate (SEROquel) 12.5 mg TID@0900,1300,1700 PO Last administered on 02/14/18at 17:00; Start 02/14/18 at 09:00 Valproic Acid (Depakene) 125 mg DAILY08 PO ; Start 02/15/18 at 08:00 Valproic Acid (Depakene) 250 mg QHS PO ; Start 02/14/18 at 21:00; Stop 02/14/18 at 21:00; Status DC Divalproex Sodium (Depakote Sprinkles) 250 mg HS PO Last administered on at 20:08; Start 02/14/18 at 21:00 Active Scripts Active Reported Voltaren (Diclofenac Sodium) 100 Gm Gel..gram. 1 Applic TP PRN Q6HRS PRN Tramadol Hcl (Tramadol HCl) 50 Mg Tablet 25 Mg PO PRN Q12HR PRN Risperidone 0.5 Mg Tablet 0.5 Mg PO QHS Risperidone 0.5 Mg Tablet 0.25 Mg PO DAILY Maxitrol Eye Ointment (Daniel/Polymyx B Sulf/Dexameth) 3.5 Gm Oint...g. 0.5 Inch OU TID Eliquis (Apixaban) 5 Mg Tablet 5 Mg PO DAILY Levothyroxine Sodium 50 Mcg Tablet 50 Mcg PO DAILYAC Analgesic [place] (Methyl Salicylate/Menthol) 28 Gm Oint...g. 1 Gm TP PRN QID PRN Milk Of Magnesia (Magnesium Hydroxide) 2,400 Mg/10 Ml Oral.susp 2,400 Mg PO PRN QHS PRN Mag-Al Plus Xs Suspension (Mag Hydrox/Al Hydrox/Simeth) 30 Ml Oral.susp 15 Ml PO PRN Q8HRS PRN Tylenol (Acetaminophen) 325 Mg Tablet 650 Mg PO PRN Q6HRS PRN Valproic Acid (Valproate Sodium) 250 Mg/5 Ml Solution 125 Mg PO BID@1300,1700 Mirtazapine 15 Mg Tablet 15 Mg PO QHS Zyprexa Zydis (Olanzapine) 5 Mg Tab.rapdis 2.5 Mg PO PRN Q2HR PRN maximum 10 mg in 24 hours D3-50 (Cholecalciferol (Vitamin D3)) 50,000 Unit Capsule 50,000 Unit PO WEEKLY Every Friday Sertraline Hcl 25 Mg Tablet 75 Mg PO DAILY Buspirone Hcl 5 Mg Tablet 7.5 Mg PO TID Melatonin 3 Mg Tablet 1.5 Mg PO QHS PRN Lorazepam 0.5 Mg Tablet 0.5 Mg PO PRN Q12HR PRN I have reviewed the current psychotropics carefully including drug interactions. Risk benefit ratio favors no change other than as noted in my dictated progress note. Diagnosis: Problems: (1) Anxiety disorder (2) Dementia in Alzheimer's disease with delusions (3) Dementia in Alzheimer's disease with depression (4) Dementia, vascular, with delusions (5) Dementia, vascular, with depression (6) Impulse control disorder KODY GODINEZ MD Feb 14, 2018 22:25
[2018-02-15 06:13] VITALS: BP 146/70
[2018-02-15] MEDS: LEVOTHYROXINE 50 MCG TABLET PO SCH (06:30)
[2018-02-15] MEDS ORDERED: VALPROATE ACID 250 MG/5 ML ORAL SOLUTION PO SCH (08:00)
[2018-02-15] MEDS: busPIRone 5 MG TABLET. PO SCH ×3 (09:09→20:08)
[2018-02-15] MEDS: SERTRALINE 25 MG TABLET. PO SCH (09:10)
[2018-02-15] MEDS: QUEtiapine 25 MG TABLET. PO SCH ×3 (09:10→17:49)
[2018-02-15] MEDS: NEO/POLYMYX/DEXAMETH OPHTH SUSPENSION 5ML BOTTLE. OU SCH ×3 (09:10→20:08)
[2018-02-15 16:36] VITALS: BP 119/67
[2018-02-15] MEDS: DIVALPROEX 125 MG CAP.SPRINK PO SCH (20:08)
[2018-02-15] MEDS: MIRTAZAPINE 15 MG TABLET PO SCH (20:08)
--- NOTE | 2018-02-15 20:13 | PDOC ---
Exam Note: Wilmar Note: Please also refer to the separate dictated note~for this date of service dictated separately.~Patient seen individually. Discussed the patient with Nursing staff reviewed the chart.~Reviewed interim history and current functioning. Reviewed vital signs,~Labs/ Radiology~and current medications noted below. Continue current treatment with the changes noted in the dictated addendum note Assessment: Vital Signs: Vital Signs Date Time Temp Pulse Resp B/P (MAP) Pulse Ox O2 Delivery O2 Flow Rate FiO2 02/15/18 16:36 97.1 69 20 119/67 (84) 99 02/15/18 06:13 Room Air I&O Intake and Output 02/15/18 07:00 Intake Total 1420 ml Balance 1420 ml Intake Oral 1420 ml # Voids 1 # Bowel Movements 3 Current Medications: Meds: Current Medications Acetaminophen (Tylenol) 650 mg PRN Q6HRS PRN PO PAIN / TEMP; Start 02/12/18 at 23:00 Multi-Ingredient Ointment (Analgesic [place]) 1 krzysztof PRN QID PRN TP MUSCLE PAIN; Start 02/12/18 at 23:00 Al Hydroxide/Mg Hydroxide (Mylanta Plus Xs) 15 ml PRN AFTMEALHC PRN PO DYSPEPSIA; Start 02/12/18 at 23:00 Magnesium Hydroxide (Milk Of Magnesia) 2,400 mg PRN QHS PRN PO CONSTIPATION; Start 02/12/18 at 23:00 Olanzapine (ZyPREXA ZYDIS) 2.5 mg PRN Q2HR PRN PO ANXIETY / AGITATION; Start at 23:45 Buspirone HCl (Buspar) 7.5 mg TID PO Last administered on 02/15/18at 20:08; Start 02/13/18 at 09:00 Lorazepam (Ativan) 0.5 mg PRN Q12HR PRN PO ANXIETY / AGITATION; Start 02/12/18 at 23:45 Melatonin 1.5 mg PRN QHS PRN PO INSOMNIA; Start 02/12/18 at 23:45 Mirtazapine (Remeron) 15 mg QHS PO Last administered on 02/15/18at 20:08; Start 02/13/18 at 21:00 Risperidone (RisperDAL) 0.25 mg DAILY PO Last administered on 02/13/18at 09:03; Start 02/13/18 at 09:00; Stop 02/13/18 at 17:09; Status DC Risperidone (RisperDAL) 0.5 mg QHS PO ; Start 02/13/18 at 21:00; Stop 02/13/18 at 21:00; Status DC Sertraline HCl (Zoloft) 75 mg DAILY PO Last administered on 02/15/18at 09:10; Start 02/13/18 at 09:00 Valproic Acid (Depakene) 125 mg BID@1300,1700 PO Last administered on at 17:00; Start 02/13/18 at 13:00; Stop 02/14/18 at 18:50; Status DC Acetaminophen (Tylenol) 650 mg PRN Q6HRS PRN PO PAIN / TEMP; Start 02/12/18 at 23:45; Status UNV Vitamin D (Vitamin D3) 50,000 unit WEEKLY PO ; Start 02/19/18 at 09:00 Diclofenac Sodium (Voltaren) 1 krzysztof PRN Q6HRS PRN TP PAIN; Start 02/12/18 at 23: 45 Al Hydroxide/Mg Hydroxide (Mylanta Plus Xs) 15 ml PRN Q8HRS PRN PO DYSPEPSIA; Start 02/12/18 at 23:45; Status Cancel Multi-Ingredient Ointment (Analgesic [place]) 1 krzysztof PRN QID PRN TP PAIN; Start at 23:45; Status Cancel Apixaban (Eliquis) 5 mg DAILY PO Last administered on 02/13/18at 09:03; Start at 09:00; Stop 02/13/18 at 15:44; Status DC Levothyroxine Sodium (Synthroid) 50 mcg DAILY07 PO Last administered on at 06:30; Start 02/13/18 at 07:00 Magnesium Hydroxide (Milk Of Magnesia) 2,400 mg PRN QHS PRN PO CONSTIPATION; Start 02/12/18 at 23:45; Status Cancel Neomycin/ Polymyxin/ Dexamethasone (Maxitrol) 2 drop TID OU Last administered on 02/15/18at 20:08; Start 02/13/18 at 09:00 Quetiapine Fumarate (SEROquel) 12.5 mg TID@0900,1300,1700 PO Last administered on 02/15/18at 17:49; Start 02/14/18 at 09:00 Valproic Acid (Depakene) 125 mg DAILY08 PO Last administered on 02/15/18at 09:13 ; Start 02/15/18 at 08:00; Stop 02/15/18 at 09:15; Status DC Valproic Acid (Depakene) 250 mg QHS PO ; Start 02/14/18 at 21:00; Stop 02/14/18 at 21:00; Status DC Divalproex Sodium (Depakote Sprinkles) 250 mg HS PO Last administered on at 20:08; Start 02/14/18 at 21:00 Divalproex Sodium (Depakote Sprinkles) 125 mg DAILY@0900 PO ; Start 02/16/18 at 09:00 Active Scripts Active Reported Voltaren (Diclofenac Sodium) 100 Gm Gel..gram. 1 Applic TP PRN Q6HRS PRN Tramadol Hcl (Tramadol HCl) 50 Mg Tablet 25 Mg PO PRN Q12HR PRN Risperidone 0.5 Mg Tablet 0.5 Mg PO QHS Risperidone 0.5 Mg Tablet 0.25 Mg PO DAILY Maxitrol Eye Ointment (Daniel/Polymyx B Sulf/Dexameth) 3.5 Gm Oint...g. 0.5 Inch OU TID Eliquis (Apixaban) 5 Mg Tablet 5 Mg PO DAILY Levothyroxine Sodium 50 Mcg Tablet 50 Mcg PO DAILYAC Analgesic [place] (Methyl Salicylate/Menthol) 28 Gm Oint...g. 1 Gm TP PRN QID PRN Milk Of Magnesia (Magnesium Hydroxide) 2,400 Mg/10 Ml Oral.susp 2,400 Mg PO PRN QHS PRN Mag-Al Plus Xs Suspension (Mag Hydrox/Al Hydrox/Simeth) 30 Ml Oral.susp 15 Ml PO PRN Q8HRS PRN Tylenol (Acetaminophen) 325 Mg Tablet 650 Mg PO PRN Q6HRS PRN Valproic Acid (Valproate Sodium) 250 Mg/5 Ml Solution 125 Mg PO BID@1300,1700 Mirtazapine 15 Mg Tablet 15 Mg PO QHS Zyprexa Zydis (Olanzapine) 5 Mg Tab.rapdis 2.5 Mg PO PRN Q2HR PRN maximum 10 mg in 24 hours D3-50 (Cholecalciferol (Vitamin D3)) 50,000 Unit Capsule 50,000 Unit PO WEEKLY Every Friday Sertraline Hcl 25 Mg Tablet 75 Mg PO DAILY Buspirone Hcl 5 Mg Tablet 7.5 Mg PO TID Melatonin 3 Mg Tablet 1.5 Mg PO QHS PRN Lorazepam 0.5 Mg Tablet 0.5 Mg PO PRN Q12HR PRN I have reviewed the current psychotropics carefully including drug interactions. Risk benefit ratio favors no change other than as noted in my dictated progress note. Diagnosis: Problems: (1) Anxiety disorder (2) Dementia in Alzheimer's disease with delusions (3) Dementia in Alzheimer's disease with depression (4) Dementia, vascular, with delusions (5) Dementia, vascular, with depression (6) Impulse control disorder KODY GODINEZ MD Feb 15, 2018 20:13
[2018-02-16 05:34] VITALS: BP 136/93
[2018-02-16] MEDS: LEVOTHYROXINE 50 MCG TABLET PO SCH (06:13)
[2018-02-16] MEDS: QUEtiapine 25 MG TABLET. PO SCH ×3 (10:33→17:23)
[2018-02-16] MEDS: busPIRone 5 MG TABLET. PO SCH ×3 (10:33→19:46)
[2018-02-16] MEDS: NEO/POLYMYX/DEXAMETH OPHTH SUSPENSION 5ML BOTTLE. OU SCH ×3 (10:33→19:45)
[2018-02-16] MEDS: SERTRALINE 25 MG TABLET. PO SCH (10:33)
[2018-02-16] MEDS: DIVALPROEX 125 MG CAP.SPRINK PO SCH ×2 (10:36→19:46)
[2018-02-16 15:41] VITALS: BP 92/52
[2018-02-16] MEDS: MIRTAZAPINE 15 MG TABLET PO SCH (19:46)
--- NOTE | 2018-02-16 20:52 | PDOC ---
Exam Note: Wilmar Note: Please also refer to the separate dictated note~for this date of service dictated separately.~Patient seen individually. Discussed the patient with Nursing staff reviewed the chart.~Reviewed interim history and current functioning. Reviewed vital signs,~Labs/ Radiology~and current medications noted below. Continue current treatment with the changes noted in the dictated addendum note Assessment: Vital Signs: Vital Signs Date Time Temp Pulse Resp B/P (MAP) Pulse Ox O2 Delivery O2 Flow Rate FiO2 02/16/18 15:41 97.9 92 16 92/52 (65) 97 Room Air I&O Intake and Output 02/16/18 07:00 Intake Total 340 ml Balance 340 ml Intake Oral 340 ml # Voids 1 Current Medications: Meds: Current Medications Acetaminophen (Tylenol) 650 mg PRN Q6HRS PRN PO PAIN / TEMP; Start 02/12/18 at 23:00 Multi-Ingredient Ointment (Analgesic [place]) 1 krzysztof PRN QID PRN TP MUSCLE PAIN; Start 02/12/18 at 23:00 Al Hydroxide/Mg Hydroxide (Mylanta Plus Xs) 15 ml PRN AFTMEALHC PRN PO DYSPEPSIA; Start 02/12/18 at 23:00 Magnesium Hydroxide (Milk Of Magnesia) 2,400 mg PRN QHS PRN PO CONSTIPATION; Start 02/12/18 at 23:00 Olanzapine (ZyPREXA ZYDIS) 2.5 mg PRN Q2HR PRN PO ANXIETY / AGITATION; Start at 23:45 Buspirone HCl (Buspar) 7.5 mg TID PO Last administered on 02/16/18at 19:46; Start 02/13/18 at 09:00 Lorazepam (Ativan) 0.5 mg PRN Q12HR PRN PO ANXIETY / AGITATION; Start 02/12/18 at 23:45 Melatonin 1.5 mg PRN QHS PRN PO INSOMNIA; Start 02/12/18 at 23:45 Mirtazapine (Remeron) 15 mg QHS PO Last administered on 02/16/18at 19:46; Start 02/13/18 at 21:00 Risperidone (RisperDAL) 0.25 mg DAILY PO Last administered on 02/13/18at 09:03; Start 02/13/18 at 09:00; Stop 02/13/18 at 17:09; Status DC Risperidone (RisperDAL) 0.5 mg QHS PO ; Start 02/13/18 at 21:00; Stop 02/13/18 at 21:00; Status DC Sertraline HCl (Zoloft) 75 mg DAILY PO Last administered on 02/16/18at 10:33; Start 02/13/18 at 09:00 Valproic Acid (Depakene) 125 mg BID@1300,1700 PO Last administered on at 17:00; Start 02/13/18 at 13:00; Stop 02/14/18 at 18:50; Status DC Acetaminophen (Tylenol) 650 mg PRN Q6HRS PRN PO PAIN / TEMP; Start 02/12/18 at 23:45; Status UNV Vitamin D (Vitamin D3) 50,000 unit WEEKLY PO ; Start 02/19/18 at 09:00 Diclofenac Sodium (Voltaren) 1 krzysztof PRN Q6HRS PRN TP PAIN; Start 02/12/18 at 23: 45 Al Hydroxide/Mg Hydroxide (Mylanta Plus Xs) 15 ml PRN Q8HRS PRN PO DYSPEPSIA; Start 02/12/18 at 23:45; Status Cancel Multi-Ingredient Ointment (Analgesic [place]) 1 krzysztof PRN QID PRN TP PAIN; Start at 23:45; Status Cancel Apixaban (Eliquis) 5 mg DAILY PO Last administered on 02/13/18at 09:03; Start at 09:00; Stop 02/13/18 at 15:44; Status DC Levothyroxine Sodium (Synthroid) 50 mcg DAILY07 PO Last administered on at 06:13; Start 02/13/18 at 07:00 Magnesium Hydroxide (Milk Of Magnesia) 2,400 mg PRN QHS PRN PO CONSTIPATION; Start 02/12/18 at 23:45; Status Cancel Neomycin/ Polymyxin/ Dexamethasone (Maxitrol) 2 drop TID OU Last administered on 02/16/18at 19:45; Start 02/13/18 at 09:00 Quetiapine Fumarate (SEROquel) 12.5 mg TID@0900,1300,1700 PO Last administered on 02/16/18at 17:23; Start 02/14/18 at 09:00 Valproic Acid (Depakene) 125 mg DAILY08 PO Last administered on 02/15/18at 09:13 ; Start 02/15/18 at 08:00; Stop 02/15/18 at 09:15; Status DC Valproic Acid (Depakene) 250 mg QHS PO ; Start 02/14/18 at 21:00; Stop 02/14/18 at 21:00; Status DC Divalproex Sodium (Depakote Sprinkles) 250 mg HS PO Last administered on at 19:46; Start 02/14/18 at 21:00 Divalproex Sodium (Depakote Sprinkles) 125 mg DAILY@0900 PO Last administered on 02/16/18at 10:36; Start 02/16/18 at 09:00 Active Scripts Active Reported Voltaren (Diclofenac Sodium) 100 Gm Gel..gram. 1 Applic TP PRN Q6HRS PRN Tramadol Hcl (Tramadol HCl) 50 Mg Tablet 25 Mg PO PRN Q12HR PRN Risperidone 0.5 Mg Tablet 0.5 Mg PO QHS Risperidone 0.5 Mg Tablet 0.25 Mg PO DAILY Maxitrol Eye Ointment (Daniel/Polymyx B Sulf/Dexameth) 3.5 Gm Oint...g. 0.5 Inch OU TID Eliquis (Apixaban) 5 Mg Tablet 5 Mg PO DAILY Levothyroxine Sodium 50 Mcg Tablet 50 Mcg PO DAILYAC Analgesic [place] (Methyl Salicylate/Menthol) 28 Gm Oint...g. 1 Gm TP PRN QID PRN Milk Of Magnesia (Magnesium Hydroxide) 2,400 Mg/10 Ml Oral.susp 2,400 Mg PO PRN QHS PRN Mag-Al Plus Xs Suspension (Mag Hydrox/Al Hydrox/Simeth) 30 Ml Oral.susp 15 Ml PO PRN Q8HRS PRN Tylenol (Acetaminophen) 325 Mg Tablet 650 Mg PO PRN Q6HRS PRN Valproic Acid (Valproate Sodium) 250 Mg/5 Ml Solution 125 Mg PO BID@1300,1700 Mirtazapine 15 Mg Tablet 15 Mg PO QHS Zyprexa Zydis (Olanzapine) 5 Mg Tab.rapdis 2.5 Mg PO PRN Q2HR PRN maximum 10 mg in 24 hours D3-50 (Cholecalciferol (Vitamin D3)) 50,000 Unit Capsule 50,000 Unit PO WEEKLY Every Friday Sertraline Hcl 25 Mg Tablet 75 Mg PO DAILY Buspirone Hcl 5 Mg Tablet 7.5 Mg PO TID Melatonin 3 Mg Tablet 1.5 Mg PO QHS PRN Lorazepam 0.5 Mg Tablet 0.5 Mg PO PRN Q12HR PRN I have reviewed the current psychotropics carefully including drug interactions. Risk benefit ratio favors no change other than as noted in my dictated progress note. Diagnosis: Problems: (1) Anxiety disorder (2) Dementia in Alzheimer's disease with delusions (3) Dementia in Alzheimer's disease with depression (4) Dementia, vascular, with delusions (5) Dementia, vascular, with depression (6) Impulse control disorder KODY GODINEZ MD Feb 16, 2018 20:52
--- NOTE | 2018-02-17 04:58 | PN ---
DATE: 02/15/2018 This is a late entry for 02/15/2018 covers elements not covered in my initial note. SUBJECTIVE: I met with the patient in the evening. The patient slept 8 hours previous night. She is restless, anxious, is on one-on-one status for high fall risk, drowsy in the morning. Medication compliant, crushed in vanilla pudding. She took a long afternoon nap, held the 1300 Seroquel, 1400 BuSpar was held because she was sedated. REVIEW OF SYSTEMS: No CV, , pulmonary, eye, ENT system symptoms on review. Reliability poor. MENTAL STATUS EXAM: Oriented to herself. Insight, judgment, recent and remote memory, attention, concentration, fund of knowledge poor, consistent with her diagnosis mentioned in my initial note. PLAN: No change from initial note. Depakote was adjusted. Follow labs level. Adjust as clinically indicated. MAN Araceli GODINEZ MD DR: CAROLYN/maria isabel JOB#: [id number] / [id number]
--- NOTE | 2018-02-17 04:59 | PN ---
DATE: 02/14/2018 PSYCHIATRIC PROGRESS NOTE This late entry 02/14 covers elements not covered in my initial note. SUBJECTIVE: I met with the patient in the evening. The patient slept 8-1/4 hours previous night. She has been confused, compliant with medications, swatting at staff. She had a straight catheterization, 200 mL was removed. REVIEW OF SYSTEMS: No CV, , pulmonary, eye, ENT system symptoms on review. Reliability poor. MENTAL STATUS EXAM: Oriented to herself. Insight, judgment, recent and remote memory, attention, concentration, fund of knowledge poor, consistent with her diagnosis mentioned in my initial note. PLAN: Valproic acid level is 10 on 125 b.i.d., we will increase to 125 in the morning and 250 at night. Check CBC, CMP, valproic acid level in 3 days. Rest unchanged per initial note. MAN Araceli GODINEZ MD DR: CAROLYN/maria isabel JOB#: [id number] / [id number]
[2018-02-17 05:36] VITALS: BP 124/65
[2018-02-17] MEDS: LEVOTHYROXINE 50 MCG TABLET PO SCH ×2 (06:03→10:41)
[2018-02-17 09:18] LABS: HEMOGLOBIN 13.1 g/dL (12.0-15.5); RED BLOOD COUNT 4.24 x10^6/uL (3.50-5.40); RED CELL DISTRIBUTION WIDTH 14.6 % (11.5-14.5); WHITE BLOOD COUNT 9.7 x10^3/uL (4.0-11.0)
[2018-02-17 09:30] LABS: ALBUMIN/GLOBULIN RATIO 0.7 (1.0-1.7); ALK PHOS 78 U/L (46-116); ALT (SGPT) 23 U/L (14-59); ANION GAP 5 (6-14); AST (SGOT) 19 U/L (15-37); BLOOD UREA NITROGEN 20 mg/dL (7-20); BUN/CREATININE RATIO 25 (6-20); CALCIUM 8.9 mg/dL (8.5-10.1); CARBON DIOXIDE 30 mmol/L (21-32); CHLORIDE 105 mmol/L (98-107); CREATININE 0.8 mg/dL (0.6-1.0); GFR 69.6; GLUCOSE 143 mg/dL (70-99); POTASSIUM 3.6 mmol/L (3.5-5.1); SODIUM 140 mmol/L (136-145); TOTAL BILIRUBIN 0.9 mg/dL (0.2-1.0); TOTAL PROTEIN 7.1 g/dL (6.4-8.2)
[2018-02-17 09:33] LABS: VAL ACID 50 mcg/mL (50-100)
[2018-02-17] MEDS: DIVALPROEX 125 MG CAP.SPRINK PO SCH ×2 (10:40→20:18)
[2018-02-17] MEDS: SERTRALINE 25 MG TABLET. PO SCH (10:40)
[2018-02-17] MEDS: busPIRone 5 MG TABLET. PO SCH ×3 (10:41→20:18)
[2018-02-17] MEDS: QUEtiapine 25 MG TABLET. PO SCH ×3 (10:41→17:43)
[2018-02-17] MEDS: NEO/POLYMYX/DEXAMETH OPHTH SUSPENSION 5ML BOTTLE. OU SCH ×2 (10:41→14:02)
[2018-02-17 16:12] VITALS: BP 103/66
[2018-02-17] MEDS: MIRTAZAPINE 7.5 MG TABLET. PO SCH (20:19)
--- NOTE | 2018-02-17 21:03 | PDOC ---
Exam Note: Wilmar Note: Please also refer to the separate dictated note~for this date of service dictated separately.~Patient seen individually. Discussed the patient with Nursing staff reviewed the chart.~Reviewed interim history and current functioning. Reviewed vital signs,~Labs/ Radiology~and current medications noted below. Continue current treatment with the changes noted in the dictated addendum note Assessment: Vital Signs: Vital Signs Date Time Temp Pulse Resp B/P (MAP) Pulse Ox O2 Delivery O2 Flow Rate FiO2 02/17/18 16:12 98.2 86 20 103/66 (78) 97 02/16/18 15:41 Room Air I&O Intake and Output 02/17/18 07:00 Intake Total 960 ml Balance 960 ml Intake Oral 960 ml Labs: Laboratory Tests Test 02/17/18 09:10 White Blood Count 9.7 x10^3/uL (4.0-11.0) Red Blood Count 4.24 x10^6/uL (3.50-5.40) Hemoglobin 13.1 g/dL (12.0-15.5) Hematocrit 39.0 % (36.0-47.0) Mean Corpuscular Volume 92 fL (79-100) Mean Corpuscular Hemoglobin 31 pg (25-35) Mean Corpuscular Hemoglobin Concent 34 g/dL (31-37) Red Cell Distribution Width 14.6 % (11.5-14.5) H Platelet Count 246 x10^3/uL (140-400) Sodium Level 140 mmol/L (136-145) Potassium Level 3.6 mmol/L (3.5-5.1) Chloride Level 105 mmol/L (98-107) Carbon Dioxide Level 30 mmol/L (21-32) Anion Gap 5 (6-14) L Blood Urea Nitrogen 20 mg/dL (7-20) Creatinine 0.8 mg/dL (0.6-1.0) Estimated GFR (Cockcroft-Gault) 69.6 BUN/Creatinine Ratio 25 (6-20) H Glucose Level 143 mg/dL (70-99) H Calcium Level 8.9 mg/dL (8.5-10.1) Total Bilirubin 0.9 mg/dL (0.2-1.0) Aspartate Amino Transferase (AST) 19 U/L (15-37) Alanine Aminotransferase (ALT) 23 U/L (14-59) Alkaline Phosphatase 78 U/L (46-116) Total Protein 7.1 g/dL (6.4-8.2) Albumin 3.0 g/dL (3.4-5.0) L Albumin/Globulin Ratio 0.7 (1.0-1.7) L Valproic Acid Level 50 mcg/mL (50-100) Valproic Acid Last Dose Date 02/16/18 Valproic Acid Last Dose Time 2100 Current Medications: Meds: Current Medications Acetaminophen (Tylenol) 650 mg PRN Q6HRS PRN PO PAIN / TEMP; Start 02/12/18 at 23:00 Multi-Ingredient Ointment (Analgesic [place]) 1 krzysztof PRN QID PRN TP MUSCLE PAIN; Start 02/12/18 at 23:00 Al Hydroxide/Mg Hydroxide (Mylanta Plus Xs) 15 ml PRN AFTMEALHC PRN PO DYSPEPSIA; Start 02/12/18 at 23:00 Magnesium Hydroxide (Milk Of Magnesia) 2,400 mg PRN QHS PRN PO CONSTIPATION; Start 02/12/18 at 23:00 Olanzapine (ZyPREXA ZYDIS) 2.5 mg PRN Q2HR PRN PO ANXIETY / AGITATION; Start at 23:45 Buspirone HCl (Buspar) 7.5 mg TID PO Last administered on 02/17/18at 20:18; Start 02/13/18 at 09:00 Lorazepam (Ativan) 0.5 mg PRN Q12HR PRN PO ANXIETY / AGITATION; Start 02/12/18 at 23:45 Melatonin 1.5 mg PRN QHS PRN PO INSOMNIA; Start 02/12/18 at 23:45 Mirtazapine (Remeron) 15 mg QHS PO Last administered on 02/16/18at 19:46; Start 02/13/18 at 21:00; Stop 02/17/18 at 16:14; Status DC Risperidone (RisperDAL) 0.25 mg DAILY PO Last administered on 02/13/18at 09:03; Start 02/13/18 at 09:00; Stop 02/13/18 at 17:09; Status DC Risperidone (RisperDAL) 0.5 mg QHS PO ; Start 02/13/18 at 21:00; Stop 02/13/18 at 21:00; Status DC Sertraline HCl (Zoloft) 75 mg DAILY PO Last administered on 02/17/18at 10:40; Start 02/13/18 at 09:00 Valproic Acid (Depakene) 125 mg BID@1300,1700 PO Last administered on at 17:00; Start 02/13/18 at 13:00; Stop 02/14/18 at 18:50; Status DC Acetaminophen (Tylenol) 650 mg PRN Q6HRS PRN PO PAIN / TEMP; Start 02/12/18 at 23:45; Status UNV Vitamin D (Vitamin D3) 50,000 unit WEEKLY PO ; Start 02/19/18 at 09:00 Diclofenac Sodium (Voltaren) 1 krzysztof PRN Q6HRS PRN TP PAIN; Start 02/12/18 at 23: 45 Al Hydroxide/Mg Hydroxide (Mylanta Plus Xs) 15 ml PRN Q8HRS PRN PO DYSPEPSIA; Start 02/12/18 at 23:45; Status Cancel Multi-Ingredient Ointment (Analgesic [place]) 1 krzysztof PRN QID PRN TP PAIN; Start at 23:45; Status Cancel Apixaban (Eliquis) 5 mg DAILY PO Last administered on 02/13/18at 09:03; Start at 09:00; Stop 02/13/18 at 15:44; Status DC Levothyroxine Sodium (Synthroid) 50 mcg DAILY07 PO Last administered on at 10:41; Start 02/13/18 at 07:00 Magnesium Hydroxide (Milk Of Magnesia) 2,400 mg PRN QHS PRN PO CONSTIPATION; Start 02/12/18 at 23:45; Status Cancel Neomycin/ Polymyxin/ Dexamethasone (Maxitrol) 2 drop TID OU Last administered on 02/17/18at 10:41; Start 02/13/18 at 09:00; Stop 02/17/18 at 14:57; Status DC Quetiapine Fumarate (SEROquel) 12.5 mg TID@0900,1300,1700 PO Last administered on 02/17/18at 10:41; Start 02/14/18 at 09:00; Stop 02/17/18 at 16:14; Status DC Valproic Acid (Depakene) 125 mg DAILY08 PO Last administered on 02/15/18at 09:13 ; Start 02/15/18 at 08:00; Stop 02/15/18 at 09:15; Status DC Valproic Acid (Depakene) 250 mg QHS PO ; Start 02/14/18 at 21:00; Stop 02/14/18 at 21:00; Status DC Divalproex Sodium (Depakote Sprinkles) 250 mg HS PO Last administered on at 20:18; Start 02/14/18 at 21:00 Divalproex Sodium (Depakote Sprinkles) 125 mg DAILY@0900 PO Last administered on 02/17/18at 10:40; Start 02/16/18 at 09:00 Mirtazapine (Remeron) 7.5 mg QHS PO Last administered on 02/17/18at 20:19; Start 02/17/18 at 21:00 Quetiapine Fumarate (SEROquel) 12.5 mg DAILY@1700 PO Last administered on at 17:43; Start 02/17/18 at 17:00 Active Scripts Active Reported Voltaren (Diclofenac Sodium) 100 Gm Gel..gram. 1 Applic TP PRN Q6HRS PRN Tramadol Hcl (Tramadol HCl) 50 Mg Tablet 25 Mg PO PRN Q12HR PRN Risperidone 0.5 Mg Tablet 0.5 Mg PO QHS Risperidone 0.5 Mg Tablet 0.25 Mg PO DAILY Maxitrol Eye Ointment (Daniel/Polymyx B Sulf/Dexameth) 3.5 Gm Oint...g. 0.5 Inch OU TID Eliquis (Apixaban) 5 Mg Tablet 5 Mg PO DAILY Levothyroxine Sodium 50 Mcg Tablet 50 Mcg PO DAILYAC Analgesic [place] (Methyl Salicylate/Menthol) 28 Gm Oint...g. 1 Gm TP PRN QID PRN Milk Of Magnesia (Magnesium Hydroxide) 2,400 Mg/10 Ml Oral.susp 2,400 Mg PO PRN QHS PRN Mag-Al Plus Xs Suspension (Mag Hydrox/Al Hydrox/Simeth) 30 Ml Oral.susp 15 Ml PO PRN Q8HRS PRN Tylenol (Acetaminophen) 325 Mg Tablet 650 Mg PO PRN Q6HRS PRN Valproic Acid (Valproate Sodium) 250 Mg/5 Ml Solution 125 Mg PO BID@1300,1700 Mirtazapine 15 Mg Tablet 15 Mg PO QHS Zyprexa Zydis (Olanzapine) 5 Mg Tab.rapdis 2.5 Mg PO PRN Q2HR PRN maximum 10 mg in 24 hours D3-50 (Cholecalciferol (Vitamin D3)) 50,000 Unit Capsule 50,000 Unit PO WEEKLY Every Friday Sertraline Hcl 25 Mg Tablet 75 Mg PO DAILY Buspirone Hcl 5 Mg Tablet 7.5 Mg PO TID Melatonin 3 Mg Tablet 1.5 Mg PO QHS PRN Lorazepam 0.5 Mg Tablet 0.5 Mg PO PRN Q12HR PRN I have reviewed the current psychotropics carefully including drug interactions. Risk benefit ratio favors no change other than as noted in my dictated progress note. Diagnosis: Problems: (1) Anxiety disorder (2) Dementia in Alzheimer's disease with delusions (3) Dementia in Alzheimer's disease with depression (4) Dementia, vascular, with delusions (5) Dementia, vascular, with depression (6) Impulse control disorder KODY GODINEZ MD Feb 17, 2018 21:03
--- NOTE | 2018-02-18 00:29 | PN ---
DATE: 02/16/2018 PSYCHIATRIC PROGRESS NOTE This is a late entry 02/16/2018 covers elements not covered in my initial note. SUBJECTIVE: I met with the patient in the evening. The patient has been somewhat sedated and the 1 p.m. Seroquel was held. BuSpar 1400 was held as well for the same reason. She takes cat naps during the day, slept 7-1/4 hours previous evening. Remains a fall risk and is on one-on-one. REVIEW OF SYSTEMS: No CV, , pulmonary, eye, ENT system symptoms on review. Reliability poor. MENTAL STATUS EXAM: Not very verbal. Insight, judgment, recent and remote memory, attention, concentration, fund of knowledge poor, consistent with her diagnosis mentioned in my initial note. PLAN: No change from initial note, but we may reduce the Seroquel and BuSpar if sedation persists. Valproic acid is being repeated to reach therapeutic level. KODY GODINEZ MD DR: CAROLYN/maria isabel JOB#: [id number] / [id number]
[2018-02-18 06:02] VITALS: BP 102/66
[2018-02-18] MEDS: SERTRALINE 25 MG TABLET. PO SCH (08:02)
[2018-02-18] MEDS: busPIRone 5 MG TABLET. PO SCH ×2 (08:02→14:09)
[2018-02-18] MEDS: DIVALPROEX 125 MG CAP.SPRINK PO SCH ×2 (08:02→20:32)
[2018-02-18 16:26] VITALS: BP 153/73
[2018-02-18] MEDS: QUEtiapine 25 MG TABLET. PO SCH (17:20)
[2018-02-18] MEDS: MIRTAZAPINE 7.5 MG TABLET. PO SCH (20:32)
--- NOTE | 2018-02-18 21:09 | PDOC ---
Exam Note: Wilmar Note: Please also refer to the separate dictated note~for this date of service dictated separately.~Patient seen individually. Discussed the patient with Nursing staff reviewed the chart.~Reviewed interim history and current functioning. Reviewed vital signs,~Labs/ Radiology~and current medications noted below. Continue current treatment with the changes noted in the dictated addendum note Assessment: Vital Signs: Vital Signs Date Time Temp Pulse Resp B/P (MAP) Pulse Ox O2 Delivery O2 Flow Rate FiO2 02/18/18 16:26 97.6 78 20 153/73 (99) 96 02/16/18 15:41 Room Air I&O Intake and Output 02/18/18 07:00 Intake Total 960 ml Balance 960 ml Intake Oral 960 ml Current Medications: Meds: Current Medications Acetaminophen (Tylenol) 650 mg PRN Q6HRS PRN PO PAIN / TEMP; Start 02/12/18 at 23:00 Multi-Ingredient Ointment (Analgesic [place]) 1 krzysztof PRN QID PRN TP MUSCLE PAIN; Start 02/12/18 at 23:00 Al Hydroxide/Mg Hydroxide (Mylanta Plus Xs) 15 ml PRN AFTMEALHC PRN PO DYSPEPSIA; Start 02/12/18 at 23:00 Magnesium Hydroxide (Milk Of Magnesia) 2,400 mg PRN QHS PRN PO CONSTIPATION; Start 02/12/18 at 23:00 Olanzapine (ZyPREXA ZYDIS) 2.5 mg PRN Q2HR PRN PO ANXIETY / AGITATION; Start at 23:45 Buspirone HCl (Buspar) 7.5 mg TID PO Last administered on 02/18/18at 14:09; Start 02/13/18 at 09:00; Stop 02/18/18 at 17:52; Status DC Lorazepam (Ativan) 0.5 mg PRN Q12HR PRN PO ANXIETY / AGITATION; Start 02/12/18 at 23:45 Melatonin 1.5 mg PRN QHS PRN PO INSOMNIA; Start 02/12/18 at 23:45 Mirtazapine (Remeron) 15 mg QHS PO Last administered on 02/16/18at 19:46; Start 02/13/18 at 21:00; Stop 02/17/18 at 16:14; Status DC Risperidone (RisperDAL) 0.25 mg DAILY PO Last administered on 02/13/18at 09:03; Start 02/13/18 at 09:00; Stop 02/13/18 at 17:09; Status DC Risperidone (RisperDAL) 0.5 mg QHS PO ; Start 02/13/18 at 21:00; Stop 02/13/18 at 21:00; Status DC Sertraline HCl (Zoloft) 75 mg DAILY PO Last administered on 02/18/18at 08:02; Start 02/13/18 at 09:00 Valproic Acid (Depakene) 125 mg BID@1300,1700 PO Last administered on at 17:00; Start 02/13/18 at 13:00; Stop 02/14/18 at 18:50; Status DC Acetaminophen (Tylenol) 650 mg PRN Q6HRS PRN PO PAIN / TEMP; Start 02/12/18 at 23:45; Status UNV Vitamin D (Vitamin D3) 50,000 unit WEEKLY PO ; Start 02/19/18 at 09:00 Diclofenac Sodium (Voltaren) 1 krzysztof PRN Q6HRS PRN TP PAIN; Start 02/12/18 at 23: 45 Al Hydroxide/Mg Hydroxide (Mylanta Plus Xs) 15 ml PRN Q8HRS PRN PO DYSPEPSIA; Start 02/12/18 at 23:45; Status Cancel Multi-Ingredient Ointment (Analgesic [place]) 1 krzysztof PRN QID PRN TP PAIN; Start at 23:45; Status Cancel Apixaban (Eliquis) 5 mg DAILY PO Last administered on 02/13/18at 09:03; Start at 09:00; Stop 02/13/18 at 15:44; Status DC Levothyroxine Sodium (Synthroid) 50 mcg DAILY07 PO Last administered on at 10:41; Start 02/13/18 at 07:00 Magnesium Hydroxide (Milk Of Magnesia) 2,400 mg PRN QHS PRN PO CONSTIPATION; Start 02/12/18 at 23:45; Status Cancel Neomycin/ Polymyxin/ Dexamethasone (Maxitrol) 2 drop TID OU Last administered on 02/17/18at 10:41; Start 02/13/18 at 09:00; Stop 02/17/18 at 14:57; Status DC Quetiapine Fumarate (SEROquel) 12.5 mg TID@0900,1300,1700 PO Last administered on 02/17/18at 10:41; Start 02/14/18 at 09:00; Stop 02/17/18 at 16:14; Status DC Valproic Acid (Depakene) 125 mg DAILY08 PO Last administered on 02/15/18at 09:13 ; Start 02/15/18 at 08:00; Stop 02/15/18 at 09:15; Status DC Valproic Acid (Depakene) 250 mg QHS PO ; Start 02/14/18 at 21:00; Stop 02/14/18 at 21:00; Status DC Divalproex Sodium (Depakote Sprinkles) 250 mg HS PO Last administered on at 20:32; Start 02/14/18 at 21:00 Divalproex Sodium (Depakote Sprinkles) 125 mg DAILY@0900 PO Last administered on 02/18/18at 08:02; Start 02/16/18 at 09:00 Mirtazapine (Remeron) 7.5 mg QHS PO Last administered on 02/18/18at 20:32; Start 02/17/18 at 21:00 Quetiapine Fumarate (SEROquel) 12.5 mg DAILY@1700 PO Last administered on at 17:20; Start 02/17/18 at 17:00 Active Scripts Active Reported Voltaren (Diclofenac Sodium) 100 Gm Gel..gram. 1 Applic TP PRN Q6HRS PRN Tramadol Hcl (Tramadol HCl) 50 Mg Tablet 25 Mg PO PRN Q12HR PRN Risperidone 0.5 Mg Tablet 0.5 Mg PO QHS Risperidone 0.5 Mg Tablet 0.25 Mg PO DAILY Maxitrol Eye Ointment (Daniel/Polymyx B Sulf/Dexameth) 3.5 Gm Oint...g. 0.5 Inch OU TID Eliquis (Apixaban) 5 Mg Tablet 5 Mg PO DAILY Levothyroxine Sodium 50 Mcg Tablet 50 Mcg PO DAILYAC Analgesic [place] (Methyl Salicylate/Menthol) 28 Gm Oint...g. 1 Gm TP PRN QID PRN Milk Of Magnesia (Magnesium Hydroxide) 2,400 Mg/10 Ml Oral.susp 2,400 Mg PO PRN QHS PRN Mag-Al Plus Xs Suspension (Mag Hydrox/Al Hydrox/Simeth) 30 Ml Oral.susp 15 Ml PO PRN Q8HRS PRN Tylenol (Acetaminophen) 325 Mg Tablet 650 Mg PO PRN Q6HRS PRN Valproic Acid (Valproate Sodium) 250 Mg/5 Ml Solution 125 Mg PO BID@1300,1700 Mirtazapine 15 Mg Tablet 15 Mg PO QHS Zyprexa Zydis (Olanzapine) 5 Mg Tab.rapdis 2.5 Mg PO PRN Q2HR PRN maximum 10 mg in 24 hours D3-50 (Cholecalciferol (Vitamin D3)) 50,000 Unit Capsule 50,000 Unit PO WEEKLY Every Friday Sertraline Hcl 25 Mg Tablet 75 Mg PO DAILY Buspirone Hcl 5 Mg Tablet 7.5 Mg PO TID Melatonin 3 Mg Tablet 1.5 Mg PO QHS PRN Lorazepam 0.5 Mg Tablet 0.5 Mg PO PRN Q12HR PRN I have reviewed the current psychotropics carefully including drug interactions. Risk benefit ratio favors no change other than as noted in my dictated progress note. Diagnosis: Problems: (1) Anxiety disorder (2) Dementia in Alzheimer's disease with delusions (3) Dementia in Alzheimer's disease with depression (4) Dementia, vascular, with delusions (5) Dementia, vascular, with depression (6) Impulse control disorder KODY GODINEZ MD Feb 18, 2018 21:09
--- NOTE | 2018-02-19 04:51 | PN ---
DATE: 02/17/2018 PSYCHIATRIC PROGRESS NOTE This is a late entry for 02/17/2018, covers elements not covered in my initial note. SUBJECTIVE: I met with the patient in the evening. The patient slept 9-1/4 hours previous evening. Family are concerned about her being sedated. The patient remains in a Broda chair. Valproic acid level is 50. REVIEW OF SYSTEMS: No CV, , pulmonary, eye, ENT system symptoms on review. Reliability poor. MENTAL STATUS EXAM: Oriented to herself. Insight, judgment, recent and remote memory, attention, concentration, fund of knowledge poor, consistent with her diagnosis mentioned in my initial note. PLAN: Reduce the 5:00 p.m. Seroquel to 12.5 mg and Remeron from 15 at bedtime to 7.5 mg at bedtime, may reduce BuSpar further in a day or so if sedation continued. Rest unchanged. MAN Araceli GODINEZ MD DR: CAROLYN/maria isabel JOB#: [id number] / [id number]
[2018-02-19] MEDS: LEVOTHYROXINE 50 MCG TABLET PO SCH (05:57)
[2018-02-19 06:04] VITALS: BP 139/50
[2018-02-19] MEDS: DIVALPROEX 125 MG CAP.SPRINK PO SCH ×2 (07:51→20:20)
[2018-02-19] MEDS: SERTRALINE 25 MG TABLET. PO SCH (07:52)
[2018-02-19] MEDS: CHOLECALCIFEROL (VITAMIN D3) 50,000 UNIT CAPSULE PO SCH (07:53)
[2018-02-19 16:22] VITALS: BP 149/53
[2018-02-19] MEDS: QUEtiapine 25 MG TABLET. PO SCH (16:58)
[2018-02-19] MEDS: MIRTAZAPINE 7.5 MG TABLET. PO SCH (20:20)
--- NOTE | 2018-02-19 20:58 | PDOC ---
Exam Note: Wilmar Note: Please also refer to the separate dictated note~for this date of service dictated separately.~Patient seen individually. Discussed the patient with Nursing staff reviewed the chart.~Reviewed interim history and current functioning. Reviewed vital signs,~Labs/ Radiology~and current medications noted below. Continue current treatment with the changes noted in the dictated addendum note Assessment: Vital Signs: Vital Signs Date Time Temp Pulse Resp B/P (MAP) Pulse Ox O2 Delivery O2 Flow Rate FiO2 02/19/18 16:22 97.6 103 18 149/53 (85) 99 02/16/18 15:41 Room Air I&O Intake and Output 02/19/18 07:00 Intake Total 300 ml Balance 300 ml Intake Oral 300 ml Current Medications: Meds: Current Medications Acetaminophen (Tylenol) 650 mg PRN Q6HRS PRN PO PAIN / TEMP; Start 02/12/18 at 23:00 Multi-Ingredient Ointment (Analgesic [place]) 1 krzysztof PRN QID PRN TP MUSCLE PAIN; Start 02/12/18 at 23:00 Al Hydroxide/Mg Hydroxide (Mylanta Plus Xs) 15 ml PRN AFTMEALHC PRN PO DYSPEPSIA; Start 02/12/18 at 23:00 Magnesium Hydroxide (Milk Of Magnesia) 2,400 mg PRN QHS PRN PO CONSTIPATION; Start 02/12/18 at 23:00 Olanzapine (ZyPREXA ZYDIS) 2.5 mg PRN Q2HR PRN PO ANXIETY / AGITATION; Start at 23:45 Buspirone HCl (Buspar) 7.5 mg TID PO Last administered on 02/18/18at 14:09; Start 02/13/18 at 09:00; Stop 02/18/18 at 17:52; Status DC Lorazepam (Ativan) 0.5 mg PRN Q12HR PRN PO ANXIETY / AGITATION; Start 02/12/18 at 23:45 Melatonin 1.5 mg PRN QHS PRN PO INSOMNIA; Start 02/12/18 at 23:45 Mirtazapine (Remeron) 15 mg QHS PO Last administered on 02/16/18at 19:46; Start 02/13/18 at 21:00; Stop 02/17/18 at 16:14; Status DC Risperidone (RisperDAL) 0.25 mg DAILY PO Last administered on 02/13/18at 09:03; Start 02/13/18 at 09:00; Stop 02/13/18 at 17:09; Status DC Risperidone (RisperDAL) 0.5 mg QHS PO ; Start 02/13/18 at 21:00; Stop 02/13/18 at 21:00; Status DC Sertraline HCl (Zoloft) 75 mg DAILY PO Last administered on 02/19/18at 07:52; Start 02/13/18 at 09:00 Valproic Acid (Depakene) 125 mg BID@1300,1700 PO Last administered on at 17:00; Start 02/13/18 at 13:00; Stop 02/14/18 at 18:50; Status DC Acetaminophen (Tylenol) 650 mg PRN Q6HRS PRN PO PAIN / TEMP; Start 02/12/18 at 23:45; Status UNV Vitamin D (Vitamin D3) 50,000 unit WEEKLY PO Last administered on 02/19/18at 07: 53; Start 02/19/18 at 09:00 Diclofenac Sodium (Voltaren) 1 krzysztof PRN Q6HRS PRN TP PAIN; Start 02/12/18 at 23: 45 Al Hydroxide/Mg Hydroxide (Mylanta Plus Xs) 15 ml PRN Q8HRS PRN PO DYSPEPSIA; Start 02/12/18 at 23:45; Status Cancel Multi-Ingredient Ointment (Analgesic [place]) 1 krzysztof PRN QID PRN TP PAIN; Start at 23:45; Status Cancel Apixaban (Eliquis) 5 mg DAILY PO Last administered on 02/13/18at 09:03; Start at 09:00; Stop 02/13/18 at 15:44; Status DC Levothyroxine Sodium (Synthroid) 50 mcg DAILY07 PO Last administered on at 05:57; Start 02/13/18 at 07:00 Magnesium Hydroxide (Milk Of Magnesia) 2,400 mg PRN QHS PRN PO CONSTIPATION; Start 02/12/18 at 23:45; Status Cancel Neomycin/ Polymyxin/ Dexamethasone (Maxitrol) 2 drop TID OU Last administered on 02/17/18at 10:41; Start 02/13/18 at 09:00; Stop 02/17/18 at 14:57; Status DC Quetiapine Fumarate (SEROquel) 12.5 mg TID@0900,1300,1700 PO Last administered on 02/17/18at 10:41; Start 02/14/18 at 09:00; Stop 02/17/18 at 16:14; Status DC Valproic Acid (Depakene) 125 mg DAILY08 PO Last administered on 02/15/18at 09:13 ; Start 02/15/18 at 08:00; Stop 02/15/18 at 09:15; Status DC Valproic Acid (Depakene) 250 mg QHS PO ; Start 02/14/18 at 21:00; Stop 02/14/18 at 21:00; Status DC Divalproex Sodium (Depakote Sprinkles) 250 mg HS PO Last administered on at 20:20; Start 02/14/18 at 21:00 Divalproex Sodium (Depakote Sprinkles) 125 mg DAILY@0900 PO Last administered on 02/19/18at 07:51; Start 02/16/18 at 09:00 Mirtazapine (Remeron) 7.5 mg QHS PO Last administered on 02/19/18at 20:20; Start 02/17/18 at 21:00 Quetiapine Fumarate (SEROquel) 12.5 mg DAILY@1700 PO Last administered on at 16:58; Start 02/17/18 at 17:00 Active Scripts Active Reported Voltaren (Diclofenac Sodium) 100 Gm Gel..gram. 1 Applic TP PRN Q6HRS PRN Tramadol Hcl (Tramadol HCl) 50 Mg Tablet 25 Mg PO PRN Q12HR PRN Risperidone 0.5 Mg Tablet 0.5 Mg PO QHS Risperidone 0.5 Mg Tablet 0.25 Mg PO DAILY Maxitrol Eye Ointment (Daniel/Polymyx B Sulf/Dexameth) 3.5 Gm Oint...g. 0.5 Inch OU TID Eliquis (Apixaban) 5 Mg Tablet 5 Mg PO DAILY Levothyroxine Sodium 50 Mcg Tablet 50 Mcg PO DAILYAC Analgesic [place] (Methyl Salicylate/Menthol) 28 Gm Oint...g. 1 Gm TP PRN QID PRN Milk Of Magnesia (Magnesium Hydroxide) 2,400 Mg/10 Ml Oral.susp 2,400 Mg PO PRN QHS PRN Mag-Al Plus Xs Suspension (Mag Hydrox/Al Hydrox/Simeth) 30 Ml Oral.susp 15 Ml PO PRN Q8HRS PRN Tylenol (Acetaminophen) 325 Mg Tablet 650 Mg PO PRN Q6HRS PRN Valproic Acid (Valproate Sodium) 250 Mg/5 Ml Solution 125 Mg PO BID@1300,1700 Mirtazapine 15 Mg Tablet 15 Mg PO QHS Zyprexa Zydis (Olanzapine) 5 Mg Tab.rapdis 2.5 Mg PO PRN Q2HR PRN maximum 10 mg in 24 hours D3-50 (Cholecalciferol (Vitamin D3)) 50,000 Unit Capsule 50,000 Unit PO WEEKLY Every Friday Sertraline Hcl 25 Mg Tablet 75 Mg PO DAILY Buspirone Hcl 5 Mg Tablet 7.5 Mg PO TID Melatonin 3 Mg Tablet 1.5 Mg PO QHS PRN Lorazepam 0.5 Mg Tablet 0.5 Mg PO PRN Q12HR PRN I have reviewed the current psychotropics carefully including drug interactions. Risk benefit ratio favors no change other than as noted in my dictated progress note. Diagnosis: Problems: (1) Anxiety disorder (2) Dementia in Alzheimer's disease with delusions (3) Dementia in Alzheimer's disease with depression (4) Dementia, vascular, with delusions (5) Dementia, vascular, with depression (6) Impulse control disorder KODY GODINEZ MD Feb 19, 2018 20:58
--- NOTE | 2018-02-20 03:04 | PN ---
DATE: 02/18/2018 This is a late entry for 02/18/2018 covers elements not covered in my initial note. SUBJECTIVE: I met with the patient in the evening. The patient slept 7-1/2 hours previous night. Family has expressed concern about her sedation on psychotropics. We have gone ahead and stopped the BuSpar, decreased the Remeron and Seroquel to help with this. She is keeping her eyes closed, but otherwise is awake per nursing report. She slept 7-1/2 hours previous evening, gets a little agitated at times, but redirectable. REVIEW OF SYSTEMS: She is not verbally responding to specific review of systems symptom questions given the confusion, but ambulation impaired, in Broda chair. No CV, , pulmonary, eye, ENT system symptoms on review. MENTAL STATUS EXAM: Oriented to herself. Insight, judgment, recent and remote memory, attention, concentration, fund of knowledge poor, consistent with her diagnosis mentioned in my initial note. PLAN: Reduce the psychotropics as noted above. Rest unchanged from initial note. MAN Araceli GODINEZ MD DR: CAROLYN/maria isabel JOB#: [id number] / [id number]
[2018-02-20] MEDS: LEVOTHYROXINE 50 MCG TABLET PO SCH (07:00)
[2018-02-20 07:32] VITALS: BP 97/51
[2018-02-20] MEDS: DIVALPROEX 125 MG CAP.SPRINK PO SCH ×2 (08:51→19:56)
[2018-02-20] MEDS: SERTRALINE 25 MG TABLET. PO SCH (08:51)
[2018-02-20 15:50] VITALS: BP 155/68
[2018-02-20] MEDS: QUEtiapine 25 MG TABLET. PO SCH (17:15)
[2018-02-20] MEDS: MIRTAZAPINE 7.5 MG TABLET. PO SCH (19:56)
--- NOTE | 2018-02-20 20:57 | PDOC ---
Exam Note: Wilmar Note: Please also refer to the separate dictated note~for this date of service dictated separately.~Patient seen individually. Discussed the patient with Nursing staff reviewed the chart.~Reviewed interim history and current functioning. Reviewed vital signs,~Labs/ Radiology~and current medications noted below. Continue current treatment with the changes noted in the dictated addendum note Assessment: Vital Signs: Vital Signs Date Time Temp Pulse Resp B/P (MAP) Pulse Ox O2 Delivery O2 Flow Rate FiO2 02/20/18 15:50 98.3 84 20 155/68 (97) 98 02/16/18 15:41 Room Air I&O Intake and Output 02/20/18 07:00 Intake Total 600 ml Balance 600 ml Intake Oral 600 ml Current Medications: Meds: Current Medications Acetaminophen (Tylenol) 650 mg PRN Q6HRS PRN PO PAIN / TEMP; Start 02/12/18 at 23:00 Multi-Ingredient Ointment (Analgesic [place]) 1 krzysztof PRN QID PRN TP MUSCLE PAIN; Start 02/12/18 at 23:00 Al Hydroxide/Mg Hydroxide (Mylanta Plus Xs) 15 ml PRN AFTMEALHC PRN PO DYSPEPSIA; Start 02/12/18 at 23:00 Magnesium Hydroxide (Milk Of Magnesia) 2,400 mg PRN QHS PRN PO CONSTIPATION; Start 02/12/18 at 23:00 Olanzapine (ZyPREXA ZYDIS) 2.5 mg PRN Q2HR PRN PO ANXIETY / AGITATION; Start at 23:45 Buspirone HCl (Buspar) 7.5 mg TID PO Last administered on 02/18/18at 14:09; Start 02/13/18 at 09:00; Stop 02/18/18 at 17:52; Status DC Lorazepam (Ativan) 0.5 mg PRN Q12HR PRN PO ANXIETY / AGITATION; Start 02/12/18 at 23:45 Melatonin 1.5 mg PRN QHS PRN PO INSOMNIA; Start 02/12/18 at 23:45 Mirtazapine (Remeron) 15 mg QHS PO Last administered on 02/16/18at 19:46; Start 02/13/18 at 21:00; Stop 02/17/18 at 16:14; Status DC Risperidone (RisperDAL) 0.25 mg DAILY PO Last administered on 02/13/18at 09:03; Start 02/13/18 at 09:00; Stop 02/13/18 at 17:09; Status DC Risperidone (RisperDAL) 0.5 mg QHS PO ; Start 02/13/18 at 21:00; Stop 02/13/18 at 21:00; Status DC Sertraline HCl (Zoloft) 75 mg DAILY PO Last administered on 02/20/18at 08:51; Start 02/13/18 at 09:00 Valproic Acid (Depakene) 125 mg BID@1300,1700 PO Last administered on at 17:00; Start 02/13/18 at 13:00; Stop 02/14/18 at 18:50; Status DC Acetaminophen (Tylenol) 650 mg PRN Q6HRS PRN PO PAIN / TEMP; Start 02/12/18 at 23:45; Status UNV Vitamin D (Vitamin D3) 50,000 unit WEEKLY PO Last administered on 02/19/18at 07: 53; Start 02/19/18 at 09:00 Diclofenac Sodium (Voltaren) 1 krzysztof PRN Q6HRS PRN TP PAIN; Start 02/12/18 at 23: 45 Al Hydroxide/Mg Hydroxide (Mylanta Plus Xs) 15 ml PRN Q8HRS PRN PO DYSPEPSIA; Start 02/12/18 at 23:45; Status Cancel Multi-Ingredient Ointment (Analgesic [place]) 1 krzysztof PRN QID PRN TP PAIN; Start at 23:45; Status Cancel Apixaban (Eliquis) 5 mg DAILY PO Last administered on 02/13/18at 09:03; Start at 09:00; Stop 02/13/18 at 15:44; Status DC Levothyroxine Sodium (Synthroid) 50 mcg DAILY07 PO Last administered on at 05:57; Start 02/13/18 at 07:00 Magnesium Hydroxide (Milk Of Magnesia) 2,400 mg PRN QHS PRN PO CONSTIPATION; Start 02/12/18 at 23:45; Status Cancel Neomycin/ Polymyxin/ Dexamethasone (Maxitrol) 2 drop TID OU Last administered on 02/17/18at 10:41; Start 02/13/18 at 09:00; Stop 02/17/18 at 14:57; Status DC Quetiapine Fumarate (SEROquel) 12.5 mg TID@0900,1300,1700 PO Last administered on 02/17/18at 10:41; Start 02/14/18 at 09:00; Stop 02/17/18 at 16:14; Status DC Valproic Acid (Depakene) 125 mg DAILY08 PO Last administered on 02/15/18at 09:13 ; Start 02/15/18 at 08:00; Stop 02/15/18 at 09:15; Status DC Valproic Acid (Depakene) 250 mg QHS PO ; Start 02/14/18 at 21:00; Stop 02/14/18 at 21:00; Status DC Divalproex Sodium (Depakote Sprinkles) 250 mg HS PO Last administered on at 19:56; Start 02/14/18 at 21:00 Divalproex Sodium (Depakote Sprinkles) 125 mg DAILY@0900 PO Last administered on 02/20/18at 08:51; Start 02/16/18 at 09:00 Mirtazapine (Remeron) 7.5 mg QHS PO Last administered on 02/20/18at 19:56; Start 02/17/18 at 21:00 Quetiapine Fumarate (SEROquel) 12.5 mg DAILY@1700 PO Last administered on at 17:15; Start 02/17/18 at 17:00 Active Scripts Active Reported Voltaren (Diclofenac Sodium) 100 Gm Gel..gram. 1 Applic TP PRN Q6HRS PRN Tramadol Hcl (Tramadol HCl) 50 Mg Tablet 25 Mg PO PRN Q12HR PRN Risperidone 0.5 Mg Tablet 0.5 Mg PO QHS Risperidone 0.5 Mg Tablet 0.25 Mg PO DAILY Maxitrol Eye Ointment (Daniel/Polymyx B Sulf/Dexameth) 3.5 Gm Oint...g. 0.5 Inch OU TID Eliquis (Apixaban) 5 Mg Tablet 5 Mg PO DAILY Levothyroxine Sodium 50 Mcg Tablet 50 Mcg PO DAILYAC Analgesic [place] (Methyl Salicylate/Menthol) 28 Gm Oint...g. 1 Gm TP PRN QID PRN Milk Of Magnesia (Magnesium Hydroxide) 2,400 Mg/10 Ml Oral.susp 2,400 Mg PO PRN QHS PRN Mag-Al Plus Xs Suspension (Mag Hydrox/Al Hydrox/Simeth) 30 Ml Oral.susp 15 Ml PO PRN Q8HRS PRN Tylenol (Acetaminophen) 325 Mg Tablet 650 Mg PO PRN Q6HRS PRN Valproic Acid (Valproate Sodium) 250 Mg/5 Ml Solution 125 Mg PO BID@1300,1700 Mirtazapine 15 Mg Tablet 15 Mg PO QHS Zyprexa Zydis (Olanzapine) 5 Mg Tab.rapdis 2.5 Mg PO PRN Q2HR PRN maximum 10 mg in 24 hours D3-50 (Cholecalciferol (Vitamin D3)) 50,000 Unit Capsule 50,000 Unit PO WEEKLY Every Friday Sertraline Hcl 25 Mg Tablet 75 Mg PO DAILY Buspirone Hcl 5 Mg Tablet 7.5 Mg PO TID Melatonin 3 Mg Tablet 1.5 Mg PO QHS PRN Lorazepam 0.5 Mg Tablet 0.5 Mg PO PRN Q12HR PRN I have reviewed the current psychotropics carefully including drug interactions. Risk benefit ratio favors no change other than as noted in my dictated progress note. Diagnosis: Problems: (1) Anxiety disorder (2) Dementia in Alzheimer's disease with delusions (3) Dementia in Alzheimer's disease with depression (4) Dementia, vascular, with delusions (5) Dementia, vascular, with depression (6) Impulse control disorder KODY GODINEZ MD Feb 20, 2018 20:57
--- NOTE | 2018-02-21 03:46 | PN ---
DATE: 02/19/2018 This is a late entry for 02/19/2018 covers elements not covered in my initial note. SUBJECTIVE: I met with the patient in the evening, staffed at a treatment team meeting with the entire team in the morning and the patient's daughter, Sarahy attended the treatment team meeting. We had a lengthy discussion about the patient's diagnosis, progress, current psychotropics. The daughter concerns about her being over sedated. 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 She is always very reclusive, not very interactive in groups and not very social. REVIEW OF SYSTEMS: No CV, , pulmonary, eye, ENT system symptoms on review. Gait unsteady, in Broda chair. MENTAL STATUS EXAM: Oriented to herself. Insight, judgment, recent and remote memory, attention, concentration, fund of knowledge poor, consistent with her diagnosis mentioned in my initial note. She has been fairly quiet and irritable in the morning, better in the evening. LABORATORY DATA: Reviewed. IMPRESSION: Unchanged from initial note. PLAN: Continue psychotropics from initial note and we have decreased the Remeron and Seroquel and stopped the BuSpar to help with the daytime sedation. KODY GODINEZ MD DR: CAROLYN/maria isabel JOB#: [id number] / [id number]
[2018-02-21] MEDS: LEVOTHYROXINE 50 MCG TABLET PO SCH (05:42)
[2018-02-21 06:32] VITALS: BP 101/46
[2018-02-21] MEDS: DIVALPROEX 125 MG CAP.SPRINK PO SCH ×2 (09:25→20:37)
[2018-02-21] MEDS: SERTRALINE 25 MG TABLET. PO SCH (09:26)
[2018-02-21 16:48] VITALS: BP 100/58
[2018-02-21] MEDS: QUEtiapine 25 MG TABLET. PO SCH (17:06)
[2018-02-21] MEDS: MIRTAZAPINE 7.5 MG TABLET. PO SCH (20:37)
--- NOTE | 2018-02-21 23:12 | PDOC ---
Exam Note: Wilmar Note: Please also refer to the separate dictated note~for this date of service dictated separately.~Patient seen individually. Discussed the patient with Nursing staff reviewed the chart.~Reviewed interim history and current functioning. Reviewed vital signs,~Labs/ Radiology~and current medications noted below. Continue current treatment with the changes noted in the dictated addendum note Assessment: Vital Signs: Vital Signs Date Time Temp Pulse Resp B/P (MAP) Pulse Ox O2 Delivery O2 Flow Rate FiO2 02/21/18 16:48 98.4 93 18 100/58 (72) 95 02/16/18 15:41 Room Air I&O Intake and Output 02/21/18 07:00 Intake Total 360 ml Balance 360 ml Intake Oral 360 ml # Bowel Movements 1 Current Medications: Meds: Current Medications Acetaminophen (Tylenol) 650 mg PRN Q6HRS PRN PO PAIN / TEMP; Start 02/12/18 at 23:00 Multi-Ingredient Ointment (Analgesic [place]) 1 krzysztof PRN QID PRN TP MUSCLE PAIN; Start 02/12/18 at 23:00 Al Hydroxide/Mg Hydroxide (Mylanta Plus Xs) 15 ml PRN AFTMEALHC PRN PO DYSPEPSIA; Start 02/12/18 at 23:00 Magnesium Hydroxide (Milk Of Magnesia) 2,400 mg PRN QHS PRN PO CONSTIPATION; Start 02/12/18 at 23:00 Olanzapine (ZyPREXA ZYDIS) 2.5 mg PRN Q2HR PRN PO ANXIETY / AGITATION; Start at 23:45 Buspirone HCl (Buspar) 7.5 mg TID PO Last administered on 02/18/18at 14:09; Start 02/13/18 at 09:00; Stop 02/18/18 at 17:52; Status DC Lorazepam (Ativan) 0.5 mg PRN Q12HR PRN PO ANXIETY / AGITATION; Start 02/12/18 at 23:45 Melatonin 1.5 mg PRN QHS PRN PO INSOMNIA; Start 02/12/18 at 23:45 Mirtazapine (Remeron) 15 mg QHS PO Last administered on 02/16/18at 19:46; Start 02/13/18 at 21:00; Stop 02/17/18 at 16:14; Status DC Risperidone (RisperDAL) 0.25 mg DAILY PO Last administered on 02/13/18at 09:03; Start 02/13/18 at 09:00; Stop 02/13/18 at 17:09; Status DC Risperidone (RisperDAL) 0.5 mg QHS PO ; Start 02/13/18 at 21:00; Stop 02/13/18 at 21:00; Status DC Sertraline HCl (Zoloft) 75 mg DAILY PO Last administered on 02/21/18at 09:26; Start 02/13/18 at 09:00 Valproic Acid (Depakene) 125 mg BID@1300,1700 PO Last administered on at 17:00; Start 02/13/18 at 13:00; Stop 02/14/18 at 18:50; Status DC Acetaminophen (Tylenol) 650 mg PRN Q6HRS PRN PO PAIN / TEMP; Start 02/12/18 at 23:45; Status UNV Vitamin D (Vitamin D3) 50,000 unit WEEKLY PO Last administered on 02/19/18at 07: 53; Start 02/19/18 at 09:00 Diclofenac Sodium (Voltaren) 1 krzysztof PRN Q6HRS PRN TP PAIN; Start 02/12/18 at 23: 45 Al Hydroxide/Mg Hydroxide (Mylanta Plus Xs) 15 ml PRN Q8HRS PRN PO DYSPEPSIA; Start 02/12/18 at 23:45; Status Cancel Multi-Ingredient Ointment (Analgesic [place]) 1 krzysztof PRN QID PRN TP PAIN; Start at 23:45; Status Cancel Apixaban (Eliquis) 5 mg DAILY PO Last administered on 02/13/18at 09:03; Start at 09:00; Stop 02/13/18 at 15:44; Status DC Levothyroxine Sodium (Synthroid) 50 mcg DAILY07 PO Last administered on at 05:42; Start 02/13/18 at 07:00 Magnesium Hydroxide (Milk Of Magnesia) 2,400 mg PRN QHS PRN PO CONSTIPATION; Start 02/12/18 at 23:45; Status Cancel Neomycin/ Polymyxin/ Dexamethasone (Maxitrol) 2 drop TID OU Last administered on 02/17/18at 10:41; Start 02/13/18 at 09:00; Stop 02/17/18 at 14:57; Status DC Quetiapine Fumarate (SEROquel) 12.5 mg TID@0900,1300,1700 PO Last administered on 02/17/18at 10:41; Start 02/14/18 at 09:00; Stop 02/17/18 at 16:14; Status DC Valproic Acid (Depakene) 125 mg DAILY08 PO Last administered on 02/15/18at 09:13 ; Start 02/15/18 at 08:00; Stop 02/15/18 at 09:15; Status DC Valproic Acid (Depakene) 250 mg QHS PO ; Start 02/14/18 at 21:00; Stop 02/14/18 at 21:00; Status DC Divalproex Sodium (Depakote Sprinkles) 250 mg HS PO Last administered on at 20:37; Start 02/14/18 at 21:00 Divalproex Sodium (Depakote Sprinkles) 125 mg DAILY@0900 PO Last administered on 02/21/18at 09:25; Start 02/16/18 at 09:00 Mirtazapine (Remeron) 7.5 mg QHS PO Last administered on 02/21/18at 20:37; Start 02/17/18 at 21:00 Quetiapine Fumarate (SEROquel) 12.5 mg DAILY@1700 PO Last administered on at 17:06; Start 02/17/18 at 17:00 Active Scripts Active Reported Voltaren (Diclofenac Sodium) 100 Gm Gel..gram. 1 Applic TP PRN Q6HRS PRN Tramadol Hcl (Tramadol HCl) 50 Mg Tablet 25 Mg PO PRN Q12HR PRN Risperidone 0.5 Mg Tablet 0.5 Mg PO QHS Risperidone 0.5 Mg Tablet 0.25 Mg PO DAILY Maxitrol Eye Ointment (Daniel/Polymyx B Sulf/Dexameth) 3.5 Gm Oint...g. 0.5 Inch OU TID Eliquis (Apixaban) 5 Mg Tablet 5 Mg PO DAILY Levothyroxine Sodium 50 Mcg Tablet 50 Mcg PO DAILYAC Analgesic [place] (Methyl Salicylate/Menthol) 28 Gm Oint...g. 1 Gm TP PRN QID PRN Milk Of Magnesia (Magnesium Hydroxide) 2,400 Mg/10 Ml Oral.susp 2,400 Mg PO PRN QHS PRN Mag-Al Plus Xs Suspension (Mag Hydrox/Al Hydrox/Simeth) 30 Ml Oral.susp 15 Ml PO PRN Q8HRS PRN Tylenol (Acetaminophen) 325 Mg Tablet 650 Mg PO PRN Q6HRS PRN Valproic Acid (Valproate Sodium) 250 Mg/5 Ml Solution 125 Mg PO BID@1300,1700 Mirtazapine 15 Mg Tablet 15 Mg PO QHS Zyprexa Zydis (Olanzapine) 5 Mg Tab.rapdis 2.5 Mg PO PRN Q2HR PRN maximum 10 mg in 24 hours D3-50 (Cholecalciferol (Vitamin D3)) 50,000 Unit Capsule 50,000 Unit PO WEEKLY Every Friday Sertraline Hcl 25 Mg Tablet 75 Mg PO DAILY Buspirone Hcl 5 Mg Tablet 7.5 Mg PO TID Melatonin 3 Mg Tablet 1.5 Mg PO QHS PRN Lorazepam 0.5 Mg Tablet 0.5 Mg PO PRN Q12HR PRN I have reviewed the current psychotropics carefully including drug interactions. Risk benefit ratio favors no change other than as noted in my dictated progress note. Diagnosis: Problems: (1) Anxiety disorder (2) Dementia in Alzheimer's disease with delusions (3) Dementia in Alzheimer's disease with depression (4) Dementia, vascular, with delusions (5) Dementia, vascular, with depression (6) Impulse control disorder KODY GODINEZ MD Feb 21, 2018 23:12
[2018-02-22 06:46] VITALS: BP 119/62
[2018-02-22] MEDS: DIVALPROEX 125 MG CAP.SPRINK PO SCH ×2 (08:22→21:10)
[2018-02-22] MEDS: LEVOTHYROXINE 50 MCG TABLET PO SCH (08:22)
[2018-02-22] MEDS: SERTRALINE 25 MG TABLET. PO SCH (08:23)
--- NOTE | 2018-02-22 10:17 | OP ---
DATE OF SURGERY: 02/21/2018 PSYCHIATRIC PROGRESS NOTE This is a late entry 02/21/2018, covers elements not covered in my initial note. SUBJECTIVE: I met with the patient in the evening. The patient slept 7-3/4 hours previous night. She has been withdrawn, quiet, very confused, takes her medications crushed and pudding. REVIEW OF SYSTEMS: Ambulation impaired, in Broda chair. No CV, , pulmonary, eye, ENT system symptoms on review. Reliability poor. MENTAL STATUS EXAM: Oriented to herself. Insight, judgment, recent and remote memory, attention, concentration, fund of knowledge poor, consistent with her diagnoses mentioned in my initial note. PLAN: No change from initial note. KODY GODINEZ MD DR: CAROLYN/maria isabel JOB#: [id number] / [id number]
--- NOTE | 2018-02-22 12:00 | PN ---
DATE: 02/20/2018 This is a late entry for 02/20/2018 and covers the elements not covered in my initial note. SUBJECTIVE: I met with the patient in the evening. The patient slept 4 hours previous night and then 2-1/2 hours for a total of 6-1/2 hours. She is compliant with her medications, but confused. REVIEW OF SYSTEMS: No CV, , pulmonary, eye, ENT system symptoms on review. Gait unsteady, in Broda chair. MENTAL STATUS EXAM: Oriented to herself. Insight, judgment, recent and remote memory, attention, concentration, fund of knowledge poor, consistent with her diagnosis as mentioned in my initial note. PLAN: No change from initial note. MAN Araceli GODINEZ MD DR: CAROLYN/maria isabel JOB#: [id number] / [id number]
[2018-02-22 16:12] VITALS: BP 136/68
[2018-02-22] MEDS: QUEtiapine 25 MG TABLET. PO SCH (16:56)
--- NOTE | 2018-02-22 20:55 | PDOC ---
Exam Note: Wilmar Note: Please also refer to the separate dictated note~for this date of service dictated separately.~Patient seen individually. Discussed the patient with Nursing staff reviewed the chart.~Reviewed interim history and current functioning. Reviewed vital signs,~Labs/ Radiology~and current medications noted below. Continue current treatment with the changes noted in the dictated addendum note Assessment: Vital Signs: Vital Signs Date Time Temp Pulse Resp B/P (MAP) Pulse Ox O2 Delivery O2 Flow Rate FiO2 02/22/18 16:12 97.5 77 18 136/68 (90) 94 02/16/18 15:41 Room Air I&O Intake and Output 02/22/18 07:00 Intake Total 1080 ml Balance 1080 ml Intake Oral 1080 ml # Voids 1 # Bowel Movements 1 Current Medications: Meds: Current Medications Acetaminophen (Tylenol) 650 mg PRN Q6HRS PRN PO PAIN / TEMP; Start 02/12/18 at 23:00 Multi-Ingredient Ointment (Analgesic [place]) 1 krzysztof PRN QID PRN TP MUSCLE PAIN; Start 02/12/18 at 23:00 Al Hydroxide/Mg Hydroxide (Mylanta Plus Xs) 15 ml PRN AFTMEALHC PRN PO DYSPEPSIA; Start 02/12/18 at 23:00 Magnesium Hydroxide (Milk Of Magnesia) 2,400 mg PRN QHS PRN PO CONSTIPATION; Start 02/12/18 at 23:00 Olanzapine (ZyPREXA ZYDIS) 2.5 mg PRN Q2HR PRN PO ANXIETY / AGITATION; Start at 23:45 Buspirone HCl (Buspar) 7.5 mg TID PO Last administered on 02/18/18at 14:09; Start 02/13/18 at 09:00; Stop 02/18/18 at 17:52; Status DC Lorazepam (Ativan) 0.5 mg PRN Q12HR PRN PO ANXIETY / AGITATION; Start 02/12/18 at 23:45 Melatonin 1.5 mg PRN QHS PRN PO INSOMNIA; Start 02/12/18 at 23:45 Mirtazapine (Remeron) 15 mg QHS PO Last administered on 02/16/18at 19:46; Start 02/13/18 at 21:00; Stop 02/17/18 at 16:14; Status DC Risperidone (RisperDAL) 0.25 mg DAILY PO Last administered on 02/13/18at 09:03; Start 02/13/18 at 09:00; Stop 02/13/18 at 17:09; Status DC Risperidone (RisperDAL) 0.5 mg QHS PO ; Start 02/13/18 at 21:00; Stop 02/13/18 at 21:00; Status DC Sertraline HCl (Zoloft) 75 mg DAILY PO Last administered on 02/22/18at 08:23; Start 02/13/18 at 09:00 Valproic Acid (Depakene) 125 mg BID@1300,1700 PO Last administered on at 17:00; Start 02/13/18 at 13:00; Stop 02/14/18 at 18:50; Status DC Acetaminophen (Tylenol) 650 mg PRN Q6HRS PRN PO PAIN / TEMP; Start 02/12/18 at 23:45; Status UNV Vitamin D (Vitamin D3) 50,000 unit WEEKLY PO Last administered on 02/19/18at 07: 53; Start 02/19/18 at 09:00 Diclofenac Sodium (Voltaren) 1 krzysztof PRN Q6HRS PRN TP PAIN; Start 02/12/18 at 23: 45 Al Hydroxide/Mg Hydroxide (Mylanta Plus Xs) 15 ml PRN Q8HRS PRN PO DYSPEPSIA; Start 02/12/18 at 23:45; Status Cancel Multi-Ingredient Ointment (Analgesic [place]) 1 krzysztof PRN QID PRN TP PAIN; Start at 23:45; Status Cancel Apixaban (Eliquis) 5 mg DAILY PO Last administered on 02/13/18at 09:03; Start at 09:00; Stop 02/13/18 at 15:44; Status DC Levothyroxine Sodium (Synthroid) 50 mcg DAILY07 PO Last administered on at 08:22; Start 02/13/18 at 07:00 Magnesium Hydroxide (Milk Of Magnesia) 2,400 mg PRN QHS PRN PO CONSTIPATION; Start 02/12/18 at 23:45; Status Cancel Neomycin/ Polymyxin/ Dexamethasone (Maxitrol) 2 drop TID OU Last administered on 02/17/18at 10:41; Start 02/13/18 at 09:00; Stop 02/17/18 at 14:57; Status DC Quetiapine Fumarate (SEROquel) 12.5 mg TID@0900,1300,1700 PO Last administered on 02/17/18at 10:41; Start 02/14/18 at 09:00; Stop 02/17/18 at 16:14; Status DC Valproic Acid (Depakene) 125 mg DAILY08 PO Last administered on 02/15/18at 09:13 ; Start 02/15/18 at 08:00; Stop 02/15/18 at 09:15; Status DC Valproic Acid (Depakene) 250 mg QHS PO ; Start 02/14/18 at 21:00; Stop 02/14/18 at 21:00; Status DC Divalproex Sodium (Depakote Sprinkles) 250 mg HS PO Last administered on at 20:37; Start 02/14/18 at 21:00 Divalproex Sodium (Depakote Sprinkles) 125 mg DAILY@0900 PO Last administered on 02/22/18at 08:22; Start 02/16/18 at 09:00 Mirtazapine (Remeron) 7.5 mg QHS PO Last administered on 02/21/18at 20:37; Start 02/17/18 at 21:00 Quetiapine Fumarate (SEROquel) 12.5 mg DAILY@1700 PO Last administered on at 16:56; Start 02/17/18 at 17:00 Active Scripts Active Reported Voltaren (Diclofenac Sodium) 100 Gm Gel..gram. 1 Applic TP PRN Q6HRS PRN Tramadol Hcl (Tramadol HCl) 50 Mg Tablet 25 Mg PO PRN Q12HR PRN Risperidone 0.5 Mg Tablet 0.5 Mg PO QHS Risperidone 0.5 Mg Tablet 0.25 Mg PO DAILY Maxitrol Eye Ointment (Daniel/Polymyx B Sulf/Dexameth) 3.5 Gm Oint...g. 0.5 Inch OU TID Eliquis (Apixaban) 5 Mg Tablet 5 Mg PO DAILY Levothyroxine Sodium 50 Mcg Tablet 50 Mcg PO DAILYAC Analgesic [place] (Methyl Salicylate/Menthol) 28 Gm Oint...g. 1 Gm TP PRN QID PRN Milk Of Magnesia (Magnesium Hydroxide) 2,400 Mg/10 Ml Oral.susp 2,400 Mg PO PRN QHS PRN Mag-Al Plus Xs Suspension (Mag Hydrox/Al Hydrox/Simeth) 30 Ml Oral.susp 15 Ml PO PRN Q8HRS PRN Tylenol (Acetaminophen) 325 Mg Tablet 650 Mg PO PRN Q6HRS PRN Valproic Acid (Valproate Sodium) 250 Mg/5 Ml Solution 125 Mg PO BID@1300,1700 Mirtazapine 15 Mg Tablet 15 Mg PO QHS Zyprexa Zydis (Olanzapine) 5 Mg Tab.rapdis 2.5 Mg PO PRN Q2HR PRN maximum 10 mg in 24 hours D3-50 (Cholecalciferol (Vitamin D3)) 50,000 Unit Capsule 50,000 Unit PO WEEKLY Every Friday Sertraline Hcl 25 Mg Tablet 75 Mg PO DAILY Buspirone Hcl 5 Mg Tablet 7.5 Mg PO TID Melatonin 3 Mg Tablet 1.5 Mg PO QHS PRN Lorazepam 0.5 Mg Tablet 0.5 Mg PO PRN Q12HR PRN I have reviewed the current psychotropics carefully including drug interactions. Risk benefit ratio favors no change other than as noted in my dictated progress note. Diagnosis: Problems: (1) Anxiety disorder (2) Dementia in Alzheimer's disease with delusions (3) Dementia in Alzheimer's disease with depression (4) Dementia, vascular, with delusions (5) Dementia, vascular, with depression (6) Impulse control disorder KODY GODINEZ MD Feb 22, 2018 20:55
[2018-02-22] MEDS: MIRTAZAPINE 7.5 MG TABLET. PO SCH (21:10)
[2018-02-23] MEDS: LEVOTHYROXINE 50 MCG TABLET PO SCH (05:40)
[2018-02-23 06:18] VITALS: BP 123/88
[2018-02-23] MEDS: SERTRALINE 25 MG TABLET. PO SCH (07:43)
[2018-02-23] MEDS: DIVALPROEX 125 MG CAP.SPRINK PO SCH ×2 (07:43→20:36)
[2018-02-23 16:35] VITALS: BP 115/67
[2018-02-23] MEDS: QUEtiapine 25 MG TABLET. PO SCH (17:10)
[2018-02-23] MEDS: MIRTAZAPINE 7.5 MG TABLET. PO SCH (20:36)
--- NOTE | 2018-02-23 20:55 | PDOC ---
Exam Note: Wilmar Note: Please also refer to the separate dictated note~for this date of service dictated separately.~Patient seen individually. Discussed the patient with Nursing staff reviewed the chart.~Reviewed interim history and current functioning. Reviewed vital signs,~Labs/ Radiology~and current medications noted below. Continue current treatment with the changes noted in the dictated addendum note Assessment: Vital Signs: Vital Signs Date Time Temp Pulse Resp B/P (MAP) Pulse Ox O2 Delivery O2 Flow Rate FiO2 02/23/18 16:35 98.1 90 18 115/67 (83) 02/23/18 06:18 96 I&O Intake and Output 02/23/18 07:00 Intake Total 560 ml Balance 560 ml Intake Oral 560 ml # Voids 1 Current Medications: Meds: Current Medications Acetaminophen (Tylenol) 650 mg PRN Q6HRS PRN PO PAIN / TEMP; Start 02/12/18 at 23:00 Multi-Ingredient Ointment (Analgesic [place]) 1 krzysztof PRN QID PRN TP MUSCLE PAIN; Start 02/12/18 at 23:00 Al Hydroxide/Mg Hydroxide (Mylanta Plus Xs) 15 ml PRN AFTMEALHC PRN PO DYSPEPSIA; Start 02/12/18 at 23:00 Magnesium Hydroxide (Milk Of Magnesia) 2,400 mg PRN QHS PRN PO CONSTIPATION; Start 02/12/18 at 23:00 Olanzapine (ZyPREXA ZYDIS) 2.5 mg PRN Q2HR PRN PO ANXIETY / AGITATION; Start at 23:45 Buspirone HCl (Buspar) 7.5 mg TID PO Last administered on 02/18/18at 14:09; Start 02/13/18 at 09:00; Stop 02/18/18 at 17:52; Status DC Lorazepam (Ativan) 0.5 mg PRN Q12HR PRN PO ANXIETY / AGITATION; Start 02/12/18 at 23:45 Melatonin 1.5 mg PRN QHS PRN PO INSOMNIA; Start 02/12/18 at 23:45 Mirtazapine (Remeron) 15 mg QHS PO Last administered on 02/16/18at 19:46; Start 02/13/18 at 21:00; Stop 02/17/18 at 16:14; Status DC Risperidone (RisperDAL) 0.25 mg DAILY PO Last administered on 02/13/18at 09:03; Start 02/13/18 at 09:00; Stop 02/13/18 at 17:09; Status DC Risperidone (RisperDAL) 0.5 mg QHS PO ; Start 02/13/18 at 21:00; Stop 02/13/18 at 21:00; Status DC Sertraline HCl (Zoloft) 75 mg DAILY PO Last administered on 02/23/18at 07:43; Start 02/13/18 at 09:00 Valproic Acid (Depakene) 125 mg BID@1300,1700 PO Last administered on at 17:00; Start 02/13/18 at 13:00; Stop 02/14/18 at 18:50; Status DC Acetaminophen (Tylenol) 650 mg PRN Q6HRS PRN PO PAIN / TEMP; Start 02/12/18 at 23:45; Status UNV Vitamin D (Vitamin D3) 50,000 unit WEEKLY PO Last administered on 02/19/18at 07: 53; Start 02/19/18 at 09:00 Diclofenac Sodium (Voltaren) 1 krzysztof PRN Q6HRS PRN TP PAIN; Start 02/12/18 at 23: 45 Al Hydroxide/Mg Hydroxide (Mylanta Plus Xs) 15 ml PRN Q8HRS PRN PO DYSPEPSIA; Start 02/12/18 at 23:45; Status Cancel Multi-Ingredient Ointment (Analgesic [place]) 1 krzysztof PRN QID PRN TP PAIN; Start at 23:45; Status Cancel Apixaban (Eliquis) 5 mg DAILY PO Last administered on 02/13/18at 09:03; Start at 09:00; Stop 02/13/18 at 15:44; Status DC Levothyroxine Sodium (Synthroid) 50 mcg DAILY07 PO Last administered on at 05:40; Start 02/13/18 at 07:00 Magnesium Hydroxide (Milk Of Magnesia) 2,400 mg PRN QHS PRN PO CONSTIPATION; Start 02/12/18 at 23:45; Status Cancel Neomycin/ Polymyxin/ Dexamethasone (Maxitrol) 2 drop TID OU Last administered on 02/17/18at 10:41; Start 02/13/18 at 09:00; Stop 02/17/18 at 14:57; Status DC Quetiapine Fumarate (SEROquel) 12.5 mg TID@0900,1300,1700 PO Last administered on 02/17/18at 10:41; Start 02/14/18 at 09:00; Stop 02/17/18 at 16:14; Status DC Valproic Acid (Depakene) 125 mg DAILY08 PO Last administered on 02/15/18at 09:13 ; Start 02/15/18 at 08:00; Stop 02/15/18 at 09:15; Status DC Valproic Acid (Depakene) 250 mg QHS PO ; Start 02/14/18 at 21:00; Stop 02/14/18 at 21:00; Status DC Divalproex Sodium (Depakote Sprinkles) 250 mg HS PO Last administered on at 20:36; Start 02/14/18 at 21:00 Divalproex Sodium (Depakote Sprinkles) 125 mg DAILY@0900 PO Last administered on 02/23/18at 07:43; Start 02/16/18 at 09:00 Mirtazapine (Remeron) 7.5 mg QHS PO Last administered on 02/23/18at 20:36; Start 02/17/18 at 21:00 Quetiapine Fumarate (SEROquel) 12.5 mg DAILY@1700 PO Last administered on at 17:10; Start 02/17/18 at 17:00 Active Scripts Active Reported Voltaren (Diclofenac Sodium) 100 Gm Gel..gram. 1 Applic TP PRN Q6HRS PRN Tramadol Hcl (Tramadol HCl) 50 Mg Tablet 25 Mg PO PRN Q12HR PRN Risperidone 0.5 Mg Tablet 0.5 Mg PO QHS Risperidone 0.5 Mg Tablet 0.25 Mg PO DAILY Maxitrol Eye Ointment (Daniel/Polymyx B Sulf/Dexameth) 3.5 Gm Oint...g. 0.5 Inch OU TID Eliquis (Apixaban) 5 Mg Tablet 5 Mg PO DAILY Levothyroxine Sodium 50 Mcg Tablet 50 Mcg PO DAILYAC Analgesic [place] (Methyl Salicylate/Menthol) 28 Gm Oint...g. 1 Gm TP PRN QID PRN Milk Of Magnesia (Magnesium Hydroxide) 2,400 Mg/10 Ml Oral.susp 2,400 Mg PO PRN QHS PRN Mag-Al Plus Xs Suspension (Mag Hydrox/Al Hydrox/Simeth) 30 Ml Oral.susp 15 Ml PO PRN Q8HRS PRN Tylenol (Acetaminophen) 325 Mg Tablet 650 Mg PO PRN Q6HRS PRN Valproic Acid (Valproate Sodium) 250 Mg/5 Ml Solution 125 Mg PO BID@1300,1700 Mirtazapine 15 Mg Tablet 15 Mg PO QHS Zyprexa Zydis (Olanzapine) 5 Mg Tab.rapdis 2.5 Mg PO PRN Q2HR PRN maximum 10 mg in 24 hours D3-50 (Cholecalciferol (Vitamin D3)) 50,000 Unit Capsule 50,000 Unit PO WEEKLY Every Friday Sertraline Hcl 25 Mg Tablet 75 Mg PO DAILY Buspirone Hcl 5 Mg Tablet 7.5 Mg PO TID Melatonin 3 Mg Tablet 1.5 Mg PO QHS PRN Lorazepam 0.5 Mg Tablet 0.5 Mg PO PRN Q12HR PRN I have reviewed the current psychotropics carefully including drug interactions. Risk benefit ratio favors no change other than as noted in my dictated progress note. Diagnosis: Problems: (1) Anxiety disorder (2) Dementia in Alzheimer's disease with delusions (3) Dementia in Alzheimer's disease with depression (4) Dementia, vascular, with delusions (5) Dementia, vascular, with depression (6) Impulse control disorder KODY GODINEZ MD Feb 23, 2018 20:55
[2018-02-24 05:51] VITALS: BP 115/64
[2018-02-24] MEDS: LEVOTHYROXINE 50 MCG TABLET PO SCH (06:13)
[2018-02-24 07:29] LABS: BASO % 1 % (0-3); EOS # 0.1 x10^3/uL (0.0-0.7); EOS % 1 % (0-3); HEMATOCRIT 38.6 % (36.0-47.0); HEMOGLOBIN 12.7 g/dL (12.0-15.5); LYMPH # 1.5 x10^3/uL (1.0-4.8); LYMPH % 16 % (24-48); MEAN CORPUSCULAR HEMOGLOBIN 30 pg (25-35); MEAN CORPUSCULAR HGB CONC 33 g/dL (31-37); MEAN CORPUSCULAR VOLUME 92 fL (79-100); MONO # 0.9 x10^3/uL (0.0-1.1); MONO % 10 % (0-9); NEUT # 6.7 x10^3uL (1.8-7.7); NEUT % 72 % (31-73); PLATELET COUNT 305 x10^3/uL (140-400); RED BLOOD COUNT 4.21 x10^6/uL (3.50-5.40); RED CELL DISTRIBUTION WIDTH 14.9 % (11.5-14.5); WHITE BLOOD COUNT 9.3 x10^3/uL (4.0-11.0)
[2018-02-24] MEDS: DIVALPROEX 125 MG CAP.SPRINK PO SCH ×2 (07:45→19:35)
[2018-02-24] MEDS: SERTRALINE 25 MG TABLET. PO SCH (07:46)
[2018-02-24 07:48] LABS: ALBUMIN 2.7 g/dL (3.4-5.0); ALBUMIN/GLOBULIN RATIO 0.7 (1.0-1.7); CALCIUM 8.7 mg/dL (8.5-10.1); CREATININE 0.8 mg/dL (0.6-1.0); GFR 69.6; POTASSIUM 4.2 mmol/L (3.5-5.1); TOTAL BILIRUBIN 0.6 mg/dL (0.2-1.0); TOTAL PROTEIN 6.6 g/dL (6.4-8.2)
[2018-02-24 16:47] VITALS: BP 125/74
[2018-02-24] MEDS: QUEtiapine 25 MG TABLET. PO SCH (17:04)
[2018-02-24] MEDS: MIRTAZAPINE 7.5 MG TABLET. PO SCH (19:35)
--- NOTE | 2018-02-24 20:59 | PDOC ---
Exam Note: Wilmar Note: Please also refer to the separate dictated note~for this date of service dictated separately.~Patient seen individually. Discussed the patient with Nursing staff reviewed the chart.~Reviewed interim history and current functioning. Reviewed vital signs,~Labs/ Radiology~and current medications noted below. Continue current treatment with the changes noted in the dictated addendum note Assessment: Vital Signs: Vital Signs Date Time Temp Pulse Resp B/P (MAP) Pulse Ox O2 Delivery O2 Flow Rate FiO2 02/24/18 16:47 98.2 94 18 125/74 (91) 95 I&O Intake and Output 02/24/18 07:00 Intake Total 240 ml Balance 240 ml Intake Oral 240 ml # Voids 1 # Bowel Movements 1 Labs: Laboratory Tests Test 02/24/18 07:18 White Blood Count 9.3 x10^3/uL (4.0-11.0) Red Blood Count 4.21 x10^6/uL (3.50-5.40) Hemoglobin 12.7 g/dL (12.0-15.5) Hematocrit 38.6 % (36.0-47.0) Mean Corpuscular Volume 92 fL (79-100) Mean Corpuscular Hemoglobin 30 pg (25-35) Mean Corpuscular Hemoglobin Concent 33 g/dL (31-37) Red Cell Distribution Width 14.9 % (11.5-14.5) H Platelet Count 305 x10^3/uL (140-400) Neutrophils (%) (Auto) 72 % (31-73) Lymphocytes (%) (Auto) 16 % (24-48) L Monocytes (%) (Auto) 10 % (0-9) H Eosinophils (%) (Auto) 1 % (0-3) Basophils (%) (Auto) 1 % (0-3) Neutrophils # (Auto) 6.7 x10^3uL (1.8-7.7) Lymphocytes # (Auto) 1.5 x10^3/uL (1.0-4.8) Monocytes # (Auto) 0.9 x10^3/uL (0.0-1.1) Eosinophils # (Auto) 0.1 x10^3/uL (0.0-0.7) Basophils # (Auto) 0.0 x10^3/uL (0.0-0.2) Sodium Level 140 mmol/L (136-145) Potassium Level 4.2 mmol/L (3.5-5.1) Chloride Level 104 mmol/L (98-107) Carbon Dioxide Level 30 mmol/L (21-32) Anion Gap 6 (6-14) Blood Urea Nitrogen 18 mg/dL (7-20) Creatinine 0.8 mg/dL (0.6-1.0) Estimated GFR (Cockcroft-Gault) 69.6 BUN/Creatinine Ratio 23 (6-20) H Glucose Level 99 mg/dL (70-99) Calcium Level 8.7 mg/dL (8.5-10.1) Total Bilirubin 0.6 mg/dL (0.2-1.0) Aspartate Amino Transferase (AST) 27 U/L (15-37) Alanine Aminotransferase (ALT) 34 U/L (14-59) Alkaline Phosphatase 79 U/L (46-116) Total Protein 6.6 g/dL (6.4-8.2) Albumin 2.7 g/dL (3.4-5.0) L Albumin/Globulin Ratio 0.7 (1.0-1.7) L Current Medications: Meds: Current Medications Acetaminophen (Tylenol) 650 mg PRN Q6HRS PRN PO PAIN / TEMP; Start 02/12/18 at 23:00 Multi-Ingredient Ointment (Analgesic [place]) 1 krzysztof PRN QID PRN TP MUSCLE PAIN; Start 02/12/18 at 23:00 Al Hydroxide/Mg Hydroxide (Mylanta Plus Xs) 15 ml PRN AFTMEALHC PRN PO DYSPEPSIA; Start 02/12/18 at 23:00 Magnesium Hydroxide (Milk Of Magnesia) 2,400 mg PRN QHS PRN PO CONSTIPATION; Start 02/12/18 at 23:00 Olanzapine (ZyPREXA ZYDIS) 2.5 mg PRN Q2HR PRN PO ANXIETY / AGITATION; Start at 23:45 Buspirone HCl (Buspar) 7.5 mg TID PO Last administered on 02/18/18at 14:09; Start 02/13/18 at 09:00; Stop 02/18/18 at 17:52; Status DC Lorazepam (Ativan) 0.5 mg PRN Q12HR PRN PO ANXIETY / AGITATION; Start 02/12/18 at 23:45 Melatonin 1.5 mg PRN QHS PRN PO INSOMNIA; Start 02/12/18 at 23:45 Mirtazapine (Remeron) 15 mg QHS PO Last administered on 02/16/18at 19:46; Start 02/13/18 at 21:00; Stop 02/17/18 at 16:14; Status DC Risperidone (RisperDAL) 0.25 mg DAILY PO Last administered on 02/13/18at 09:03; Start 02/13/18 at 09:00; Stop 02/13/18 at 17:09; Status DC Risperidone (RisperDAL) 0.5 mg QHS PO ; Start 02/13/18 at 21:00; Stop 02/13/18 at 21:00; Status DC Sertraline HCl (Zoloft) 75 mg DAILY PO Last administered on 02/24/18at 07:46; Start 02/13/18 at 09:00 Valproic Acid (Depakene) 125 mg BID@1300,1700 PO Last administered on at 17:00; Start 02/13/18 at 13:00; Stop 02/14/18 at 18:50; Status DC Acetaminophen (Tylenol) 650 mg PRN Q6HRS PRN PO PAIN / TEMP; Start 02/12/18 at 23:45; Status UNV Vitamin D (Vitamin D3) 50,000 unit WEEKLY PO Last administered on 02/19/18at 07: 53; Start 02/19/18 at 09:00 Diclofenac Sodium (Voltaren) 1 krzysztof PRN Q6HRS PRN TP PAIN; Start 02/12/18 at 23: 45 Al Hydroxide/Mg Hydroxide (Mylanta Plus Xs) 15 ml PRN Q8HRS PRN PO DYSPEPSIA; Start 02/12/18 at 23:45; Status Cancel Multi-Ingredient Ointment (Analgesic [place]) 1 krzysztof PRN QID PRN TP PAIN; Start at 23:45; Status Cancel Apixaban (Eliquis) 5 mg DAILY PO Last administered on 02/13/18at 09:03; Start at 09:00; Stop 02/13/18 at 15:44; Status DC Levothyroxine Sodium (Synthroid) 50 mcg DAILY07 PO Last administered on at 06:13; Start 02/13/18 at 07:00 Magnesium Hydroxide (Milk Of Magnesia) 2,400 mg PRN QHS PRN PO CONSTIPATION; Start 02/12/18 at 23:45; Status Cancel Neomycin/ Polymyxin/ Dexamethasone (Maxitrol) 2 drop TID OU Last administered on 02/17/18at 10:41; Start 02/13/18 at 09:00; Stop 02/17/18 at 14:57; Status DC Quetiapine Fumarate (SEROquel) 12.5 mg TID@0900,1300,1700 PO Last administered on 02/17/18at 10:41; Start 02/14/18 at 09:00; Stop 02/17/18 at 16:14; Status DC Valproic Acid (Depakene) 125 mg DAILY08 PO Last administered on 02/15/18at 09:13 ; Start 02/15/18 at 08:00; Stop 02/15/18 at 09:15; Status DC Valproic Acid (Depakene) 250 mg QHS PO ; Start 02/14/18 at 21:00; Stop 02/14/18 at 21:00; Status DC Divalproex Sodium (Depakote Sprinkles) 250 mg HS PO Last administered on at 19:35; Start 02/14/18 at 21:00 Divalproex Sodium (Depakote Sprinkles) 125 mg DAILY@0900 PO Last administered on 02/24/18at 07:45; Start 02/16/18 at 09:00 Mirtazapine (Remeron) 7.5 mg QHS PO Last administered on 02/24/18at 19:35; Start 02/17/18 at 21:00 Quetiapine Fumarate (SEROquel) 12.5 mg DAILY@1700 PO Last administered on at 17:04; Start 02/17/18 at 17:00 Active Scripts Active Reported Voltaren (Diclofenac Sodium) 100 Gm Gel..gram. 1 Applic TP PRN Q6HRS PRN Tramadol Hcl (Tramadol HCl) 50 Mg Tablet 25 Mg PO PRN Q12HR PRN Risperidone 0.5 Mg Tablet 0.5 Mg PO QHS Risperidone 0.5 Mg Tablet 0.25 Mg PO DAILY Maxitrol Eye Ointment (Daniel/Polymyx B Sulf/Dexameth) 3.5 Gm Oint...g. 0.5 Inch OU TID Eliquis (Apixaban) 5 Mg Tablet 5 Mg PO DAILY Levothyroxine Sodium 50 Mcg Tablet 50 Mcg PO DAILYAC Analgesic [place] (Methyl Salicylate/Menthol) 28 Gm Oint...g. 1 Gm TP PRN QID PRN Milk Of Magnesia (Magnesium Hydroxide) 2,400 Mg/10 Ml Oral.susp 2,400 Mg PO PRN QHS PRN Mag-Al Plus Xs Suspension (Mag Hydrox/Al Hydrox/Simeth) 30 Ml Oral.susp 15 Ml PO PRN Q8HRS PRN Tylenol (Acetaminophen) 325 Mg Tablet 650 Mg PO PRN Q6HRS PRN Valproic Acid (Valproate Sodium) 250 Mg/5 Ml Solution 125 Mg PO BID@1300,1700 Mirtazapine 15 Mg Tablet 15 Mg PO QHS Zyprexa Zydis (Olanzapine) 5 Mg Tab.rapdis 2.5 Mg PO PRN Q2HR PRN maximum 10 mg in 24 hours D3-50 (Cholecalciferol (Vitamin D3)) 50,000 Unit Capsule 50,000 Unit PO WEEKLY Every Friday Sertraline Hcl 25 Mg Tablet 75 Mg PO DAILY Buspirone Hcl 5 Mg Tablet 7.5 Mg PO TID Melatonin 3 Mg Tablet 1.5 Mg PO QHS PRN Lorazepam 0.5 Mg Tablet 0.5 Mg PO PRN Q12HR PRN I have reviewed the current psychotropics carefully including drug interactions. Risk benefit ratio favors no change other than as noted in my dictated progress note. Diagnosis: Problems: (1) Anxiety disorder (2) Dementia in Alzheimer's disease with delusions (3) Dementia in Alzheimer's disease with depression (4) Dementia, vascular, with delusions (5) Dementia, vascular, with depression (6) Impulse control disorder KODY GODINEZ MD Feb 24, 2018 20:59
--- NOTE | 2018-02-25 02:17 | PN ---
DATE: 02/22/2018 This is a late entry 02/22/2018, covers elements not covered in my initial note. SUBJECTIVE: I met with the patient in the evening. The patient slept 7-3/4 hours previous evening. She has been aggressive with cares. Slept in the Broda chair and ate some breakfast and dinner. REVIEW OF SYSTEMS: No CV, , pulmonary, eye, ENT system symptoms on review. Reliability poor. MENTAL STATUS EXAM: Oriented to herself. Insight, judgment, recent and remote memory, attention, concentration, fund of knowledge poor, consistent with her diagnoses. IMPRESSION: Major neurocognitive disorder, Alzheimer, vascular with delusion, depression, behavioral disturbance. She takes some medications crushed. PLAN: No change from initial note. She is much less sedated, not aggressive. MAN Araceli GODINEZ MD DR: CAROLYN/maria isabel JOB#: [id number] / [id number]
--- NOTE | 2018-02-25 02:34 | PN ---
DATE: 02/23/2018 PSYCHIATRIC PROGRESS NOTE This late entry of 02/23/2018, covers elements not covered in my initial note. SUBJECTIVE: I met with the patient in the evening of 02/23/2018. The patient slept 8 hours previous evening. She has been somewhat agitated at times, cursing and trying to slap at staff during cares. REVIEW OF SYSTEMS: Ambulation impaired, in Broda chair. No CV, , pulmonary, eye, ENT system symptoms on review. Reliability poor. MENTAL STATUS EXAM: Oriented to herself. Insight, judgment, recent and remote memory, attention, concentration, fund of knowledge poor, consistent with her diagnosis mentioned in my initial note. PLAN: No change from initial note. MAN Araceli GODINEZ MD DR: CAROLYN/maria isabel JOB#: [id number] / [id number]
[2018-02-25] MEDS: LEVOTHYROXINE 50 MCG TABLET PO SCH (06:24)
[2018-02-25] MEDS: SERTRALINE 25 MG TABLET. PO SCH (07:35)
[2018-02-25] MEDS: DIVALPROEX 125 MG CAP.SPRINK PO SCH ×2 (07:36→19:41)
[2018-02-25 16:57] VITALS: BP 113/50
[2018-02-25] MEDS: QUEtiapine 25 MG TABLET. PO SCH (17:33)
[2018-02-25] MEDS: MIRTAZAPINE 7.5 MG TABLET. PO SCH (19:41)
--- NOTE | 2018-02-25 20:57 | PDOC ---
Exam Note: Wilmar Note: Please also refer to the separate dictated note~for this date of service dictated separately.~Patient seen individually. Discussed the patient with Nursing staff reviewed the chart.~Reviewed interim history and current functioning. Reviewed vital signs,~Labs/ Radiology~and current medications noted below. Continue current treatment with the changes noted in the dictated addendum note Assessment: Vital Signs: Vital Signs Date Time Temp Pulse Resp B/P (MAP) Pulse Ox O2 Delivery O2 Flow Rate FiO2 02/25/18 16:57 99.1 96 18 113/50 (71) 95 I&O Intake and Output 02/25/18 07:00 Intake Total 840 ml Balance 840 ml Intake Oral 840 ml Current Medications: Meds: Current Medications Acetaminophen (Tylenol) 650 mg PRN Q6HRS PRN PO PAIN / TEMP; Start 02/12/18 at 23:00 Multi-Ingredient Ointment (Analgesic [place]) 1 krzysztof PRN QID PRN TP MUSCLE PAIN; Start 02/12/18 at 23:00 Al Hydroxide/Mg Hydroxide (Mylanta Plus Xs) 15 ml PRN AFTMEALHC PRN PO DYSPEPSIA; Start 02/12/18 at 23:00 Magnesium Hydroxide (Milk Of Magnesia) 2,400 mg PRN QHS PRN PO CONSTIPATION; Start 02/12/18 at 23:00 Olanzapine (ZyPREXA ZYDIS) 2.5 mg PRN Q2HR PRN PO ANXIETY / AGITATION; Start at 23:45 Buspirone HCl (Buspar) 7.5 mg TID PO Last administered on 02/18/18at 14:09; Start 02/13/18 at 09:00; Stop 02/18/18 at 17:52; Status DC Lorazepam (Ativan) 0.5 mg PRN Q12HR PRN PO ANXIETY / AGITATION; Start 02/12/18 at 23:45 Melatonin 1.5 mg PRN QHS PRN PO INSOMNIA; Start 02/12/18 at 23:45 Mirtazapine (Remeron) 15 mg QHS PO Last administered on 02/16/18at 19:46; Start 02/13/18 at 21:00; Stop 02/17/18 at 16:14; Status DC Risperidone (RisperDAL) 0.25 mg DAILY PO Last administered on 02/13/18at 09:03; Start 02/13/18 at 09:00; Stop 02/13/18 at 17:09; Status DC Risperidone (RisperDAL) 0.5 mg QHS PO ; Start 02/13/18 at 21:00; Stop 02/13/18 at 21:00; Status DC Sertraline HCl (Zoloft) 75 mg DAILY PO Last administered on 02/25/18at 07:35; Start 02/13/18 at 09:00 Valproic Acid (Depakene) 125 mg BID@1300,1700 PO Last administered on at 17:00; Start 02/13/18 at 13:00; Stop 02/14/18 at 18:50; Status DC Acetaminophen (Tylenol) 650 mg PRN Q6HRS PRN PO PAIN / TEMP; Start 02/12/18 at 23:45; Status UNV Vitamin D (Vitamin D3) 50,000 unit WEEKLY PO Last administered on 02/19/18at 07: 53; Start 02/19/18 at 09:00 Diclofenac Sodium (Voltaren) 1 krzysztof PRN Q6HRS PRN TP PAIN; Start 02/12/18 at 23: 45 Al Hydroxide/Mg Hydroxide (Mylanta Plus Xs) 15 ml PRN Q8HRS PRN PO DYSPEPSIA; Start 02/12/18 at 23:45; Status Cancel Multi-Ingredient Ointment (Analgesic [place]) 1 krzysztof PRN QID PRN TP PAIN; Start at 23:45; Status Cancel Apixaban (Eliquis) 5 mg DAILY PO Last administered on 02/13/18at 09:03; Start at 09:00; Stop 02/13/18 at 15:44; Status DC Levothyroxine Sodium (Synthroid) 50 mcg DAILY07 PO Last administered on at 06:24; Start 02/13/18 at 07:00 Magnesium Hydroxide (Milk Of Magnesia) 2,400 mg PRN QHS PRN PO CONSTIPATION; Start 02/12/18 at 23:45; Status Cancel Neomycin/ Polymyxin/ Dexamethasone (Maxitrol) 2 drop TID OU Last administered on 02/17/18at 10:41; Start 02/13/18 at 09:00; Stop 02/17/18 at 14:57; Status DC Quetiapine Fumarate (SEROquel) 12.5 mg TID@0900,1300,1700 PO Last administered on 02/17/18at 10:41; Start 02/14/18 at 09:00; Stop 02/17/18 at 16:14; Status DC Valproic Acid (Depakene) 125 mg DAILY08 PO Last administered on 02/15/18at 09:13 ; Start 02/15/18 at 08:00; Stop 02/15/18 at 09:15; Status DC Valproic Acid (Depakene) 250 mg QHS PO ; Start 02/14/18 at 21:00; Stop 02/14/18 at 21:00; Status DC Divalproex Sodium (Depakote Sprinkles) 250 mg HS PO Last administered on at 19:41; Start 02/14/18 at 21:00 Divalproex Sodium (Depakote Sprinkles) 125 mg DAILY@0900 PO Last administered on 02/25/18at 07:36; Start 02/16/18 at 09:00 Mirtazapine (Remeron) 7.5 mg QHS PO Last administered on 02/25/18at 19:41; Start 02/17/18 at 21:00 Quetiapine Fumarate (SEROquel) 12.5 mg DAILY@1700 PO Last administered on at 17:33; Start 02/17/18 at 17:00 Active Scripts Active Reported Voltaren (Diclofenac Sodium) 100 Gm Gel..gram. 1 Applic TP PRN Q6HRS PRN Tramadol Hcl (Tramadol HCl) 50 Mg Tablet 25 Mg PO PRN Q12HR PRN Risperidone 0.5 Mg Tablet 0.5 Mg PO QHS Risperidone 0.5 Mg Tablet 0.25 Mg PO DAILY Maxitrol Eye Ointment (Daniel/Polymyx B Sulf/Dexameth) 3.5 Gm Oint...g. 0.5 Inch OU TID Eliquis (Apixaban) 5 Mg Tablet 5 Mg PO DAILY Levothyroxine Sodium 50 Mcg Tablet 50 Mcg PO DAILYAC Analgesic [place] (Methyl Salicylate/Menthol) 28 Gm Oint...g. 1 Gm TP PRN QID PRN Milk Of Magnesia (Magnesium Hydroxide) 2,400 Mg/10 Ml Oral.susp 2,400 Mg PO PRN QHS PRN Mag-Al Plus Xs Suspension (Mag Hydrox/Al Hydrox/Simeth) 30 Ml Oral.susp 15 Ml PO PRN Q8HRS PRN Tylenol (Acetaminophen) 325 Mg Tablet 650 Mg PO PRN Q6HRS PRN Valproic Acid (Valproate Sodium) 250 Mg/5 Ml Solution 125 Mg PO BID@1300,1700 Mirtazapine 15 Mg Tablet 15 Mg PO QHS Zyprexa Zydis (Olanzapine) 5 Mg Tab.rapdis 2.5 Mg PO PRN Q2HR PRN maximum 10 mg in 24 hours D3-50 (Cholecalciferol (Vitamin D3)) 50,000 Unit Capsule 50,000 Unit PO WEEKLY Every Friday Sertraline Hcl 25 Mg Tablet 75 Mg PO DAILY Buspirone Hcl 5 Mg Tablet 7.5 Mg PO TID Melatonin 3 Mg Tablet 1.5 Mg PO QHS PRN Lorazepam 0.5 Mg Tablet 0.5 Mg PO PRN Q12HR PRN I have reviewed the current psychotropics carefully including drug interactions. Risk benefit ratio favors no change other than as noted in my dictated progress note. Diagnosis: Problems: (1) Anxiety disorder (2) Dementia in Alzheimer's disease with delusions (3) Dementia in Alzheimer's disease with depression (4) Dementia, vascular, with delusions (5) Dementia, vascular, with depression (6) Impulse control disorder KODY GODINEZ MD Feb 25, 2018 20:57
--- NOTE | 2018-02-25 23:28 | PN ---
DATE: 02/24/2018 PSYCHIATRIC PROGRESS NOTE This late entry 02/24/2018 covers elements not covered in my initial note. SUBJECTIVE: Met with the patient in the evening. The patient slept 8 hours previous night. She does open her eyes more, has not been aggressive. REVIEW OF SYSTEMS: Ambulation is impaired, in Broda chair. No CV, , pulmonary, eye, ENT system symptoms on review. Reliability poor. MENTAL STATUS EXAM: Oriented to herself. Insight, judgment, recent and remote memory, attention, concentration, fund of knowledge is poor, consistent with her diagnoses mentioned in my initial note. PLAN: No change from initial note. MAN Araceli GODINEZ MD DR: CAROLYN/maria isabel JOB#: [id number] / [id number]
[2018-02-26 06:18] VITALS: BP 104/50
[2018-02-26] MEDS: DIVALPROEX 125 MG CAP.SPRINK PO SCH ×2 (09:27→21:23)
[2018-02-26] MEDS: SERTRALINE 25 MG TABLET. PO SCH (09:27)
[2018-02-26] MEDS: LEVOTHYROXINE 50 MCG TABLET PO SCH (10:41)
[2018-02-26] MEDS: CHOLECALCIFEROL (VITAMIN D3) 50,000 UNIT CAPSULE PO SCH (10:41)
[2018-02-26 16:33] VITALS: BP 136/66
[2018-02-26] MEDS: QUEtiapine 25 MG TABLET. PO SCH (16:40)
--- NOTE | 2018-02-26 20:59 | PDOC ---
Exam Note: Wilmar Note: Please also refer to the separate dictated note~for this date of service dictated separately.~Patient seen individually. Discussed the patient with Nursing staff reviewed the chart.~Reviewed interim history and current functioning. Reviewed vital signs,~Labs/ Radiology~and current medications noted below. Continue current treatment with the changes noted in the dictated addendum note Assessment: Vital Signs: Vital Signs Date Time Temp Pulse Resp B/P (MAP) Pulse Ox O2 Delivery O2 Flow Rate FiO2 02/26/18 16:33 97.6 63 16 136/66 (89) 96 Room Air I&O Intake and Output 02/26/18 07:00 Intake Total 700 ml Balance 700 ml Intake Oral 700 ml # Bowel Movements 2 Current Medications: Meds: Current Medications Acetaminophen (Tylenol) 650 mg PRN Q6HRS PRN PO PAIN / TEMP; Start 02/12/18 at 23:00 Multi-Ingredient Ointment (Analgesic [place]) 1 krzysztof PRN QID PRN TP MUSCLE PAIN; Start 02/12/18 at 23:00 Al Hydroxide/Mg Hydroxide (Mylanta Plus Xs) 15 ml PRN AFTMEALHC PRN PO DYSPEPSIA; Start 02/12/18 at 23:00 Magnesium Hydroxide (Milk Of Magnesia) 2,400 mg PRN QHS PRN PO CONSTIPATION; Start 02/12/18 at 23:00 Olanzapine (ZyPREXA ZYDIS) 2.5 mg PRN Q2HR PRN PO ANXIETY / AGITATION; Start at 23:45 Buspirone HCl (Buspar) 7.5 mg TID PO Last administered on 02/18/18at 14:09; Start 02/13/18 at 09:00; Stop 02/18/18 at 17:52; Status DC Lorazepam (Ativan) 0.5 mg PRN Q12HR PRN PO ANXIETY / AGITATION; Start 02/12/18 at 23:45 Melatonin 1.5 mg PRN QHS PRN PO INSOMNIA; Start 02/12/18 at 23:45 Mirtazapine (Remeron) 15 mg QHS PO Last administered on 02/16/18at 19:46; Start 02/13/18 at 21:00; Stop 02/17/18 at 16:14; Status DC Risperidone (RisperDAL) 0.25 mg DAILY PO Last administered on 02/13/18at 09:03; Start 02/13/18 at 09:00; Stop 02/13/18 at 17:09; Status DC Risperidone (RisperDAL) 0.5 mg QHS PO ; Start 02/13/18 at 21:00; Stop 02/13/18 at 21:00; Status DC Sertraline HCl (Zoloft) 75 mg DAILY PO Last administered on 02/26/18at 09:27; Start 02/13/18 at 09:00 Valproic Acid (Depakene) 125 mg BID@1300,1700 PO Last administered on at 17:00; Start 02/13/18 at 13:00; Stop 02/14/18 at 18:50; Status DC Acetaminophen (Tylenol) 650 mg PRN Q6HRS PRN PO PAIN / TEMP; Start 02/12/18 at 23:45; Status UNV Vitamin D (Vitamin D3) 50,000 unit WEEKLY PO Last administered on 02/26/18at 10: 41; Start 02/19/18 at 09:00 Diclofenac Sodium (Voltaren) 1 krzysztof PRN Q6HRS PRN TP PAIN; Start 02/12/18 at 23: 45 Al Hydroxide/Mg Hydroxide (Mylanta Plus Xs) 15 ml PRN Q8HRS PRN PO DYSPEPSIA; Start 02/12/18 at 23:45; Status Cancel Multi-Ingredient Ointment (Analgesic [place]) 1 krzysztof PRN QID PRN TP PAIN; Start at 23:45; Status Cancel Apixaban (Eliquis) 5 mg DAILY PO Last administered on 02/13/18at 09:03; Start at 09:00; Stop 02/13/18 at 15:44; Status DC Levothyroxine Sodium (Synthroid) 50 mcg DAILY07 PO Last administered on at 10:41; Start 02/13/18 at 07:00 Magnesium Hydroxide (Milk Of Magnesia) 2,400 mg PRN QHS PRN PO CONSTIPATION; Start 02/12/18 at 23:45; Status Cancel Neomycin/ Polymyxin/ Dexamethasone (Maxitrol) 2 drop TID OU Last administered on 02/17/18at 10:41; Start 8/24/18 at 09:00; Stop 02/17/18 at 14:57; Status DC Quetiapine Fumarate (SEROquel) 12.5 mg TID@0900,1300,1700 PO Last administered on 02/17/18at 10:41; Start 02/14/18 at 09:00; Stop 02/17/18 at 16:14; Status DC Valproic Acid (Depakene) 125 mg DAILY08 PO Last administered on 02/15/18at 09:13 ; Start 02/15/18 at 08:00; Stop 02/15/18 at 09:15; Status DC Valproic Acid (Depakene) 250 mg QHS PO ; Start 02/14/18 at 21:00; Stop 02/14/18 at 21:00; Status DC Divalproex Sodium (Depakote Sprinkles) 250 mg HS PO Last administered on at 19:41; Start 02/14/18 at 21:00 Divalproex Sodium (Depakote Sprinkles) 125 mg DAILY@0900 PO Last administered on 02/26/18at 09:27; Start 02/16/18 at 09:00 Mirtazapine (Remeron) 7.5 mg QHS PO Last administered on 02/25/18 19:41; Start 02/17/18 at 21:00 Quetiapine Fumarate (SEROquel) 12.5 mg DAILY@1700 PO Last administered on at 16:40; Start 02/17/18 at 17:00 Active Scripts Active Reported Voltaren (Diclofenac Sodium) 100 Gm Gel..gram. 1 Applic TP PRN Q6HRS PRN Tramadol Hcl (Tramadol HCl) 50 Mg Tablet 25 Mg PO PRN Q12HR PRN Risperidone 0.5 Mg Tablet 0.5 Mg PO QHS Risperidone 0.5 Mg Tablet 0.25 Mg PO DAILY Maxitrol Eye Ointment (Daniel/Polymyx B Sulf/Dexameth) 3.5 Gm Oint...g. 0.5 Inch OU TID Eliquis (Apixaban) 5 Mg Tablet 5 Mg PO DAILY Levothyroxine Sodium 50 Mcg Tablet 50 Mcg PO DAILYAC Analgesic [place] (Methyl Salicylate/Menthol) 28 Gm Oint...g. 1 Gm TP PRN QID PRN Milk Of Magnesia (Magnesium Hydroxide) 2,400 Mg/10 Ml Oral.susp 2,400 Mg PO PRN QHS PRN Mag-Al Plus Xs Suspension (Mag Hydrox/Al Hydrox/Simeth) 30 Ml Oral.susp 15 Ml PO PRN Q8HRS PRN Tylenol (Acetaminophen) 325 Mg Tablet 650 Mg PO PRN Q6HRS PRN Valproic Acid (Valproate Sodium) 250 Mg/5 Ml Solution 125 Mg PO BID@1300,1700 Mirtazapine 15 Mg Tablet 15 Mg PO QHS Zyprexa Zydis (Olanzapine) 5 Mg Tab.rapdis 2.5 Mg PO PRN Q2HR PRN maximum 10 mg in 24 hours D3-50 (Cholecalciferol (Vitamin D3)) 50,000 Unit Capsule 50,000 Unit PO WEEKLY Every Friday Sertraline Hcl 25 Mg Tablet 75 Mg PO DAILY Buspirone Hcl 5 Mg Tablet 7.5 Mg PO TID Melatonin 3 Mg Tablet 1.5 Mg PO QHS PRN Lorazepam 0.5 Mg Tablet 0.5 Mg PO PRN Q12HR PRN I have reviewed the current psychotropics carefully including drug interactions. Risk benefit ratio favors no change other than as noted in my dictated progress note. Diagnosis: Problems: (1) Anxiety disorder (2) Dementia in Alzheimer's disease with delusions (3) Dementia in Alzheimer's disease with depression (4) Dementia, vascular, with delusions (5) Dementia, vascular, with depression (6) Impulse control disorder KODY GODINEZ MD Feb 26, 2018 20:59
[2018-02-26] MEDS: MIRTAZAPINE 7.5 MG TABLET. PO SCH (21:22)
[2018-02-27] MEDS: LEVOTHYROXINE 50 MCG TABLET PO SCH (06:10)
[2018-02-27 07:01] VITALS: BP 110/54
[2018-02-27] MEDS: SERTRALINE 25 MG TABLET. PO SCH (07:39)
[2018-02-27] MEDS: DIVALPROEX 125 MG CAP.SPRINK PO SCH ×2 (07:40→19:26)
[2018-02-27] MEDS: QUEtiapine 25 MG TABLET. PO SCH (15:00)
[2018-02-27 16:03] VITALS: BP 94/56
[2018-02-27] MEDS: MIRTAZAPINE 7.5 MG TABLET. PO SCH (19:26)
--- NOTE | 2018-02-27 20:49 | PDOC ---
Exam Note: Wilmar Note: Please also refer to the separate dictated note~for this date of service dictated separately.~Patient seen individually. Discussed the patient with Nursing staff reviewed the chart.~Reviewed interim history and current functioning. Reviewed vital signs,~Labs/ Radiology~and current medications noted below. Continue current treatment with the changes noted in the dictated addendum note Assessment: Vital Signs: Vital Signs Date Time Temp Pulse Resp B/P (MAP) Pulse Ox O2 Delivery O2 Flow Rate FiO2 02/27/18 16:03 98.5 94 16 94/56 (69) 97 02/26/18 16:33 Room Air I&O Intake and Output 02/27/18 07:00 Intake Total 120 ml Balance 120 ml Intake Oral 120 ml # Voids 1 Current Medications: Meds: Current Medications Acetaminophen (Tylenol) 650 mg PRN Q6HRS PRN PO PAIN / TEMP; Start 02/12/18 at 23:00 Multi-Ingredient Ointment (Analgesic [place]) 1 krzysztof PRN QID PRN TP MUSCLE PAIN; Start 02/12/18 at 23:00 Al Hydroxide/Mg Hydroxide (Mylanta Plus Xs) 15 ml PRN AFTMEALHC PRN PO DYSPEPSIA; Start 02/12/18 at 23:00 Magnesium Hydroxide (Milk Of Magnesia) 2,400 mg PRN QHS PRN PO CONSTIPATION; Start 02/12/18 at 23:00 Olanzapine (ZyPREXA ZYDIS) 2.5 mg PRN Q2HR PRN PO ANXIETY / AGITATION; Start at 23:45 Buspirone HCl (Buspar) 7.5 mg TID PO Last administered on 02/18/18at 14:09; Start 02/13/18 at 09:00; Stop 02/18/18 at 17:52; Status DC Lorazepam (Ativan) 0.5 mg PRN Q12HR PRN PO ANXIETY / AGITATION; Start 02/12/18 at 23:45 Melatonin 1.5 mg PRN QHS PRN PO INSOMNIA; Start 02/12/18 at 23:45 Mirtazapine (Remeron) 15 mg QHS PO Last administered on 02/16/18at 19:46; Start 02/13/18 at 21:00; Stop 02/17/18 at 16:14; Status DC Risperidone (RisperDAL) 0.25 mg DAILY PO Last administered on 02/13/18at 09:03; Start 02/13/18 at 09:00; Stop 02/13/18 at 17:09; Status DC Risperidone (RisperDAL) 0.5 mg QHS PO ; Start 02/13/18 at 21:00; Stop 02/13/18 at 21:00; Status DC Sertraline HCl (Zoloft) 75 mg DAILY PO Last administered on 02/27/18at 07:39; Start 02/13/18 at 09:00 Valproic Acid (Depakene) 125 mg BID@1300,1700 PO Last administered on at 17:00; Start 02/13/18 at 13:00; Stop 02/14/18 at 18:50; Status DC Acetaminophen (Tylenol) 650 mg PRN Q6HRS PRN PO PAIN / TEMP; Start 02/12/18 at 23:45; Status UNV Vitamin D (Vitamin D3) 50,000 unit WEEKLY PO Last administered on 02/26/18at 10: 41; Start 02/19/18 at 09:00 Diclofenac Sodium (Voltaren) 1 krzysztof PRN Q6HRS PRN TP PAIN; Start 02/12/18 at 23: 45 Al Hydroxide/Mg Hydroxide (Mylanta Plus Xs) 15 ml PRN Q8HRS PRN PO DYSPEPSIA; Start 02/12/18 at 23:45; Status Cancel Multi-Ingredient Ointment (Analgesic [place]) 1 krzysztof PRN QID PRN TP PAIN; Start at 23:45; Status Cancel Apixaban (Eliquis) 5 mg DAILY PO Last administered on 02/13/18at 09:03; Start at 09:00; Stop 02/13/18 at 15:44; Status DC Levothyroxine Sodium (Synthroid) 50 mcg DAILY07 PO Last administered on at 06:10; Start 02/13/18 at 07:00 Magnesium Hydroxide (Milk Of Magnesia) 2,400 mg PRN QHS PRN PO CONSTIPATION; Start 02/12/18 at 23:45; Status Cancel Neomycin/ Polymyxin/ Dexamethasone (Maxitrol) 2 drop TID OU Last administered on 02/17/18at 10:41; Start 02/13/18 at 09:00; Stop 02/17/18 at 14:57; Status DC Quetiapine Fumarate (SEROquel) 12.5 mg TID@0900,1300,1700 PO Last administered on 02/17/18at 10:41; Start 02/14/18 at 09:00; Stop 02/17/18 at 16:14; Status DC Valproic Acid (Depakene) 125 mg DAILY08 PO Last administered on 02/15/18at 09:13 ; Start 02/15/18 at 08:00; Stop 02/15/18 at 09:15; Status DC Valproic Acid (Depakene) 250 mg QHS PO ; Start 02/14/18 at 21:00; Stop 02/14/18 at 21:00; Status DC Divalproex Sodium (Depakote Sprinkles) 250 mg HS PO Last administered on at 19:26; Start 02/14/18 at 21:00 Divalproex Sodium (Depakote Sprinkles) 125 mg DAILY@0900 PO Last administered on 02/27/18at 07:40; Start 02/16/18 at 09:00 Mirtazapine (Remeron) 7.5 mg QHS PO Last administered on 02/27/18at 19:26; Start 02/17/18 at 21:00 Quetiapine Fumarate (SEROquel) 12.5 mg DAILY@1700 PO Last administered on at 15:00; Start 02/17/18 at 17:00 Active Scripts Active Reported Voltaren (Diclofenac Sodium) 100 Gm Gel..gram. 1 Applic TP PRN Q6HRS PRN Tramadol Hcl (Tramadol HCl) 50 Mg Tablet 25 Mg PO PRN Q12HR PRN Risperidone 0.5 Mg Tablet 0.5 Mg PO QHS Risperidone 0.5 Mg Tablet 0.25 Mg PO DAILY Maxitrol Eye Ointment (Daniel/Polymyx B Sulf/Dexameth) 3.5 Gm Oint...g. 0.5 Inch OU TID Eliquis (Apixaban) 5 Mg Tablet 5 Mg PO DAILY Levothyroxine Sodium 50 Mcg Tablet 50 Mcg PO DAILYAC Analgesic [place] (Methyl Salicylate/Menthol) 28 Gm Oint...g. 1 Gm TP PRN QID PRN Milk Of Magnesia (Magnesium Hydroxide) 2,400 Mg/10 Ml Oral.susp 2,400 Mg PO PRN QHS PRN Mag-Al Plus Xs Suspension (Mag Hydrox/Al Hydrox/Simeth) 30 Ml Oral.susp 15 Ml PO PRN Q8HRS PRN Tylenol (Acetaminophen) 325 Mg Tablet 650 Mg PO PRN Q6HRS PRN Valproic Acid (Valproate Sodium) 250 Mg/5 Ml Solution 125 Mg PO BID@1300,1700 Mirtazapine 15 Mg Tablet 15 Mg PO QHS Zyprexa Zydis (Olanzapine) 5 Mg Tab.rapdis 2.5 Mg PO PRN Q2HR PRN maximum 10 mg in 24 hours D3-50 (Cholecalciferol (Vitamin D3)) 50,000 Unit Capsule 50,000 Unit PO WEEKLY Every Friday Sertraline Hcl 25 Mg Tablet 75 Mg PO DAILY Buspirone Hcl 5 Mg Tablet 7.5 Mg PO TID Melatonin 3 Mg Tablet 1.5 Mg PO QHS PRN Lorazepam 0.5 Mg Tablet 0.5 Mg PO PRN Q12HR PRN I have reviewed the current psychotropics carefully including drug interactions. Risk benefit ratio favors no change other than as noted in my dictated progress note. Diagnosis: Problems: (1) Anxiety disorder (2) Dementia in Alzheimer's disease with delusions (3) Dementia in Alzheimer's disease with depression (4) Dementia, vascular, with delusions (5) Dementia, vascular, with depression (6) Impulse control disorder KODY GODINEZ MD Feb 27, 2018 20:49
--- NOTE | 2018-02-27 23:19 | PN ---
DATE: 02/25/2018 This late entry 02/25/2018 covers elements not covered in my initial note 02/25/2018. SUBJECTIVE: I met with the patient in the evening. The patient continues to keep her eyes closed at times, but it is much more alert. Slept 8 hours previous night, doing about the same per nursing report. She did walk with the physical therapist to the meals. Ambulation impaired, in Broda chair. REVIEW OF SYSTEMS: No CV, , pulmonary, eye, ENT system symptoms on review. Reliability poor. MENTAL STATUS EXAM: Oriented to herself. Insight, judgment, recent and remote memory, attention, concentration, fund of knowledge poor, consistent with her diagnosis mentioned in my initial note. PLAN: No change from initial note. MAN Araceli GODINEZ MD DR: CAROLYN/maria isabel JOB#: [id number] / [id number]
--- NOTE | 2018-02-27 23:28 | PN ---
DATE: 02/26/2018 This late entry 02/26/2018 covers elements not covered in my initial note. SUBJECTIVE: I met with the patient in the evening, staffed at a treatment team meeting with the entire team in the morning of 02/26/2018. The patient is more alert per nursing report, walking more with physical therapy staff, slept 6-3/4 hours. REVIEW OF SYSTEMS: Ambulation impaired, in Broda chair. No CV, , pulmonary, eye, ENT system symptoms on review. She often still keeps her eyes closed. MENTAL STATUS EXAM: Oriented to herself. Insight, judgment, recent and remote memory, attention, concentration, fund of knowledge poor, consistent with her diagnosis mentioned in my initial note. PLAN: No change from initial note. Transition to senior care in the next day or two. MAN Araceli GODINEZ MD DR: CAROLYN/maria isabel JOB#: [id number] / [id number]
[2018-02-28] MEDS: LEVOTHYROXINE 50 MCG TABLET PO SCH (05:43)
[2018-02-28 05:57] VITALS: BP 92/58
[2018-02-28] MEDS: DIVALPROEX 125 MG CAP.SPRINK PO SCH ×2 (08:50→20:00)
[2018-02-28] MEDS: SERTRALINE 25 MG TABLET. PO SCH (08:50)
[2018-02-28 16:22] VITALS: BP 115/66
[2018-02-28] MEDS: QUEtiapine 25 MG TABLET. PO SCH (17:13)
[2018-02-28] MEDS: MIRTAZAPINE 7.5 MG TABLET. PO SCH (19:59)
--- NOTE | 2018-02-28 23:25 | PDOC ---
Exam Note: Wilmar Note: Please also refer to the separate dictated note~for this date of service dictated separately.~Patient seen individually. Discussed the patient with Nursing staff reviewed the chart.~Reviewed interim history and current functioning. Reviewed vital signs,~Labs/ Radiology~and current medications noted below. Continue current treatment with the changes noted in the dictated addendum note Assessment: Vital Signs: Vital Signs Date Time Temp Pulse Resp B/P (MAP) Pulse Ox O2 Delivery O2 Flow Rate FiO2 02/28/18 16:22 97.4 87 18 115/66 (82) 96 02/26/18 16:33 Room Air I&O Intake and Output 02/28/18 07:00 Intake Total 600 ml Balance 600 ml Intake Oral 600 ml # Bowel Movements 1 Current Medications: Meds: Current Medications Acetaminophen (Tylenol) 650 mg PRN Q6HRS PRN PO PAIN / TEMP; Start 02/12/18 at 23:00 Multi-Ingredient Ointment (Analgesic [place]) 1 krzysztof PRN QID PRN TP MUSCLE PAIN; Start 02/12/18 at 23:00 Al Hydroxide/Mg Hydroxide (Mylanta Plus Xs) 15 ml PRN AFTMEALHC PRN PO DYSPEPSIA; Start 02/12/18 at 23:00 Magnesium Hydroxide (Milk Of Magnesia) 2,400 mg PRN QHS PRN PO CONSTIPATION; Start 02/12/18 at 23:00 Olanzapine (ZyPREXA ZYDIS) 2.5 mg PRN Q2HR PRN PO ANXIETY / AGITATION; Start at 23:45 Buspirone HCl (Buspar) 7.5 mg TID PO Last administered on 02/18/18at 14:09; Start 02/13/18 at 09:00; Stop 02/18/18 at 17:52; Status DC Lorazepam (Ativan) 0.5 mg PRN Q12HR PRN PO ANXIETY / AGITATION; Start 02/12/18 at 23:45 Melatonin 1.5 mg PRN QHS PRN PO INSOMNIA; Start 02/12/18 at 23:45 Mirtazapine (Remeron) 15 mg QHS PO Last administered on 02/16/18at 19:46; Start 02/13/18 at 21:00; Stop 02/17/18 at 16:14; Status DC Risperidone (RisperDAL) 0.25 mg DAILY PO Last administered on 02/13/18at 09:03; Start 02/13/18 at 09:00; Stop 02/13/18 at 17:09; Status DC Risperidone (RisperDAL) 0.5 mg QHS PO ; Start 02/13/18 at 21:00; Stop 02/13/18 at 21:00; Status DC Sertraline HCl (Zoloft) 75 mg DAILY PO Last administered on 02/28/18at 08:50; Start 02/13/18 at 09:00 Valproic Acid (Depakene) 125 mg BID@1300,1700 PO Last administered on at 17:00; Start 02/13/18 at 13:00; Stop 02/14/18 at 18:50; Status DC Acetaminophen (Tylenol) 650 mg PRN Q6HRS PRN PO PAIN / TEMP; Start 02/12/18 at 23:45; Status UNV Vitamin D (Vitamin D3) 50,000 unit WEEKLY PO Last administered on 02/26/18at 10: 41; Start 02/19/18 at 09:00 Diclofenac Sodium (Voltaren) 1 krzysztof PRN Q6HRS PRN TP PAIN; Start 02/12/18 at 23: 45 Al Hydroxide/Mg Hydroxide (Mylanta Plus Xs) 15 ml PRN Q8HRS PRN PO DYSPEPSIA; Start 02/12/18 at 23:45; Status Cancel Multi-Ingredient Ointment (Analgesic [place]) 1 krzysztof PRN QID PRN TP PAIN; Start at 23:45; Status Cancel Apixaban (Eliquis) 5 mg DAILY PO Last administered on 02/13/18at 09:03; Start at 09:00; Stop 02/13/18 at 15:44; Status DC Levothyroxine Sodium (Synthroid) 50 mcg DAILY07 PO Last administered on at 05:43; Start 02/13/18 at 07:00 Magnesium Hydroxide (Milk Of Magnesia) 2,400 mg PRN QHS PRN PO CONSTIPATION; Start 02/12/18 at 23:45; Status Cancel Neomycin/ Polymyxin/ Dexamethasone (Maxitrol) 2 drop TID OU Last administered on 02/17/18at 10:41; Start 02/13/18 at 09:00; Stop 02/17/18 at 14:57; Status DC Quetiapine Fumarate (SEROquel) 12.5 mg TID@0900,1300,1700 PO Last administered on 02/17/18at 10:41; Start 02/14/18 at 09:00; Stop 02/17/18 at 16:14; Status DC Valproic Acid (Depakene) 125 mg DAILY08 PO Last administered on 02/15/18at 09:13 ; Start 02/15/18 at 08:00; Stop 02/15/18 at 09:15; Status DC Valproic Acid (Depakene) 250 mg QHS PO ; Start 02/14/18 at 21:00; Stop 02/14/18 at 21:00; Status DC Divalproex Sodium (Depakote Sprinkles) 250 mg HS PO Last administered on at 20:00; Start 02/14/18 at 21:00 Divalproex Sodium (Depakote Sprinkles) 125 mg DAILY@0900 PO Last administered on 02/28/18at 08:50; Start 02/16/18 at 09:00 Mirtazapine (Remeron) 7.5 mg QHS PO Last administered on 02/28/18at 19:59; Start 02/17/18 at 21:00 Quetiapine Fumarate (SEROquel) 12.5 mg DAILY@1700 PO Last administered on at 17:13; Start 02/17/18 at 17:00 Active Scripts Active Reported Voltaren (Diclofenac Sodium) 100 Gm Gel..gram. 1 Applic TP PRN Q6HRS PRN Tramadol Hcl (Tramadol HCl) 50 Mg Tablet 25 Mg PO PRN Q12HR PRN Risperidone 0.5 Mg Tablet 0.5 Mg PO QHS Risperidone 0.5 Mg Tablet 0.25 Mg PO DAILY Maxitrol Eye Ointment (Daniel/Polymyx B Sulf/Dexameth) 3.5 Gm Oint...g. 0.5 Inch OU TID Eliquis (Apixaban) 5 Mg Tablet 5 Mg PO DAILY Levothyroxine Sodium 50 Mcg Tablet 50 Mcg PO DAILYAC Analgesic [place] (Methyl Salicylate/Menthol) 28 Gm Oint...g. 1 Gm TP PRN QID PRN Milk Of Magnesia (Magnesium Hydroxide) 2,400 Mg/10 Ml Oral.susp 2,400 Mg PO PRN QHS PRN Mag-Al Plus Xs Suspension (Mag Hydrox/Al Hydrox/Simeth) 30 Ml Oral.susp 15 Ml PO PRN Q8HRS PRN Tylenol (Acetaminophen) 325 Mg Tablet 650 Mg PO PRN Q6HRS PRN Valproic Acid (Valproate Sodium) 250 Mg/5 Ml Solution 125 Mg PO BID@1300,1700 Mirtazapine 15 Mg Tablet 15 Mg PO QHS Zyprexa Zydis (Olanzapine) 5 Mg Tab.rapdis 2.5 Mg PO PRN Q2HR PRN maximum 10 mg in 24 hours D3-50 (Cholecalciferol (Vitamin D3)) 50,000 Unit Capsule 50,000 Unit PO WEEKLY Every Friday Sertraline Hcl 25 Mg Tablet 75 Mg PO DAILY Buspirone Hcl 5 Mg Tablet 7.5 Mg PO TID Melatonin 3 Mg Tablet 1.5 Mg PO QHS PRN Lorazepam 0.5 Mg Tablet 0.5 Mg PO PRN Q12HR PRN I have reviewed the current psychotropics carefully including drug interactions. Risk benefit ratio favors no change other than as noted in my dictated progress note. Diagnosis: Problems: (1) Anxiety disorder (2) Dementia in Alzheimer's disease with delusions (3) Dementia in Alzheimer's disease with depression (4) Dementia, vascular, with delusions (5) Dementia, vascular, with depression (6) Impulse control disorder KODY GODINEZ MD Feb 28, 2018 23:25
[2018-03-01] MEDS: LEVOTHYROXINE 50 MCG TABLET PO SCH (05:47)
[2018-03-01 06:04] VITALS: BP 113/72
[2018-03-01] MEDS: SERTRALINE 25 MG TABLET. PO SCH (07:26)
[2018-03-01] MEDS: DIVALPROEX 125 MG CAP.SPRINK PO SCH ×2 (07:26→19:56)
[2018-03-01 16:05] VITALS: BP 107/51
[2018-03-01] MEDS: QUEtiapine 25 MG TABLET. PO SCH (16:59)
[2018-03-01] MEDS: MIRTAZAPINE 7.5 MG TABLET. PO SCH (19:55)
--- NOTE | 2018-03-01 21:00 | PDOC ---
Exam Note: Wilmar Note: Please also refer to the separate dictated note~for this date of service dictated separately.~Patient seen individually. Discussed the patient with Nursing staff reviewed the chart.~Reviewed interim history and current functioning. Reviewed vital signs,~Labs/ Radiology~and current medications noted below. Continue current treatment with the changes noted in the dictated addendum note Assessment: Vital Signs: Vital Signs Date Time Temp Pulse Resp B/P (MAP) Pulse Ox O2 Delivery O2 Flow Rate FiO2 03/01/18 16:05 97.6 54 16 107/51 (69) 94 02/26/18 16:33 Room Air I&O Intake and Output 03/01/18 07:00 Intake Total 720 ml Balance 720 ml Intake Oral 720 ml Current Medications: Meds: Current Medications Acetaminophen (Tylenol) 650 mg PRN Q6HRS PRN PO PAIN / TEMP; Start 02/12/18 at 23:00 Multi-Ingredient Ointment (Analgesic [place]) 1 krzysztof PRN QID PRN TP MUSCLE PAIN; Start 02/12/18 at 23:00 Al Hydroxide/Mg Hydroxide (Mylanta Plus Xs) 15 ml PRN AFTMEALHC PRN PO DYSPEPSIA; Start 02/12/18 at 23:00 Magnesium Hydroxide (Milk Of Magnesia) 2,400 mg PRN QHS PRN PO CONSTIPATION; Start 02/12/18 at 23:00 Olanzapine (ZyPREXA ZYDIS) 2.5 mg PRN Q2HR PRN PO ANXIETY / AGITATION; Start at 23:45 Buspirone HCl (Buspar) 7.5 mg TID PO Last administered on 02/18/18at 14:09; Start 02/13/18 at 09:00; Stop 02/18/18 at 17:52; Status DC Lorazepam (Ativan) 0.5 mg PRN Q12HR PRN PO ANXIETY / AGITATION; Start 02/12/18 at 23:45 Melatonin 1.5 mg PRN QHS PRN PO INSOMNIA; Start 02/12/18 at 23:45 Mirtazapine (Remeron) 15 mg QHS PO Last administered on 02/16/18at 19:46; Start 02/13/18 at 21:00; Stop 02/17/18 at 16:14; Status DC Risperidone (RisperDAL) 0.25 mg DAILY PO Last administered on 02/13/18at 09:03; Start 02/13/18 at 09:00; Stop 02/13/18 at 17:09; Status DC Risperidone (RisperDAL) 0.5 mg QHS PO ; Start 02/13/18 at 21:00; Stop 02/13/18 at 21:00; Status DC Sertraline HCl (Zoloft) 75 mg DAILY PO Last administered on 03/01/18at 07:26; Start 02/13/18 at 09:00 Valproic Acid (Depakene) 125 mg BID@1300,1700 PO Last administered on at 17:00; Start 02/13/18 at 13:00; Stop 02/14/18 at 18:50; Status DC Acetaminophen (Tylenol) 650 mg PRN Q6HRS PRN PO PAIN / TEMP; Start 02/12/18 at 23:45; Status UNV Vitamin D (Vitamin D3) 50,000 unit WEEKLY PO Last administered on 02/26/18at 10: 41; Start 02/19/18 at 09:00 Diclofenac Sodium (Voltaren) 1 krzysztof PRN Q6HRS PRN TP PAIN; Start 02/12/18 at 23: 45 Al Hydroxide/Mg Hydroxide (Mylanta Plus Xs) 15 ml PRN Q8HRS PRN PO DYSPEPSIA; Start 02/12/18 at 23:45; Status Cancel Multi-Ingredient Ointment (Analgesic [place]) 1 krzysztof PRN QID PRN TP PAIN; Start at 23:45; Status Cancel Apixaban (Eliquis) 5 mg DAILY PO Last administered on 02/13/18at 09:03; Start at 09:00; Stop 02/13/18 at 15:44; Status DC Levothyroxine Sodium (Synthroid) 50 mcg DAILY07 PO Last administered on at 05:47; Start 02/13/18 at 07:00 Magnesium Hydroxide (Milk Of Magnesia) 2,400 mg PRN QHS PRN PO CONSTIPATION; Start 02/12/18 at 23:45; Status Cancel Neomycin/ Polymyxin/ Dexamethasone (Maxitrol) 2 drop TID OU Last administered on 02/17/18at 10:41; Start 02/13/18 at 09:00; Stop 02/17/18 at 14:57; Status DC Quetiapine Fumarate (SEROquel) 12.5 mg TID@0900,1300,1700 PO Last administered on 02/17/18at 10:41; Start 02/14/18 at 09:00; Stop 02/17/18 at 16:14; Status DC Valproic Acid (Depakene) 125 mg DAILY08 PO Last administered on 02/15/18at 09:13 ; Start 02/15/18 at 08:00; Stop 02/15/18 at 09:15; Status DC Valproic Acid (Depakene) 250 mg QHS PO ; Start 02/14/18 at 21:00; Stop 02/14/18 at 21:00; Status DC Divalproex Sodium (Depakote Sprinkles) 250 mg HS PO Last administered on at 19:56; Start 02/14/18 at 21:00 Divalproex Sodium (Depakote Sprinkles) 125 mg DAILY@0900 PO Last administered on 03/01/18at 07:26; Start 02/16/18 at 09:00 Mirtazapine (Remeron) 7.5 mg QHS PO Last administered on 03/01/18at 19:55; Start 02/17/18 at 21:00 Quetiapine Fumarate (SEROquel) 12.5 mg DAILY@1700 PO Last administered on at 16:59; Start 02/17/18 at 17:00 Active Scripts Active Reported Voltaren (Diclofenac Sodium) 100 Gm Gel..gram. 1 Applic TP PRN Q6HRS PRN Tramadol Hcl (Tramadol HCl) 50 Mg Tablet 25 Mg PO PRN Q12HR PRN Risperidone 0.5 Mg Tablet 0.5 Mg PO QHS Risperidone 0.5 Mg Tablet 0.25 Mg PO DAILY Maxitrol Eye Ointment (Daniel/Polymyx B Sulf/Dexameth) 3.5 Gm Oint...g. 0.5 Inch OU TID Eliquis (Apixaban) 5 Mg Tablet 5 Mg PO DAILY Levothyroxine Sodium 50 Mcg Tablet 50 Mcg PO DAILYAC Analgesic [place] (Methyl Salicylate/Menthol) 28 Gm Oint...g. 1 Gm TP PRN QID PRN Milk Of Magnesia (Magnesium Hydroxide) 2,400 Mg/10 Ml Oral.susp 2,400 Mg PO PRN QHS PRN Mag-Al Plus Xs Suspension (Mag Hydrox/Al Hydrox/Simeth) 30 Ml Oral.susp 15 Ml PO PRN Q8HRS PRN Tylenol (Acetaminophen) 325 Mg Tablet 650 Mg PO PRN Q6HRS PRN Valproic Acid (Valproate Sodium) 250 Mg/5 Ml Solution 125 Mg PO BID@1300,1700 Mirtazapine 15 Mg Tablet 15 Mg PO QHS Zyprexa Zydis (Olanzapine) 5 Mg Tab.rapdis 2.5 Mg PO PRN Q2HR PRN maximum 10 mg in 24 hours D3-50 (Cholecalciferol (Vitamin D3)) 50,000 Unit Capsule 50,000 Unit PO WEEKLY Every Friday Sertraline Hcl 25 Mg Tablet 75 Mg PO DAILY Buspirone Hcl 5 Mg Tablet 7.5 Mg PO TID Melatonin 3 Mg Tablet 1.5 Mg PO QHS PRN Lorazepam 0.5 Mg Tablet 0.5 Mg PO PRN Q12HR PRN I have reviewed the current psychotropics carefully including drug interactions. Risk benefit ratio favors no change other than as noted in my dictated progress note. Diagnosis: Problems: (1) Anxiety disorder (2) Dementia in Alzheimer's disease with delusions (3) Dementia in Alzheimer's disease with depression (4) Dementia, vascular, with delusions (5) Dementia, vascular, with depression (6) Impulse control disorder KODY GODINEZ MD Mar 01, 2018 21:00
--- NOTE | 2018-03-02 00:19 | PN ---
DATE: 02/27/2018 PSYCHIATRIC PROGRESS NOTE This late entry 02/27/2018 covers elements not covered in my initial note. SUBJECTIVE: Met with the patient in the evening. The patient slept 7 hours previous evening. She has had her birthday and family visited. She was somewhat sedated during the day and staffs are holding her Seroquel consequent to this. REVIEW OF SYSTEMS: Ambulation impaired, in Broda chair. No CV, , pulmonary, eye, ENT system symptoms on review. Reliability poor. MENTAL STATUS EXAM: Oriented to herself. Insight, judgment, recent and remote memory, attention, concentration, fund of knowledge is poor, consistent with her diagnoses mentioned in my initial note. PLAN: No change from initial note. KODY GODINEZ MD DR: CAROLYN/maria isabel JOB#: [id number] / [id number]
[2018-03-02] MEDS: LEVOTHYROXINE 50 MCG TABLET PO SCH (06:25)
[2018-03-02 06:27] LABS: BASO # 0.1 x10^3/uL (0.0-0.2); BASO % 1 % (0-3); EOS # 0.1 x10^3/uL (0.0-0.7); EOS % 1 % (0-3); HEMOGLOBIN 12.3 g/dL (12.0-15.5); LYMPH # 1.7 x10^3/uL (1.0-4.8); LYMPH % 18 % (24-48); MEAN CORPUSCULAR HEMOGLOBIN 31 pg (25-35); MEAN CORPUSCULAR HGB CONC 33 g/dL (31-37); MEAN CORPUSCULAR VOLUME 92 fL (79-100); MONO # 0.8 x10^3/uL (0.0-1.1); MONO % 8 % (0-9); NEUT # 7.1 x10^3uL (1.8-7.7); NEUT % 73 % (31-73); PLATELET COUNT 322 x10^3/uL (140-400); RED BLOOD COUNT 4.02 x10^6/uL (3.50-5.40); RED CELL DISTRIBUTION WIDTH 14.5 % (11.5-14.5); WHITE BLOOD COUNT 9.7 x10^3/uL (4.0-11.0)
[2018-03-02 06:35] VITALS: BP 96/60
[2018-03-02 06:41] LABS: ALBUMIN 2.6 g/dL (3.4-5.0); ALBUMIN/GLOBULIN RATIO 0.7 (1.0-1.7); CALCIUM 8.8 mg/dL (8.5-10.1); CREATININE 0.8 mg/dL (0.6-1.0); GFR 69.4; POTASSIUM 4.6 mmol/L (3.5-5.1); TOTAL BILIRUBIN 0.2 mg/dL (0.2-1.0); TOTAL PROTEIN 6.4 g/dL (6.4-8.2)
[2018-03-02] MEDS: DIVALPROEX 125 MG CAP.SPRINK PO SCH ×2 (07:14→20:31)
[2018-03-02] MEDS: SERTRALINE 25 MG TABLET. PO SCH (07:14)
[2018-03-02] MEDS ORDERED: DIVA125C2 PO ×2 (15:38→15:39)
[2018-03-02 15:57] VITALS: BP 95/57
[2018-03-02] MEDS: QUEtiapine 25 MG TABLET. PO SCH (17:06)
[2018-03-02] MEDS: MIRTAZAPINE 7.5 MG TABLET. PO SCH (20:31)
--- NOTE | 2018-03-02 20:59 | PDOC ---
Exam Note: Wilmar Note: Please also refer to the separate dictated note~for this date of service dictated separately.~Patient seen individually. Discussed the patient with Nursing staff reviewed the chart.~Reviewed interim history and current functioning. Reviewed vital signs,~Labs/ Radiology~and current medications noted below. Continue current treatment with the changes noted in the dictated addendum note Assessment: Vital Signs: Vital Signs Date Time Temp Pulse Resp B/P (MAP) Pulse Ox O2 Delivery O2 Flow Rate FiO2 03/02/18 15:57 98.7 86 16 95/57 (70) 97 Room Air I&O Intake and Output 03/02/18 07:00 Intake Total 1805 ml Balance 1805 ml Intake Oral 1805 ml # Voids 1 # Bowel Movements 1 Labs: Laboratory Tests Test 03/02/18 06:17 White Blood Count 9.7 x10^3/uL (4.0-11.0) Red Blood Count 4.02 x10^6/uL (3.50-5.40) Hemoglobin 12.3 g/dL (12.0-15.5) Hematocrit 37.0 % (36.0-47.0) Mean Corpuscular Volume 92 fL (79-100) Mean Corpuscular Hemoglobin 31 pg (25-35) Mean Corpuscular Hemoglobin Concent 33 g/dL (31-37) Red Cell Distribution Width 14.5 % (11.5-14.5) Platelet Count 322 x10^3/uL (140-400) Neutrophils (%) (Auto) 73 % (31-73) Lymphocytes (%) (Auto) 18 % (24-48) L Monocytes (%) (Auto) 8 % (0-9) Eosinophils (%) (Auto) 1 % (0-3) Basophils (%) (Auto) 1 % (0-3) Neutrophils # (Auto) 7.1 x10^3uL (1.8-7.7) Lymphocytes # (Auto) 1.7 x10^3/uL (1.0-4.8) Monocytes # (Auto) 0.8 x10^3/uL (0.0-1.1) Eosinophils # (Auto) 0.1 x10^3/uL (0.0-0.7) Basophils # (Auto) 0.1 x10^3/uL (0.0-0.2) Sodium Level 144 mmol/L (136-145) Potassium Level 4.6 mmol/L (3.5-5.1) Chloride Level 107 mmol/L (98-107) Carbon Dioxide Level 31 mmol/L (21-32) Anion Gap 6 (6-14) Blood Urea Nitrogen 30 mg/dL (7-20) H Creatinine 0.8 mg/dL (0.6-1.0) Estimated GFR (Cockcroft-Gault) 69.4 BUN/Creatinine Ratio 38 (6-20) H Glucose Level 115 mg/dL (70-99) H Calcium Level 8.8 mg/dL (8.5-10.1) Total Bilirubin 0.2 mg/dL (0.2-1.0) Aspartate Amino Transferase (AST) 21 U/L (15-37) Alanine Aminotransferase (ALT) 33 U/L (14-59) Alkaline Phosphatase 90 U/L (46-116) Total Protein 6.4 g/dL (6.4-8.2) Albumin 2.6 g/dL (3.4-5.0) L Albumin/Globulin Ratio 0.7 (1.0-1.7) L Current Medications: Meds: Current Medications Acetaminophen (Tylenol) 650 mg PRN Q6HRS PRN PO PAIN / TEMP; Start 02/12/18 at 23:00 Multi-Ingredient Ointment (Analgesic [place]) 1 krzysztof PRN QID PRN TP MUSCLE PAIN; Start 02/12/18 at 23:00 Al Hydroxide/Mg Hydroxide (Mylanta Plus Xs) 15 ml PRN AFTMEALHC PRN PO DYSPEPSIA; Start 02/12/18 at 23:00 Magnesium Hydroxide (Milk Of Magnesia) 2,400 mg PRN QHS PRN PO CONSTIPATION; Start 02/12/18 at 23:00 Olanzapine (ZyPREXA ZYDIS) 2.5 mg PRN Q2HR PRN PO ANXIETY / AGITATION; Start at 23:45 Buspirone HCl (Buspar) 7.5 mg TID PO Last administered on 02/18/18at 14:09; Start 02/13/18 at 09:00; Stop 02/18/18 at 17:52; Status DC Lorazepam (Ativan) 0.5 mg PRN Q12HR PRN PO ANXIETY / AGITATION; Start 02/12/18 at 23:45 Melatonin 1.5 mg PRN QHS PRN PO INSOMNIA; Start 02/12/18 at 23:45 Mirtazapine (Remeron) 15 mg QHS PO Last administered on 02/16/18at 19:46; Start 02/13/18 at 21:00; Stop 02/17/18 at 16:14; Status DC Risperidone (RisperDAL) 0.25 mg DAILY PO Last administered on 02/13/18at 09:03; Start 02/13/18 at 09:00; Stop 02/13/18 at 17:09; Status DC Risperidone (RisperDAL) 0.5 mg QHS PO ; Start 02/13/18 at 21:00; Stop 02/13/18 at 21:00; Status DC Sertraline HCl (Zoloft) 75 mg DAILY PO Last administered on 03/02/18at 07:14; Start 02/13/18 at 09:00 Valproic Acid (Depakene) 125 mg BID@1300,1700 PO Last administered on at 17:00; Start 02/13/18 at 13:00; Stop 02/14/18 at 18:50; Status DC Acetaminophen (Tylenol) 650 mg PRN Q6HRS PRN PO PAIN / TEMP; Start 02/12/18 at 23:45; Status UNV Vitamin D (Vitamin D3) 50,000 unit WEEKLY PO Last administered on 02/26/18at 10: 41; Start 02/19/18 at 09:00 Diclofenac Sodium (Voltaren) 1 krzysztof PRN Q6HRS PRN TP PAIN; Start 02/12/18 at 23: 45 Al Hydroxide/Mg Hydroxide (Mylanta Plus Xs) 15 ml PRN Q8HRS PRN PO DYSPEPSIA; Start 02/12/18 at 23:45; Status Cancel Multi-Ingredient Ointment (Analgesic [place]) 1 krzysztof PRN QID PRN TP PAIN; Start at 23:45; Status Cancel Apixaban (Eliquis) 5 mg DAILY PO Last administered on 02/13/18at 09:03; Start at 09:00; Stop 02/13/18 at 15:44; Status DC Levothyroxine Sodium (Synthroid) 50 mcg DAILY07 PO Last administered on at 06:25; Start 02/13/18 at 07:00 Magnesium Hydroxide (Milk Of Magnesia) 2,400 mg PRN QHS PRN PO CONSTIPATION; Start 02/12/18 at 23:45; Status Cancel Neomycin/ Polymyxin/ Dexamethasone (Maxitrol) 2 drop TID OU Last administered on 02/17/18at 10:41; Start 02/13/18 at 09:00; Stop 02/17/18 at 14:57; Status DC Quetiapine Fumarate (SEROquel) 12.5 mg TID@0900,1300,1700 PO Last administered on 02/17/18at 10:41; Start 02/14/18 at 09:00; Stop 02/17/18 at 16:14; Status DC Valproic Acid (Depakene) 125 mg DAILY08 PO Last administered on 02/15/18at 09:13 ; Start 02/15/18 at 08:00; Stop 02/15/18 at 09:15; Status DC Valproic Acid (Depakene) 250 mg QHS PO ; Start 02/14/18 at 21:00; Stop 02/14/18 at 21:00; Status DC Divalproex Sodium (Depakote Sprinkles) 250 mg HS PO Last administered on at 20:31; Start 02/14/18 at 21:00 Divalproex Sodium (Depakote Sprinkles) 125 mg DAILY@0900 PO Last administered on 03/02/18at 07:14; Start 02/16/18 at 09:00 Mirtazapine (Remeron) 7.5 mg QHS PO Last administered on 03/02/18at 20:31; Start 02/17/18 at 21:00 Quetiapine Fumarate (SEROquel) 12.5 mg DAILY@1700 PO Last administered on at 17:06; Start 02/17/18 at 17:00 Active Scripts Active Reported Depakote Sprinkle (Divalproex Sodium) 125 Mg Cap.sprink 250 Mg PO Depakote Sprinkle (Divalproex Sodium) 125 Mg Cap.sprink 125 Mg PO Voltaren (Diclofenac Sodium) 100 Gm Gel..gram. 1 Applic TP PRN Q6HRS PRN Tramadol Hcl (Tramadol HCl) 50 Mg Tablet 25 Mg PO PRN Q12HR PRN Risperidone 0.5 Mg Tablet 0.5 Mg PO QHS Risperidone 0.5 Mg Tablet 0.25 Mg PO DAILY Maxitrol Eye Ointment (Daniel/Polymyx B Sulf/Dexameth) 3.5 Gm Oint...g. 0.5 Inch OU TID Eliquis (Apixaban) 5 Mg Tablet 5 Mg PO DAILY Levothyroxine Sodium 50 Mcg Tablet 50 Mcg PO DAILYAC Analgesic [place] (Methyl Salicylate/Menthol) 28 Gm Oint...g. 1 Gm TP PRN QID PRN Milk Of Magnesia (Magnesium Hydroxide) 2,400 Mg/10 Ml Oral.susp 2,400 Mg PO PRN QHS PRN Mag-Al Plus Xs Suspension (Mag Hydrox/Al Hydrox/Simeth) 30 Ml Oral.susp 15 Ml PO PRN Q8HRS PRN Tylenol (Acetaminophen) 325 Mg Tablet 650 Mg PO PRN Q6HRS PRN Valproic Acid (Valproate Sodium) 250 Mg/5 Ml Solution 125 Mg PO BID@1300,1700 Mirtazapine 15 Mg Tablet 15 Mg PO QHS Zyprexa Zydis (Olanzapine) 5 Mg Tab.rapdis 2.5 Mg PO PRN Q2HR PRN maximum 10 mg in 24 hours D3-50 (Cholecalciferol (Vitamin D3)) 50,000 Unit Capsule 50,000 Unit PO WEEKLY Every Friday Sertraline Hcl 25 Mg Tablet 75 Mg PO DAILY Buspirone Hcl 5 Mg Tablet 7.5 Mg PO TID Melatonin 3 Mg Tablet 1.5 Mg PO QHS PRN Lorazepam 0.5 Mg Tablet 0.5 Mg PO PRN Q12HR PRN I have reviewed the current psychotropics carefully including drug interactions. Risk benefit ratio favors no change other than as noted in my dictated progress note. Diagnosis: Problems: (1) Anxiety disorder (2) Dementia in Alzheimer's disease with delusions (3) Dementia in Alzheimer's disease with depression (4) Dementia, vascular, with delusions (5) Dementia, vascular, with depression (6) Impulse control disorder KODY GODINEZ MD Mar 02, 2018 20:59
--- NOTE | 2018-03-02 22:06 | PN ---
DATE: 02/28/2018 This is a late entry for 02/28/2018 covers elements not covered in my initial note. SUBJECTIVE: I met with the patient in the evening. The patient was resistive to medications in the morning, was hitting, punching in the evening, restless, anxious, takes her meds in pudding. Family did not visit on 02/28/2018. REVIEW OF SYSTEMS: Ambulation impaired, in Broda chair. No CV, , pulmonary, eye, ENT system symptoms on review. Reliability poor. MENTAL STATUS EXAM: Oriented to herself. Insight, judgment, recent and remote memory, attention, concentration, fund of knowledge poor, consistent with her diagnosis mentioned in my initial note. PLAN: No change from initial note. MAN Araceli GODINEZ MD DR: CAROLYN/maria isabel JOB#: [id number] / [id number]
--- NOTE | 2018-03-02 22:58 | PN ---
DATE: 03/01/2018 This is a late entry, 03/01/2018, covers the elements not covered in my initial note. SUBJECTIVE: I met with the patient in the evening. The patient slept 8-1/4 hours previous night. She has been confused, calm, less resistive and combative. Compliant with medications. REVIEW OF SYSTEMS: Ambulation impaired, in Broda chair. No CV, , pulmonary, eye, ENT system symptoms on review. Reliability poor. MENTAL STATUS EXAM: Oriented to herself. Insight, judgment, recent and remote memory, attention, concentration, fund of knowledge poor, consistent with her diagnosis as mentioned in my initial note. PLAN: No change from initial note. KODY GODINEZ MD DR: CAROLYN/maria isabel JOB#: [id number] / [id number]
[2018-03-03] MEDS ORDERED: MAGN400O7 PO (00:33)
[2018-03-03] MEDS ORDERED: MAG30ORA PO (00:34)
[2018-03-03] MEDS ORDERED: QUET25TA5 PO (00:35)
[2018-03-03] MEDS ORDERED: SERT25TA PO (00:36)
[2018-03-03] MEDS: LEVOTHYROXINE 50 MCG TABLET PO SCH (06:13)
[2018-03-03 06:35] VITALS: BP 108/60
[2018-03-03] MEDS: DIVALPROEX 125 MG CAP.SPRINK PO SCH (09:47)
[2018-03-03] MEDS: SERTRALINE 25 MG TABLET. PO SCH (09:47)
--- NOTE | 2018-03-03 20:47 | PDOC ---
Exam Note: Wilmar Note: Please also refer to the separate dictated note~for this date of service dictated separately.~Patient seen individually. Discussed the patient with Nursing staff reviewed the chart.~Reviewed interim history and current functioning. Reviewed vital signs,~Labs/ Radiology~and current medications noted below. Continue current treatment with the changes noted in the dictated addendum note Assessment: Vital Signs: Vital Signs Date Time Temp Pulse Resp B/P (MAP) Pulse Ox O2 Delivery O2 Flow Rate FiO2 03/03/18 06:35 98.3 71 18 108/60 (76) 97 03/02/18 15:57 Room Air I&O Intake and Output 03/03/18 07:00 Intake Total 890 ml Balance 890 ml Intake Oral 890 ml # Voids 2 Current Medications: Meds: Current Medications Acetaminophen (Tylenol) 650 mg PRN Q6HRS PRN PO PAIN / TEMP; Start 02/12/18 at 23:00; Stop 03/03/18 at 11:50; Status DC Multi-Ingredient Ointment (Analgesic [place]) 1 krzysztof PRN QID PRN TP MUSCLE PAIN; Start 02/12/18 at 23:00; Stop 03/03/18 at 11:50; Status DC Al Hydroxide/Mg Hydroxide (Mylanta Plus Xs) 15 ml PRN AFTMEALHC PRN PO DYSPEPSIA; Start 02/12/18 at 23:00; Stop 03/03/18 at 11:50; Status DC Magnesium Hydroxide (Milk Of Magnesia) 2,400 mg PRN QHS PRN PO CONSTIPATION; Start 02/12/18 at 23:00; Stop 03/03/18 at 11:50; Status DC Olanzapine (ZyPREXA ZYDIS) 2.5 mg PRN Q2HR PRN PO ANXIETY / AGITATION; Start at 23:45; Stop 03/03/18 at 11:50; Status DC Buspirone HCl (Buspar) 7.5 mg TID PO Last administered on 02/18/18at 14:09; Start 02/13/18 at 09:00; Stop 02/18/18 at 17:52; Status DC Lorazepam (Ativan) 0.5 mg PRN Q12HR PRN PO ANXIETY / AGITATION; Start 02/12/18 at 23:45; Stop 03/03/18 at 11:50; Status DC Melatonin 1.5 mg PRN QHS PRN PO INSOMNIA; Start 02/12/18 at 23:45; Stop at 11:50; Status DC Mirtazapine (Remeron) 15 mg QHS PO Last administered on 02/16/18at 19:46; Start 02/13/18 at 21:00; Stop 02/17/18 at 16:14; Status DC Risperidone (RisperDAL) 0.25 mg DAILY PO Last administered on 02/13/18at 09:03; Start 02/13/18 at 09:00; Stop 02/13/18 at 17:09; Status DC Risperidone (RisperDAL) 0.5 mg QHS PO ; Start 02/13/18 at 21:00; Stop 02/13/18 at 21:00; Status DC Sertraline HCl (Zoloft) 75 mg DAILY PO Last administered on 03/03/18at 09:47; Start 02/13/18 at 09:00; Stop 03/03/18 at 11:50; Status DC Valproic Acid (Depakene) 125 mg BID@1300,1700 PO Last administered on at 17:00; Start 02/13/18 at 13:00; Stop 02/14/18 at 18:50; Status DC Acetaminophen (Tylenol) 650 mg PRN Q6HRS PRN PO PAIN / TEMP; Start 02/12/18 at 23:45; Status UNV Vitamin D (Vitamin D3) 50,000 unit WEEKLY PO Last administered on 02/26/18at 10: 41; Start 02/19/18 at 09:00; Stop 03/03/18 at 11:50; Status DC Diclofenac Sodium (Voltaren) 1 krzysztof PRN Q6HRS PRN TP PAIN; Start 02/12/18 at 23: 45; Stop 03/03/18 at 11:50; Status DC Al Hydroxide/Mg Hydroxide (Mylanta Plus Xs) 15 ml PRN Q8HRS PRN PO DYSPEPSIA; Start 02/12/18 at 23:45; Status Cancel Multi-Ingredient Ointment (Analgesic [place]) 1 krzysztof PRN QID PRN TP PAIN; Start at 23:45; Status Cancel Apixaban (Eliquis) 5 mg DAILY PO Last administered on 02/13/18at 09:03; Start at 09:00; Stop 02/13/18 at 15:44; Status DC Levothyroxine Sodium (Synthroid) 50 mcg DAILY07 PO Last administered on at 06:13; Start 02/13/18 at 07:00; Stop 03/03/18 at 11:50; Status DC Magnesium Hydroxide (Milk Of Magnesia) 2,400 mg PRN QHS PRN PO CONSTIPATION; Start 02/12/18 at 23:45; Status Cancel Neomycin/ Polymyxin/ Dexamethasone (Maxitrol) 2 drop TID OU Last administered on 02/17/18at 10:41; Start 02/13/18 at 09:00; Stop 02/17/18 at 14:57; Status DC Quetiapine Fumarate (SEROquel) 12.5 mg TID@0900,1300,1700 PO Last administered on 02/17/18at 10:41; Start 02/14/18 at 09:00; Stop 02/17/18 at 16:14; Status DC Valproic Acid (Depakene) 125 mg DAILY08 PO Last administered on 02/15/18at 09:13 ; Start 02/15/18 at 08:00; Stop 02/15/18 at 09:15; Status DC Valproic Acid (Depakene) 250 mg QHS PO ; Start 02/14/18 at 21:00; Stop 02/14/18 at 21:00; Status DC Divalproex Sodium (Depakote Sprinkles) 250 mg HS PO Last administered on at 20:31; Start 02/14/18 at 21:00; Stop 03/03/18 at 11:50; Status DC Divalproex Sodium (Depakote Sprinkles) 125 mg DAILY@0900 PO Last administered on 03/03/18at 09:47; Start 02/16/18 at 09:00; Stop 03/03/18 at 11:50; Status DC Mirtazapine (Remeron) 7.5 mg QHS PO Last administered on 03/02/18at 20:31; Start 02/17/18 at 21:00; Stop 03/03/18 at 11:50; Status DC Quetiapine Fumarate (SEROquel) 12.5 mg DAILY@1700 PO Last administered on at 17:06; Start 02/17/18 at 17:00; Stop 03/03/18 at 11:50; Status DC Active Scripts Active Reported Zoloft (Sertraline Hcl) 25 Mg Tablet 75 Mg PO DAILY Seroquel (Quetiapine Fumarate) 25 Mg Tablet 12.5 Mg PO DAILY17 Mag-Al Plus Suspension (Mag Hydrox/Al Hydrox/Simeth) 30 Ml Oral.susp 15 Ml PO PRN QID PRN Milk Of Magnesia (Magnesium Hydroxide) 400 Mg/5 Ml Oral.susp 2,400 Mg PO PRN DAILY PRN Depakote Sprinkle (Divalproex Sodium) 125 Mg Cap.sprink 250 Mg PO QHS Depakote Sprinkle (Divalproex Sodium) 125 Mg Cap.sprink 125 Mg PO DAILY Voltaren (Diclofenac Sodium) 100 Gm Gel..gram. 1 Applic TP PRN Q6HRS PRN Levothyroxine Sodium 50 Mcg Tablet 50 Mcg PO DAILYAC Analgesic [place] (Methyl Salicylate/Menthol) 28 Gm Oint...g. 1 Gm TP PRN QID PRN Tylenol (Acetaminophen) 325 Mg Tablet 650 Mg PO PRN Q6HRS PRN Mirtazapine 15 Mg Tablet 7.5 Mg PO QHS Zyprexa Zydis (Olanzapine) 5 Mg Tab.rapdis 2.5 Mg PO PRN Q2HR PRN maximum 10 mg in 24 hours D3-50 (Cholecalciferol (Vitamin D3)) 50,000 Unit Capsule 50,000 Unit PO WEEKLY Every Friday Melatonin 3 Mg Tablet 1.5 Mg PO QHS PRN Lorazepam 0.5 Mg Tablet 0.5 Mg PO PRN Q12HR PRN I have reviewed the current psychotropics carefully including drug interactions. Risk benefit ratio favors no change other than as noted in my dictated progress note. Diagnosis: Problems: (1) Dementia with behavioral disturbance (2) Anxiety disorder (3) Dementia in Alzheimer's disease with delusions (4) Dementia in Alzheimer's disease with depression (5) Dementia, vascular, with delusions (6) Dementia, vascular, with depression (7) Impulse control disorder KODY GODINEZ MD Mar 03, 2018 20:47
--- NOTE | 2018-03-03 21:44 | PN ---
DATE: 03/02/2018 PSYCHIATRIC PROGRESS NOTE This is a late entry 03/02/2018 covers elements not covered in my initial notes. SUBJECTIVE: I met with the patient in the evening. Overall, the patient remains withdrawn, slept 8 hours previous evening. She has not been agitated. Often in Broda chair with eyes closed, oriented just to herself. REVIEW OF SYSTEMS: Ambulation impaired. No CV, , pulmonary, eye, ENT system symptoms on review. She is not forthcoming on questioning about review of systems consequent to her dementia. MENTAL STATUS EXAM: Oriented to herself. Insight, judgment, recent and remote memory, attention, concentration, fund of knowledge poor, consistent with her diagnosis mentioned in my initial note. PLAN: No change from initial note. Possible transition to [facility] 03/03/2018. MAN Araceli GODINEZ MD DR: CAROLYN/maria isabel JOB#: [id number] / [id number]
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
== END 2018-03-03 11:49 | DRG 57 ==
LOC: GEROPSY 22:52
PROVIDERS: ADMIT Psychiatry & Neurology Psychiatry; ATTEND Psychiatry & Neurology Psychiatry
DX: G30.9 Alzheimer's disease, unspecified (principal); F01.51 Vascular dementia, unspecified severity, with behavioral disturbance; F02.81 Dementia in other diseases classified elsewhere, unspecified severity, with behavioral disturbance; I10 Essential (primary) hypertension; E03.9 Hypothyroidism, unspecified; E78.5 Hyperlipidemia, unspecified; Z66 Do not resuscitate; Z96.651 Presence of right artificial knee joint; F41.9 Anxiety disorder, unspecified; F32.9 Major depressive disorder, single episode, unspecified; F63.9 Impulse disorder, unspecified; Z86.718 Personal history of other venous thrombosis and embolism; Z87.01 Personal history of pneumonia (recurrent); Z90.13 Acquired absence of bilateral breasts and nipples; Z90.710 Acquired absence of both cervix and uterus; Z79.899 Other long term (current) drug therapy
CPT/HCPCS: 36415; 80053; 80061; 80164; 81001; 82306; 82607; 83036; 83540; 83550; 84436; 84443; 84480; 85025; 85027; 86592; 93005; 92610; 97116; 97530